=== PATIENT | male | born 1965 | race Hispanic/Latino ===

== ENCOUNTER 2016-08-08 20:30 | Observation (INO) | payer MEDICAID, OTHER ==
[2016-08-08 20:34] VITALS: BMI 22.8
[2016-08-08 20:38] VITALS: RESP 18; TEMP 98.1; O2SAT 99
--- NOTE | 2016-08-08 21:06 | ED PDOC ---
Arrival/HPI - General Historian: Patient - History of Present Illness Time/Duration: Prior to Arrival Quality: Other (no pain) <Demi Brown - Last Filed: 08/09/16 01:56> <Aftab Walters - Last Filed: 08/09/16 06:24> - General Chief Complaint: Alcohol Ingestion Time Seen by Provider: 08/08/16 20:37 - History of Present Illness Narrative History of Present Illness (Text): 08/08/16 21:03 50-year-old male presents today with acute alcohol intoxication. Patient admits to drinking alcohol today. States he fell. Denying any complaints. (Demi Brown) Past Medical History - Provider Review Nursing Documentation Reviewed: Yes - Travel History Have you recently traveled outside [place] w/in the past 3 mons?: No - Infectious Disease Hx of Infectious Diseases: None - Tetanus Immunization Tetanus Immunization: Unknown - Past Medical History Past Medical History: Unable to Obtain - Cardiac Hx Cardiac Disorders: Yes (CAD) Hx Hypertension: Yes - Pulmonary Hx Respiratory Disorders: Yes (SMOKED CIGARETTES QUIT 15 YRS AGO) - Neurological Hx Neurological Disorder: Yes Hx Transient Ischemic Attacks (TIA): Yes - HEENT Hx HEENT Disorder: No - Renal Hx Renal Disorder: No - Endocrine/Metabolic Hx Endocrine Disorders: No - Hematological/Oncological Hx Blood Disorders: No - Integumentary Hx Dermatological Disorder: No - Musculoskeletal/Rheumatological Hx Musculoskeletal Disorders: Yes Hx Falls: Yes (2 yrs ago fell 0ff ladder) - Gastrointestinal Hx Gastrointestinal Disorders: No - Genitourinary/Gynecological Hx Genitourinary Disorders: No - Psychiatric Hx Psychophysiologic Disorder: Yes (SMOKED CIGARETTES,ETOH ABUSE DRINKS VODKA 2 PINTS DAILY) Hx Depression: No Hx Emotional Abuse: No Hx Physical Abuse: No Hx Substance Use: No - Past Surgical History Past Surgical History: Unable to Obtain - Surgical History Hx Musculoskeletal Surgery: Yes (right hip and hand, facial fracture repair) Other/Comment: right wrist injury, bone marrow taken from right hip and inserted into fx bone in right hand along with metal, metal has since been removed, 23 yrs ago at [facility] [place] [facility] - Anesthesia Hx Anesthesia: Yes Hx Anesthesia Reactions: No Hx Malignant Hyperthermia: No - Suicidal Assessment Feels Threatened In Home Enviroment: No <Demi Brown - Last Filed: 08/09/16 01:56> Family/Social History - Physician Review Nursing Documentation Reviewed: Yes Family/Social History: Unknown Family HX Smoking Status: Former Smoker Hx Alcohol Use: Yes (DRINKS 2 PINTS OF VODKA DAILY. LAST DRANK 3 D AGO.2 PINTS OF VODKA AND LIQU) Frequency of alcohol use: Daily Hx Substance Use: No Hx Substance Use Treatment: No <KevinDemi T - Last Filed: 08/09/16 01:56> Allergies/Home Meds <Demi Brown - Last Filed: 08/09/16 01:56> <Aftab Walters - Last Filed: 08/09/16 06:24> Allergies/Adverse Reactions: Allergies coconut oil Allergy (Verified 03/17/16 16:11) RASH cranberry Allergy (Verified 03/17/16 16:11) SWELLING Home Medications: Home Meds Medication Instructions Recorded Confirmed Lisinopril [Zestril] 40 mg PO DAILY 07/12/15 03/17/16 amLODIPine [Norvasc] 10 mg PO DAILY 07/12/15 03/17/16 Review of Systems - Review of Systems Constitutional: absent: Fatigue, Fevers Respiratory: absent: SOB, Cough Cardiovascular: absent: Chest Pain, Palpitations Gastrointestinal: absent: Abdominal Pain, Nausea, Vomiting Musculoskeletal: absent: Arthralgias, Back Pain, Neck Pain Skin: absent: Rash Neurological: absent: Headache, Dizziness Psychiatric: absent: Suicidal Ideation <KevinDemi T - Last Filed: 08/09/16 01:56> Physical Exam Vital Signs Reviewed: Yes Temperature: Afebrile Blood Pressure: Hypertensive Pulse: Regular Respiratory Rate: Normal Appearance: Positive for: Well-Appearing, Non-Toxic, Comfortable Pain Distress: None Mental Status: Positive for: other (intoxicated) - Systems Exam Head: Present: Abrasion (top of scalp) Pupils: Present: PERRL Conjunctiva: Present: Normal Mouth: Present: Moist Mucous Membranes Neck: Present: Normal Range of Motion. No: MIDLINE TENDERNESS Respiratory/Chest: Present: Clear to Auscultation, Good Air Exchange. No: Respiratory Distress, Accessory Muscle Use Cardiovascular: Present: Regular Rate and Rhythm, Normal S1, S2. No: Murmurs Abdomen: Present: Normal Bowel Sounds. No: Tenderness, Distention, Peritoneal Signs, Rebound, Guarding Back: Present: Normal Inspection Upper Extremity: Present: Normal ROM Lower Extremity: Present: Normal ROM Skin: Present: Warm, Dry Psychiatric: Present: Alert, Intoxicated <Demi Brown - Last Filed: 08/09/16 01:56> Medical Decision Making <Demi Brown - Last Filed: 08/09/16 01:56> <Aftab Walters - Last Filed: 08/09/16 06:24> ED Course and Treatment: 08/08/16 21:28 Patient is nontoxic well-appearing in no distress vital signs are stable. pt admits to drinking ETOH. CBC WNL CMP WNL Alcohol level:[address]:FINDINGS: Artifacts: Streak artifact degrades image quality. Brain: Ventricles are normal in size and configuration. There is no midline shift. There are no intraaxial or extra-axial mass lesions or areas of hemorrhage. There are basal ganglia calcifications. There are no abnormal fluid collections. Vinson-white differentiation is maintained. Ventricles: See above. Bones: Cranial vault is intact. Soft tissues: unremarkable Sinuses: There is no acute sinusitis. Ears and mastoids: Middle ears and mastoids are unremarkable Orbits: Orbital contents are unremarkable. IMPRESSION: No acute intracranial abnormality ekg: Normal sinus rhythm at 73 bpm normal axis normal intervals no ST elevations 08/09/16 01:56 case signed out to dr. walters; pending sobriety. Impression;etoh intoxication. head injury increase fluids follow up with the primary care physician return if symptoms worsen,persist or if new symptoms develop. (Demi Brown) - RAD Interpretation Radiology Orders: 08/08/16 21:03 HEAD W/O CONTRAST [CT] Stat ED OBSERVATION Date of observation admission: 08/08/16 Time of observation admission: 21:05 <Demi Brown - Last Filed: 08/09/16 01:56> Discharge: Yes (Pt. is awake,alert,sober with steady gait.) <Aftab Walters - Last Filed: 08/09/16 06:24> - Observation admission statement Patient is being placed in observation because:: etoh intoxication (Demi Brown) - Goals of Observation Goals of observation are:: sobriety (Demi Brown) - Progress Note Progress Note: 08/08/16 23:02 pt resting comfortably; no distress. 08/09/16 00:47 pt resting comfortably; vitals stable. (Demi Brown) 08/09/16 02:00 Case endorsed to me by SIENA Brown pending soberity. 08/09/16 04:03 Patient is resting comfortably and in no acute distress. (Aftab Walters) - PA / CORPORATE STRATEGY ANALYST / 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 / has examined the patient and agrees with the treatment plan. <Aftab Walters - Last Filed: 08/09/16 06:24> Disposition/Present on Arrival - Present on Arrival Any Indicators Present on Arrival: No History of DVT/PE: No History of Uncontrolled Diabetes: No Urinary Catheter: No History of Decub. Ulcer: No History Surgical Site Infection Following: None - Disposition Have Diagnosis and Disposition been Completed?: Yes <Demi Brown - Last Filed: 08/09/16 01:56> - Present on Arrival Any Indicators Present on Arrival: No - Disposition Have Diagnosis and Disposition been Completed?: Yes Disposition Time: 06:24 Patient Plan: Discharge <Aftab Walters - Last Filed: 08/09/16 06:24> - Disposition Diagnosis: Alcohol abuse Disposition: HOME/ ROUTINE Patient Problems: Current Active Problems Problem Status Onset Alcohol abuse Acute Condition: GOOD
[2016-08-08 22:44] LABS: ADD MANUAL DIFF? NO
[2016-08-08 22:53] LABS: BASO # 0.02 K/mm3 (0.0-2.0); BASO % 0.2 % (0.0-3.0); EOS # 0.2 (0.0-0.7); EOS % 1.7 % (1.5-5.0); GRAN % 68.6 % (50.0-68.0); HEMATOCRIT 45.9 % (42.0-52.0); LYMPH # 2.1 (1.2-3.4); MEAN CELL VOLUME 89.8 fL (80.0-105.0); MEAN CORPUSCULAR HEMOGLOBIN 31.3 pg (25.0-35.0); MEAN CORPUSCULAR HGB CONC 34.9 g/dl (31.0-37.0); MEAN PLATELET VOLUME 9.4 fl (7.0-11.0); MONO # 0.5 (0.1-0.6); MONO % 5.5 % (1.0-6.0); PLATELET COUNT 315 10^3/uL (120.0-450.0); WHITE BLOOD COUNT 8.8 10^3/ul (4.5-11.0)
[2016-08-08 23:00] LABS: ALB/GLOB RATIO 1.1 (1.1-1.8); ALKALINE PHOSPHATASE 70 U/L (38-133); ALT/SGPT 34 U/L (7-56); AST/SGOT 33 U/L (15-59); BILIRUBIN,TOTAL 0.5 mg/dL (0.2-1.3); BLOOD UREA NITROGEN 12 mg/dL (7-21); CALCIUM 9.1 mg/dL (8.4-10.5); CARBON DIOXIDE 26 mmol/L (21-33); CHLORIDE 109 mmol/L (98-107); GFR AFRICAN-AMERICAN > 60; GLUCOSE,RANDOM 86 mg/dL (70-110); POTASSIUM 4.4 mmol/L (3.6-5.0); SODIUM 147 mmol/L (132-148); TOTAL PROTEIN 8.5 g/dL (5.8-8.3)
--- NOTE | 2016-08-09 00:09 | CT ---
EXAM: CT Head Without Intravenous Contrast CLINICAL HISTORY: 50 years old, male; Injury or trauma; Fall; Initial encounter; Blunt trauma (contusions or hematomas); Consciousness not specified; Additional info: ETOH head injury TECHNIQUE: Axial computed tomography images of the head/brain without intravenous contrast. This CT exam was performed using one or more of the following dose reduction techniques: automated exposure control, adjustment of the mA and/or kV according to patient size, and/or use of iterative reconstruction technique. EXAM DATE/TIME: 08/08/2016 9:03 PM COMPARISON: CT - HEAD W/O CONTRAST 03/17/2016 12:06:31 PM FINDINGS: Artifacts: Streak artifact degrades image quality. Brain: Ventricles are normal in size and configuration. There is no midline shift. There are no intra-axial or extra-axial mass lesions or areas of hemorrhage. There are basal ganglia calcifications. There are no abnormal fluid collections. Vinson-white differentiation is maintained. Ventricles: See above. Bones: Cranial vault is intact. Soft tissues: unremarkable Sinuses: There is no acute sinusitis. Ears and mastoids: Middle ears and mastoids are unremarkable Orbits: Orbital contents are unremarkable. IMPRESSION: No acute intracranial abnormality
[2016-08-09 05:22] VITALS: BP 132/70; PULSE 65
--- NOTE | 2016-08-09 12:07 | CARD ---
APPROVED REPORT EKG Measurement Heart [id number] [place] [id number] <Conclusion> Normal sinus rhythm Normal ECG
== END 2016-08-09 06:22 | disposition home or self-care (01) ==
LOC: ED 20:30 → EROBSV 21:04
PROVIDERS: ADMIT Emergency Medicine; ATTEND Emergency Medicine
DX: F10.10 Alcohol abuse, uncomplicated (principal); Y90.8 Blood alcohol level of 240 mg/100 ml or more
CPT/HCPCS: 36415; 70450; 80053; 80320; 82948; 85025; 93005; 99284; G0378

== ENCOUNTER 2016-08-25 21:26 | Observation (INO) | payer MEDICAID, OTHER ==
[2016-08-25 21:27] VITALS: BMI 22.8
--- NOTE | 2016-08-25 21:38 | ED PDOC ---
Arrival/HPI - General Historian: Patient <Demi Brown - Last Filed: 08/26/16 01:26> <Aftab Walters - Last Filed: 08/26/16 07:01> - General Chief Complaint: Alcohol Ingestion Time Seen by Provider: 08/25/16 21:27 - History of Present Illness Narrative History of Present Illness (Text): 08/25/16 21:35 50yr old male presents today with ETOH intoxication. pt states that he was drinking today. denies any complaints. EMS states they were called to patient sleeping on the ground. pt states he is unsure how he ended up on the ground. pt denies n/v/d. no abdominal pain. denies headache. no complaints. (Demi Brown) Past Medical History - Provider Review Nursing Documentation Reviewed: Yes - Travel History Have you recently traveled outside [place] w/in the past 3 mons?: No - Infectious Disease Hx of Infectious Diseases: None - Tetanus Immunization Tetanus Immunization: Unknown - Past Medical History Past Medical History: Unable to Obtain - Cardiac Hx Cardiac Disorders: Yes (CAD) Hx Hypertension: Yes - Pulmonary Hx Respiratory Disorders: Yes (SMOKED CIGARETTES QUIT 15 YRS AGO) - Neurological Hx Neurological Disorder: Yes Hx Transient Ischemic Attacks (TIA): Yes - HEENT Hx HEENT Disorder: No - Renal Hx Renal Disorder: No - Endocrine/Metabolic Hx Endocrine Disorders: No - Hematological/Oncological Hx Blood Disorders: No - Integumentary Hx Dermatological Disorder: No - Musculoskeletal/Rheumatological Hx Musculoskeletal Disorders: Yes Hx Falls: Yes (2 yrs ago fell 0ff ladder) - Gastrointestinal Hx Gastrointestinal Disorders: No - Genitourinary/Gynecological Hx Genitourinary Disorders: No - Psychiatric Hx Psychophysiologic Disorder: Yes (SMOKED CIGARETTES,ETOH ABUSE DRINKS VODKA 2 PINTS DAILY) Hx Depression: No Hx Emotional Abuse: No Hx Physical Abuse: No Hx Substance Use: No - Past Surgical History Past Surgical History: Unable to Obtain - Surgical History Hx Musculoskeletal Surgery: Yes (right hip and hand, facial fracture repair) Other/Comment: right wrist injury, bone marrow taken from right hip and inserted into fx bone in right hand along with metal, metal has since been removed, 23 yrs ago at [facility] - Anesthesia Hx Anesthesia: Yes Hx Anesthesia Reactions: No Hx Malignant Hyperthermia: No - Suicidal Assessment Feels Threatened In Home Enviroment: No <Demi Brown - Last Filed: 08/26/16 01:26> Family/Social History - Physician Review Nursing Documentation Reviewed: Yes Family/Social History: Unknown Family HX Smoking Status: Former Smoker Hx Alcohol Use: Yes (DRINKS 2 PINTS OF VODKA DAILY. LAST DRANK 3 D AGO.2 PINTS OF VODKA AND LIQU) Hx Substance Use: No Hx Substance Use Treatment: No <Pepito Brownbrittany Murphy - Last Filed: 08/26/16 01:26> Allergies/Home Meds <KevinDemi T - Last Filed: 08/26/16 01:26> <Aftab Walters - Last Filed: 08/26/16 07:01> Allergies/Adverse Reactions: Allergies coconut oil Allergy (Verified 03/17/16 16:11) RASH cranberry Allergy (Verified 03/17/16 16:11) SWELLING Home Medications: Home Meds Medication Instructions Recorded Confirmed Lisinopril [Zestril] 40 mg PO DAILY 07/12/15 03/17/16 amLODIPine [Norvasc] 10 mg PO DAILY 07/12/15 03/17/16 Review of Systems - Review of Systems Constitutional: absent: Fatigue, Fevers Respiratory: absent: SOB, Cough Cardiovascular: absent: Chest Pain Gastrointestinal: absent: Abdominal Pain, Nausea, Vomiting Genitourinary Male: absent: Dysuria Musculoskeletal: absent: Arthralgias, Back Pain, Neck Pain Neurological: absent: Headache, Dizziness Psychiatric: absent: Depression, Suicidal Ideation <Demi Brown Katherine - Last Filed: 08/26/16 01:26> Physical Exam Vital Signs Reviewed: Yes Temperature: Afebrile Blood Pressure: Hypertensive Pulse: Regular Respiratory Rate: Normal Appearance: Positive for: Well-Appearing, Non-Toxic, Comfortable Pain Distress: None Mental Status: Positive for: Alert and Oriented X 3 Finger Stick Blood Glucose: 83 - Systems Exam Head: Present: Atraumatic Mouth: Present: Moist Mucous Membranes Neck: Present: Normal Range of Motion Respiratory/Chest: Present: Clear to Auscultation, Good Air Exchange. No: Respiratory Distress, Accessory Muscle Use Cardiovascular: Present: Regular Rate and Rhythm, Normal S1, S2. No: Murmurs Abdomen: Present: Normal Bowel Sounds. No: Tenderness, Distention, Peritoneal Signs, Rebound, Guarding Upper Extremity: Present: Normal ROM Lower Extremity: Present: Normal ROM Skin: Present: Warm, Dry, Normal Color. No: Rashes Psychiatric: Present: Alert, Intoxicated <Demi Brown - Last Filed: 08/26/16 01:26> Medical Decision Making <Demi Brown - Last Filed: 08/26/16 01:26> <Aftab Walters - Last Filed: 08/26/16 07:01> ED Course and Treatment: 08/25/16 22:09 50 yr old male with ETOH intoxication. denies any complaints. covered in dirt along entire back of clothing. alert, oriented; intoxicated. admits to drinking alcohol tonight. will place patient on ed observation pending sobriety. fingerstick: 83 ct head: FINDINGS: Stable mild frontal atrophy. No intracranial hemorrhage. No extra axial collections. No intracranial edema. Minimal mucosal thickening of the ethmoid sinuses. No depressed fractures. IMPRESSION: No acute intracranial injury. 08/26/16 01:27 pt resting comfortably in er; Denies any complaints. will continue to observe for sobriety. case signed out to dr. walters pending sobriety. (Demi Brown) ED OBSERVATION Date of observation admission: 08/25/16 Time of observation admission: 22:00 <Demi Brown - Last Filed: 08/26/16 01:26> Discharge: Yes <Aftab Walters - Last Filed: 08/26/16 07:01> - Observation admission statement Patient is being placed in observation because:: alcohol intoxication (Demi Brown) - Goals of Observation Goals of observation are:: sobriety (Demi Brown) - Progress Note Progress Note: 08/26/16 00:00 pt sleeping in er; distress 08/26/16 01:29 pt resting comfortably; again denies any complaints; (Demi Brown) 08/26/16 02:00 Pt resting comfortably; again denies any complaints 08/26/16 04:00 Pt resting comfortably; again denies any complaints 08/26/16 06:00 Pt resting comfortably; again denies any complaints 08/26/16 07:00 Pt awake, alert, and ambulating with steady gait. Clinically sober. Pt stable for d/c. (Aftab Walters) - PA / CLIENT DEVELOPMENT MANAGER / 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 / has examined the patient and agrees with the treatment plan. <Aftab Walters - Last Filed: 08/26/16 07:01> Disposition/Present on Arrival - Present on Arrival Any Indicators Present on Arrival: No History of DVT/PE: No History of Uncontrolled Diabetes: No Urinary Catheter: No History of Decub. Ulcer: No History Surgical Site Infection Following: None <Demi Brown - Last Filed: 08/26/16 01:26> - Present on Arrival Any Indicators Present on Arrival: No - Disposition Have Diagnosis and Disposition been Completed?: Yes Disposition Time: 07:01 Patient Plan: Discharge <Aftab Walters - Last Filed: 08/26/16 07:01> - Disposition Diagnosis: Alcohol abuse Disposition: HOME/ ROUTINE Patient Problems: Current Active Problems Problem Status Onset Alcohol abuse Acute Condition: GOOD
[2016-08-25 21:47] VITALS: BP 152/100; PULSE 79; RESP 20; TEMP 97.8; O2SAT 99
--- NOTE | 2016-08-26 00:28 | CT ---
EXAM: CT Head Without Intravenous Contrast CLINICAL HISTORY: 50 years old, male; Injury or trauma; Fall; Initial encounter; Abrasion; Head, generalized; Additional info: Etoh/fall TECHNIQUE: Axial computed tomography images of the head/brain without intravenous contrast. This CT exam was performed using one or more of the following dose reduction techniques: automated exposure control, adjustment of the mA and/or kV according to patient size, and/or use of iterative reconstruction technique. EXAM DATE/TIME: 08/25/2016 10:04 PM COMPARISON: CT - HEAD W/O CONTRAST 08/08/2016 11:39:09 PM FINDINGS: Stable mild frontal atrophy. No intracranial hemorrhage. No extra axial collections. No intracranial edema. Minimal mucosal thickening of the ethmoid sinuses. No depressed fractures. IMPRESSION: No acute intracranial injury.
== END 2016-08-26 06:58 | disposition home or self-care (01) ==
LOC: ED 21:26 → EROBSV 22:00
PROVIDERS: ADMIT Emergency Medicine; ATTEND Emergency Medicine
DX: F10.10 Alcohol abuse, uncomplicated (principal)
CPT/HCPCS: 70450; 99282; G0378

== ENCOUNTER 2016-09-09 19:03 | Observation (INO) | payer MEDICAID, OTHER ==
[2016-09-09 19:15] VITALS: TEMP 98.9
--- NOTE | 2016-09-09 21:58 | ED PDOC ---
Arrival/HPI <Aftab Walters - Last Filed: 09/10/16 06:21> - General Historian: Patient, EMS - History of Present Illness Time/Duration: Other (today) Symptom Onset: Gradual Symptom Course: Unchanged Activities at Onset: Rest, Light Context: Street <Demi Brown - Last Filed: 09/12/16 18:51> - General Chief Complaint: Alcohol Ingestion Time Seen by Provider: 09/09/16 19:14 - History of Present Illness Narrative History of Present Illness (Text): 09/09/16 19:27 50 year old male who presents to the Emergency department brought in by EMS after he was found sleeping outside of a [employer] tonight. Patient admits to drinking alcohol tonight, states he drinks alcohol regularly and has a drinking problem. Patient denies any recent trauma, chest pain, shortness of breath, nausea, vomiting, diarrhea, urinary symptoms, back pain, neck pain, headache, dizziness, or any other complaints. (Demi Brown) Past Medical History - Provider Review Nursing Documentation Reviewed: Yes - Infectious Disease Hx of Infectious Diseases: None - Tetanus Immunization Tetanus Immunization: Unknown - Past Medical History Past Medical History: Unable to Obtain - Cardiac Hx Cardiac Disorders: Yes (CAD) Hx Hypertension: Yes - Pulmonary Hx Respiratory Disorders: Yes (SMOKED CIGARETTES QUIT 15 YRS AGO) - Neurological Hx Neurological Disorder: Yes Hx Transient Ischemic Attacks (TIA): Yes - HEENT Hx HEENT Disorder: No - Renal Hx Renal Disorder: No - Endocrine/Metabolic Hx Endocrine Disorders: No - Hematological/Oncological Hx Blood Disorders: No - Integumentary Hx Dermatological Disorder: No - Musculoskeletal/Rheumatological Hx Musculoskeletal Disorders: Yes Hx Falls: Yes (2 yrs ago fell 0ff ladder) - Gastrointestinal Hx Gastrointestinal Disorders: No - Genitourinary/Gynecological Hx Genitourinary Disorders: No - Psychiatric Hx Psychophysiologic Disorder: Yes (SMOKED CIGARETTES,ETOH ABUSE DRINKS VODKA 2 PINTS DAILY) Hx Depression: No Hx Emotional Abuse: No Hx Physical Abuse: No Hx Substance Use: No - Past Surgical History Past Surgical History: Unable to Obtain - Surgical History Hx Musculoskeletal Surgery: Yes (right hip and hand, facial fracture repair) Other/Comment: right wrist injury, bone marrow taken from right hip and inserted into fx bone in right hand along with metal, metal has since been removed, [address] [facility] - Anesthesia Hx Anesthesia: Yes Hx Anesthesia Reactions: No Hx Malignant Hyperthermia: No - Suicidal Assessment Feels Threatened In Home Enviroment: No <Demi Brown - Last Filed: 09/12/16 18:51> Family/Social History - Physician Review Nursing Documentation Reviewed: Yes Family/Social History: Unknown Family HX Smoking Status: Former Smoker Hx Alcohol Use: Yes (DRINKS 2 PINTS OF VODKA DAILY. LAST DRANK 3 D AGO.2 PINTS OF VODKA AND LIQU) Hx Substance Use: No Hx Substance Use Treatment: No <Demi Brown - Last Filed: 09/12/16 18:51> Allergies/Home Meds <Aftab Walters - Last Filed: 09/10/16 06:21> <Demi Brown - Last Filed: 09/12/16 18:51> Allergies/Adverse Reactions: Allergies coconut oil Allergy (Verified 09/12/16 17:32) RASH cranberry Allergy (Verified 09/12/16 17:32) SWELLING Home Medications: Home Meds Medication Instructions Recorded Confirmed Lisinopril [Zestril] 40 mg PO DAILY 07/12/15 09/09/16 amLODIPine [Norvasc] 10 mg PO DAILY 07/12/15 09/09/16 Review of Systems - Physician Review All systems were reviewed & negative as marked: Yes - Review of Systems Constitutional: Normal. absent: Fevers Eyes: Normal ENT: Normal Respiratory: Normal. absent: SOB, Cough Cardiovascular: Normal. absent: Chest Pain Gastrointestinal: Normal. absent: Abdominal Pain, Diarrhea, Nausea, Vomiting Genitourinary Male: Normal. absent: Dysuria, Frequency, Hematuria, Urinary Output Changes Musculoskeletal: Normal. absent: Back Pain, Neck Pain Skin: Normal. absent: Rash Neurological: Normal. absent: Headache, Dizziness Endocrine: Normal Hemo/Lymphatic: Normal Psychiatric: Other (+alcohol abuse) <Demi Brown - Last Filed: 09/12/16 18:51> Physical Exam Vital Signs Reviewed: Yes Temperature: Afebrile Blood Pressure: Normal Pulse: Regular Respiratory Rate: Normal Appearance: Positive for: Well-Appearing, Comfortable Pain Distress: None Mental Status: Positive for: Alert and Oriented X 3 Finger Stick Blood Glucose: 83 - Systems Exam Head: Present: Atraumatic, Normocephalic Pupils: Present: PERRL Extroacular Muscles: Present: EOMI Conjunctiva: Present: Normal Mouth: Present: Moist Mucous Membranes Neck: Present: Normal Range of Motion Respiratory/Chest: Present: Clear to Auscultation, Good Air Exchange. No: Respiratory Distress, Accessory Muscle Use Cardiovascular: Present: Regular Rate and Rhythm, Normal S1, S2. No: Murmurs Abdomen: Present: Normal Bowel Sounds. No: Tenderness, Distention, Peritoneal Signs Upper Extremity: Present: Normal Inspection. No: Cyanosis, Edema Lower Extremity: Present: Normal Inspection. No: Edema Neurological: Present: GCS=15, Speech Normal Skin: Present: Warm, Dry, Normal Color. No: Rashes Psychiatric: Present: Alert, Oriented x 3, Normal Insight, Normal Concentration <Demi Brown - Last Filed: 09/12/16 18:51> Vital Signs Temp Pulse Resp BP Pulse Ox 09/10/16 05:34 75 16 136/81 99 09/10/16 02:00 61 16 137/84 94 L 09/09/16 22:28 78 18 125/78 98 09/09/16 19:07 98.9 F 98 H 20 136/88 99 Medical Decision Making <Aftab Walters - Last Filed: 09/10/16 06:21> <Demi Brown - Last Filed: 09/12/16 18:51> ED Course and Treatment: 09/09/16 19:27 Impression: 50 year old male brought in for alcohol intoxication. fingerstick 83 Differential Diagnosis included but are not limited to: alcohol intoxication Plan: -- Reassess and disposition 09/10/16 01:49 pt sleeping in er; no distress. case signed out to dr. walters pending sobriety and disposition. impression; etoh intoxication (Demi Brown) ED OBSERVATION Discharge: Yes <Aftab Walters - Last Filed: 09/10/16 06:21> Date of observation admission: 09/09/16 Time of observation admission: 19:27 <Demi Brown - Last Filed: 09/12/16 18:51> - Observation admission statement Patient is being placed in observation because:: alcohol abuse (Demi Brown) - Goals of Observation Goals of observation are:: sobriety, observe for signs of withdrawal (Demi Brown) - Progress Note Progress Note: 09/10/16 03:03 Pt sleeping, in no acute distress. 09/10/16 05:00 Pt resting comfortably, no new complaints. 09/10/16 06:19 Pt awake, alert, ambulating with steady gait. Pt stable for d/c. (Aftab Walters) 09/09/16 19:27 Pt awake, in no acute distress. Will observe pending sobriety. Fingerstick in ER : 83. 09/09/16 21:27 Pt resting comfortably, no new complaints. Easily arousable. 09/09/16 23:16 no distress. sleeping in er. 09/10/16 01:03 resting comfortably; no distress. (Demi Brown) - PA / COMMERCIAL PHOTOGRAPHER / Resident Statement MD/DO has reviewed & agrees with the documentation as recorded. MD/DO has examined the patient and agrees with the treatment plan. <Aftab Walters - Last Filed: 09/10/16 06:21> - Scribe Statement The provider has reviewed the documentation as recorded by the Scribe <Demi Brown - Last Filed: 09/12/16 18:51> - Scribe Statement Camryn Sanchez All medical record entries made by the Scribe were at my direction and personally dictated by me. I have reviewed the chart and agree that the record accurately reflects my personal performance of the history, physical exam, medical decision making, and the department course for this patient. I have also personally directed, reviewed, and agree with the discharge instructions and disposition. (Demi Brown) Disposition/Present on Arrival - Present on Arrival Any Indicators Present on Arrival: No - Disposition Have Diagnosis and Disposition been Completed?: Yes Disposition Time: 06:20 Patient Plan: Discharge <Aftab Walters - Last Filed: 09/10/16 06:21> - Present on Arrival Any Indicators Present on Arrival: No History of DVT/PE: No History of Uncontrolled Diabetes: No Urinary Catheter: No History of Decub. Ulcer: No History Surgical Site Infection Following: None - Disposition Have Diagnosis and Disposition been Completed?: Yes <Demi Brown - Last Filed: 09/12/16 18:51> - Disposition Diagnosis: Alcohol abuse Disposition: HOME/ ROUTINE Condition: STABLE
[2016-09-10 04:12] VITALS: RESP 16
[2016-09-10 05:36] VITALS: BP 136/81; PULSE 75; O2SAT 99
[2016-09-10 05:37] VITALS: BMI 20.9
== END 2016-09-10 06:19 | disposition home or self-care (01) ==
LOC: ED 19:03 → EROBSV 19:27
PROVIDERS: ADMIT Emergency Medicine; ATTEND Emergency Medicine
DX: F10.10 Alcohol abuse, uncomplicated (principal)
CPT/HCPCS: 82948; 99283; G0378

== ENCOUNTER 2016-09-12 13:17 | Observation (INO) | payer MEDICAID ==
[2016-09-12 13:43] VITALS: TEMP 98.1; BMI 21.5
--- NOTE | 2016-09-12 14:21 | ED PDOC ---
Arrival/HPI - General Chief Complaint: Alcohol Ingestion Time Seen by Provider: 09/12/16 13:23 Historian: Patient EM Caveat: Intoxicated - History of Present Illness Narrative History of Present Illness (Text): 09/12/16 14:00 David Larsen is a 50 year old male whose past medical history includes ETOH abuse, hypertension, and previous TIA's, is brought in by EMS, and report patient was eating at [employer] and was noted to suddenly fall asleep. There was ETOH presence on breath and patient admits to having drank this morning. Patient denies chest pain, shortness of breath, dizziness, lightheadedness, headache, nausea, vomiting, diarrhea, fever, chills, cough, visual changes, tongue biting, bowel/bladder incontinence or head injury. Time/Duration: Prior to Arrival Symptom Onset: Sudden Symptom Course: Unchanged Activities at Onset: Eating Modifying Factors (Text): None Associated Symptoms (Text): None Past Medical History - Provider Review Nursing Documentation Reviewed: Yes - Infectious Disease Hx of Infectious Diseases: None - Tetanus Immunization Tetanus Immunization: Unknown - Past Medical History Past Medical History: Unable to Obtain - Cardiac Hx Cardiac Disorders: Yes (CAD) Hx Hypertension: Yes - Pulmonary Hx Respiratory Disorders: Yes (SMOKED CIGARETTES QUIT 15 YRS AGO) - Neurological Hx Neurological Disorder: Yes Hx Transient Ischemic Attacks (TIA): Yes - HEENT Hx HEENT Disorder: No - Renal Hx Renal Disorder: No - Endocrine/Metabolic Hx Endocrine Disorders: No - Hematological/Oncological Hx Blood Disorders: No - Integumentary Hx Dermatological Disorder: No - Musculoskeletal/Rheumatological Hx Musculoskeletal Disorders: Yes Hx Falls: Yes (2 yrs ago fell 0ff ladder) - Gastrointestinal Hx Gastrointestinal Disorders: No - Genitourinary/Gynecological Hx Genitourinary Disorders: No - Psychiatric Hx Psychophysiologic Disorder: Yes (SMOKED CIGARETTES,ETOH ABUSE DRINKS VODKA 2 PINTS DAILY) Hx Depression: No Hx Emotional Abuse: No Hx Physical Abuse: No Hx Substance Use: No - Past Surgical History Past Surgical History: Unable to Obtain - Surgical History Hx Musculoskeletal Surgery: Yes (right hip and hand, facial fracture repair) Other/Comment: right wrist injury, bone marrow taken from right hip and inserted into fx bone in right hand along with metal, metal has since been removed, 23 yrs ago at [facility] - Anesthesia Hx Anesthesia: Yes Hx Anesthesia Reactions: No Hx Malignant Hyperthermia: No - Suicidal Assessment Feels Threatened In Home Enviroment: No Family/Social History - Physician Review Nursing Documentation Reviewed: Yes Family/Social History: Unknown Family HX Smoking Status: Former Smoker Hx Alcohol Use: Yes (DRINKS 2 PINTS OF VODKA DAILY. LAST DRANK 3 D AGO.2 PINTS OF VODKA AND LIQU) Hx Substance Use: No Hx Substance Use Treatment: No Allergies/Home Meds Allergies/Adverse Reactions: Allergies coconut oil Allergy (Verified 09/12/16 17:32) RASH cranberry Allergy (Verified 09/12/16 17:32) SWELLING Home Medications: Home Meds Medication Instructions Recorded Confirmed Lisinopril [Zestril] 40 mg PO DAILY 07/12/15 09/09/16 amLODIPine [Norvasc] 10 mg PO DAILY 07/12/15 09/09/16 Review of Systems - Physician Review All systems were reviewed & negative as marked: Yes - Review of Systems Systems not reviewed;Unavailable: Intoxicated Constitutional: absent: Fevers Respiratory: absent: SOB Cardiovascular: absent: Chest Pain Neurological: absent: Headache, Focal Weakness Physical Exam - Physical Exam Physical Exam Limitations: Intoxication Vital Signs Temp Pulse Resp BP Pulse Ox 09/12/16 15:56 90 20 131/77 98 09/12/16 13:38 98.1 F 90 19 138/66 95 Temperature: Afebrile Blood Pressure: Normal Pulse: Regular Respiratory Rate: Normal Appearance: Positive for: Well-Appearing, Non-Toxic, Comfortable Pain Distress: None Mental Status: Positive for: other (Intoxicated but oriented x 3) Finger Stick Blood Glucose: 123 - Systems Exam Head: Present: Atraumatic, Normocephalic Pupils: Present: PERRL Extroacular Muscles: Present: EOMI Conjunctiva: Present: Normal Mouth: Present: Moist Mucous Membranes Pharnyx: Present: Normal. No: ERYTHEMA, EXUDATE Neck: Present: Normal Range of Motion Respiratory/Chest: Present: Clear to Auscultation, Good Air Exchange. No: Respiratory Distress, Accessory Muscle Use Cardiovascular: Present: Regular Rate and Rhythm, Normal S1, S2. No: Murmurs Abdomen: Present: Normal Bowel Sounds. No: Tenderness, Distention, Peritoneal Signs Back: Present: Normal Inspection Upper Extremity: Present: Normal Inspection. No: Cyanosis, Edema Lower Extremity: Present: Normal Inspection. No: Edema Neurological: Present: GCS=15, CN II-XII Intact, Speech Normal Skin: Present: Warm, Dry, Normal Color. No: Rashes Psychiatric: Present: Oriented x 3, Intoxicated (ETOH present in breath) Medical Decision Making ED Course and Treatment: 09/12/16 14:00 Impression: 50 year old male with ETOH intoxication. No history or evidence of trauma or SI. Plan: -- EKG -- Reassess and disposition -- Observation - EKG Interpretation Interpreted by ED Physician: Yes Type: 12 lead EKG ED OBSERVATION Discharge: Yes Date of observation admission: 09/12/16 Time of observation admission: 14:00 - Observation admission statement Patient is being placed in observation because:: ETOH public intoxication - Goals of Observation Goals of observation are:: Sobriety - Progress Note Progress Note: 09/12/16 14:00 Patient is currently being observed waiting for sobriety and the following plans will be established: -- EKG 09/12/16 15:10 EKG: Ordered, reviewed, and independently interpreted the EKG. Rate : 83 BPM Rhythm : NSR Interpretation : No ST-segment elevations or depressions, no T-wave inversions, normal intervals. No changes from previous EKG. Comparison: 08/09/2015 09/12/16 15:55 Patient appears to be comfortable and is still showing signs of intoxication. 09/12/16 17:31 Patient now is fully awake, alert, and oriented x 3 with normal speech and gait and is clinically fully sober - no concerns or symptoms at this time - will d/c home. - Scribe Statement The provider has reviewed the documentation as recorded by the Scribe 09/12/2016 Tish Maloney MD Scribe Attestation: All medical record entries made by the Scribe were at my direction and personally dictated by me. I have reviewed the chart and agree that the record accurately reflects my personal performance of the history, physical exam, medical decision making, and the department course for this patient. I have also personally directed, reviewed, and agree with the discharge instructions and disposition. Disposition/Present on Arrival - Present on Arrival Any Indicators Present on Arrival: No History of DVT/PE: No History of Uncontrolled Diabetes: No Urinary Catheter: No History of Decub. Ulcer: No History Surgical Site Infection Following: None - Disposition Have Diagnosis and Disposition been Completed?: Yes Diagnosis: Alcohol intoxication Disposition: HOME/ ROUTINE Disposition Time: 17:30 Patient Plan: Discharge Patient Problems: Current Active Problems Problem Status Onset Alcohol intoxication Acute Condition: GOOD
[2016-09-12 17:57] VITALS: BP 124/74; PULSE 78; RESP 18; O2SAT 97
--- NOTE | 2016-09-13 09:48 | CARD ---
APPROVED REPORT EKG Measurement Heart [id number] <Conclusion> Normal sinus rhythm STTW changes c/w ischemia, new
--- NOTE | 2016-09-13 09:50 | CARD ---
APPROVED REPORT EKG Measurement Heart [id number] <Conclusion> Normal sinus rhythm Mild NSSTW changes
== END 2016-09-12 17:35 | disposition home or self-care (01) ==
LOC: ED 13:17 → EROBSV 14:00
PROVIDERS: ADMIT Emergency Medicine; ATTEND Emergency Medicine
DX: F10.129 Alcohol abuse with intoxication, unspecified (principal); I10 Essential (primary) hypertension; Z86.73 Personal history of transient ischemic attack (TIA), and cerebral infarction without residual deficits; Z87.891 Personal history of nicotine dependence
CPT/HCPCS: 93005; 99283; G0378

== ENCOUNTER 2016-09-18 20:23 | Observation (INO) | payer MEDICAID ==
[2016-09-18 20:26] VITALS: BMI 22.8
[2016-09-18 20:31] VITALS: PULSE 69; RESP 18; TEMP 97.7; O2SAT 98
--- NOTE | 2016-09-18 20:44 | ED PDOC ---
Arrival/HPI - General Chief Complaint: Alcohol Ingestion Time Seen by Provider: 09/18/16 20:27 Historian: Patient, EMS - History of Present Illness Narrative History of Present Illness (Text): 09/18/16 20:41 A 50 year old male, whose past medical history includes alcohol abuse, is brought into the emergency department by EMS for public intoxication. Patient admits to drinking alcohol today. Patient denies any pain or discomfort. Patient denies any trauma, injury, fever, chills, nausea, vomiting, abdominal pain, chest pain, shortness of breath, suicidal ideation, homicidal ideation or any other complaints. Time/Duration: Prior to Arrival Symptom Course: Unchanged Quality: Other Context: Street Past Medical History - Provider Review Nursing Documentation Reviewed: Yes - Infectious Disease Hx of Infectious Diseases: None - Tetanus Immunization Tetanus Immunization: Unknown - Past Medical History Past Medical History: Unable to Obtain - Cardiac Hx Cardiac Disorders: Yes (CAD) Hx Hypertension: Yes - Pulmonary Hx Respiratory Disorders: Yes (SMOKED CIGARETTES QUIT 15 YRS AGO) - Neurological Hx Neurological Disorder: Yes Hx Transient Ischemic Attacks (TIA): Yes - HEENT Hx HEENT Disorder: No - Renal Hx Renal Disorder: No - Endocrine/Metabolic Hx Endocrine Disorders: No - Hematological/Oncological Hx Blood Disorders: No - Integumentary Hx Dermatological Disorder: No - Musculoskeletal/Rheumatological Hx Musculoskeletal Disorders: Yes Hx Falls: Yes (2 yrs ago fell 0ff ladder) - Gastrointestinal Hx Gastrointestinal Disorders: No - Genitourinary/Gynecological Hx Genitourinary Disorders: No - Psychiatric Hx Psychophysiologic Disorder: Yes (SMOKED CIGARETTES,ETOH ABUSE DRINKS VODKA 2 PINTS DAILY) Hx Depression: No Hx Emotional Abuse: No Hx Physical Abuse: No Hx Substance Use: No - Past Surgical History Past Surgical History: Unable to Obtain - Surgical History Hx Musculoskeletal Surgery: Yes (right hip and hand, facial fracture repair) Other/Comment: right wrist injury, bone marrow taken from right hip and inserted into fx bone in right hand along with metal, metal has since been removed, 23 yrs ago at [facility] - Anesthesia Hx Anesthesia: Yes Hx Anesthesia Reactions: No Hx Malignant Hyperthermia: No - Suicidal Assessment Feels Threatened In Home Enviroment: No Family/Social History - Physician Review Nursing Documentation Reviewed: Yes Family/Social History: No Known Family HX Smoking Status: Former Smoker Hx Alcohol Use: Yes (DRINKS 2 PINTS OF VODKA DAILY. LAST DRANK 3 D AGO.2 PINTS OF VODKA AND LIQU) Frequency of alcohol use: Daily Hx Substance Use: No Hx Substance Use Treatment: No Allergies/Home Meds Allergies/Adverse Reactions: Allergies coconut oil Allergy (Verified 09/12/16 17:32) RASH cranberry Allergy (Verified 09/12/16 17:32) SWELLING Home Medications: Home Meds Medication Instructions Recorded Confirmed Lisinopril [Zestril] 40 mg PO DAILY 07/12/15 09/09/16 amLODIPine [Norvasc] 10 mg PO DAILY 07/12/15 09/09/16 Review of Systems - Review of Systems Systems not reviewed;Unavailable: Intoxicated Physical Exam Vital Signs Reviewed: Yes Vital Signs Temp Pulse Resp BP Pulse Ox 09/19/16 01:59 69 18 129/93 H 98 09/18/16 20:30 97.7 F 69 18 154/103 H 98 Temperature: Afebrile Blood Pressure: Hypertensive Pulse: Regular Respiratory Rate: Normal Appearance: Positive for: Other (Intoxicated male) Pain Distress: None Mental Status: No: Agitated, Lethargic Finger Stick Blood Glucose: 89 - Systems Exam Head: Present: Atraumatic, Normocephalic Pupils: Present: PERRL Extroacular Muscles: Present: EOMI Conjunctiva: Present: Normal Mouth: Present: Moist Mucous Membranes Pharnyx: No: ERYTHEMA, EXUDATE, TONSILS ENLARGED Neck: Present: Normal Range of Motion Respiratory/Chest: Present: Clear to Auscultation, Good Air Exchange. No: Respiratory Distress, Accessory Muscle Use Cardiovascular: Present: Regular Rate and Rhythm, Normal S1, S2. No: Murmurs Abdomen: Present: Normal Bowel Sounds. No: Tenderness, Distention, Peritoneal Signs Back: Present: Normal Inspection Upper Extremity: Present: Normal Inspection, Normal ROM, NORMAL PULSES. No: Cyanosis, Edema Lower Extremity: Present: Normal Inspection, NORMAL PULSES, Normal ROM. No: Edema Skin: Present: Warm, Dry, Normal Color. No: Rashes Psychiatric: Present: Alert (and awake on exam), Intoxicated Medical Decision Making ED Course and Treatment: 09/18/16 20:41 Impression: A 50 year old male brought in for public intoxication. Patient denies any pain or discomfort. Differential Diagnosis included but are not limited to: Alcohol intoxication ED OBSERVATION Discharge: Yes Date of observation admission: 09/18/16 Time of observation admission: 20:30 - Observation admission statement Patient is being placed in observation because:: Alcohol intoxication - Goals of Observation Goals of observation are:: Sobriety - Progress Note Progress Note: 09/18/16 20:30 Patient brought in by EMS for alcohol intoxication. Will observe pending sobriety. 09/18/16 22:30 Patient currently sleeping, in no acute distress. 09/19/16 02:16 Patient is currently awake, alert, and has a steady gait. No other complaints have been made. - Scribe Statement The provider has reviewed the documentation as recorded by the Teeibteagan Pereyra Provider Scribe Attestation: All medical record entries made by the Scribe were at my direction and personally dictated by me. I have reviewed the chart and agree that the record accurately reflects my personal performance of the history, physical exam, medical decision making, and the department course for this patient. I have also personally directed, reviewed, and agree with the discharge instructions and disposition. Disposition/Present on Arrival - Present on Arrival Any Indicators Present on Arrival: No History of DVT/PE: No History of Uncontrolled Diabetes: No Urinary Catheter: No History of Decub. Ulcer: No History Surgical Site Infection Following: None - Disposition Have Diagnosis and Disposition been Completed?: Yes Diagnosis: Alcohol abuse Disposition: HOME/ ROUTINE Disposition Time: :16 Patient Plan: Discharge Patient Problems: Current Active Problems Problem Status Onset Alcohol abuse Acute Condition: GOOD
[2016-09-19 01:59] VITALS: BP 129/93
== END 2016-09-19 02:15 | disposition home or self-care (01) ==
LOC: ED 20:23 → EROBSV 20:30
PROVIDERS: ADMIT Emergency Medicine; ATTEND Emergency Medicine
DX: F10.10 Alcohol abuse, uncomplicated (principal)
CPT/HCPCS: 82948; 99283; G0378

== ENCOUNTER 2016-09-19 08:15 | Observation (INO) | payer MEDICAID ==
[2016-09-19 08:15] VITALS: BMI 22.8
[2016-09-19 08:28] VITALS: TEMP 97
--- NOTE | 2016-09-19 08:50 | ED PDOC ---
Arrival/HPI - General Chief Complaint: Alcohol Ingestion Time Seen by Provider: 09/19/16 08:18 Historian: Patient - History of Present Illness Narrative History of Present Illness (Text): 09/19/16 08:37 A 50 year old male, whose past medical history includes alcohol abuse, presents to the emergency department complaining of alcohol intoxication since this morning. Patient states he drank a lot last morning and last night. He also admits that he drinks alcohol daily. Patient denies of suicidal ideation, homicidal ideation, or any other complaints. PMD: Not given Time/Duration: Prior to Arrival Symptom Course: Unchanged Activities at Onset: Rest, Light Past Medical History - Provider Review Nursing Documentation Reviewed: Yes - Infectious Disease Hx of Infectious Diseases: None - Tetanus Immunization Tetanus Immunization: Unknown - Past Medical History Past Medical History: Unable to Obtain - Cardiac Hx Cardiac Disorders: Yes (CAD) Hx Hypertension: Yes - Pulmonary Hx Respiratory Disorders: No - Neurological Hx Neurological Disorder: Yes Hx Transient Ischemic Attacks (TIA): Yes - HEENT Hx HEENT Disorder: No - Renal Hx Renal Disorder: No - Endocrine/Metabolic Hx Endocrine Disorders: No - Hematological/Oncological Hx Blood Disorders: No - Integumentary Hx Dermatological Disorder: No - Musculoskeletal/Rheumatological Hx Musculoskeletal Disorders: Yes Hx Falls: Yes (2 yrs ago fell 0ff ladder) - Gastrointestinal Hx Gastrointestinal Disorders: No - Genitourinary/Gynecological Hx Genitourinary Disorders: No - Psychiatric Hx Psychophysiologic Disorder: No Hx Depression: No Hx Emotional Abuse: No Hx Physical Abuse: No Hx Substance Use: No - Past Surgical History Past Surgical History: Unable to Obtain - Surgical History Hx Musculoskeletal Surgery: Yes (right hip and hand, facial fracture repair) Other/Comment: right wrist injury, bone marrow taken from right hip and inserted into fx bone in right hand along with metal, metal has since been removed, 23 yrs ago at [facility] [place] - Anesthesia Hx Anesthesia: Yes Hx Anesthesia Reactions: No Hx Malignant Hyperthermia: No - Suicidal Assessment Feels Threatened In Home Enviroment: No Family/Social History - Physician Review Nursing Documentation Reviewed: Yes Family/Social History: No Known Family HX Smoking Status: Former Smoker Hx Alcohol Use: Yes (DRINKS 2 PINTS OF VODKA DAILY. LAST DRANK 3 D AGO.2 PINTS OF VODKA AND LIQU) Frequency of alcohol use: Daily Hx Substance Use: No Hx Substance Use Treatment: No Allergies/Home Meds Allergies/Adverse Reactions: Allergies coconut oil Allergy (Verified 09/19/16 08:24) RASH cranberry Allergy (Verified 09/19/16 08:24) SWELLING Home Medications: Home Meds Medication Instructions Recorded Confirmed Unobtainable 09/19/16 09/19/16 Review of Systems - Physician Review All systems were reviewed & negative as marked: Yes - Review of Systems Gastrointestinal: absent: Diarrhea, Nausea, Vomiting Neurological: absent: Headache, Dizziness Psychiatric: absent: Suicidal Ideation, Other (homicidal ideation) Physical Exam Vital Signs Temp Pulse Resp BP Pulse Ox 09/19/16 13:33 80 18 140/87 96 09/19/16 11:54 79 18 141/84 95 09/19/16 10:15 69 18 139/83 96 09/19/16 08:45 18 165/100 H 98 09/19/16 08:27 97 F L 86 16 158/111 H 98 Temperature: Afebrile Blood Pressure: Hypertensive Pulse: Regular Respiratory Rate: Normal Appearance: Positive for: Well-Appearing, Other (slurred speech) Mental Status: Positive for: Alert and Oriented X 3 - Systems Exam Head: Present: Atraumatic, Normocephalic Pupils: Present: PERRL Extroacular Muscles: Present: EOMI Conjunctiva: Present: Normal Mouth: Present: Normal Tounge (no tongue fasciculation), Other (alcohol breath) Neck: Present: Normal Range of Motion Respiratory/Chest: Present: Clear to Auscultation, Good Air Exchange. No: Respiratory Distress, Accessory Muscle Use Cardiovascular: Present: Regular Rate and Rhythm, Normal S1, S2. No: Murmurs Abdomen: Present: Normal Bowel Sounds. No: Tenderness, Distention, Peritoneal Signs Back: Present: Normal Inspection Upper Extremity: Present: Normal Inspection. No: Cyanosis, Edema Lower Extremity: Present: Normal Inspection. No: Edema Neurological: No: Speech Normal (slurred speech), Other (no tremors) Skin: Present: Warm, Dry, Normal Color. No: Rashes Psychiatric: No: Suicidal Ideation, Homicidal Ideation Medical Decision Making ED Course and Treatment: 09/19/16 08:40 Impression: 50 year old male with alcohol intoxication. Physical exam shows slurred speech, alcohol breath, no tongue fasciculation, no tremors, so suicidal ideation, no homicidal ideation, alert x 3. Plan: -- EKG -- Reassess and disposition Prior Visits: Notes and results from previous visits were reviewed. Patient was last seen in the emergency department on 09/18/2016 brought by EMS for public intoxication. Patient was discharged home. Progress Notes: EKG: Ordered, reviewed, and independently interpreted the EKG. Rate : 70 BPM Rhythm : NSR Interpretation : No ST-segment elevations or depressions, no T-wave inversions, normal intervals. Comparison : No change in EKG since 09/12/2016. - Medication Orders Current Medication Orders: Discontinued Medications Lorazepam (Ativan) 2 mg IM ONCE ONE Stop: 09/19/16 09:25 Last Admin: 09/19/16 09:28 Dose: 2 mg ED OBSERVATION Date of observation admission: 09/19/16 Time of observation admission: 08:45 - Observation admission statement Patient is being placed in observation because:: Alcohol Intoxication - Goals of Observation Goals of observation are:: To be monitored until having reached sobriety - Progress Note Progress Note: 09/19/16 08:45 Patient placed into ED Observation. 09/19/16 10:45 Patient still shows symptoms of intoxication at this time. 09/19/16 12:50 Patient still presents symptoms of intoxication at this time. 09/19/16 13:40 Patient to be reevaluated for slurred speech. 09/19/16 14:45 Patient tried leaving bed several minutes; is stabled in bed, still mildly intoxicated at this time. 09/19/16 15:55 Patient is alert awake and oriented x 3. No slurred speech. No ataxia. Admits to drinking alcohol. Denies drugs. No tremors or tongue fasciculations. No SI or HI. Will have him f/u with his PMD. - Scribe Statement The provider has reviewed the documentation as recorded by the Dara Tinoco Provider Scribe Attestation: All medical record entries made by the Scribe were at my direction and personally dictated by me. I have reviewed the chart and agree that the record accurately reflects my personal performance of the history, physical exam, medical decision making, and the department course for this patient. I have also personally directed, reviewed, and agree with the discharge instructions and disposition. Disposition/Present on Arrival - Present on Arrival Any Indicators Present on Arrival: No History of DVT/PE: No History of Uncontrolled Diabetes: No Urinary Catheter: No History of Decub. Ulcer: No History Surgical Site Infection Following: None - Disposition Have Diagnosis and Disposition been Completed?: Yes Diagnosis: Alcohol intoxication Disposition: HOME/ ROUTINE Disposition Time: 08:56 Patient Plan: Discharge Patient Problems: Current Active Problems Problem Status Onset Alcohol intoxication Acute Condition: IMPROVED
[2016-09-19 09:34] VITALS: RESP 18
[2016-09-19 13:34] VITALS: BP 140/87; PULSE 80; O2SAT 96
--- NOTE | 2016-09-20 00:55 | CARD ---
APPROVED REPORT EKG Measurement Heart [id number] <Conclusion> Normal sinus rhythm T wave abnormality, consider inferior ischemia Abnormal ECG
== END 2016-09-19 15:53 | disposition home or self-care (01) ==
LOC: ED 08:15 → EROBSV 08:56
PROVIDERS: ADMIT Emergency Medicine; ATTEND Emergency Medicine
DX: F10.129 Alcohol abuse with intoxication, unspecified (principal)
CPT/HCPCS: 82948; 93005; 96372; 99283; G0378; J2060

== ENCOUNTER 2016-09-19 23:49 | Observation (INO) | payer MEDICAID ==
[2016-09-19 23:54] VITALS: BMI 27.3
[2016-09-20 00:06] VITALS: TEMP 97.5
--- NOTE | 2016-09-20 00:26 | ED PDOC ---
Arrival/HPI <Aftab Tovar - Last Filed: 09/20/16 06:26> - General Historian: Patient <Vic Gonzalez - Last Filed: 09/21/16 16:58> - General Chief Complaint: Alcohol Ingestion Time Seen by Provider: 09/20/16 00:02 - History of Present Illness Narrative History of Present Illness (Text): 09/20/16 00:24 50 y/o male, nkda, biba, FS 49, for publicaly intoxicated and sleeping at the park x 1 hour. Pt. stated that he feels fine, admits drinking tonight, sleeping at the park bench, no fall or trauma, no head or neck injury, no abdominal pain or tremors, no dizziness, no homicidal or suicidal ideation, no auditory or visual hallucination, no other medical or psychological complaints. (Vic Gonzalez) Past Medical History - Provider Review Nursing Documentation Reviewed: Yes - Infectious Disease Hx of Infectious Diseases: None - Tetanus Immunization Tetanus Immunization: Unknown - Past Medical History Past Medical History: Unable to Obtain - Cardiac Hx Cardiac Disorders: Yes (CAD) Hx Hypertension: Yes - Pulmonary Hx Respiratory Disorders: No - Neurological Hx Neurological Disorder: Yes Hx Transient Ischemic Attacks (TIA): Yes - HEENT Hx HEENT Disorder: No - Renal Hx Renal Disorder: No - Endocrine/Metabolic Hx Endocrine Disorders: No - Hematological/Oncological Hx Blood Disorders: No - Integumentary Hx Dermatological Disorder: No - Musculoskeletal/Rheumatological Hx Musculoskeletal Disorders: Yes Hx Falls: Yes (2 yrs ago fell 0ff ladder) - Gastrointestinal Hx Gastrointestinal Disorders: No - Genitourinary/Gynecological Hx Genitourinary Disorders: No - Psychiatric Hx Psychophysiologic Disorder: No Hx Depression: No Hx Emotional Abuse: No Hx Physical Abuse: No Hx Substance Use: No - Past Surgical History Past Surgical History: Unable to Obtain - Surgical History Hx Musculoskeletal Surgery: Yes (right hip and hand, facial fracture repair) Other/Comment: right wrist injury, bone marrow taken from right hip and inserted into fx bone in right hand along with metal, metal has since been removed, 23 yrs ago at [facility] [place] - Anesthesia Hx Anesthesia: Yes Hx Anesthesia Reactions: No Hx Malignant Hyperthermia: No - Suicidal Assessment Feels Threatened In Home Enviroment: No <Vic Gonzalez - Last Filed: 09/21/16 16:58> Family/Social History - Physician Review Nursing Documentation Reviewed: Yes Family/Social History: Unknown Family HX Smoking Status: Former Smoker Hx Alcohol Use: Yes (DRINKS 2 PINTS OF VODKA DAILY. LAST DRANK 3 D AGO.2 PINTS OF VODKA AND LIQU) Hx Substance Use: No Hx Substance Use Treatment: No <Vic Gonzalez - Last Filed: 09/21/16 16:58> Allergies/Home Meds <Aftab oTvar - Last Filed: 09/20/16 06:26> <Vic Gonzalez - Last Filed: 09/21/16 16:58> Allergies/Adverse Reactions: Allergies coconut oil Allergy (Verified 09/19/16 08:24) RASH cranberry Allergy (Verified 09/19/16 08:24) SWELLING Home Medications: Home Meds Medication Instructions Recorded Confirmed Unobtainable 09/19/16 09/19/16 Review of Systems - Review of Systems Systems not reviewed;Unavailable: Intoxicated Constitutional: absent: Fatigue, Fevers Eyes: absent: Vision Changes ENT: absent: Hearing Changes Respiratory: absent: SOB, Cough Cardiovascular: absent: Chest Pain Gastrointestinal: absent: Abdominal Pain, Diarrhea, Nausea, Vomiting Neurological: absent: Headache, Dizziness, Focal Weakness, Gait Changes, Speech Changes <Vic Gonzalez - Last Filed: 09/21/16 16:58> Physical Exam - Physical Exam Physical Exam Limitations: Intoxication - Systems Exam Head: Present: Atraumatic, Normocephalic. No: Tenderness, Contusion, Swelling, Ecchymosis, Abrasion, Laceration, Other Pupils: Present: PERRL Extroacular Muscles: Present: EOMI Conjunctiva: Present: Normal Mouth: Present: Moist Mucous Membranes Neck: Present: Normal Range of Motion Respiratory/Chest: Present: Clear to Auscultation, Good Air Exchange. No: Respiratory Distress, Accessory Muscle Use Cardiovascular: Present: Regular Rate and Rhythm, Normal S1, S2. No: Murmurs Abdomen: Present: Normal Bowel Sounds. No: Tenderness, Distention, Peritoneal Signs Back: Present: Normal Inspection Upper Extremity: Present: Normal Inspection. No: Cyanosis, Edema Lower Extremity: Present: Normal Inspection. No: Edema Neurological: Present: GCS=15, Speech Normal, Motor Func Grossly Intact, Memory Normal Skin: Present: Warm, Dry, Normal Color. No: Rashes Psychiatric: Present: Alert, Oriented x 3, Normal Insight, Normal Concentration <Vic Gonzalez - Last Filed: 09/21/16 16:58> Vital Signs Temp Pulse Resp BP Pulse Ox 09/20/16 06:29 97 H 16 141/80 98 09/20/16 05:00 82 18 145/84 93 L 09/20/16 01:01 79 17 122/77 96 09/20/16 00:00 97.5 F L 18 Medical Decision Making <Aftab Tovar - Last Filed: 09/20/16 06:26> <Vic Gonzalez - Last Filed: 09/21/16 16:58> ED Course and Treatment: 09/20/16 00:28 -FS -Observe and reassess 09/20/16 00:43 -FS -labs and banana bag with D50 ordered. 09/20/16 02:23 -Food and apple juice given. -Pending labs. -Case discussed and sign out to the ER attending Dr. Tovar for re- evaluation and final dispo (Vic Gonzalez) - Lab Interpretations Lab Results: Lab Results 09/20/16 00:36: POC Glucose (mg/dL) 49 L - Medication Orders Current Medication Orders: Discontinued Medications Multivitamins/Vitamin C 10 ml/Thiamine HCl 100 mg/ Folic Acid 1 mg/ Sodium Chloride 1,011.2 mls @ 500 mls/hr IV .Q2H2M ONE Stop: 09/20/16 02:39 Last Admin: 09/20/16 03:33 Dose: 500 mls/hr ED OBSERVATION Discharge: Yes Date of observation admission: 09/20/16 Time of observation admission: 02:00 <Aftab Tovar - Last Filed: 09/20/16 06:26> <Vic Gonzalez - Last Filed: 09/21/16 16:58> - Observation admission statement Patient is being placed in observation because:: alcohol intoxication (Aftab Tovar) - Goals of Observation Goals of observation are:: sobriety, observe for signs of withdrawal (Aftab Tovar) - Progress Note Progress Note: 09/20/16 02:00 Case endorsed to me by SIENA Gonzalez, pending re-evaluation and final disposition. Pt sleeping, in no acute distress. 09/20/16 04:00 Pt resting comfortably, in no acute distress. 09/20/16 06:00 Pt resting comfortably, in no acute distress. 09/20/16 06:27 Pt awake, alert, and ambulating with steady gait. Pt stable for d/c. (Aftab Tovar) - PA / FIELD EXAMINER / Resident Statement SANTOS has reviewed & agrees with the documentation as recorded. SANTOS has examined the patient and agrees with the treatment plan. <Aftab Tovar - Last Filed: 09/20/16 06:26> - PA / FIELD EXAMINER / Resident Statement SANTOS has reviewed & agrees with the documentation as recorded. <Vic Gonzalez - Last Filed: 09/21/16 16:58> Disposition/Present on Arrival - Present on Arrival Any Indicators Present on Arrival: No - Disposition Have Diagnosis and Disposition been Completed?: Yes Disposition Time: 06:26 Patient Plan: Discharge <Aftab Tovar - Last Filed: 09/20/16 06:26> - Present on Arrival Any Indicators Present on Arrival: No History of DVT/PE: No History of Uncontrolled Diabetes: No Urinary Catheter: No History of Decub. Ulcer: No History Surgical Site Infection Following: None - Disposition Have Diagnosis and Disposition been Completed?: Yes <Vic Gonzalez - Last Filed: 09/21/16 16:58> - Disposition Diagnosis: Alcohol intoxication Disposition: HOME/ ROUTINE Condition: STABLE
[2016-09-20] MEDS ORDERED: Multivitamin (MVI) 10 ML, Thiamine 100 MG, Folic Acid 1 MG in Sodium Chloride 0.9% 1,00... IV ONE (00:38)
[2016-09-20] MEDS ORDERED: Dextrose 50% SYRINGE Inj (50 ml) IVP STA (00:38)
[2016-09-20 02:42] LABS: BASO # 0.03 K/mm3 (0.0-2.0); BASO % 0.4 % (0.0-3.0); EOS # 0.1 (0.0-0.7); EOS % 1.7 % (1.5-5.0); GRAN # 5.14 (1.4-6.5); GRAN % 66.9 % (50.0-68.0); HEMOGLOBIN 14.5 g/dL (14.0-18.0); LYMPH # 1.8 (1.2-3.4); LYMPH % 23.7 % (22.0-35.0); MEAN CELL VOLUME 90.7 fl (80.0-105.0); MEAN CORPUSCULAR HEMOGLOBIN 31.3 pg (25.0-35.0); MEAN CORPUSCULAR HGB CONC 34.5 g/dl (31.0-37.0); MEAN PLATELET VOLUME 8.8 fl (7.0-11.0); MONO # 0.6 (0.1-0.6); MONO % 7.3 % (1.0-6.0); PLATELET COUNT 259 10^3/uL (120.0-450.0); RBC 4.63 10^6/uL (3.5-6.1); RED CELL DISTRIBUTION WIDTH 14.6 % (11.5-14.5); WHITE BLOOD COUNT 7.7 10^3/ul (4.5-11.0)
[2016-09-20 02:53] LABS: ALB/GLOB RATIO 1.2 (1.1-1.8); ALBUMIN 4.3 g/dL (3.0-4.8); ALT/SGPT 28 U/L (7-56); AST/SGOT 42 U/L (15-59); BLOOD UREA NITROGEN 16 mg/dL (7-21); CALCIUM 8.9 mg/dL (8.4-10.5); GFR AFRICAN-AMERICAN > 60; GFR NON-AFRICAN AMERICAN > 60; MAGNESIUM 1.8 mg/dL (1.7-2.2)
[2016-09-20 06:30] VITALS: BP 141/80; PULSE 97; RESP 16; O2SAT 98
== END 2016-09-20 06:25 | disposition home or self-care (01) ==
LOC: ED 23:49 → EROBSV 09-20 02:00
PROVIDERS: ADMIT Emergency Medicine; ATTEND Emergency Medicine
DX: F10.129 Alcohol abuse with intoxication, unspecified (principal)
CPT/HCPCS: 80053; 82948; 83735; 85025; 99283; G0378; J3411; J7040

== ENCOUNTER 2016-10-07 20:59 | Observation (INO) | payer MEDICAID ==
[2016-10-07 20:59] VITALS: BMI 27.3
[2016-10-07 21:04] VITALS: TEMP 98.3
--- NOTE | 2016-10-07 21:26 | ED PDOC ---
Arrival/HPI - General Historian: Patient - History of Present Illness Symptom Onset: Gradual Symptom Course: Unchanged Activities at Onset: Sleeping Context: Street <Aftab Tovar - Last Filed: 10/08/16 06:21> <Benjamín Tovar - Last Filed: 10/08/16 07:41> - General Chief Complaint: Alcohol Ingestion Time Seen by Provider: 10/07/16 21:22 - History of Present Illness Narrative History of Present Illness (Text): 10/07/16 21:23 David Larsen is a 51 year old male, whose past medical history includes alcohol abuse, who presents to the Emergency department brought in by EMS for public intoxication tonight. Patient was found sleeping in a park and admits to drinking alcohol tonight. Patient denies any fever, chills, chest pain, shortness of breath, nausea, vomiting, diarrhea, urinary symptoms, back pain, neck pain, headache, dizziness, or any other complaints. (Aftab Tovar) Past Medical History - Provider Review Nursing Documentation Reviewed: Yes - Infectious Disease Hx of Infectious Diseases: None - Tetanus Immunization Tetanus Immunization: Unknown - Past Medical History Past Medical History: Unable to Obtain - Cardiac Hx Cardiac Disorders: Yes (CAD) Hx Hypertension: Yes - Pulmonary Hx Respiratory Disorders: No - Neurological Hx Neurological Disorder: Yes Hx Transient Ischemic Attacks (TIA): Yes - HEENT Hx HEENT Disorder: No - Renal Hx Renal Disorder: No - Endocrine/Metabolic Hx Endocrine Disorders: No - Hematological/Oncological Hx Blood Disorders: No - Integumentary Hx Dermatological Disorder: No - Musculoskeletal/Rheumatological Hx Musculoskeletal Disorders: Yes Hx Falls: Yes (2 yrs ago fell 0ff ladder) - Gastrointestinal Hx Gastrointestinal Disorders: No - Genitourinary/Gynecological Hx Genitourinary Disorders: No - Psychiatric Hx Psychophysiologic Disorder: No Hx Depression: No Hx Emotional Abuse: No Hx Physical Abuse: No Hx Substance Use: No - Past Surgical History Past Surgical History: Unable to Obtain - Surgical History Hx Musculoskeletal Surgery: Yes (right hip and hand, facial fracture repair) Other/Comment: right wrist injury, bone marrow taken from right hip and inserted into fx bone in right hand along with metal, metal has since been removed, 23 yrs ago at [facility] [place] - Anesthesia Hx Anesthesia: Yes Hx Anesthesia Reactions: No Hx Malignant Hyperthermia: No - Suicidal Assessment Feels Threatened In Home Enviroment: No <Aftab Tovar - Last Filed: 10/08/16 06:21> Family/Social History - Physician Review Nursing Documentation Reviewed: Yes Family/Social History: Unknown Family HX Smoking Status: Former Smoker Hx Alcohol Use: Yes (DRINKS 2 PINTS OF VODKA DAILY. LAST DRANK 3 D AGO.2 PINTS OF VODKA AND LIQU) Hx Substance Use: No Hx Substance Use Treatment: No <Aftab Tvoar - Last Filed: 10/08/16 06:21> Allergies/Home Meds <Aftab Tovar - Last Filed: 10/08/16 06:21> <LaraBenjamín reinoso Dianna - Last Filed: 10/08/16 07:41> Allergies/Adverse Reactions: Allergies coconut Allergy (Verified 10/07/16 21:04) RASH coconut oil Allergy (Verified 10/07/16 21:04) RASH cranberry Allergy (Verified 10/07/16 21:04) SWELLING Home Medications: Home Meds Medication Instructions Recorded Confirmed No Known Home Med 09/12/16 10/07/16 Unobtainable 09/19/16 09/19/16 Review of Systems - Physician Review All systems were reviewed & negative as marked: Yes - Review of Systems Constitutional: Normal. absent: Fevers Eyes: Normal ENT: Normal Respiratory: Normal. absent: SOB, Cough Cardiovascular: Normal. absent: Chest Pain Gastrointestinal: Normal. absent: Abdominal Pain, Diarrhea, Nausea, Vomiting Genitourinary Male: Normal. absent: Dysuria, Frequency, Hematuria, Urinary Output Changes Musculoskeletal: Normal. absent: Back Pain, Neck Pain Skin: Normal. absent: Rash Neurological: Normal. absent: Headache, Dizziness Endocrine: Normal Hemo/Lymphatic: Normal Psychiatric: Normal <Aftab Tovar - Last Filed: 10/08/16 06:21> Physical Exam Vital Signs Reviewed: Yes Temperature: Afebrile Blood Pressure: Normal Pulse: Regular Respiratory Rate: Normal Appearance: Positive for: Well-Appearing, Non-Toxic, Comfortable Pain Distress: None Mental Status: Positive for: Alert and Oriented X 3 - Systems Exam Head: Present: Atraumatic, Normocephalic Pupils: Present: PERRL Extroacular Muscles: Present: EOMI Conjunctiva: Present: Normal Mouth: Present: Moist Mucous Membranes Neck: Present: Normal Range of Motion Respiratory/Chest: Present: Clear to Auscultation, Good Air Exchange. No: Respiratory Distress, Accessory Muscle Use Cardiovascular: Present: Regular Rate and Rhythm, Normal S1, S2. No: Murmurs Abdomen: Present: Normal Bowel Sounds. No: Tenderness, Distention, Peritoneal Signs Back: Present: Normal Inspection Upper Extremity: Present: Normal Inspection. No: Cyanosis, Edema Lower Extremity: Present: Normal Inspection. No: Edema Neurological: Present: GCS=15, CN II-XII Intact, Speech Normal Skin: Present: Warm, Dry, Normal Color. No: Rashes Psychiatric: Present: Alert, Oriented x 3, Normal Insight, Normal Concentration <Aftab Tovar - Last Filed: 10/08/16 06:21> Medical Decision Making <Aftab Tovar - Last Filed: 10/08/16 06:21> <Benjamín Tovar - Last Filed: 10/08/16 07:41> ED Course and Treatment: 10/07/16 21:23 Impression: 51 year old male brought in for alcohol intoxication. Differential Diagnosis included but are not limited to: alcohol intoxication Plan: -- Reassess and disposition Prior Visits: Notes and results from previous visits were reviewed. Patient is well known to ER staff and has been seen on multiple occasions for similar complaint. Progress Notes: (Aftab Tovar) ED OBSERVATION Date of observation admission: 10/07/16 Time of observation admission: 21:25 <Aftab Tovar - Last Filed: 10/08/16 06:21> <Benjamín Tovar - Last Filed: 10/08/16 07:41> - Observation admission statement Patient is being placed in observation because:: alcohol intoxication (Aftab Tovar) - Goals of Observation Goals of observation are:: sobriety, observe for signs of withdrawal (Aftab Tovar) - Progress Note Progress Note: 10/07/16 21:25 Pt brought in for alcohol intoxication, will observe pending sobriety. 10/07/16 23:25 Pt resting comfortably, no new complaints. 10/08/16 01:25 Pt sleeping currently, in no acute distress. 10/08/16 03:25 Pt resting comfortably, no new complaints. 10/08/16 05:25 Pt sleeping currently, in no acute distress. 10/08/16 07:[address] Tovar, pending sobriety, re-evaluation, and disposition. (Aftab Tovar) 10/08/16 07:00 Patient signed out to me by Dr. Tovar. Pending sobriety. 10/08/16 07:39 Patient is AAOx3. No slurred speech. No ataxia. No tremors or tongue fasciculations. Patient has been waiting for to arrive. She is hear to pick him up. Patient was recommended an outpatient detox program. Denies SI or HI. He feels comfortable going home with f/u. (Benjamín Tovar) - Scribe Statement The provider has reviewed the documentation as recorded by the Scribe <Aftab Tovar - Last Filed: 10/08/16 06:21> <Benjamín Tovar - Last Filed: 10/08/16 07:41> - Scribe Statement Camryn Sanchez Provider Scribe Attestation: All medical record entries made by the Scribe were at my direction and personally dictated by me. I have reviewed the chart and agree that the record accurately reflects my personal performance of the history, physical exam, medical decision making, and the department course for this patient. I have also personally directed, reviewed, and agree with the discharge instructions and disposition. (Aftab Tovar) Disposition/Present on Arrival - Present on Arrival History of DVT/PE: No History of Uncontrolled Diabetes: No Urinary Catheter: No History of Decub. Ulcer: No History Surgical Site Infection Following: None <Aftab Tovar - Last Filed: 10/08/16 06:21> - Present on Arrival Any Indicators Present on Arrival: No - Disposition Have Diagnosis and Disposition been Completed?: Yes Disposition Time: 21:25 Patient Plan: Discharge <Benjamín Tovar - Last Filed: 10/08/16 07:41> - Disposition Diagnosis: Alcohol intoxication Disposition: HOME/ ROUTINE Patient Problems: Current Active Problems Problem Status Onset Alcohol intoxication Acute Condition: IMPROVED
[2016-10-08 07:36] VITALS: BP 159/103; PULSE 87; RESP 18; O2SAT 99
== END 2016-10-08 07:28 | disposition home or self-care (01) ==
LOC: ED 20:59 → EROBSV 21:25
PROVIDERS: ADMIT Emergency Medicine; ATTEND Emergency Medicine
DX: F10.129 Alcohol abuse with intoxication, unspecified (principal)
CPT/HCPCS: 99285; G0378

== ENCOUNTER 2016-10-12 15:17 | Observation (INO) | payer MEDICAID ==
--- NOTE | 2016-10-12 15:22 | ED PDOC ---
Arrival/HPI - General Time Seen by Provider: 10/12/16 15:18 Historian: Patient, EMS - History of Present Illness Narrative History of Present Illness (Text): 10/12/16 15:19 51 y/o male, psychiatric history including alcohol abuse, FS 70, nkda, +etoh on breath and admits drinking, c[place] park. Pt. stated that he was drinking earlier, walking, feel tired and sleep on the bench at the park, no fall or trauma, no headache or neck pain, no dizziness, no change in vision, no night sweat, no homicidal or suicidal ideation, no auditory or visual hallucination, no other medical or psychological complaints. Past Medical History - Provider Review Nursing Documentation Reviewed: Yes - Infectious Disease Hx of Infectious Diseases: None - Tetanus Immunization Tetanus Immunization: Unknown - Past Medical History Past Medical History: Unable to Obtain - Cardiac Hx Cardiac Disorders: Yes (CAD) Hx Hypertension: Yes - Pulmonary Hx Respiratory Disorders: No - Neurological Hx Neurological Disorder: Yes Hx Transient Ischemic Attacks (TIA): Yes - HEENT Hx HEENT Disorder: No - Renal Hx Renal Disorder: No - Endocrine/Metabolic Hx Endocrine Disorders: No - Hematological/Oncological Hx Blood Disorders: No - Integumentary Hx Dermatological Disorder: No - Musculoskeletal/Rheumatological Hx Musculoskeletal Disorders: Yes Hx Falls: Yes (2 yrs ago fell 0ff ladder) - Gastrointestinal Hx Gastrointestinal Disorders: No - Genitourinary/Gynecological Hx Genitourinary Disorders: No - Psychiatric Hx Psychophysiologic Disorder: No Hx Depression: No Hx Emotional Abuse: No Hx Physical Abuse: No Hx Substance Use: No - Past Surgical History Past Surgical History: Unable to Obtain - Surgical History Hx Musculoskeletal Surgery: Yes (right hip and hand, facial fracture repair) Other/Comment: right wrist injury, bone marrow taken from right hip and inserted into fx bone in right hand along with metal, metal has since been removed, 23 yrs ago at [facility] - Anesthesia Hx Anesthesia: Yes Hx Anesthesia Reactions: No Hx Malignant Hyperthermia: No - Suicidal Assessment Feels Threatened In Home Enviroment: No Family/Social History - Physician Review Nursing Documentation Reviewed: Yes Family/Social History: Unknown Family HX Smoking Status: Former Smoker Hx Alcohol Use: Yes (DRINKS 2 PINTS OF VODKA DAILY. LAST DRANK 3 D AGO.2 PINTS OF VODKA AND LIQU) Hx Substance Use: No Hx Substance Use Treatment: No Allergies/Home Meds Allergies/Adverse Reactions: Allergies coconut Allergy (Verified 10/12/16 15:26) RASH coconut oil Allergy (Verified 10/12/16 15:26) RASH cranberry Allergy (Verified 10/12/16 15:26) SWELLING Home Medications: Home Meds Medication Instructions Recorded Confirmed No Known Home Med 09/12/16 10/07/16 Unobtainable 09/19/16 10/12/16 Review of Systems - Review of Systems Constitutional: absent: Fatigue, Fevers Eyes: absent: Vision Changes ENT: absent: Hearing Changes Respiratory: absent: SOB, Cough Cardiovascular: absent: Chest Pain Gastrointestinal: absent: Abdominal Pain, Diarrhea, Nausea Skin: absent: Rash, Pruritis, Skin Lesions Neurological: absent: Headache, Dizziness, Focal Weakness Psychiatric: absent: Anxiety, Depression, Suicidal Ideation Physical Exam Vital Signs Temp Pulse Resp BP Pulse Ox 10/12/16 19:13 86 18 136/89 99 10/12/16 16:58 84 18 150/85 99 10/12/16 15:53 97.6 F 88 18 144/88 98 10/12/16 15:30 97.6 F 88 18 144/88 98 - Systems Exam Head: Present: Atraumatic, Normocephalic. No: Tenderness, Contusion, Swelling, Ecchymosis, Abrasion, Laceration, Other Pupils: Present: PERRL Extroacular Muscles: Present: EOMI Conjunctiva: Present: Normal Mouth: Present: Moist Mucous Membranes Nose (External): Present: Atraumatic. No: Abrasion, Contusion, Laceration, Lesions Nose (Internal): Present: Normal Inspection, No Active Bleeding. No: Rhinorrhea , Septal Hematoma, Epistaxis Neck: Present: Normal Range of Motion, Trachea Midline. No: MIDLINE TENDERNESS , Paraspinal Tenderness, Lymphadenopathy Respiratory/Chest: Present: Clear to Auscultation, Good Air Exchange. No: Respiratory Distress, Accessory Muscle Use Cardiovascular: Present: Regular Rate and Rhythm, Normal S1, S2. No: Murmurs Abdomen: Present: Normal Bowel Sounds. No: Tenderness, Distention, Peritoneal Signs Back: Present: Normal Inspection. No: Midline Tenderness, Paraspinal Tenderness Upper Extremity: Present: Normal Inspection. No: Cyanosis, Edema Lower Extremity: Present: Normal Inspection. No: Edema Neurological: Present: GCS=15, Speech Normal, Motor Func Grossly Intact, Memory Normal Skin: Present: Warm, Dry, Normal Color. No: Rashes Psychiatric: Present: Alert, Oriented x 3, Normal Insight, Normal Concentration Medical Decision Making ED Course and Treatment: 10/12/16 15:23 -FS 70 -Pt. is hungry, food and juice given. -Observe and reassess ED OBSERVATION Date of observation admission: 10/12/16 Time of observation admission: 18:00 - Observation admission statement Patient is being placed in observation because:: alcohol intoxication - Goals of Observation Goals of observation are:: sober and reassess - Progress Note Progress Note: 10/12/16 18:00 -Pt. is sleeping well, eating and drinking well earlier, no medical or psychological complaints. 10/12/16 20:00 -Pt. is clinically sobered, walking with normal gait and posture independently, FS repeated is 91 now -Pt. has no facial twitching, no nausea/vomiting, no abdominal pain, no diarrhea , no tremors or tongue fasciculation, aox4, no homicidal/suicidal ideation, no auditory or visual hallucination, wishes to be discharged home. -Discharge home with education on avoid drinking in the public, follow up with your own pmd witin2 days, return to the ER for any new or worsening signs or symptoms. - PA / REGISTRY NP / Resident Statement MD/DO has reviewed & agrees with the documentation as recorded. Disposition/Present on Arrival - Present on Arrival Any Indicators Present on Arrival: No History of DVT/PE: No History of Uncontrolled Diabetes: No Urinary Catheter: No History of Decub. Ulcer: No History Surgical Site Infection Following: None - Disposition Have Diagnosis and Disposition been Completed?: Yes Diagnosis: Alcohol abuse, Alcohol intoxication Disposition: HOME/ ROUTINE Disposition Time: 20:19 Patient Plan: Discharge Patient Problems: Current Active Problems Problem Status Onset Alcohol abuse Acute Alcohol intoxication Acute Condition: IMPROVED
[2016-10-12 15:26] VITALS: BMI 24.3
[2016-10-12 15:30] VITALS: RESP 18; TEMP 97.6
[2016-10-12 16:59] VITALS: O2SAT 99
[2016-10-12 19:14] VITALS: BP 136/89; PULSE 86
== END 2016-10-12 20:21 | disposition home or self-care (01) ==
LOC: ED 15:17 → EROBSV 17:35
PROVIDERS: ADMIT Emergency Medicine; ATTEND Emergency Medicine
DX: F10.129 Alcohol abuse with intoxication, unspecified (principal)
CPT/HCPCS: 99283; G0378

== ENCOUNTER 2016-10-24 12:05 | Observation (INO) | payer MEDICAID ==
[2016-10-24 12:06] VITALS: BMI 24.3
[2016-10-24 12:28] VITALS: BP 148/93; RESP 16; O2SAT 100
--- NOTE | 2016-10-24 12:28 | ED PDOC ---
Arrival/HPI <Benjamín Tovar - Last Filed: 10/24/16 13:03> - General Historian: Patient - History of Present Illness Time/Duration: Prior to Arrival Severity Level: 1 Activities at Onset: Rest Context: Street <Leslie Veronica - Last Filed: 10/24/16 15:38> - General Chief Complaint: Alcohol Ingestion Time Seen by Provider: 10/24/16 12:08 - History of Present Illness Narrative History of Present Illness (Text): 10/24/16 12:29 This is a 51Y M with PMH of alcoholism who came to emergency department by EMS. [place] the park and was brought into the emergency department. He reports that he drank 2 quarts of Vodka last night and is still intoxicated. Patient reports feeling somewhat nauseous. He denies CP, SOB, fever, chills, tremor, v/d, numbness or tingling. (Leslie Veronica) Past Medical History - Provider Review Nursing Documentation Reviewed: Yes - Infectious Disease Hx of Infectious Diseases: None - Tetanus Immunization Tetanus Immunization: Unknown - Past Medical History Past Medical History: Unable to Obtain - Cardiac Hx Cardiac Disorders: Yes (CAD) Hx Hypertension: Yes - Pulmonary Hx Respiratory Disorders: No - Neurological Hx Neurological Disorder: Yes Hx Transient Ischemic Attacks (TIA): Yes - HEENT Hx HEENT Disorder: No - Renal Hx Renal Disorder: No - Endocrine/Metabolic Hx Endocrine Disorders: No - Hematological/Oncological Hx Blood Disorders: No - Integumentary Hx Dermatological Disorder: No - Musculoskeletal/Rheumatological Hx Musculoskeletal Disorders: Yes Hx Falls: Yes (2 yrs ago fell 0ff ladder) - Gastrointestinal Hx Gastrointestinal Disorders: No - Genitourinary/Gynecological Hx Genitourinary Disorders: No - Psychiatric Hx Psychophysiologic Disorder: No Hx Depression: No Hx Emotional Abuse: No Hx Physical Abuse: No Hx Substance Use: No - Past Surgical History Past Surgical History: Unable to Obtain - Surgical History Hx Musculoskeletal Surgery: Yes (right hip and hand, facial fracture repair) Other/Comment: right wrist injury, bone marrow taken from right hip and inserted into fx bone in right hand along with metal, metal has since been removed, 23 yrs ago at [facility] - Anesthesia Hx Anesthesia: Yes Hx Anesthesia Reactions: No Hx Malignant Hyperthermia: No - Suicidal Assessment Feels Threatened In Home Enviroment: No <Leslie Veronica - Last Filed: 10/24/16 15:38> Family/Social History - Physician Review Nursing Documentation Reviewed: Yes Family/Social History: Unknown Family HX Smoking Status: Former Smoker Hx Alcohol Use: Yes (DRINKS 2 PINTS OF VODKA DAILY. LAST DRANK 3 D AGO.2 PINTS OF VODKA AND LIQU) Frequency of alcohol use: Daily Hx Substance Use: No Hx Substance Use Treatment: No <Leslie Veronica - Last Filed: 10/24/16 15:38> Allergies/Home Meds <Benjamín Tovar - Last Filed: 10/24/16 13:03> <Leslie Veronica - Last Filed: 10/24/16 15:38> Allergies/Adverse Reactions: Allergies coconut Allergy (Verified 10/24/16 12:13) RASH coconut oil Allergy (Verified 10/24/16 12:13) RASH cranberry Allergy (Verified 10/24/16 12:13) SWELLING Home Medications: Home Meds Medication Instructions Recorded Confirmed No Known Home Med 09/12/16 10/24/16 Review of Systems - Physician Review All systems were reviewed & negative as marked: Yes - Review of Systems Constitutional: Normal Eyes: Normal ENT: Normal Respiratory: Normal Cardiovascular: Normal Gastrointestinal: Normal Genitourinary Male: Normal Musculoskeletal: Normal Skin: Normal Neurological: Normal Endocrine: Normal Hemo/Lymphatic: Normal Psychiatric: Normal <Leslie Veronica - Last Filed: 10/24/16 15:38> Physical Exam Temperature: Afebrile Blood Pressure: Hypertensive Pulse: Regular Respiratory Rate: Normal Appearance: Positive for: Well-Appearing, Non-Toxic, Comfortable Pain Distress: None Mental Status: Positive for: Alert and Oriented X 3 - Systems Exam Head: Present: Atraumatic, Normocephalic Pupils: Present: PERRL Extroacular Muscles: Present: EOMI Conjunctiva: Present: Normal Mouth: Present: Moist Mucous Membranes Neck: Present: Normal Range of Motion Respiratory/Chest: Present: Clear to Auscultation, Good Air Exchange. No: Respiratory Distress, Accessory Muscle Use Cardiovascular: Present: Regular Rate and Rhythm, Normal S1, S2. No: Murmurs Abdomen: Present: Normal Bowel Sounds. No: Tenderness, Distention, Peritoneal Signs Back: Present: Normal Inspection Upper Extremity: Present: Normal Inspection. No: Cyanosis, Edema Lower Extremity: Present: Normal Inspection. No: Edema Neurological: Present: GCS=15, CN II-XII Intact, Speech Normal Skin: Present: Warm, Dry, Normal Color. No: Rashes Psychiatric: Present: Alert, Oriented x 3, Normal Insight, Normal Concentration , Intoxicated <Leslie Veronica - Last Filed: 10/24/16 15:38> Vital Signs Temp Pulse Resp BP Pulse Ox 10/24/16 15:37 98.0 F 88 16 100 10/24/16 12:16 97.8 F 80 16 148/93 H 100 Medical Decision Making - Lab Interpretations I have reviewed the lab results: Yes <Benjamín Tovar - Last Filed: 10/24/16 13:03> Re-evaluation Time: 12:53 Reassessment Condition: Improved <Lselie Veronica - Last Filed: 10/24/16 15:38> ED Course and Treatment: 10/24/16 Patient Seen With Resident: In agreement with resident note which contains more details about the patient. Patient was seen and evaluated with resident. Came up with plan and treatment together. (Benjamín Tovar) 10/24/16 12:31 Impression: This is a 51Y M with PMH alcoholism here for alcohol intoxication. Differential Diagnosis included but are not limited to: alcohol intoxication v. withdrawal Plan: - Blood glucose - Zofran PO - Reassess and disposition Progress Notes: 10/24/16 12:52 Glucose noted to be 77. Patient given juice and snack box. He feels better. ( Leslie Veronica) - Medication Orders Current Medication Orders: Discontinued Medications Ondansetron HCl (Zofran Tab) 4 mg PO STAT STA Stop: 10/24/16 12:24 Last Admin: 10/24/16 12:37 Dose: 4 mg ED OBSERVATION <Benjamín Tovar - Last Filed: 10/24/16 13:03> Date of observation admission: 10/24/16 Time of observation admission: 14:37 <Leslie Veronica - Last Filed: 10/24/16 15:38> - Observation admission statement Patient is being placed in observation because:: Alcohol intoxication. (Leslie Veronica) - Goals of Observation Goals of observation are:: Monitor vitals and withdrawal symptoms. (Leslie Veronica) - Progress Note Progress Note: 10/24/16 15:38 Patient doing well. Ambulating without trouble or tremors. Vitals stable. ( Leslie Veronica) - PA / PROJECT HIRE / Resident Statement MD/DO has reviewed & agrees with the documentation as recorded. MD/DO has examined the patient and agrees with the treatment plan. - Scribe Statement The provider has reviewed the documentation as recorded by the Scribe <Benjamín Tovar - Last Filed: 10/24/16 13:03> <Leslie Veronica - Last Filed: 10/24/16 15:38> - Scribe Statement Tish Maloney Provider Scribe Attestation: All medical record entries made by the Scribe were at my direction and personally dictated by me. I have reviewed the chart and agree that the record accurately reflects my personal performance of the history, physical exam, medical decision making, and the department course for this patient. I have also personally directed, reviewed, and agree with the discharge instructions and disposition. (Benjamín Tovar) Disposition/Present on Arrival <Benjamín Tovar - Last Filed: 10/24/16 13:03> - Present on Arrival Any Indicators Present on Arrival: No History of DVT/PE: No History of Uncontrolled Diabetes: No Urinary Catheter: No History of Decub. Ulcer: No History Surgical Site Infection Following: None - Disposition Have Diagnosis and Disposition been Completed?: Yes Disposition Time: 15:38 Patient Plan: Discharge <Leslie Veronica - Last Filed: 10/24/16 15:38> - Disposition Diagnosis: Alcohol abuse Disposition: HOME/ ROUTINE Patient Problems: Current Active Problems Problem Status Onset Alcohol abuse Acute Condition: FAIR Print Language: CAMEROONIAN Additional Instructions: Rell Chava, thank you for letting us take care of you today. Your provider was Dr. Veronica You were treated for alcohol intoxication. The emergency medical care you received today was directed at your acute symptoms. If you were prescribed any medication, please fill it and take as directed. It may take several days for your symptoms to resolve. Return to the Emergency Department if your symptoms worsen, do not improve, or if you have any other problems. Please contact your doctor or call one of the physicians/clinics you have been referred to that are listed on the Patient Visit Information form that is included in your discharge packet. Bring any paperwork you were given at discharge with you along with any medications you are taking to your follow up visit. Our treatment cannot replace ongoing medical care by a primary care provider (PCP) outside of the emergency department. Thank you for allowing the [facility] team to be part of your care today. [facility], [Primary Care Provider] - Follow up with primary [facility] [place] - Follow up with primary Forms: [employer] (Malay)
[2016-10-24 15:37] VITALS: PULSE 88; TEMP 98
== END 2016-10-24 15:37 | disposition home or self-care (01) ==
LOC: ED 12:05 → EROBSV 14:33
PROVIDERS: ADMIT Emergency Medicine; ATTEND Emergency Medicine
DX: F10.10 Alcohol abuse, uncomplicated (principal)
CPT/HCPCS: 82948; 99284; G0378

== ENCOUNTER 2016-10-24 19:52 | Observation (INO) | payer MEDICAID ==
[2016-10-24 19:52] VITALS: BMI 24.3
[2016-10-24 20:02] VITALS: RESP 18; TEMP 98.4
--- NOTE | 2016-10-24 21:59 | ED PDOC ---
Arrival/HPI - General Historian: Patient - History of Present Illness Time/Duration: Other (tonight) Symptom Onset: Gradual Symptom Course: Unchanged Activities at Onset: Light Context: Home - General Chief Complaint: Alcohol Ingestion Time Seen by Provider: 10/24/16 20:00 - History of Present Illness Narrative History of Present Illness (Text): 10/24/16 20:24 David Larsen is a 51 year old male, whose past medical history includes alcohol abuse, who presents to the Emergency department brought in by EMS for public intoxication tonight. Patient admits to drinking alcohol tonight. Patient was seen earlier today for similar complaint. Patient denies any fever, chills, chest pain, shortness of breath, nausea, vomiting, diarrhea, urinary symptoms, back pain, neck pain, headache, dizziness, or any other complaints. (Sebastián Kern) Past Medical History - Provider Review Nursing Documentation Reviewed: Yes - Infectious Disease Hx of Infectious Diseases: None - Tetanus Immunization Tetanus Immunization: Unknown - Past Medical History Past Medical History: Unable to Obtain - Cardiac Hx Cardiac Disorders: Yes (CAD) Hx Hypertension: Yes - Pulmonary Hx Respiratory Disorders: No - Neurological Hx Neurological Disorder: Yes Hx Transient Ischemic Attacks (TIA): Yes - HEENT Hx HEENT Disorder: No - Renal Hx Renal Disorder: No - Endocrine/Metabolic Hx Endocrine Disorders: No - Hematological/Oncological Hx Blood Disorders: No - Integumentary Hx Dermatological Disorder: No - Musculoskeletal/Rheumatological Hx Musculoskeletal Disorders: Yes Hx Falls: Yes (2 yrs ago fell 0ff ladder) - Gastrointestinal Hx Gastrointestinal Disorders: No - Genitourinary/Gynecological Hx Genitourinary Disorders: No - Psychiatric Hx Psychophysiologic Disorder: No Hx Depression: No Hx Emotional Abuse: No Hx Physical Abuse: No Hx Substance Use: No - Past Surgical History Past Surgical History: Unable to Obtain - Surgical History Hx Musculoskeletal Surgery: Yes (right hip and hand, facial fracture repair) Other/Comment: right wrist injury, bone marrow taken from right hip and inserted into fx bone in right hand along with metal, metal has since been removed, 23 yrs ago at [facility] - Anesthesia Hx Anesthesia: Yes Hx Anesthesia Reactions: No Hx Malignant Hyperthermia: No - Suicidal Assessment Feels Threatened In Home Enviroment: No Family/Social History - Physician Review Nursing Documentation Reviewed: Yes Family/Social History: Unknown Family HX Smoking Status: Former Smoker Hx Alcohol Use: Yes (DRINKS 2 PINTS OF VODKA DAILY. LAST DRANK 3 D AGO.2 PINTS OF VODKA AND LIQU) Hx Substance Use: No Hx Substance Use Treatment: No Allergies/Home Meds Allergies/Adverse Reactions: Allergies coconut Allergy (Verified 10/24/16 12:13) RASH coconut oil Allergy (Verified 10/24/16 12:13) RASH cranberry Allergy (Verified 10/24/16 12:13) SWELLING Home Medications: Home Meds Medication Instructions Recorded Confirmed No Known Home Med 09/12/16 10/24/16 Review of Systems - Physician Review All systems were reviewed & negative as marked: Yes - Review of Systems Constitutional: Normal. absent: Fevers Eyes: Normal ENT: Normal Respiratory: Normal. absent: SOB, Cough Cardiovascular: Normal. absent: Chest Pain Gastrointestinal: Normal. absent: Abdominal Pain, Diarrhea, Nausea, Vomiting Genitourinary Male: Normal. absent: Dysuria, Frequency, Hematuria, Urinary Output Changes Musculoskeletal: Normal. absent: Back Pain, Neck Pain Skin: Normal. absent: Rash Neurological: Normal. absent: Headache, Dizziness Endocrine: Normal Hemo/Lymphatic: Normal Psychiatric: Other (+alcohol abuse) Physical Exam Vital Signs Reviewed: Yes Temperature: Afebrile Blood Pressure: Normal Pulse: Regular Respiratory Rate: Normal Appearance: Positive for: Well-Appearing, Non-Toxic, Comfortable Pain Distress: None Mental Status: Positive for: Alert and Oriented X 3 Finger Stick Blood Glucose: 90 - Systems Exam Head: Present: Atraumatic, Normocephalic Pupils: Present: PERRL Extroacular Muscles: Present: EOMI Conjunctiva: Present: Normal Mouth: Present: Moist Mucous Membranes Neck: Present: Normal Range of Motion Respiratory/Chest: Present: Clear to Auscultation, Good Air Exchange. No: Respiratory Distress, Accessory Muscle Use Cardiovascular: Present: Regular Rate and Rhythm, Normal S1, S2. No: Murmurs Abdomen: Present: Normal Bowel Sounds. No: Tenderness, Distention, Peritoneal Signs Back: Present: Normal Inspection Upper Extremity: Present: Normal Inspection. No: Cyanosis, Edema Lower Extremity: Present: Normal Inspection. No: Edema Neurological: Present: GCS=15, CN II-XII Intact, Speech Normal Skin: Present: Warm, Dry, Normal Color. No: Rashes Psychiatric: Present: Alert, Oriented x 3, Normal Insight, Normal Concentration Vital Signs Temp Pulse Resp BP Pulse Ox 10/25/16 12:17 95 H 18 155/93 H 99 10/25/16 08:05 87 18 118/81 97 10/25/16 04:00 84 18 136/82 99 10/25/16 00:58 88 18 131/78 95 10/24/16 20:01 98.4 F 88 18 155/82 H 98 Medical Decision Making - Transfer of Care Patient signed out to Dr:: lucita ED Course and Treatment: 10/24/16 20:24 Impression: 51 year old male brought in for public intoxication tonight. Differential Diagnosis included but are not limited to: alcohol intoxication Plan: -- Reassess and disposition Prior Visits: Notes and results from previous visits were reviewed. Progress Notes: (Sebastián Kern) - Medication Orders Current Medication Orders: Discontinued Medications Ondansetron HCl (Zofran Inj) 8 mg IVP STAT STA Stop: 10/25/16 12:16 Last Admin: 10/25/16 12:22 Dose: 8 mg ED OBSERVATION Date of observation admission: 10/24/16 Time of observation admission: 20:24 - Observation admission statement Patient is being placed in observation because:: alcohol intoxication (Sebastián Kern) - Goals of Observation Goals of observation are:: sobriety (Sebastián Kern) - Progress Note Progress Note: 10/25/16 07:00 Signed out to me at change of shift pending sobriety. Patient is awake at this time, still unsteady. Will continue observation until sobriety. On exam, head atraumatic. Extremities without tenderness and FROM x 4. 10/25/16 08:54 Patient is awake, but still pending sobriety. Will continue to keep patient under observation. (Yomi Hyde) 10/24/16 20:24 Pt brought in for alcohol intoxication. Will observe for sobriety. 10/24/16 21:36 RN reports pt is twitching. CT Head w/o contrast, EKG, labs, alcohol level, ammonia level, cardiac enzymes, urinalysis/urine drug screen ordered. 10/24/16 23:26 Pt sleeping, in no acute distress. 10/25/16 00:26 Reviewed radiology, Chest X-ray shows: Limitations: Motion artifact - mild. Brain: No definite intracranial hemorrhage. No mass. Few scattered foci of decreased attenuation within periventricular/subcortical white matter. Chronic lacunar infarct within RIGHT basal ganglia. No definite edema. Ventricles: No hydrocephalus. Bones/joints: No acute fracture. Soft tissues: Unremarkable. Sinuses: No acute sinusitis. Mastoid air cells: No mastoid effusion. Orbits: Unremarkable as visualized. IMPRESSION: 1. Nonspecific white matter changes. Acute infarction may be CT occult within first 24 hours. If a focal deficit persists, consider followup CT or MRI for further evaluation. 10/25/16 02:26 Pt sleeping, in no acute distress. (Sebastián Kern) - Scribe Statement The provider has reviewed the documentation as recorded by the Scribe - Scribe Statement Camryn Sanchez Provider Scribe Attestation: All medical record entries made by the Scribe were at my direction and personally dictated by me. I have reviewed the chart and agree that the record accurately reflects my personal performance of the history, physical exam, medical decision making, and the department course for this patient. I have also personally directed, reviewed, and agree with the discharge instructions and disposition. (Sebastián Kern) Disposition/Present on Arrival - Present on Arrival Any Indicators Present on Arrival: No History of DVT/PE: No History of Uncontrolled Diabetes: No Urinary Catheter: No History of Decub. Ulcer: No History Surgical Site Infection Following: None - Disposition Have Diagnosis and Disposition been Completed?: Yes Disposition Time: 07:00 - Disposition Diagnosis: Alcohol intoxication Disposition: HOME/ ROUTINE Condition: FAIR
[2016-10-24 22:41] LABS: BASO # 0.04 K/mm3 (0.0-2.0); BASO % 0.3 % (0.0-3.0); EOS # 0.2 (0.0-0.7); EOS % 1.1 % (1.5-5.0); GRAN # 11.03 (1.4-6.5); GRAN % 82.9 % (50.0-68.0); HEMATOCRIT 47.8 % (42.0-52.0); LYMPH # 1.5 (1.2-3.4); LYMPH % 11.3 % (22.0-35.0); MEAN CORPUSCULAR HEMOGLOBIN 32.3 pg (25.0-35.0); MEAN CORPUSCULAR HGB CONC 34.7 g/dl (31.0-37.0); MEAN PLATELET VOLUME 8.8 fl (7.0-11.0); MONO # 0.6 (0.1-0.6); MONO % 4.4 % (1.0-6.0); WHITE BLOOD COUNT 13.3 10^3/ul (4.5-11.0)
[2016-10-24 22:48] LABS: ALB/GLOB RATIO 1.3 (1.1-1.8); ALKALINE PHOSPHATASE 79 U/L (38-126); ALT/SGPT 45 U/L (7-56); AST/SGOT 43 U/L (17-59); BILIRUBIN,TOTAL 0.4 mg/dL (0.2-1.3); BLOOD UREA NITROGEN 15 mg/dL (7-21); CALCIUM 8.5 mg/dL (8.4-10.5); CARBON DIOXIDE 20 mmol/L (21-33); CHLORIDE 110 mmol/L (98-107); GFR AFRICAN-AMERICAN > 60; GLUCOSE,RANDOM 97 mg/dL (70-110); INR 0.94 (0.93-1.08); MAGNESIUM 2.1 mg/dL (1.7-2.2); PARTIAL THROMBOPLASTIN TIME 28.2 Seconds (23.7-30.8); PHOSPHOROUS 4.3 mg/dL (2.5-4.5); POTASSIUM 4.6 mmol/L (3.6-5.0); SODIUM 146 mmol/L (132-148); TOTAL PROTEIN 8.1 g/dL (5.8-8.3)
[2016-10-24 23:01] LABS: TROPONIN I < 0.01 ng/mL
--- NOTE | 2016-10-25 00:18 | CT ---
EXAM: CT Head Without Intravenous Contrast CLINICAL HISTORY: 51 years old, male; Pain; Headache; Headache not specified; Additional info: AMS TECHNIQUE: Axial computed tomography images of the head/brain without intravenous contrast. All CT scans at this facility use one or more dose reduction techniques, viz.: automated exposure control; ma/kV adjustment per patient size (including targeted exams where dose is matched to indication; i.e. head); or iterative reconstruction technique. COMPARISON: CT - HEAD W/O CONTRAST 08/25/2016 11:43:40 PM FINDINGS: Limitations: Motion artifact - mild. Brain: No definite intracranial hemorrhage. No mass. Few scattered foci of decreased attenuation within periventricular/subcortical white matter. Chronic lacunar infarct within RIGHT basal ganglia. No definite edema. Ventricles: No hydrocephalus. Bones/joints: No acute fracture. Soft tissues: Unremarkable. Sinuses: No acute sinusitis. Mastoid air cells: No mastoid effusion. Orbits: Unremarkable as visualized. IMPRESSION: 1. Nonspecific white matter changes. Acute infarction may be CT occult within first 24 hours. If a focal deficit persists, consider followup CT or MRI for further evaluation.
[2016-10-25 12:18] VITALS: O2SAT 99
[2016-10-25 16:49] VITALS: BP 135/79; PULSE 89
== END 2016-10-25 16:49 | disposition home or self-care (01) ==
LOC: ED 19:52 → EROBSV 20:24
PROVIDERS: ADMIT Emergency Medicine; ATTEND Emergency Medicine
DX: F10.129 Alcohol abuse with intoxication, unspecified (principal); Y90.8 Blood alcohol level of 240 mg/100 ml or more; I25.10 Atherosclerotic heart disease of native coronary artery without angina pectoris; I10 Essential (primary) hypertension; Z86.73 Personal history of transient ischemic attack (TIA), and cerebral infarction without residual deficits; Z87.891 Personal history of nicotine dependence
CPT/HCPCS: 36415; 70450; 80053; 80320; 82140; 82550; 83615; 83735; 84100; 84484; 85025; 85610; 85730; 96374; 99284; G0378; J2405

== ENCOUNTER 2016-11-05 15:33 | Observation (INO) | payer MEDICAID ==
[2016-11-05 15:33] VITALS: BMI 24.3
[2016-11-05] MEDS ORDERED: Dextrose 50% SYRINGE Inj (50 ml) IVP STA ×2 (16:30→21:37)
[2016-11-05] MEDS ORDERED: Multivitamin (MVI) 10 ML, Thiamine 100 MG, Folic Acid 1 MG in Sodium Chloride 0.9% 1,00... IV ONE (16:41)
[2016-11-05 17:11] LABS: BASO # 0.03 K/mm3 (0.0-2.0); BASO % 0.3 % (0.0-3.0); EOS # 0.2 (0.0-0.7); EOS % 1.6 % (1.5-5.0); GRAN # 8.56 (1.4-6.5); GRAN % 75.6 % (50.0-68.0); HEMATOCRIT 44.1 % (42.0-52.0); LYMPH % 17.2 % (22.0-35.0); MEAN CELL VOLUME 93.2 fl (80.0-105.0); MEAN CORPUSCULAR HEMOGLOBIN 31.9 pg (25.0-35.0); MEAN CORPUSCULAR HGB CONC 34.2 g/dl (31.0-37.0); MEAN PLATELET VOLUME 9.3 fl (7.0-11.0); MONO # 0.6 (0.1-0.6); MONO % 5.3 % (1.0-6.0); RED CELL DISTRIBUTION WIDTH 13.5 % (11.5-14.5); WHITE BLOOD COUNT 11.3 10^3/ul (4.5-11.0)
--- NOTE | 2016-11-05 17:12 | ED PDOC ---
Arrival/HPI <Aftab Tovar - Last Filed: 11/06/16 02:28> - General Historian: Patient - History of Present Illness Symptom Onset: Sudden Symptom Course: Unchanged Activities at Onset: Rest Context: Home <Annie Granado PA-C - Last Filed: 11/07/16 02:13> - General Chief Complaint: Alcohol Ingestion Time Seen by Provider: 11/05/16 15:54 - History of Present Illness Narrative History of Present Illness (Text): 11/05/16 17:13 A 51 year old male, whose past medical history includes alcohol abuse, presents to the emergency department for alcohol intoxication. Patient has frequent visits to the emergency department for alcohol intoxication. Finger stick was 56. Patient has strong alcohol odor, unable to give appropriate history. Patient is arousable, but not awake and alert for history. PMD: Dr. Riddle (Annie Granado PA-C) Past Medical History - Provider Review Nursing Documentation Reviewed: Yes - Infectious Disease Hx of Infectious Diseases: None - Tetanus Immunization Tetanus Immunization: Unknown - Past Medical History Past Medical History: Unable to Obtain - Cardiac Hx Cardiac Disorders: Yes (CAD) Hx Hypertension: Yes - Pulmonary Hx Respiratory Disorders: No - Neurological Hx Neurological Disorder: Yes Hx Transient Ischemic Attacks (TIA): Yes - HEENT Hx HEENT Disorder: No - Renal Hx Renal Disorder: No - Endocrine/Metabolic Hx Endocrine Disorders: No - Hematological/Oncological Hx Blood Disorders: No - Integumentary Hx Dermatological Disorder: No - Musculoskeletal/Rheumatological Hx Musculoskeletal Disorders: Yes Hx Falls: Yes (2 yrs ago fell 0ff ladder) - Gastrointestinal Hx Gastrointestinal Disorders: No - Genitourinary/Gynecological Hx Genitourinary Disorders: No - Psychiatric Hx Psychophysiologic Disorder: No Hx Depression: No Hx Emotional Abuse: No Hx Physical Abuse: No Hx Substance Use: No - Past Surgical History Past Surgical History: Unable to Obtain - Surgical History Hx Musculoskeletal Surgery: Yes (right hip and hand, facial fracture repair) Other/Comment: right wrist injury, bone marrow taken from right hip and inserted into fx bone in right hand along with metal, metal has since been removed, 23 yrs ago at [facility] - Anesthesia Hx Anesthesia: Yes Hx Anesthesia Reactions: No Hx Malignant Hyperthermia: No - Suicidal Assessment Feels Threatened In Home Enviroment: No <Annie Granado PA-C. - Last Filed: 11/07/16 02:13> Family/Social History - Physician Review Nursing Documentation Reviewed: Yes Family/Social History: No Known Family HX Smoking Status: Former Smoker Hx Alcohol Use: Yes (DRINKS 2 PINTS OF VODKA DAILY. LAST DRANK 3 D AGO.2 PINTS OF VODKA AND LIQU) Hx Substance Use: No Hx Substance Use Treatment: No <Annie Granado PA-C - Last Filed: 11/07/16 02:13> Allergies/Home Meds <Aftab Tovar - Last Filed: 11/06/16 02:28> <Annie Granado PA-C - Last Filed: 11/07/16 02:13> Allergies/Adverse Reactions: Allergies coconut Allergy (Verified 11/06/16 12:54) RASH coconut oil Allergy (Verified 11/06/16 12:54) RASH cranberry Allergy (Verified 11/06/16 12:54) SWELLING Home Medications: Home Meds Medication Instructions Recorded Confirmed No Known Home Med 09/12/16 11/06/16 Review of Systems - Review of Systems Systems not reviewed;Unavailable: Intoxicated (sleeping) <Annie Granado PA-C - Last Filed: 11/07/16 02:13> Physical Exam Vital Signs Reviewed: Yes Temperature: Afebrile Blood Pressure: Hypertensive Pulse: Regular Respiratory Rate: Normal Appearance: Positive for: Ill-Appearing, Other (alcohol on breath) Pain Distress: None Mental Status: Positive for: other (arousable, but not awake and alert) Finger Stick Blood Glucose: 56 - Systems Exam Head: Present: Atraumatic, Normocephalic Pupils: Present: PERRL Extroacular Muscles: Present: EOMI Conjunctiva: Present: Normal Mouth: Present: Dry Respiratory/Chest: Present: Clear to Auscultation, Good Air Exchange. No: Respiratory Distress, Accessory Muscle Use Cardiovascular: Present: Regular Rate and Rhythm, Normal S1, S2. No: Murmurs Abdomen: Present: Normal Bowel Sounds. No: Tenderness, Distention, Peritoneal Signs Upper Extremity: Present: Normal Inspection. No: Cyanosis, Edema Lower Extremity: Present: Normal Inspection. No: Edema Neurological: Present: GCS=15, CN II-XII Intact, Speech Normal Skin: Present: Warm, Dry, Normal Color. No: Rashes Psychiatric: Present: Normal Insight <Annie Granado PA-C - Last Filed: 11/07/16 02:13> Vital Signs Temp Pulse Pulse Resp BP Pulse Ox 11/06/16 16:00 98.1 F 81 20 151/102 H 98 11/06/16 15:51 95 H 157/96 H 11/06/16 14:01 99 H 142/99 H 11/06/16 14:00 99 H 11/06/16 13:48 98.4 F 81 81 18 160/110 H 11/06/16 13:00 160/110 H 11/06/16 11:40 98.4 F 81 18 11/06/16 11:33 81 18 148/89 97 11/06/16 10:00 82 11/06/16 08:00 80 18 150/98 H 97 11/06/16 06:00 98.2 F 83 18 129/86 99 11/06/16 04:00 95 H 18 128/74 100 11/05/16 18:40 97.8 F 70 16 134/76 95 11/05/16 15:46 98.5 F 74 18 176/65 H 98 Medical Decision Making <Aftab Tovar - Last Filed: 11/06/16 02:28> - Lab Interpretations I have reviewed the lab results: Yes <Annie Granado PA-C - Last Filed: 11/07/16 02:13> ED Course and Treatment: 11/05/16 17:09 Impression: A 51 year old male with alcohol intoxication. Plan: -- labs -- IV fluids, Dextrose -- Reassess and disposition Prior Visits: Notes and results from previous visits were reviewed. Patient was last seen in the emergency department on 10/24/16 for evaluation of alcohol intoxication. Progress Notes: 11/05/16 17:42 FS 166. VSS. Patient is sleeping comfortably. IVF infusing. (Annie Granado PA-C) - Lab Interpretations Lab Results: 11/05/16 16:51 11/05/16 16:51 Lab Results 11/05/16 16:51: Alcohol, Quantitative 443 H* 11/05/16 16:51: Sodium 147, Potassium 4.1, Chloride 109 H, Carbon Dioxide 24, Anion Gap 18, BUN 13, Creatinine 0.9, Est GFR ( Amer) > 60, Est GFR (Non- Af Amer) > 60, Random Glucose 53 L, Calcium 8.4, Total Bilirubin 0.4, AST 40, ALT 28, Alkaline Phosphatase 70, Total Protein 7.5, Albumin 4.3, Globulin 3.2, Albumin/Globulin Ratio 1.3 11/05/16 16:51: WBC 11.3 H, RBC 4.73, Hgb 15.1, Hct 44.1, MCV 93.2, MCH 31.9, MCHC 34.2, RDW 13.5, Plt Count 294, MPV 9.3, Gran % 75.6 H, Lymph % (Auto) 17.2 L, Edwards % (Auto) 5.3, Eos % (Auto) 1.6, Baso % (Auto) 0.3, Gran # 8.56 H, Lymph # 2.0, Edwards # 0.6, Eos # 0.2, Baso # 0.03 11/05/16 15:49: POC Glucose (mg/dL) 56 L - Medication Orders Current Medication Orders: Amlodipine Besylate (Norvasc) 10 mg PO DAILY MARIO Chlordiazepoxide (Librium) 25 mg PO Q8H MARIO PRN Reason: Protocol Last Admin: 11/06/16 21:45 Dose: 25 mg Behavioural Document 11/06/16 21:45 RR (Rec: 11/06/16 21:46 RR [id number]) Maintenance Maintenance Dose Yes Dextrose (Dextrose 50% Inj) 100 ml IV PRN PRN PRN Reason: FOR BLOOD SUGAR < 80 Folic Acid 1 mg/ Thiamine HCl 100 mg/ Multivitamins/Vitamin C 10 ml/ Dextrose 1 ,011.2 mls @ 100 mls/hr IV .Q10H7M MARIO Last Admin: 11/06/16 21:18 Dose: Lisinopril (Zestril) 40 mg PO DAILY MARIO Lorazepam (Ativan) 1 mg IVP Q4 PRN; Protocol PRN Reason: Agitation Last Admin: 11/06/16 12:58 Dose: 1 mg IVP Administration Document 11/06/16 12:58 SG (Rec: 11/06/16 12:58 SG [id number]) Charges for Administration # of IVP Administrations 1 Behavioural Document 11/06/16 12:58 (Rec: 11/06/16 12:58 [id number]) Maintenance Maintenance Dose Yes Nonmedicinal Nonmedicinal Interventions Redirect Therapeutic Communication Activity Give food/fluids See nurse's notes Behavior Behavior for Medication: Anxiety Re-Assess: Reassess Psych Meds Document 11/06/16 13:28 SG (Rec: 11/06/16 13:59 [id number]) Reassess Psych Med Effective Pantoprazole Sodium (Protonix Inj) 40 mg IVP DAILY MARIO Last Admin: 11/06/16 09:16 Dose: 40 mg IVP Administration Document 11/06/16 09:16 (Rec: 11/06/16 09:17 [id number]) Charges for Administration # of IVP Administrations 1 Discontinued Medications Amlodipine Besylate (Norvasc) 10 mg PO STAT STA Stop: 11/06/16 13:21 Last Admin: 11/06/16 14:01 Dose: 10 mg MAR Blood Pressure Document 11/06/16 14:01 SG (Rec: 11/06/16 14:01 [id number]) Blood Pressure Blood Pressure (100/60-150/90) 142/99 Dextrose (Dextrose 50% Inj) 50 ml IVP STAT STA Stop: 11/05/16 16:31 Last Admin: 11/05/16 16:38 Dose: 50 ml IVP Administration Document 11/05/16 16:38 CNR (Rec: 11/05/16 16:38 CNR [id number]) Charges for Administration # of IVP Administrations 1 Dextrose (Dextrose 50% Inj) 50 ml IVP STAT STA Stop: 11/05/16 21:38 Last Admin: 11/05/16 21:37 Dose: 50 ml IVP Administration Document 11/05/16 21:37 HENRY (Rec: 11/05/16 23:37 HNERY [id number]) Charges for Administration # of IVP Administrations 1 Dextrose (Dextrose 50% Inj) Confirm Administered Dose 50 ml .ROUTE .STK-MED ONE Stop: 11/05/16 21:42 Last Admin: 11/06/16 04:33 Dose: Dextrose (Dextrose 50% Inj) 50 ml IVP STAT STA Stop: 11/06/16 02:21 Last Admin: 11/06/16 02:20 Dose: 50 ml IVP Administration Document 11/06/16 02:20 HENRY (Rec: 11/06/16 04:30 HENRY [id number]) Charges for Administration # of IVP Administrations 1 Multivitamins/Vitamin C 10 ml/Thiamine HCl 100 mg/ Folic Acid 1 mg/ Sodium Chloride 1,011.2 mls @ 200 mls/hr IV .Q5H4M ONE Stop: 11/05/16 21:44 Last Admin: 11/05/16 18:16 Dose: 200 mls/hr eMAR Start Stop Document 11/05/16 18:16 CNR (Rec: 11/05/16 18:21 CNR [id number]) Intravenous Solution Start Date 11/05/16 Start Time 18:21 Multivitamins/Vitamin C 10 ml/Thiamine HCl 100 mg/ Folic Acid 1 mg/ Dextrose 1, 011.2 mls @ 200 mls/hr IV .Q5H4M ONE Stop: 11/06/16 02:41 Last Admin: 11/05/16 23:51 Dose: 200 mls/hr eMAR Start Stop Document 11/05/16 23:51 HENRY (Rec: 11/05/16 23:52 HENRY [id number]) Intravenous Solution Start Date 11/05/16 Start Time 23:52 Lisinopril (Zestril) 20 mg PO STAT STA Stop: 11/06/16 13:22 Last Admin: 11/06/16 14:01 Dose: 20 mg MAR Pulse and Blood Pressure Document 11/06/16 14:01 SG (Rec: 11/06/16 14:01 [id number]) Pulse Pulse Rate (60-90) 99 Blood Pressure Blood Pressure (100/60-150/90) 142/99 Lisinopril (Zestril) 20 mg PO DAILY MARIO Lisinopril (Zestril) 20 mg PO STAT STA Stop: 11/06/16 15:38 Last Admin: 11/06/16 15:51 Dose: 20 mg MAR Pulse and Blood Pressure Document 11/06/16 15:51 SG (Rec: 11/06/16 15:51 [id number]) Pulse Pulse Rate (60-90) 95 Blood Pressure Blood Pressure (100/60-150/90) 157/96 Lorazepam (Ativan) 2 mg IVP Q2 PRN; Protocol PRN Reason: Agitation Lorazepam (Ativan) 2 mg IVP Q6H MARIO PRN Reason: Protocol Last Admin: 11/06/16 21:46 Dose: Pneumococcal Polyvalent Vaccine (Pneumovax 23 Vaccine) 0.5 ml IM .ONCE ONE Stop: 11/06/16 14:29 ED OBSERVATION <Aftab Tovar - Last Filed: 11/06/16 02:28> Date of observation admission: 11/05/16 Time of observation admission: 17:00 <Annie Granado PA-C - Last Filed: 11/07/16 02:13> - Observation admission statement Patient is being placed in observation because:: alcohol intoxication (Annie Granado PA-C) - Goals of Observation Goals of observation are:: sobriety, observe for signs of alcohol withdrawal (Annie Granado PA-C) - Progress Note Progress Note: 11/05/16 17:00 Pt brought in for alcohol intoxication, will observe pending sobriety. Fingerstick 166, patient on normal saline. Vital signs stable 11/05/16 19:00 Pt resting comfortably, no new complaints. Vitals stable. 11/05/16 21:00 Pt sleeping, no acute distress. Vitals stable. 11/05/16 21:27 Repeat fingerstick:55. Pt given D50. Pt switched from normal saline to D5. 11/05/16 22:40 Repeat fingerstick: 118. Pt resting comfortably, no new complaints. Vital stable. 11/06/16 00:40 Pt sleeping, no acute distress. Vitals stable. 11/06/16 02:15 Repeat FS is 60. 1 amp of D50 given IVP. Case discussed with Dr. Ballesteros, medical services manager stone carriage operator, who is aware and agrees with plan. Case d/w Dr. Bradshaw, [facility]. (Annie Granado PA-C) - PA / RIVETING MACHINE OPERATOR / Resident Statement SANTOS has reviewed & agrees with the documentation as recorded. / has examined the patient and agrees with the treatment plan. <Aftab Tovar - Last Filed: 11/06/16 02:28> - PA / RIVETING MACHINE OPERATOR / Resident Statement MD/DO has reviewed & agrees with the documentation as recorded. - Scribe Statement The provider has reviewed the documentation as recorded by the Scribe <Annie Granado PA-C - Last Filed: 11/07/16 02:13> - Scribe Statement Terrireinajuan Hdezdi Provider Scribe Attestation: All medical record entries made by the Scribe were at my direction and personally dictated by me. I have reviewed the chart and agree that the record accurately reflects my personal performance of the history, physical exam, medical decision making, and the department course for this patient. I have also personally directed, reviewed, and agree with the discharge instructions and disposition. (Annie Granado PA-C) Disposition/Present on Arrival <Aftab Tovar - Last Filed: 11/06/16 02:28> - Present on Arrival Any Indicators Present on Arrival: Yes History of DVT/PE: No History of Uncontrolled Diabetes: No Urinary Catheter: No History of Decub. Ulcer: No History Surgical Site Infection Following: None - Disposition Have Diagnosis and Disposition been Completed?: Yes Disposition Time: 02:00 Patient Plan: Observation (remote tele) <Annie Granado PA-C - Last Filed: 11/07/16 02:13> - Disposition Diagnosis: Alcohol intoxication, Hypoglycemia Disposition: HOSPITALIZED Patient Problems: Current Active Problems Problem Status Onset Alcohol intoxication Acute Hypoglycemia Acute Condition: FAIR
[2016-11-05 17:18] LABS: ALB/GLOB RATIO 1.3 (1.1-1.8); ALKALINE PHOSPHATASE 70 U/L (38-126); ALT/SGPT 28 U/L (7-56); AST/SGOT 40 U/L (17-59); BILIRUBIN,TOTAL 0.4 mg/dL (0.2-1.3); BLOOD UREA NITROGEN 13 mg/dL (7-21); CALCIUM 8.4 mg/dL (8.4-10.5); CARBON DIOXIDE 24 mmol/L (21-33); CHLORIDE 109 mmol/L (98-107); GFR AFRICAN-AMERICAN > 60; GLUCOSE,RANDOM 53 mg/dL (70-110); POTASSIUM 4.1 mmol/L (3.6-5.0); SODIUM 147 mmol/L (132-148); TOTAL PROTEIN 7.5 g/dL (5.8-8.3)
[2016-11-05] MEDS ORDERED: Multivitamin (MVI) 10 ML, Thiamine 100 MG, Folic Acid 1 MG in Dextrose 5% In Water 1,00... IV ONE (21:38)
[2016-11-05] MEDS ORDERED: Dextrose 50% SYRINGE Inj (50 ml) ONE (21:41)
[2016-11-06] MEDS ORDERED: Dextrose 50% SYRINGE Inj (50 ml) IVP STA (02:20)
--- NOTE | 2016-11-06 02:29 | CP.PCM.HP ---
History of Present Illness - History of Present Illness History of Present Illness: IM H/P - TKS DO, PGY-1 CC: Hypoglycemia/Acute EtOH Intoxication HPI: 51 M with PMHx pertinent for significant alcohol abuse presents with alcohol intoxication. Patient does not remember too much about how he got to the hospital. He states that he usually does not get hypoglycemic to the extent that he is right now when he is intoxicated. Patient states that he currently has no symptoms, but is aware that he is being admitted for refractive hypoglycemia. Pt denies f/ch/cp/sob/n/v/d. Pt denies abdominal pain, hematuria, urinary changes. No further complaints. PSH: Bone marrow injection right wrist, zygomatic fracture repair PMH: HTN, TIA All: Coconut prods, Cranberry SocHx: Admits to heavy alcohol use, prior tobacco use (quit 15 years ago), denies illicit drug use. FamHx: Non-contributory Meds: None Present on Admission - Present on Admission Any Indicators Present on Admission: No Review of Systems - Hematologic/Lymphatic Additional comments: ROS: Constitutional: pt denies fever, chills, generalized weakness ENT: pt denies dysphagia, otalgia, hearing deficit, rhinorrhea Eyes: pt denies sudden loss of vision, diplopia, blurred vision MSK: pt denies muscle stiffness, joint pain, extremity cramping Cardio: pt denies sob, heart murmur, cp Pulm: pt denies cough, hemoptysis, wheeze GI: pt denies loss of appetite, abdominal pain, constipation, melena, n/v/d : pt denies burning on urination, urinary frequency, hematuria, urinary urgency Neuro: pt denies paresis, paresthesia, dizziness, lee, numbness, tingling Derm: pt denies skin changes, lesions, nail changes Endo: pt denies intolerance to heat/cold, diaphoresis, night sweats, polydipsia Psych: pt denies anxiety, depression, mood changes Past Patient History - Infectious Disease Hx of Infectious Diseases: None - Tetanus Immunizations Tetanus Immunization: Unknown - Past Medical History & Family History Past Medical History?: Yes - Past Social History Smoking Status: Former Smoker - CARDIAC Hx Cardiac Disorders: Yes (CAD) Hx Hypertension: Yes - PULMONARY Hx Respiratory Disorders: No - NEUROLOGICAL Hx Neurological Disorder: Yes Hx Transient Ischemic Attacks (TIA): Yes - HEENT Hx HEENT Problems: No - RENAL Hx Chronic Kidney Disease: No - ENDOCRINE/METABOLIC Hx Endocrine Disorders: No - HEMATOLOGICAL/ONCOLOGICAL Hx Blood Disorders: No - INTEGUMENTARY Hx Dermatological Problems: No - MUSCULOSKELETAL/RHEUMATOLOGICAL Hx Musculoskeletal Disorders: Yes Hx Falls: Yes (2 yrs ago fell 0ff ladder) - GASTROINTESTINAL Hx Gastrointestinal Disorders: No - GENITOURINARY/GYNECOLOGICAL Hx Genitourinary Disorders: No - PSYCHIATRIC Hx Psychophysiologic Disorder: No Hx Depression: No Hx Emotional Abuse: No Hx Physical Abuse: No Hx Substance Use: No - SURGICAL HISTORY Hx Musculoskeletal Surgery: Yes (right hip and hand, facial fracture repair) Other/Comment: right wrist injury, bone marrow taken from right hip and inserted into fx bone in right hand along with metal, metal has since been removed, 23 yrs ago at [facility] - ANESTHESIA Hx Anesthesia: Yes Hx Anesthesia Reactions: No Hx Malignant Hyperthermia: No Meds Allergies/Adverse Reactions: Allergies Allergy/AdvReac Type Severity Reaction Status Date / Time coconut Allergy RASH Verified 10/24/16 12:13 coconut oil Allergy RASH Verified 10/24/16 12:13 cranberry Allergy SWELLING Verified 10/24/16 12:13 Physical Exam - Additional Findings Additional findings: Phys Exam: VS as below Constitutional: Seems to be more AAO than when he first came in; a&o x 4, nad Head and Neck: neck supple, no jvd, trachea midline, carotid midline, no cervical/head mass Eyes: roman, nonicteric sclera, eom intact ENT: auditory acuity grossly intact, throat not congested, no nasal deformity Cardio: rrr, no m/r/g, no carotid bruit, nml s1, s2 Pulm: no accessory muscle use, equal nml breath sounds bilaterally, ctab Abd: s/nt/nd, nbs x 4 q, no palpable masses Derm: no rashes, no ulcers, no lesions Extr: no edema, no cyanosis, no calf tenderness, no lesions, no varicosities Neuro: No Neuro Deficits: cn II-XII grossly intact, ue and le 5/5 muscle strength~bilaterally, no los ue, le bilaterally and core Results - Vital Signs Recent Vital Signs: Last Vital Signs Temp 97.8 F 11/05/16 18:40 Pulse 70 11/05/16 18:40 Resp 16 11/05/16 18:40 BP 134/76 11/05/16 18:40 Pulse Ox 95 11/05/16 18:40 - Labs Result Diagrams: 11/05/16 16:51 11/05/16 16:51 Labs: Laboratory Results - last 24 hr 11/05/16 11/05/16 11/05/16 17:12 21:27 22:39 POC Glucose (mg/dL) 166 H 55 L 118 H 11/05/16 11/06/16 23:50 02:20 POC Glucose (mg/dL) 89 60 L Assessment & Plan - Assessment and Plan (Free Text) Assessment: A/P: 51 M with pertinent PMHx of alcohol abuse presents with intoxication and is being admitted solely for refractory hypoglycemia. No hx of diabetes. Refractory Hypoglycemia - D5W - FSG - 2 D50 syringes for BS < 80 Acute Alcohol Intoxication - CIWA, Seizure, Fall, Aspiration Protocols - Vitals q4 - AM labs: CMP, CBC, Mg, Phos - Banana Bag - Ativan 1 q4 PRN - NEED TO UPDATE TO Ativan 2 q2 PRN and Ativan 2 q6 MARIO when patient is no longer intoxicated Hx/O HTN - Monitor; he does not take medications at home Hx/O TIA - No acute intervention PPXS - Protonix/SCD TKS DO, PGY-1, D/w Dr. Bradshaw
[2016-11-06] MEDS: Folic Acid 1 MG, Thiamine 100 MG, Multivitamin (MVI) 10 ML in Dextrose 5% In Water 1,00... IV SCH ×3 (03:15→21:18)
[2016-11-06] MEDS ORDERED: Dextrose 50% SYRINGE Inj (50 ml) IV PRN ×2 (03:45)
[2016-11-06 06:22] LABS: ALB/GLOB RATIO 1.2 (1.1-1.8); ALKALINE PHOSPHATASE 56 U/L (38-126); ALT/SGPT 34 U/L (7-56); AST/SGOT 34 U/L (17-59); BILIRUBIN,TOTAL 0.5 mg/dL (0.2-1.3); BLOOD UREA NITROGEN 13 mg/dL (7-21); CALCIUM 8.6 mg/dL (8.4-10.5); CARBON DIOXIDE 24 mmol/L (21-33); CHLORIDE 106 mmol/L (95-110); GFR AFRICAN-AMERICAN > 60; GLUCOSE,RANDOM 94 mg/dL (70-110); MAGNESIUM 1.7 mg/dL (1.7-2.2); PHOSPHOROUS 2.8 mg/dL (2.5-4.5); POTASSIUM 3.7 mmol/L (3.6-5.0); SODIUM 143 mmol/L (132-148)
[2016-11-06] MEDS ORDERED: Pneumococcal 23-Valent Vaccine IM ONE (14:28)
[2016-11-06 17:23] VITALS: RESP 20
[2016-11-07] MEDS: Folic Acid 1 MG, Thiamine 100 MG, Multivitamin (MVI) 10 ML in Dextrose 5% In Water 1,00... IV SCH (04:40)
[2016-11-07 07:46] LABS: HEMATOCRIT 40.8 % (42.0-52.0); MEAN CELL VOLUME 90.5 fl (80.0-105.0); MEAN CORPUSCULAR HEMOGLOBIN 31.3 pg (25.0-35.0); MEAN CORPUSCULAR HGB CONC 34.6 g/dl (31.0-37.0); MEAN PLATELET VOLUME 9.3 fl (7.0-11.0); RED CELL DISTRIBUTION WIDTH 13.2 % (11.5-14.5); WHITE BLOOD COUNT 7.5 10^3/ul (4.5-11.0)
[2016-11-07 07:50] VITALS: BP 105/76; TEMP 98; O2SAT 97
[2016-11-07 07:57] LABS: ALB/GLOB RATIO 1.1 (1.1-1.8); ALKALINE PHOSPHATASE 65 U/L (38-126); ALT/SGPT 40 U/L (7-56); AST/SGOT 31 U/L (17-59); BILIRUBIN,TOTAL 0.8 mg/dL (0.2-1.3); BLOOD UREA NITROGEN 11 mg/dL (7-21); CALCIUM 9.1 mg/dL (8.4-10.5); CARBON DIOXIDE 28 mmol/L (21-33); CHLORIDE 104 mmol/L (95-110); GFR AFRICAN-AMERICAN > 60; GLUCOSE,RANDOM 98 mg/dL (70-110); MAGNESIUM 1.7 mg/dL (1.7-2.2); PHOSPHOROUS 3.6 mg/dL (2.5-4.5); POTASSIUM 4.4 mmol/L (3.6-5.0); SODIUM 139 mmol/L (132-148); TOTAL PROTEIN 6.5 g/dL (5.8-8.3)
[2016-11-07 09:42] VITALS: PULSE 72
--- NOTE | 2016-11-07 13:20 | CP.PCM.DIS ---
<Nieves Charles - Last Filed: 11/07/16 17:21> Provider - Provider Date of Admission: 11/05/16 17:00 Attending physician: Slick Bradshaw MD Primary care physician: Jose A Riddle MD Time Spent in preparation of Discharge (in minutes): 31 Hospital Course - Lab Results Lab Results: Most Recent Lab Values WBC 7.5 10^3/ul (4.5-11.0) D 11/07/16 07:30 RBC 4.51 10^6/uL (3.5-6.1) 11/07/16 07:30 Hgb 14.1 g/dL (14.0-18.0) 11/07/16 07:30 Hct 40.8 % (42.0-52.0) L 11/07/16 07:30 MCV 90.5 fl (80.0-105.0) 11/07/16 07:30 MCH 31.3 pg (25.0-35.0) 11/07/16 07:30 MCHC 34.6 g/dl (31.0-37.0) 11/07/16 07:30 RDW 13.2 % (11.5-14.5) 11/07/16 07:30 Plt Count 260 10^3/uL (120.0-450.0) 11/07/16 07:30 MPV 9.3 fl (7.0-11.0) 11/07/16 07:30 Gran % 75.6 % (50.0-68.0) H 11/05/16 16:51 Lymph % (Auto) 17.2 % (22.0-35.0) L 11/05/16 16:51 [place] % (Auto) 5.3 % (1.0-6.0) 11/05/16 16:51 Eos % (Auto) 1.6 % (1.5-5.0) 11/05/16 16:51 Baso % (Auto) 0.3 % (0.0-3.0) 11/05/16 16:51 Gran # 8.56 (1.4-6.5) H 11/05/16 16:51 Lymph # 2.0 (1.2-3.4) 11/05/16 16:51 [place] # 0.6 (0.1-0.6) 11/05/16 16:51 Eos # 0.2 (0.0-0.7) 11/05/16 16:51 Baso # 0.03 K/mm3 (0.0-2.0) 11/05/16 16:51 Sodium 139 mmol/L (132-148) 11/07/16 07:30 Potassium 4.4 mmol/L (3.6-5.0) 11/07/16 07:30 Chloride 104 mmol/L (95-110) 11/07/16 07:30 Carbon Dioxide 28 mmol/L (21-33) 11/07/16 07:30 Anion Gap 11 (10-20) 11/07/16 07:30 BUN 11 mg/dL (7-21) 11/07/16 07:30 Creatinine 0.7 mg/dL (0.5-1.4) 11/07/16 07:30 Est GFR ( Amer) > 60 11/07/16 07:30 Est GFR (Non-Af Amer) > 60 11/07/16 07:30 POC Glucose (mg/dL) 118 mg/dL (65-110) H 11/07/16 11:04 Random Glucose 98 mg/dL (70-110) 11/07/16 07:30 Calcium 9.1 mg/dL (8.4-10.5) 11/07/16 07:30 Phosphorus 3.6 mg/dL (2.5-4.5) 11/07/16 07:30 Magnesium 1.7 mg/dL (1.7-2.2) 11/07/16 07:30 Total Bilirubin 0.8 mg/dL (0.2-1.3) 11/07/16 07:30 AST 31 U/L (17-59) 11/07/16 07:30 ALT 40 U/L (7-56) 11/07/16 07:30 Alkaline Phosphatase 65 U/L (38-126) 11/07/16 07:30 Total Protein 6.5 g/dL (5.8-8.3) 11/07/16 07:30 Albumin 3.5 g/dL (3.0-4.8) 11/07/16 07:30 Globulin 3.1 gm/dL 11/07/16 07:30 Albumin/Globulin Ratio 1.1 (1.1-1.8) 11/07/16 07:30 Alcohol, Quantitative 443 mg/dL (0-10) H* 11/05/16 16:51 - Hospital Course Hospital Course: 51 year old male with PMHx HTN, alcohol abuse presents with alcohol intoxication. On arrival patient was found to be hypoglycemic with blood sugar in the 50s. Patient was given D50 but continued to have multiple episodes of hypoglycemia. Alcohol level on arrival noted to be 443. Patient was admitted for alcohol intoxication and hypoglycemia. Patient was monitored for signs/ symptoms of alcohol withdrawal. Started on Librium, Ativan prn, and banana bag for withdrawal. Patient had episodes of elevated BPs, was started on Norvasc 10mg and Lisinopril 40mg daily. On HD#2, patient was ambulating and tolerating diet, BPs were controlled. Patient did not exhibit signs of withdrawal and did not require librium or ativan. Labs and electrolytes were monitored. Patient medically stable for discharge. Prescribed Norvasc and Lisinopril for HTN. Patient advised to quit drinking alcohol, patient amendable to going to AA. Also advised to follow up with PMD Dr Riddle within 1 week for discharge. All questions and concerns were addressed. Discharge Exam - Head Exam Head Exam: ATRAUMATIC, NORMAL INSPECTION - Eye Exam Eye Exam: EOMI, Normal appearance Pupil Exam: NORMAL ACCOMODATION - ENT Exam ENT Exam: Mucous Membranes Moist - Respiratory Exam Respiratory Exam: Clear to PA & Lateral, NORMAL BREATHING PATTERN, UNREMARKABLE. absent: Rhonchi, Wheezes, Respiratory Distress - Cardiovascular Exam Cardiovascular Exam: REGULAR RHYTHM, +S1, +S2 - GI/Abdominal Exam GI & Abdominal Exam: Normal Bowel Sounds, Soft. absent: Rebound, Rigid, Tenderness - Extremities Exam Extremities exam: normal inspection, pedal pulses present - Back Exam Back exam: NORMAL INSPECTION - Neurological Exam Neurological exam: Alert, CN II-XII Intact, Normal Gait, Oriented x3 - Psychiatric Exam Psychiatric exam: Normal Affect, Normal Mood - Skin Skin Exam: Normal Color, Warm Discharge Plan - Discharge Medications Prescriptions: amLODIPine [Norvasc] 10 mg PO DAILY #14 tab Lisinopril 30 mg PO DAILY #14 tablet - Follow Up Plan Condition: FAIR Disposition: HOME/ ROUTINE Instructions: Non-diabetic Hypoglycemia (DC), Alcohol Intoxication (DC) Additional Instructions: Patient is clear for discharge. Patient to follow up with Dr Riddle within 1 week. Prescriptions for Lisinopril and Norvasc given. Referrals: Jose A Riddle MD [Primary Care Provider] - <Slick Bradshaw - Last Filed: 11/07/16 18:41> Provider - Provider Date of Admission: 11/05/16 17:00 Attending physician: Slick Bradshaw MD Primary care physician: Jose A Riddle MD Time Spent in preparation of Discharge (in minutes): 35 Hospital Course - Lab Results Lab Results: Most Recent Lab Values WBC 7.5 10^3/ul (4.5-11.0) D 11/07/16 07:30 RBC 4.51 10^6/uL (3.5-6.1) 11/07/16 07:30 Hgb 14.1 g/dL (14.0-18.0) 11/07/16 07:30 Hct 40.8 % (42.0-52.0) L 11/07/16 07:30 MCV 90.5 fl (80.0-105.0) 11/07/16 07:30 MCH 31.3 pg (25.0-35.0) 11/07/16 07:30 MCHC 34.6 g/dl (31.0-37.0) 11/07/16 07:30 RDW 13.2 % (11.5-14.5) 11/07/16 07:30 Plt Count 260 10^3/uL (120.0-450.0) 11/07/16 07:30 MPV 9.3 fl (7.0-11.0) 11/07/16 07:30 Gran % 75.6 % (50.0-68.0) H 11/05/16 16:51 Lymph % (Auto) 17.2 % (22.0-35.0) L 11/05/16 16:51 [place] % (Auto) 5.3 % (1.0-6.0) 11/05/16 16:51 Eos % (Auto) 1.6 % (1.5-5.0) 11/05/16 16:51 Baso % (Auto) 0.3 % (0.0-3.0) 11/05/16 16:51 Gran # 8.56 (1.4-6.5) H 11/05/16 16:51 Lymph # 2.0 (1.2-3.4) 11/05/16 16:51 [place] # 0.6 (0.1-0.6) 11/05/16 16:51 Eos # 0.2 (0.0-0.7) 11/05/16 16:51 Baso # 0.03 K/mm3 (0.0-2.0) 11/05/16 16:51 Sodium 139 mmol/L (132-148) 11/07/16 07:30 Potassium 4.4 mmol/L (3.6-5.0) 11/07/16 07:30 Chloride 104 mmol/L (95-110) 11/07/16 07:30 Carbon Dioxide 28 mmol/L (21-33) 11/07/16 07:30 Anion Gap 11 (10-20) 11/07/16 07:30 BUN 11 mg/dL (7-21) 11/07/16 07:30 Creatinine 0.7 mg/dL (0.5-1.4) 11/07/16 07:30 Est GFR ( Amer) > 60 11/07/16 07:30 Est GFR (Non-Af Amer) > 60 11/07/16 07:30 POC Glucose (mg/dL) 118 mg/dL (65-110) H 11/07/16 11:04 Random Glucose 98 mg/dL (70-110) 11/07/16 07:30 Calcium 9.1 mg/dL (8.4-10.5) 11/07/16 07:30 Phosphorus 3.6 mg/dL (2.5-4.5) 11/07/16 07:30 Magnesium 1.7 mg/dL (1.7-2.2) 11/07/16 07:30 Total Bilirubin 0.8 mg/dL (0.2-1.3) 11/07/16 07:30 AST 31 U/L (17-59) 11/07/16 07:30 ALT 40 U/L (7-56) 11/07/16 07:30 Alkaline Phosphatase 65 U/L (38-126) 11/07/16 07:30 Total Protein 6.5 g/dL (5.8-8.3) 11/07/16 07:30 Albumin 3.5 g/dL (3.0-4.8) 11/07/16 07:30 Globulin 3.1 gm/dL 11/07/16 07:30 Albumin/Globulin Ratio 1.1 (1.1-1.8) 11/07/16 07:30 Alcohol, Quantitative 443 mg/dL (0-10) H* 11/05/16 16:51 Attending/Attestation - Attestation I have personally seen and examined this patient.: Yes I have fully participated in the care of the patient.: Yes I have reviewed all pertinent clinical information, including history, physical exam and plan: Yes Notes (Text): I have seen and examined patient at bedside. Agree with the above note. Alcohol counselling provided. BP meds given. Advised patient to follow up with Dr Riddle.
== END 2016-11-07 16:12 | disposition home or self-care (01) ==
LOC: ED 15:33 → EROBSV 17:00 → ERH 11-06 02:46 → 3RNO 11-06 16:13
PROVIDERS: ADMIT Emergency Medicine; ATTEND Hospitalist
DX: F10.129 Alcohol abuse with intoxication, unspecified (principal); E16.2 Hypoglycemia, unspecified; I10 Essential (primary) hypertension; Y90.8 Blood alcohol level of 240 mg/100 ml or more; Z86.73 Personal history of transient ischemic attack (TIA), and cerebral infarction without residual deficits; Z87.891 Personal history of nicotine dependence
CPT/HCPCS: 36415; 80053; 80320; 82948; 83735; 84100; 85025; 85027; 96374; 96375; 96376; 99284; C9113; G0378; J2060; J3411; J7040; J7070

== ENCOUNTER 2016-11-11 22:54 | Observation (INO) | payer MEDICAID ==
[2016-11-11 23:05] VITALS: BMI 33.2
[2016-11-11 23:09] VITALS: RESP 16; TEMP 98.2; O2SAT 99
--- NOTE | 2016-11-11 23:13 | ED PDOC ---
Arrival/HPI - General Historian: Patient <Vic Gonzalez - Last Filed: 11/12/16 00:42> <Sebastián Kern - Last Filed: 11/12/16 05:39> - General Chief Complaint: Alcohol Ingestion Time Seen by Provider: 11/11/16 23:09 - History of Present Illness Narrative History of Present Illness (Text): 11/11/16 23:09 51 y/o male, pmh including htn, psychiatric history including etoh abuse, FS 116 , nkda, intoxicated with etoh on breath, frequent visitor to this ER, biba for etoh intoxication publicly. Pt. is here at the ER, intoxicated, admits been drinking tonight, no fall or trauma. Limited HPI can be performed on the patient due to the intoxication. (Vic Gonzalez) Past Medical History - Provider Review Nursing Documentation Reviewed: Yes - Infectious Disease Hx of Infectious Diseases: None - Tetanus Immunization Tetanus Immunization: Unknown - Past Medical History Past Medical History: Unable to Obtain - Cardiac Hx Cardiac Disorders: Yes (CAD) Hx Hypertension: Yes - Pulmonary Hx Respiratory Disorders: No - Neurological Hx Neurological Disorder: Yes Hx Transient Ischemic Attacks (TIA): Yes - HEENT Hx HEENT Disorder: No - Renal Hx Renal Disorder: No - Endocrine/Metabolic Hx Endocrine Disorders: No - Hematological/Oncological Hx Blood Disorders: No - Integumentary Hx Dermatological Disorder: No - Musculoskeletal/Rheumatological Hx Musculoskeletal Disorders: Yes Hx Falls: Yes (2 yrs ago fell 0ff ladder) - Gastrointestinal Hx Gastrointestinal Disorders: No - Genitourinary/Gynecological Hx Genitourinary Disorders: No - Psychiatric Hx Psychophysiologic Disorder: No Hx Depression: No Hx Emotional Abuse: No Hx Physical Abuse: No Hx Substance Use: No - Past Surgical History Past Surgical History: Unable to Obtain - Surgical History Hx Musculoskeletal Surgery: Yes (right hip and hand, facial fracture repair) Other/Comment: right wrist injury, bone marrow taken from right hip and inserted into fx bone in right hand along with metal, metal has since been removed, 23 yrs ago at [facility] - Anesthesia Hx Anesthesia: Yes Hx Anesthesia Reactions: No Hx Malignant Hyperthermia: No - Suicidal Assessment Feels Threatened In Home Enviroment: No <Vic Gonzalez - Last Filed: 11/12/16 00:42> Family/Social History - Physician Review Nursing Documentation Reviewed: Yes Family/Social History: Unknown Family HX Smoking Status: Former Smoker Hx Alcohol Use: Yes (DRINKS 2 PINTS OF VODKA DAILY. LAST DRANK 3 D AGO.2 PINTS OF VODKA AND LIQU) Hx Substance Use: No Hx Substance Use Treatment: No <Vic Gonzalez Marcelle - Last Filed: 11/12/16 00:42> Allergies/Home Meds <LisaVic Ibanez - Last Filed: 11/12/16 00:42> <Sebastián Kern - Last Filed: 11/12/16 05:39> Allergies/Adverse Reactions: Allergies coconut Allergy (Verified 11/06/16 12:54) RASH coconut oil Allergy (Verified 11/06/16 12:54) RASH cranberry Allergy (Verified 11/06/16 12:54) SWELLING Review of Systems - Review of Systems Systems not reviewed;Unavailable: Intoxicated <Vic Gonzalez Marcelle - Last Filed: 11/12/16 00:42> Physical Exam - Physical Exam Physical Exam Limitations: Intoxication Vital Signs Reviewed: Yes Temperature: Afebrile Pulse: Regular Respiratory Rate: Normal Appearance: Positive for: Well-Appearing, Non-Toxic, Comfortable Pain Distress: None - Systems Exam Head: Present: Atraumatic, Normocephalic, Other (no facial tenderness or swelling, no signs of trauma. ). No: Tenderness, Contusion, Swelling, Ecchymosis, Abrasion, Laceration Pupils: Present: PERRL Extroacular Muscles: Present: EOMI Conjunctiva: Present: Normal Mouth: Present: Moist Mucous Membranes Nose (External): Present: Atraumatic. No: Abrasion, Contusion Nose (Internal): Present: Normal Inspection, No Active Bleeding. No: Rhinorrhea , Septal Deviation, Septal Hematoma, Epistaxis Neck: Present: Normal Range of Motion, Other (cervical: no step off). No: MIDLINE TENDERNESS, Paraspinal Tenderness Respiratory/Chest: Present: Clear to Auscultation, Good Air Exchange. No: Respiratory Distress, Accessory Muscle Use, Wheezes, Decreased Breath Sounds, Rhonchi, Tender to Palpation Cardiovascular: Present: Regular Rate and Rhythm, Normal S1, S2. No: Murmurs Abdomen: Present: Normal Bowel Sounds. No: Tenderness, Distention, Peritoneal Signs, Rebound, Guarding Back: Present: Normal Inspection, Other (Thoracic to LS spine: no midline tenderness or step off, no ecchymosis or flank discoloration. ) Upper Extremity: Present: Normal Inspection, Normal ROM. No: Cyanosis, Edema, Deformity Lower Extremity: Present: Normal Inspection, Normal ROM. No: Edema, Deformity Neurological: Present: Motor Func Grossly Intact, Other (intoxicated, limited neurological examination) Skin: Present: Warm, Dry, Normal Color. No: Rashes Psychiatric: Present: Alert, Intoxicated <Vic Gonzalez - Last Filed: 11/12/16 00:42> Vital Signs Temp Pulse Resp BP Pulse Ox 11/12/16 02:55 86 16 108/76 99 11/11/16 23:07 98.2 F 79 16 110/57 L 99 11/11/16 22:55 67 18 92/46 L 94 L Medical Decision Making <Vic Gonzalez - Last Filed: 11/12/16 00:42> <Sebastián Kern - Last Filed: 11/12/16 05:39> ED Course and Treatment: 11/11/16 23:15 -FS -observe and reassess (Vic Gonzalez) - Lab Interpretations Lab Results: Lab Results 11/11/16 23:16: POC Glucose (mg/dL) 116 H ED OBSERVATION Date of observation admission: 11/12/16 Time of observation admission: 00:42 <Vic Gonzalez - Last Filed: 11/12/16 00:42> Discharge: Yes <Sebastián Kern - Last Filed: 11/12/16 05:39> - Observation admission statement Patient is being placed in observation because:: alcohol intoxication (Vic Gonzalez) - Goals of Observation Goals of observation are:: sober (Vic Gonzalez) - Progress Note Progress Note: 11/12/16 01:00 -Pt. is sleeping well 11/12/16 02:00 -Pt. is sleeping well, easily arousable. -Case discussed and sign off to the ER attending Dr. Kern for further evaluation and dispo. (Vic Gonzalez) - PA / MARKING ROOM SUPERVISOR / Resident Statement SANTOS has reviewed & agrees with the documentation as recorded. <Vic Gonzalez - Last Filed: 11/12/16 00:42> - PA / MARKING ROOM SUPERVISOR / Resident Statement SANTOS has reviewed & agrees with the documentation as recorded. <Sebastián Kern - Last Filed: 11/12/16 05:39> Disposition/Present on Arrival - Present on Arrival Any Indicators Present on Arrival: No History of DVT/PE: No History of Uncontrolled Diabetes: No Urinary Catheter: No History of Decub. Ulcer: No History Surgical Site Infection Following: None - Disposition Have Diagnosis and Disposition been Completed?: Yes Disposition Time: 02:00 <Vic Gonzalez - Last Filed: 11/12/16 00:42> - Present on Arrival Any Indicators Present on Arrival: No - Disposition Have Diagnosis and Disposition been Completed?: Yes Disposition Time: 05:39 <Sebastián Kern - Last Filed: 11/12/16 05:39> - Disposition Diagnosis: Alcohol abuse, Alcohol intoxication Disposition: HOME/ ROUTINE Condition: GOOD
[2016-11-12 05:30] VITALS: BP 108/76; PULSE 86
== END 2016-11-12 05:39 | disposition home or self-care (01) ==
LOC: ED 22:54 → EROBSV 11-12 00:41
PROVIDERS: ADMIT Emergency Medicine; ATTEND Emergency Medicine
DX: F10.129 Alcohol abuse with intoxication, unspecified (principal)
CPT/HCPCS: 82948; 99284; G0378

== ENCOUNTER 2016-11-14 21:31 | Emergency (ER) | payer MEDICAID ==
[2016-11-14 21:31] VITALS: BMI 33.2
[2016-11-14 21:50] VITALS: BP 132/76; PULSE 78; RESP 18; TEMP 97.9; O2SAT 99
--- NOTE | 2016-11-14 23:13 | ED PDOC ---
Arrival/HPI - General Chief Complaint: Alcohol Ingestion Time Seen by Provider: 11/14/16 22:10 Historian: Patient - History of Present Illness Narrative History of Present Illness (Text): 11/15/16 00:29 A 51 year old male, whose past medical history includes alcohol abuse, was brought in by EMS for drinking in public. Patient admits to drinking alcohol and was in a verbal argument with , kicked out of the house temporarily. Denies any trauma or injury. Patient denies any headache, dizziness, chest pain , urinary symptoms, nausea, vomiting, diarrhea, SI / HI or any other complaints at this time. Symptom Onset: Sudden Symptom Course: Unchanged Activities at Onset: Rest Context: Street Past Medical History - Provider Review Nursing Documentation Reviewed: Yes - Infectious Disease Hx of Infectious Diseases: None - Tetanus Immunization Tetanus Immunization: Unknown - Past Medical History Past Medical History: Unable to Obtain - Cardiac Hx Cardiac Disorders: Yes (CAD) Hx Hypertension: Yes - Pulmonary Hx Respiratory Disorders: No - Neurological Hx Neurological Disorder: Yes Hx Transient Ischemic Attacks (TIA): Yes - HEENT Hx HEENT Disorder: No - Renal Hx Renal Disorder: No - Endocrine/Metabolic Hx Endocrine Disorders: No - Hematological/Oncological Hx Blood Disorders: No - Integumentary Hx Dermatological Disorder: No - Musculoskeletal/Rheumatological Hx Musculoskeletal Disorders: Yes Hx Falls: Yes (2 yrs ago fell 0ff ladder) - Gastrointestinal Hx Gastrointestinal Disorders: No - Genitourinary/Gynecological Hx Genitourinary Disorders: No - Psychiatric Hx Psychophysiologic Disorder: No Hx Depression: No Hx Emotional Abuse: No Hx Physical Abuse: No Hx Substance Use: No - Past Surgical History Past Surgical History: Unable to Obtain - Surgical History Hx Musculoskeletal Surgery: Yes (right hip and hand, facial fracture repair) Other/Comment: right wrist injury, bone marrow taken from right hip and inserted into fx bone in right hand along with metal, metal has since been removed, 23 yrs ago at [facility] - Anesthesia Hx Anesthesia: Yes Hx Anesthesia Reactions: No Hx Malignant Hyperthermia: No - Suicidal Assessment Feels Threatened In Home Enviroment: No Family/Social History - Physician Review Nursing Documentation Reviewed: Yes Family/Social History: No Known Family HX Smoking Status: Former Smoker Hx Alcohol Use: Yes (DRINKS 2 PINTS OF VODKA DAILY. LAST DRANK 3 D AGO.2 PINTS OF VODKA AND LIQU) Hx Substance Use: No Hx Substance Use Treatment: No Allergies/Home Meds Allergies/Adverse Reactions: Allergies coconut Allergy (Verified 11/06/16 12:54) RASH coconut oil Allergy (Verified 11/06/16 12:54) RASH cranberry Allergy (Verified 11/06/16 12:54) SWELLING Review of Systems - Physician Review All systems were reviewed & negative as marked: Yes - Review of Systems Cardiovascular: absent: Chest Pain Gastrointestinal: absent: Diarrhea, Nausea, Vomiting Genitourinary Male: absent: Dysuria, Frequency, Hematuria Neurological: absent: Headache, Dizziness Physical Exam Vital Signs Reviewed: Yes Vital Signs Temp Pulse Resp BP Pulse Ox 11/14/16 21:35 97.9 F 78 18 132/76 99 Temperature: Afebrile Blood Pressure: Normal Pulse: Regular Respiratory Rate: Normal Appearance: Positive for: Well-Appearing, Comfortable, Other (Patient smells of alcohol.) Pain Distress: None Mental Status: Positive for: Alert and Oriented X 3 - Systems Exam Head: Present: Atraumatic, Normocephalic Pupils: Present: PERRL Extroacular Muscles: Present: EOMI Conjunctiva: Present: Normal Mouth: Present: Moist Mucous Membranes Neck: Present: Normal Range of Motion Respiratory/Chest: Present: Clear to Auscultation, Good Air Exchange. No: Respiratory Distress, Accessory Muscle Use Cardiovascular: Present: Regular Rate and Rhythm, Normal S1, S2. No: Murmurs Abdomen: Present: Normal Bowel Sounds. No: Tenderness, Distention, Peritoneal Signs Back: Present: Normal Inspection Upper Extremity: Present: Normal Inspection. No: Cyanosis, Edema Lower Extremity: Present: Normal Inspection. No: Edema Neurological: Present: GCS=15, CN II-XII Intact, Speech Normal, Motor Func Grossly Intact, Normal Sensory Function, Normal Cerebellar Funct, Gait Normal, Memory Normal Skin: Present: Warm, Dry, Normal Color. No: Rashes Psychiatric: Present: Alert, Oriented x 3, Normal Insight, Normal Concentration Medical Decision Making ED Course and Treatment: 11/15/16 00:27 Impression: A 51 year old male with alcohol intoxication. Plan: -- Reassess and disposition Prior Visits: Notes and results from previous visits were reviewed. Patient was last seen in the emergency department on 11/12/16 for evaluation of alcohol intoxication. Progress Notes: On reevaluation, patient is clinically sober, walking with steady gait, no tremors. Patient feels better and is in no acute distress. Patient states that he wants to go home and feels comfortable going home on his own. Patient is stable for discharge. Patient was instructed to follow up with physician or return if symptoms worsen or new concerning symptoms arise. - PA / MANAGER INTERNSHIP / Resident Statement MD/DO has reviewed & agrees with the documentation as recorded. - Scribe Statement The provider has reviewed the documentation as recorded by the Dara Schaeefr Provider Scribe Attestation: All medical record entries made by the Dara were at my direction and personally dictated by me. I have reviewed the chart and agree that the record accurately reflects my personal performance of the history, physical exam, medical decision making, and the department course for this patient. I have also personally directed, reviewed, and agree with the discharge instructions and disposition. Disposition/Present on Arrival - Present on Arrival Any Indicators Present on Arrival: No History of DVT/PE: No History of Uncontrolled Diabetes: No Urinary Catheter: No History of Decub. Ulcer: No History Surgical Site Infection Following: None - Disposition Have Diagnosis and Disposition been Completed?: Yes Diagnosis: Alcohol intoxication Disposition: HOME/ ROUTINE Disposition Time: 23:13 Patient Plan: Discharge Patient Problems: Current Active Problems Problem Status Onset Alcohol intoxication Acute Condition: STABLE
== END 2016-11-14 23:29 | disposition home or self-care (01) ==
LOC: ED 21:31 → UNDOADMOB 22:00 → EROBSV 22:00
DX: F10.129 Alcohol abuse with intoxication, unspecified (principal); I10 Essential (primary) hypertension

== ENCOUNTER 2016-11-15 23:00 | Emergency (ER) | payer MEDICAID ==
[2016-11-15 23:00] VITALS: BMI 33.2
--- NOTE | 2016-11-15 23:19 | ED PDOC ---
Arrival/HPI - General Historian: Patient - History of Present Illness Time/Duration: Other Symptom Onset: Other (chronic) Context: Home <Nasir Bird P - Last Filed: 11/16/16 01:47> <Jerry Ragsdale P - Last Filed: 11/16/16 05:14> - General Chief Complaint: Alcohol Ingestion Time Seen by Provider: 11/15/16 23:18 - History of Present Illness Narrative History of Present Illness (Text): 11/15/16 23:19 A 51 year old male, whose past medical history includes alcohol abuse, was brought in by EMS for drinking in public. [place] Denies fall or trauma. (Nasir Bird) Past Medical History - Provider Review Nursing Documentation Reviewed: Yes - Infectious Disease Hx of Infectious Diseases: None - Tetanus Immunization Tetanus Immunization: Unknown - Past Medical History Past Medical History: Unable to Obtain - Cardiac Hx Cardiac Disorders: Yes (CAD) Hx Hypertension: Yes - Pulmonary Hx Respiratory Disorders: No - Neurological Hx Neurological Disorder: Yes Hx Transient Ischemic Attacks (TIA): Yes - HEENT Hx HEENT Disorder: No - Renal Hx Renal Disorder: No - Endocrine/Metabolic Hx Endocrine Disorders: No - Hematological/Oncological Hx Blood Disorders: No - Integumentary Hx Dermatological Disorder: No - Musculoskeletal/Rheumatological Hx Musculoskeletal Disorders: Yes Hx Falls: Yes (2 yrs ago fell 0ff ladder) - Gastrointestinal Hx Gastrointestinal Disorders: No - Genitourinary/Gynecological Hx Genitourinary Disorders: No - Psychiatric Hx Psychophysiologic Disorder: No Hx Depression: No Hx Emotional Abuse: No Hx Physical Abuse: No Hx Substance Use: No - Past Surgical History Past Surgical History: Unable to Obtain - Surgical History Hx Musculoskeletal Surgery: Yes (right hip and hand, facial fracture repair) Other/Comment: right wrist injury, bone marrow taken from right hip and inserted into fx bone in right hand along with metal, metal has since been removed, 23 yrs ago at [facility] - Anesthesia Hx Anesthesia: Yes Hx Anesthesia Reactions: No Hx Malignant Hyperthermia: No - Suicidal Assessment Feels Threatened In Home Enviroment: No <Nasir Bird P - Last Filed: 11/16/16 01:47> - Provider Review Nursing Documentation Reviewed: Yes <Jerry Ragsdale P - Last Filed: 11/16/16 05:14> Family/Social History - Physician Review Nursing Documentation Reviewed: Yes Family/Social History: Other (non contributory) Smoking Status: Former Smoker Hx Alcohol Use: Yes (DRINKS 2 PINTS OF VODKA DAILY. LAST DRANK 3 D AGO.2 PINTS OF VODKA AND LIQU) Hx Substance Use: No Hx Substance Use Treatment: No <Nasir Bird P - Last Filed: 11/16/16 01:47> Allergies/Home Meds <Nasir Bird P - Last Filed: 11/16/16 01:47> <Jerry Ragsdale P - Last Filed: 11/16/16 05:14> Allergies/Adverse Reactions: Allergies coconut Allergy (Verified 11/06/16 12:54) RASH coconut oil Allergy (Verified 11/06/16 12:54) RASH cranberry Allergy (Verified 11/06/16 12:54) SWELLING Review of Systems - Review of Systems Constitutional: Normal. absent: Fatigue, Weight Change, Fevers Eyes: Normal ENT: Normal Respiratory: Normal. absent: SOB, Cough Cardiovascular: Normal. absent: Chest Pain Gastrointestinal: Normal. absent: Abdominal Pain, Nausea, Vomiting Genitourinary Male: Normal. absent: Dysuria Musculoskeletal: Normal Skin: Normal. absent: Rash Neurological: Normal. absent: Headache, Focal Weakness, Gait Changes, Speech Changes, Facial Droop, Disequilibrium Endocrine: Normal Hemo/Lymphatic: Normal Psychiatric: Other (alcohol intoxication) <Nasir Bird P - Last Filed: 11/16/16 01:47> Physical Exam Temperature: Afebrile Blood Pressure: Normal Pulse: Regular Respiratory Rate: Normal Appearance: Positive for: Well-Appearing, Non-Toxic, Comfortable Pain Distress: None Mental Status: Positive for: other (alcohol intoxication) - Systems Exam Head: Present: Atraumatic, Normocephalic Pupils: Present: PERRL Extroacular Muscles: Present: EOMI Conjunctiva: Present: Normal Mouth: Present: Moist Mucous Membranes Neck: Present: Normal Range of Motion Respiratory/Chest: Present: Clear to Auscultation, Good Air Exchange. No: Respiratory Distress, Accessory Muscle Use Cardiovascular: Present: Regular Rate and Rhythm, Normal S1, S2. No: Murmurs Abdomen: Present: Normal Bowel Sounds. No: Tenderness, Distention, Peritoneal Signs Back: Present: Normal Inspection Upper Extremity: Present: Normal Inspection, Normal ROM, NORMAL PULSES, Capillary Refill < 2s. No: Cyanosis, Edema Lower Extremity: Present: Normal Inspection, NORMAL PULSES, Normal ROM, Neurovascularly Intact, Capillary Refill < 2 s. No: Edema Neurological: Present: GCS=15, CN II-XII Intact, Speech Normal Skin: Present: Warm, Dry, Normal Color. No: Rashes Psychiatric: Present: Alert, Oriented x 3, Normal Insight, Normal Concentration <Nasir Bird P - Last Filed: 11/16/16 01:47> Vital Signs Temp Pulse Resp BP Pulse Ox 11/16/16 02:42 97.6 F 80 18 129/88 99 11/15/16 23:19 97.6 F 73 20 126/72 97 Medical Decision Making <Nasir Bird P - Last Filed: 11/16/16 01:47> <Jerry Ragsdale P - Last Filed: 11/16/16 05:14> ED Course and Treatment: 11/16/16 01:30 Patient is awake, in no acute distress. Patient is eating dinner, and drinking juice. Denies n/v. Patient appears non-toxic (Nasir Bird P) - PA / [employer] REPRESENTATIVE / Resident Statement MD/DO has reviewed & agrees with the documentation as recorded. <Jerry Ragsdale P - Last Filed: 11/16/16 05:14> Disposition/Present on Arrival - Present on Arrival History of DVT/PE: No History of Uncontrolled Diabetes: No Urinary Catheter: No History of Decub. Ulcer: No History Surgical Site Infection Following: None <Nasir Bird - Last Filed: 11/16/16 01:47> - Present on Arrival Any Indicators Present on Arrival: No History of DVT/PE: No History of Uncontrolled Diabetes: No Urinary Catheter: No History of Decub. Ulcer: No - Disposition Have Diagnosis and Disposition been Completed?: Yes Disposition Time: 05:13 Patient Plan: Discharge <Jerry Ragsdale P - Last Filed: 11/16/16 05:14> - Disposition Diagnosis: Alcohol abuse Disposition: HOME/ ROUTINE Patient Problems: Current Active Problems Problem Status Onset Alcohol abuse Acute Condition: IMPROVED Discharge Instructions (ExitCare): Abuse of Alcohol (ED) Referrals: Jose A Riddle MD [Primary Care Provider] - Follow up with primary Forms: [employer] (Occitan)
[2016-11-15 23:20] VITALS: TEMP 97.6
[2016-11-16 02:42] VITALS: O2SAT 99
[2016-11-16 05:24] VITALS: BP 120/86; PULSE 85; RESP 20
== END 2016-11-16 05:24 | disposition home or self-care (01) ==
LOC: ED 23:00
DX: F10.10 Alcohol abuse, uncomplicated (principal)

== ENCOUNTER 2016-11-18 23:21 | Emergency (ER) | payer MEDICAID ==
[2016-11-18 23:22] VITALS: BMI 33.2
--- NOTE | 2016-11-19 00:10 | ED PDOC ---
Arrival/HPI - General Time Seen by Provider: 11/18/16 23:58 Historian: Patient - History of Present Illness Narrative History of Present Illness (Text): 11/19/16 00:07 David Larsen is a 51 year old male, whose past medical history includes ETOH abuse, who presents to the emergency department complaining of upper abdominal discomfort tonight. Patient states that he also experienced one episode of vomiting. Patient endorses that he drank alcohol tonight. Patient denies any fever, chills, chest pain, shortness of breath, diarrhea, urinary symptoms, back pain, neck pain, headache, dizziness, or any other complaints. Time/Duration: 1-3 hours Symptom Onset: Gradual Symptom Course: Unchanged Severity Level: Mild Context: Home Past Medical History - Provider Review Nursing Documentation Reviewed: Yes - Infectious Disease Hx of Infectious Diseases: None - Tetanus Immunization Tetanus Immunization: Unknown - Past Medical History Past Medical History: Unable to Obtain - Cardiac Hx Cardiac Disorders: Yes (CAD) Hx Hypertension: Yes - Pulmonary Hx Respiratory Disorders: No - Neurological Hx Neurological Disorder: Yes Hx Transient Ischemic Attacks (TIA): Yes - HEENT Hx HEENT Disorder: No - Renal Hx Renal Disorder: No - Endocrine/Metabolic Hx Endocrine Disorders: No - Hematological/Oncological Hx Blood Disorders: No - Integumentary Hx Dermatological Disorder: No - Musculoskeletal/Rheumatological Hx Musculoskeletal Disorders: Yes Hx Falls: Yes (2 yrs ago fell 0ff ladder) - Gastrointestinal Hx Gastrointestinal Disorders: No - Genitourinary/Gynecological Hx Genitourinary Disorders: No - Psychiatric Hx Psychophysiologic Disorder: No Hx Depression: No Hx Emotional Abuse: No Hx Physical Abuse: No Hx Substance Use: No - Past Surgical History Past Surgical History: Unable to Obtain - Surgical History Hx Musculoskeletal Surgery: Yes (right hip and hand, facial fracture repair) Other/Comment: right wrist injury, bone marrow taken from right hip and inserted into fx bone in right hand along with metal, metal has since been removed, 23 yrs ago at [facility] - Anesthesia Hx Anesthesia: Yes Hx Anesthesia Reactions: No Hx Malignant Hyperthermia: No - Suicidal Assessment Feels Threatened In Home Enviroment: No Family/Social History - Physician Review Nursing Documentation Reviewed: Yes Family/Social History: No Known Family HX Smoking Status: Former Smoker Hx Alcohol Use: Yes (DRINKS 2 PINTS OF VODKA DAILY. LAST DRANK 3 D AGO.2 PINTS OF VODKA AND LIQU) Hx Substance Use: No Hx Substance Use Treatment: No Allergies/Home Meds Allergies/Adverse Reactions: Allergies coconut Allergy (Verified 11/06/16 12:54) RASH coconut oil Allergy (Verified 11/06/16 12:54) RASH cranberry Allergy (Verified 11/06/16 12:54) SWELLING Review of Systems - Physician Review All systems were reviewed & negative as marked: Yes - Review of Systems Constitutional: absent: Fevers, Night Sweats Eyes: absent: Vision Changes ENT: absent: Hearing Changes Respiratory: absent: SOB, Cough Cardiovascular: absent: Chest Pain Gastrointestinal: Abdominal Pain (Upper abdominal discomfort), Vomiting Genitourinary Male: absent: Urinary Output Changes Musculoskeletal: absent: Back Pain, Neck Pain Skin: absent: Pruritis Neurological: absent: Headache, Dizziness Endocrine: absent: Diaphoresis Hemo/Lymphatic: absent: Adenopathy Psychiatric: absent: Depression Physical Exam Vital Signs Pulse Resp BP Pulse Ox 11/19/16 03:30 79 18 98 11/18/16 23:35 82 18 113/68 93 L - Systems Exam Head: Present: Atraumatic, Normocephalic Pupils: Present: PERRL Extroacular Muscles: Present: EOMI Conjunctiva: Present: Normal Mouth: Present: Moist Mucous Membranes Neck: Present: Normal Range of Motion Respiratory/Chest: Present: Clear to Auscultation, Good Air Exchange. No: Respiratory Distress, Accessory Muscle Use Cardiovascular: Present: Regular Rate and Rhythm, Normal S1, S2. No: Murmurs Abdomen: Present: Normal Bowel Sounds. No: Tenderness, Distention, Peritoneal Signs Back: Present: Normal Inspection Upper Extremity: Present: Normal Inspection. No: Cyanosis, Edema Lower Extremity: Present: Normal Inspection. No: Edema Neurological: Present: GCS=15, CN II-XII Intact, Speech Normal Skin: Present: Warm, Dry, Normal Color. No: Rashes Psychiatric: Present: Alert, Oriented x 3, Normal Insight, Normal Concentration Medical Decision Making ED Course and Treatment: 11/19/16 00:10 Impression: 51 year old male complaining of upper abdominal discomfort and vomiting x1 tonight. Differential Diagnosis included but are not limited to: Plan: -- EKG -- Chest X-ray -- Labs -- Dextrose, Protonix, and Zofran -- Reassess and disposition Prior Visits: Notes and results from previous visits were reviewed. Patient last seen in the ED on 11/15/16 for drinking in public. Patient was discharged home. Progress Notes: EKG: Ordered, reviewed, and independently interpreted the EKG. Rate : 77 BPM Rhythm : NSR Interpretation : Occasional PVC. Non-specific T-wave changes. Comparison : No previous EKG for comparison. 11/19/16 05:19 Pt.awake alert,sober stating he feels fine and wishes to be discharged.D/C instructions given. - Lab Interpretations Lab Results: 11/19/16 01:15 11/19/16 01:15 Lab Results 11/19/16 04:15: POC Glucose (mg/dL) 95 11/19/16 01:15: WBC 9.4 D, RBC 4.20, Hgb 13.4 L, Hct 39.0 L, MCV 92.9, MCH 31.9 , MCHC 34.4, RDW 13.9, Plt Count 270, MPV 9.0 11/19/16 01:15: Sodium 143, Potassium 3.8, Chloride 104, Carbon Dioxide 23, Anion Gap 20, BUN 19, Creatinine 0.9, Est GFR ( Amer) > 60, Est GFR (Non- Af Amer) > 60, Random Glucose 64 L, Calcium 8.9, Total Bilirubin 0.6, AST 74 H D , ALT 53, Alkaline Phosphatase 66, Total Protein 6.7, Albumin 3.9, Globulin 2.8 , Albumin/Globulin Ratio 1.4, Lipase 78 11/19/16 01:15: PT 10.4, INR 0.96, APTT 26.9 11/19/16 01:15: Alcohol, Quantitative 124 H - RAD Interpretation Radiology Orders: 11/19/16 00:14 CHEST PORTABLE [RAD] Stat - Medication Orders Current Medication Orders: Folic Acid 1 mg/ Thiamine HCl 100 mg/ Multivitamins/Vitamin C 10 ml/ Dextrose 1 ,011.2 mls @ 100 mls/hr IV .Q10H7M [facility] Last Admin: 11/19/16 01:37 Dose: 100 mls/hr eMAR Start Stop Document 11/19/16 01:37 SS (Rec: 11/19/16 01:37 SS [id number]) Intravenous Solution Start Date 10/09/17 Start Time 01:37 Discontinued Medications Ondansetron HCl (Zofran Inj) 4 mg IVP ONCE ONE Stop: 11/19/16 00:17 Last Admin: 11/19/16 01:37 Dose: 4 mg IVP Administration Document 11/19/16 01:37 SS (Rec: 11/19/16 01:37 SS [id number]) Charges for Administration # of IVP Administrations 1 Pantoprazole Sodium (Protonix Inj) 40 mg IVP ONCE STA Stop: 11/19/16 00:17 Last Admin: 11/19/16 01:37 Dose: 40 mg IVP Administration Document 11/19/16 01:37 SS (Rec: 11/19/16 01:37 SS [id number]) Charges for Administration # of IVP Administrations 1 - Scribe Statement The provider has reviewed the documentation as recorded by the Teeibteagan Woodward Provider Scribe Attestation: All medical record entries made by the Scribe were at my direction and personally dictated by me. I have reviewed the chart and agree that the record accurately reflects my personal performance of the history, physical exam, medical decision making, and the department course for this patient. I have also personally directed, reviewed, and agree with the discharge instructions and disposition. Disposition/Present on Arrival - Present on Arrival Any Indicators Present on Arrival: No History of DVT/PE: No History of Uncontrolled Diabetes: No Urinary Catheter: No History of Decub. Ulcer: No History Surgical Site Infection Following: None - Disposition Have Diagnosis and Disposition been Completed?: Yes Diagnosis: Alcohol intoxication, Gastritis Disposition: HOME/ ROUTINE Disposition Time: 05:17 Patient Plan: Discharge Condition: GOOD Discharge Instructions (ExitCare): Gastritis (ED), Abuse of Alcohol (ED) Additional Instructions: Medication as prescribed/don't drink alcohol/follow up with your doctor this week Prescriptions: Pantoprazole Sodium [Protonix] 40 mg PO DAILY #21 ect Referrals: Jose A Riddle MD [Primary Care Provider] - Follow up with primary Alcoholics Anonymous [Outside] - Follow up with primary
[2016-11-19] MEDS ORDERED: Folic Acid 1 MG, Thiamine 100 MG, Multivitamin (MVI) 10 ML in Dextrose 5% In Water 1,00... IV SCH (00:15)
[2016-11-19 00:48] VITALS: BP 113/68
[2016-11-19 01:26] LABS: MEAN CELL VOLUME 92.9 fl (80.0-105.0); MEAN CORPUSCULAR HEMOGLOBIN 31.9 pg (25.0-35.0); MEAN CORPUSCULAR HGB CONC 34.4 g/dl (31.0-37.0); RED CELL DISTRIBUTION WIDTH 13.9 % (11.5-14.5); WHITE BLOOD COUNT 9.4 10^3/ul (4.5-11.0)
[2016-11-19 01:40] LABS: ALB/GLOB RATIO 1.4 (1.1-1.8); ALKALINE PHOSPHATASE 66 U/L (38-126); ALT/SGPT 53 U/L (7-56); AST/SGOT 74 U/L (17-59); BILIRUBIN,TOTAL 0.6 mg/dL (0.2-1.3); BLOOD UREA NITROGEN 19 mg/dL (7-21); CALCIUM 8.9 mg/dL (8.4-10.5); CARBON DIOXIDE 23 mmol/L (21-33); CHLORIDE 104 mmol/L (98-107); GFR AFRICAN-AMERICAN > 60; GLUCOSE,RANDOM 64 mg/dL (70-110); LIPASE 78 U/L (23-300); POTASSIUM 3.8 mmol/L (3.6-5.0); SODIUM 143 mmol/L (132-148); TOTAL PROTEIN 6.7 g/dL (5.8-8.3)
[2016-11-19 01:41] LABS: INR 0.96 (0.93-1.08); PARTIAL THROMBOPLASTIN TIME 26.9 Seconds (23.7-30.8)
[2016-11-19 03:31] VITALS: O2SAT 98
[2016-11-19 05:40] VITALS: PULSE 85; RESP 20
--- NOTE | 2016-11-19 09:01 | RAD ---
HISTORY: abdominal pain COMPARISON: 03/17/2016. FINDINGS: LUNGS: The lungs are clear. PLEURA: No significant pleural effusion identified, no pneumothorax apparent. CARDIOVASCULAR: Normal. OSSEOUS STRUCTURES: No significant abnormalities. VISUALIZED UPPER ABDOMEN: Normal. OTHER FINDINGS: None. IMPRESSION: No active pulmonary disease.
--- NOTE | 2016-11-19 15:23 | CARD ---
APPROVED REPORT EKG Measurement Heart [id number] HI [id number] <Conclusion> Sinus rhythm with premature atrial complexes Nonspecific T wave abnormality
== END 2016-11-19 05:30 | disposition home or self-care (01) ==
LOC: ED 23:21
DX: K29.70 Gastritis, unspecified, without bleeding (principal); F10.129 Alcohol abuse with intoxication, unspecified; Y90.6 Blood alcohol level of 120-199 mg/100 ml; I10 Essential (primary) hypertension; Z87.891 Personal history of nicotine dependence
CPT/HCPCS: 71010; 80053; 80320; 82948; 83690; 85027; 85610; 85730; 93005; 96374; 96375; 99284; C9113; J2405; J3411; J7070

== ENCOUNTER 2016-11-21 17:46 | Emergency (ER) | payer MEDICAID ==
[2016-11-21 18:08] VITALS: TEMP 97.6; BMI 22.8
--- NOTE | 2016-11-21 18:19 | ED PDOC ---
Arrival/HPI - General Chief Complaint: Alcohol Ingestion Time Seen by Provider: 11/21/16 18:15 Historian: Patient - History of Present Illness Narrative History of Present Illness (Text): 11/21/16 18:17 A 51 year old male, whose past medical history includes alcohol abuse, was brought in by EMS for drinking in public. Patient stated he has been drinking " a lot" today. He says he drinks every day. He stated he had at least 2 pits of Vodka today. Patient denies other complains. Denies abdominal pain, rectal bleeding, n/v, sob, cp, or urinary symptoms. Time/Duration: Other (chronic) Context: Other (street) Past Medical History - Provider Review Nursing Documentation Reviewed: Yes - Infectious Disease Hx of Infectious Diseases: None - Tetanus Immunization Tetanus Immunization: Unknown - Past Medical History Past Medical History: Unable to Obtain - Cardiac Hx Cardiac Disorders: Yes (CAD) Hx Hypertension: Yes - Pulmonary Hx Respiratory Disorders: No - Neurological Hx Neurological Disorder: Yes Hx Transient Ischemic Attacks (TIA): Yes - HEENT Hx HEENT Disorder: No - Renal Hx Renal Disorder: No - Endocrine/Metabolic Hx Endocrine Disorders: No - Hematological/Oncological Hx Blood Disorders: No - Integumentary Hx Dermatological Disorder: No - Musculoskeletal/Rheumatological Hx Musculoskeletal Disorders: Yes Hx Falls: Yes (2 yrs ago fell 0ff ladder) - Gastrointestinal Hx Gastrointestinal Disorders: No - Genitourinary/Gynecological Hx Genitourinary Disorders: No - Psychiatric Hx Psychophysiologic Disorder: No Hx Depression: No Hx Emotional Abuse: No Hx Physical Abuse: No Hx Substance Use: No - Past Surgical History Past Surgical History: Unable to Obtain - Surgical History Hx Musculoskeletal Surgery: Yes (right hip and hand, facial fracture repair) Other/Comment: right wrist injury, bone marrow taken from right hip and inserted into fx bone in right hand along with metal, metal has since been removed, 23 yrs ago at [facility] - Anesthesia Hx Anesthesia: Yes Hx Anesthesia Reactions: No Hx Malignant Hyperthermia: No - Suicidal Assessment Feels Threatened In Home Enviroment: No Family/Social History - Physician Review Nursing Documentation Reviewed: Yes Family/Social History: Other (noncontributory) Smoking Status: Former Smoker Hx Alcohol Use: Yes (DRINKS 2 PINTS OF VODKA DAILY. LAST DRANK 3 D AGO.2 PINTS OF VODKA AND LIQU) Hx Substance Use: No Hx Substance Use Treatment: No Allergies/Home Meds Allergies/Adverse Reactions: Allergies coconut Allergy (Verified 11/06/16 12:54) RASH coconut oil Allergy (Verified 11/06/16 12:54) RASH cranberry Allergy (Verified 11/06/16 12:54) SWELLING Review of Systems - Review of Systems Constitutional: Normal. absent: Fatigue, Weight Change, Fevers, Night Sweats Eyes: Normal ENT: Normal Respiratory: Normal. absent: SOB, Cough Cardiovascular: Normal. absent: Chest Pain, Palpitations Gastrointestinal: Normal. absent: Abdominal Pain, Nausea, Vomiting Genitourinary Male: Normal Musculoskeletal: Normal Skin: Normal Neurological: Normal. absent: Headache, Dizziness Endocrine: Normal Hemo/Lymphatic: Normal Psychiatric: Normal Physical Exam Vital Signs Temp Pulse Resp BP Pulse Ox 11/21/16 18:07 97.6 F 98 H 18 128/87 96 Temperature: Afebrile Blood Pressure: Normal Pulse: Regular Respiratory Rate: Normal Appearance: Positive for: Well-Appearing, Non-Toxic, Comfortable Pain Distress: None - Systems Exam Head: Present: Atraumatic, Normocephalic Pupils: Present: PERRL Extroacular Muscles: Present: EOMI Conjunctiva: Present: Normal Mouth: Present: Moist Mucous Membranes Neck: Present: Normal Range of Motion Respiratory/Chest: Present: Clear to Auscultation, Good Air Exchange. No: Respiratory Distress, Accessory Muscle Use Cardiovascular: Present: Regular Rate and Rhythm, Normal S1, S2. No: Murmurs Abdomen: Present: Normal Bowel Sounds. No: Tenderness, Distention, Peritoneal Signs, Rebound, Guarding Back: Present: Normal Inspection. No: CVA Tenderness Upper Extremity: Present: Normal Inspection, Normal ROM, NORMAL PULSES, Neurovascularly Intact, Capillary Refill < 2s. No: Cyanosis, Edema Lower Extremity: Present: Normal Inspection, NORMAL PULSES, Normal ROM, Neurovascularly Intact, Capillary Refill < 2 s. No: Edema, CALF TENDERNESS Neurological: Present: GCS=15, CN II-XII Intact, Speech Normal, Motor Func Grossly Intact, Normal Sensory Function, Normal Cerebellar Funct Skin: Present: Warm, Dry, Normal Color. No: Rashes Psychiatric: Present: Alert, Intoxicated Medical Decision Making ED Course and Treatment: 11/21/16 21:42 Patient is resting comfortably, and is in no acute distress. Patient was instructed to follow up with PMD in 1-2 days for further evaluation. Patient is alert and oriented 3. Patient speaks in full sentence. Patient has a normal gait. No tremors, or dizziness. Patient had tolerated by mouth fluids and food. Patient feels well and he wishes to be discharged home. It was recommended to stop drinking alcohol. To return to ER if symptoms if symptoms develops Re-evaluation Time: 21:45 Reassessment Condition: Re-examined, Improved - Medication Orders Current Medication Orders: Discontinued Medications Multivitamins/Vitamin C 10 ml/Thiamine HCl 100 mg/ Folic Acid 1 mg/ Sodium Chloride 1,011.2 mls @ 1,000 mls/hr IV .Q1H1M ONE Stop: 11/21/16 19:30 Last Admin: 11/21/16 19:50 Dose: 1,000 mls/hr eMAR Start Stop Document 11/21/16 19:50 YP (Rec: 11/21/16 19:50 YP [id number]) Intravenous Solution Start Date 11/21/16 Start Time 19:50 Disposition/Present on Arrival - Present on Arrival Any Indicators Present on Arrival: No History of DVT/PE: No History of Uncontrolled Diabetes: No Urinary Catheter: No History of Decub. Ulcer: No History Surgical Site Infection Following: None - Disposition Have Diagnosis and Disposition been Completed?: Yes Diagnosis: Alcohol intoxication Disposition: HOME/ ROUTINE Disposition Time: 21:46 Patient Plan: Discharge Condition: GOOD Discharge Instructions (ExitCare): Alcohol Intoxication (ED) Additional Instructions: call primary doctor for follow-up visit in 1-2 days. Avoid drinking alcohol. Return to emergency if you develop tremors, shortness of breath, weakness, confusion, abdominal pain, nausea, vomiting, rectal bleeding, or abnormal gait. Referrals: Jose A Riddle MD [Primary Care Provider] - Follow up with primary Forms: [employer] (Pashto)
[2016-11-21] MEDS ORDERED: Multivitamin (MVI) 10 ML, Thiamine 100 MG, Folic Acid 1 MG in Sodium Chloride 0.9% 1,00... IV ONE (18:30)
[2016-11-21 21:58] VITALS: BP 133/82; PULSE 87; RESP 16; O2SAT 99
== END 2016-11-21 21:58 | disposition home or self-care (01) ==
LOC: ED 17:46
DX: F10.120 Alcohol abuse with intoxication, uncomplicated (principal)
CPT/HCPCS: 96374; 99283; J3411; J7040

== ENCOUNTER 2016-11-22 16:31 | Emergency (ER) | payer MEDICAID ==
[2016-11-22 16:31] VITALS: BMI 22.8
[2016-11-22 16:53] VITALS: BP 151/96; PULSE 118; RESP 18; TEMP 97.7; O2SAT 96
--- NOTE | 2016-11-22 16:53 | ED PDOC ---
Arrival/HPI - General Time Seen by Provider: 11/22/16 16:34 Historian: Patient - History of Present Illness Narrative History of Present Illness (Text): 11/22/16 16:45 A 51 year old male who is well-known here in the ER, whose past medical history includes alcohol abuse, was brought in by EMS for alcohol intoxication. Patient said he only had a 1/2 pint to drink [place] Patient states he does not feel drunk and wants to leave. Denies SI/HI. PMD: Dr. Riddle Past Medical History - Provider Review Nursing Documentation Reviewed: Yes - Infectious Disease Hx of Infectious Diseases: None - Tetanus Immunization Tetanus Immunization: Unknown - Past Medical History Past Medical History: Unable to Obtain - Cardiac Hx Cardiac Disorders: Yes (CAD) Hx Hypertension: Yes - Pulmonary Hx Respiratory Disorders: No - Neurological Hx Neurological Disorder: Yes Hx Transient Ischemic Attacks (TIA): Yes - HEENT Hx HEENT Disorder: No - Renal Hx Renal Disorder: No - Endocrine/Metabolic Hx Endocrine Disorders: No - Hematological/Oncological Hx Blood Disorders: No - Integumentary Hx Dermatological Disorder: No - Musculoskeletal/Rheumatological Hx Musculoskeletal Disorders: Yes Hx Falls: Yes (2 yrs ago fell 0ff ladder) - Gastrointestinal Hx Gastrointestinal Disorders: No - Genitourinary/Gynecological Hx Genitourinary Disorders: No - Psychiatric Hx Psychophysiologic Disorder: No Hx Depression: No Hx Emotional Abuse: No Hx Physical Abuse: No Hx Substance Use: No - Past Surgical History Past Surgical History: Unable to Obtain - Surgical History Hx Musculoskeletal Surgery: Yes (right hip and hand, facial fracture repair) Other/Comment: right wrist injury, bone marrow taken from right hip and inserted into fx bone in right hand along with metal, metal has since been removed, 23 yrs ago at [facility] - Anesthesia Hx Anesthesia: Yes Hx Anesthesia Reactions: No Hx Malignant Hyperthermia: No - Suicidal Assessment Feels Threatened In Home Enviroment: No Family/Social History - Physician Review Nursing Documentation Reviewed: Yes Family/Social History: No Known Family HX Smoking Status: Former Smoker Hx Alcohol Use: Yes (DRINKS 2 PINTS OF VODKA DAILY. LAST DRANK 3 D AGO.2 PINTS OF VODKA AND LIQU) Hx Substance Use: No Hx Substance Use Treatment: No Allergies/Home Meds Allergies/Adverse Reactions: Allergies coconut Allergy (Verified 11/06/16 12:54) RASH coconut oil Allergy (Verified 11/06/16 12:54) RASH cranberry Allergy (Verified 11/06/16 12:54) SWELLING Review of Systems - Review of Systems Constitutional: Normal Eyes: Normal ENT: Normal Respiratory: Normal Cardiovascular: Normal Gastrointestinal: Normal Genitourinary Male: Normal Musculoskeletal: Normal Skin: Normal Neurological: Normal Endocrine: Normal Hemo/Lymphatic: Normal Psychiatric: Normal. absent: Depression, Suicidal Ideation Physical Exam - Physical Exam Physical Exam Limitations: Intoxication Vital Signs Reviewed: Yes Vital Signs Temp Pulse Resp BP Pulse Ox 11/22/16 16:41 97.7 F 118 H 18 151/96 H 96 Temperature: Afebrile Blood Pressure: Normal Pulse: Regular Respiratory Rate: Normal Appearance: Positive for: Well-Appearing, Non-Toxic, Comfortable Pain Distress: None Mental Status: Positive for: Alert and Oriented X 3 - Systems Exam Head: Present: Atraumatic, Normocephalic Pupils: Present: PERRL Extroacular Muscles: Present: EOMI Conjunctiva: Present: Normal Mouth: Present: Moist Mucous Membranes Neck: Present: Normal Range of Motion Respiratory/Chest: Present: Clear to Auscultation, Good Air Exchange. No: Respiratory Distress, Accessory Muscle Use Cardiovascular: Present: Regular Rate and Rhythm, Normal S1, S2. No: Murmurs Abdomen: Present: Normal Bowel Sounds. No: Tenderness, Distention, Peritoneal Signs Back: Present: Normal Inspection Upper Extremity: Present: Normal Inspection. No: Cyanosis, Edema Lower Extremity: Present: Normal Inspection. No: Edema Neurological: Present: GCS=15, CN II-XII Intact, Speech Normal, Gait Normal Skin: Present: Warm, Dry, Normal Color. No: Rashes Psychiatric: Present: Alert, Oriented x 3, Normal Insight, Normal Concentration Medical Decision Making ED Course and Treatment: 11/22/16 16:50 Impression: 51 year old male with alcohol use. Plan: Patient is clinically sober, has steady gait. Patient wants to leave. Will be discharged to follow up with his PMD. Prior Visits: Notes and results from previous visits were reviewed. Patient was last seen in the emergency department on 11/21/2016 for public intoxication. Patient was discharged home. - Scribe Statement The provider has reviewed the documentation as recorded by the Scribe Hanan Dabdi Provider Scribe Attestation: All medical record entries made by the Scribe were at my direction and personally dictated by me. I have reviewed the chart and agree that the record accurately reflects my personal performance of the history, physical exam, medical decision making, and the department course for this patient. I have also personally directed, reviewed, and agree with the discharge instructions and disposition. Disposition/Present on Arrival - Present on Arrival Any Indicators Present on Arrival: No History of DVT/PE: No History of Uncontrolled Diabetes: No Urinary Catheter: No History Surgical Site Infection Following: None - Disposition Have Diagnosis and Disposition been Completed?: Yes Diagnosis: Alcohol abuse Disposition: HOME/ ROUTINE Disposition Time: 16:50 Patient Plan: Discharge Condition: IMPROVED Discharge Instructions (ExitCare): Alcohol Intoxication (ED) Additional Instructions: Mr Larsen, thank you for letting us take care of you today. Your provider was Dr. Tovar. You were treated for Alcohol Use. The emergency medical care you received today was directed at your acute symptoms. If you were prescribed any medication, please fill it and take as directed. It may take several days for your symptoms to resolve. Return to the Emergency Department if your symptoms worsen, do not improve, or if you have any other problems. Please contact your doctor or call one of the physicians/clinics you have been referred to that are listed on the Patient Visit Information form that is included in your discharge packet. Bring any paperwork you were given at discharge with you along with any medications you are taking to your follow up visit. Our treatment cannot replace ongoing medical care by a primary care provider (PCP) outside of the emergency department. Thank you for allowing the [facility] team to be part of your care today. If you had an X-Ray or CT scan: A Radiologist will review the ED reading if any change in treatment is needed we will contact you. If you had a blood, urine, or wound culture: It will take several days for the results, if any change in treatment is needed we will contact you. If you had an STI test: It will take 48 hours for the results. Please call after 1 week if you have not heard back. Referrals: [employer] Marbin Req, [Non-Staff] - Follow up with primary Forms: WORK NOTE
== END 2016-11-22 16:50 | disposition home or self-care (01) ==
LOC: ED 16:31
DX: F10.10 Alcohol abuse, uncomplicated (principal); I10 Essential (primary) hypertension

== ENCOUNTER 2016-11-22 23:28 | Emergency (ER) | payer MEDICAID ==
[2016-11-22 23:43] VITALS: BMI 22.7
[2016-11-22 23:50] VITALS: TEMP 98.1
--- NOTE | 2016-11-23 00:01 | ED PDOC ---
Arrival/HPI - General Chief Complaint: Alcohol Ingestion Time Seen by Provider: 11/22/16 23:40 Historian: Patient - History of Present Illness Narrative History of Present Illness (Text): 11/22/16 23:58 David Larsen is a 51 year old male brought in by EMS who presents to the emergency department for public intoxication. Patient admits to drinking and denies any other complaints. Time/Duration: 1-3 hours Symptom Course: Unchanged Activities at Onset: Light Context: Street Past Medical History - Provider Review Nursing Documentation Reviewed: Yes - Infectious Disease Hx of Infectious Diseases: None - Tetanus Immunization Tetanus Immunization: Unknown - Past Medical History Past Medical History: Unable to Obtain - Cardiac Hx Cardiac Disorders: Yes (CAD) Hx Hypertension: Yes - Pulmonary Hx Respiratory Disorders: No - Neurological Hx Neurological Disorder: Yes Hx Transient Ischemic Attacks (TIA): Yes - HEENT Hx HEENT Disorder: No - Renal Hx Renal Disorder: No - Endocrine/Metabolic Hx Endocrine Disorders: No - Hematological/Oncological Hx Blood Disorders: No - Integumentary Hx Dermatological Disorder: No - Musculoskeletal/Rheumatological Hx Musculoskeletal Disorders: Yes Hx Falls: Yes (2 yrs ago fell 0ff ladder) - Gastrointestinal Hx Gastrointestinal Disorders: No - Genitourinary/Gynecological Hx Genitourinary Disorders: No - Psychiatric Hx Psychophysiologic Disorder: No Hx Depression: No Hx Emotional Abuse: No Hx Physical Abuse: No Hx Substance Use: No - Past Surgical History Past Surgical History: Unable to Obtain - Surgical History Hx Musculoskeletal Surgery: Yes (right hip and hand, facial fracture repair) Other/Comment: right wrist injury, bone marrow taken from right hip and inserted into fx bone in right hand along with metal, metal has since been removed, 23 yrs ago at [facility] - Anesthesia Hx Anesthesia: Yes Hx Anesthesia Reactions: No Hx Malignant Hyperthermia: No - Suicidal Assessment Feels Threatened In Home Enviroment: No Family/Social History - Physician Review Nursing Documentation Reviewed: Yes Family/Social History: No Known Family HX Smoking Status: Former Smoker Hx Alcohol Use: Yes (DRINKS 2 PINTS OF VODKA DAILY. LAST DRANK 3 D AGO.2 PINTS OF VODKA AND LIQU) Hx Substance Use: No Hx Substance Use Treatment: No Allergies/Home Meds Allergies/Adverse Reactions: Allergies coconut Allergy (Verified 11/06/16 12:54) RASH coconut oil Allergy (Verified 11/06/16 12:54) RASH cranberry Allergy (Verified 11/06/16 12:54) SWELLING Review of Systems - Physician Review All systems were reviewed & negative as marked: Yes - Review of Systems Constitutional: Other. absent: Fevers, Night Sweats Eyes: absent: Vision Changes ENT: absent: Hearing Changes Respiratory: absent: SOB, Cough Cardiovascular: absent: Chest Pain Gastrointestinal: absent: Abdominal Pain Genitourinary Male: absent: Dysuria, Frequency Musculoskeletal: absent: Arthralgias Skin: Pruritis. absent: Rash Neurological: absent: Headache, Dizziness Endocrine: absent: Diaphoresis Hemo/Lymphatic: absent: Adenopathy Psychiatric: absent: Depression Physical Exam Vital Signs Temp Pulse Resp BP Pulse Ox 11/23/16 03:29 82 16 136/82 97 11/22/16 23:47 98.1 F 84 18 138/64 99 Appearance: Positive for: Non-Toxic, Comfortable, Other (Intoxicated) - Systems Exam Head: Present: Atraumatic, Normocephalic Pupils: Present: PERRL Extroacular Muscles: Present: EOMI Mouth: Present: Moist Mucous Membranes Neck: Present: Normal Range of Motion Respiratory/Chest: Present: Clear to Auscultation, Good Air Exchange. No: Respiratory Distress, Accessory Muscle Use Cardiovascular: Present: Regular Rate and Rhythm, Normal S1, S2. No: Murmurs Abdomen: Present: Normal Bowel Sounds. No: Tenderness, Distention, Peritoneal Signs Upper Extremity: Present: Normal Inspection. No: Cyanosis, Edema Lower Extremity: Present: Normal Inspection. No: Edema Neurological: Present: GCS=15, CN II-XII Intact Skin: Present: Warm, Dry. No: Rashes Psychiatric: Present: Alert, Oriented x 3 Medical Decision Making ED Course and Treatment: 11/23/16 06:25 pt now clinically sober and ambulatory w steady gait - Scribe Statement The provider has reviewed the documentation as recorded by the Dara Woodward Provider Scribe Attestation: All medical record entries made by the Scribe were at my direction and personally dictated by me. I have reviewed the chart and agree that the record accurately reflects my personal performance of the history, physical exam, medical decision making, and the department course for this patient. I have also personally directed, reviewed, and agree with the discharge instructions and disposition. Disposition/Present on Arrival - Present on Arrival Any Indicators Present on Arrival: No History of DVT/PE: No History of Uncontrolled Diabetes: No Urinary Catheter: No History of Decub. Ulcer: No History Surgical Site Infection Following: None - Disposition Have Diagnosis and Disposition been Completed?: Yes Diagnosis: Alcohol intoxication Disposition: HOME/ ROUTINE Disposition Time: 06:25 Condition: STABLE Referrals: Alcoholics Anonymous [Outside] - Follow up with primary Jose A Riddle MD [Primary Care Provider] - Follow up with primary Forms: [employer] (Vietnamese)
[2016-11-23 06:19] VITALS: BP 136/82; PULSE 82; RESP 16; O2SAT 97
== END 2016-11-23 06:42 | disposition home or self-care (01) ==
LOC: ED 23:28
DX: F10.129 Alcohol abuse with intoxication, unspecified (principal)

== ENCOUNTER 2017-01-05 19:11 | Emergency (ER) | payer MEDICAID ==
[2017-01-05 19:21] VITALS: BMI 22.1
[2017-01-05 19:33] VITALS: O2SAT 98
--- NOTE | 2017-01-05 23:44 | ED PDOC ---
Arrival/HPI - General Chief Complaint: Alcohol Ingestion Time Seen by Provider: 01/05/17 19:30 Historian: Patient, EMS - History of Present Illness Narrative History of Present Illness (Text): 01/05/17 23:39 51yo male biba for alcohol intoxication. Per EMS , patient was sleepy in [facility] while waiting for prescription. PT admits to drinking alcohol. He denies any somatic complaint. He has been seen here multiple times in the past for alcohol intoxication. Past Medical History - Provider Review Nursing Documentation Reviewed: Yes - Infectious Disease Hx of Infectious Diseases: None - Tetanus Immunization Tetanus Immunization: Unknown - Past Medical History Past Medical History: Unable to Obtain - Cardiac Hx Cardiac Disorders: Yes (CAD) Hx Hypertension: Yes - Pulmonary Hx Respiratory Disorders: No - Neurological Hx Neurological Disorder: Yes Hx Transient Ischemic Attacks (TIA): Yes - HEENT Hx HEENT Disorder: No - Renal Hx Renal Disorder: No - Endocrine/Metabolic Hx Endocrine Disorders: No - Hematological/Oncological Hx Blood Disorders: No - Integumentary Hx Dermatological Disorder: No - Musculoskeletal/Rheumatological Hx Musculoskeletal Disorders: Yes Hx Falls: Yes (2 yrs ago fell 0ff ladder) - Gastrointestinal Hx Gastrointestinal Disorders: No - Genitourinary/Gynecological Hx Genitourinary Disorders: No - Psychiatric Hx Psychophysiologic Disorder: No Hx Depression: No Hx Emotional Abuse: No Hx Physical Abuse: No Hx Substance Use: No - Past Surgical History Past Surgical History: Unable to Obtain - Surgical History Hx Musculoskeletal Surgery: Yes (right hip and hand, facial fracture repair) Other/Comment: right wrist injury, bone marrow taken from right hip and inserted into fx bone in right hand along with metal, metal has since been removed, 23 yrs ago at [facility] - Anesthesia Hx Anesthesia: Yes Hx Anesthesia Reactions: No Hx Malignant Hyperthermia: No - Suicidal Assessment Feels Threatened In Home Enviroment: No Family/Social History - Physician Review Nursing Documentation Reviewed: Yes Family/Social History: Unknown Family HX Smoking Status: Former Smoker Hx Alcohol Use: Yes (DRINKS 2 PINTS OF VODKA DAILY. LAST DRANK 3 D AGO.2 PINTS OF VODKA AND LIQU) Hx Substance Use: No Hx Substance Use Treatment: No Allergies/Home Meds Allergies/Adverse Reactions: Allergies coconut Allergy (Verified 11/06/16 12:54) RASH coconut oil Allergy (Verified 11/06/16 12:54) RASH cranberry Allergy (Verified 11/06/16 12:54) SWELLING Review of Systems - Physician Review All systems were reviewed & negative as marked: Yes - Review of Systems Systems not reviewed;Unavailable: Intoxicated Constitutional: Normal Eyes: Normal ENT: Normal Respiratory: Normal Cardiovascular: Normal Gastrointestinal: Normal Genitourinary Male: Normal Musculoskeletal: Normal Skin: Normal Neurological: Normal Endocrine: Normal Hemo/Lymphatic: Normal Psychiatric: Normal Physical Exam Vital Signs Reviewed: Yes Vital Signs Temp Pulse Resp BP Pulse Ox 01/06/17 03:52 97.3 F L 73 18 144/85 98 01/05/17 19:32 97.7 F 74 20 116/72 98 Temperature: Afebrile Blood Pressure: Normal Pulse: Regular Respiratory Rate: Normal Appearance: Positive for: Well-Appearing, Non-Toxic, Comfortable, Other ( Alcohol breathe) Pain Distress: None Mental Status: Positive for: Alert and Oriented X 3 - Systems Exam Head: Present: Atraumatic, Normocephalic Pupils: Present: PERRL Extroacular Muscles: Present: EOMI Conjunctiva: Present: Normal Mouth: Present: Moist Mucous Membranes Neck: Present: Normal Range of Motion Respiratory/Chest: Present: Clear to Auscultation, Good Air Exchange. No: Respiratory Distress, Accessory Muscle Use Cardiovascular: Present: Regular Rate and Rhythm, Normal S1, S2. No: Murmurs Abdomen: Present: Normal Bowel Sounds. No: Tenderness, Distention, Peritoneal Signs Back: Present: Normal Inspection Upper Extremity: Present: Normal Inspection. No: Cyanosis, Edema Lower Extremity: Present: Normal Inspection. No: Edema Neurological: Present: GCS=15, CN II-XII Intact, Speech Normal Skin: Present: Warm, Dry, Normal Color. No: Rashes Psychiatric: Present: Alert, Oriented x 3, Normal Insight, Normal Concentration Medical Decision Making ED Course and Treatment: 01/05/17 23:45 Pt in ED for alcohol intoxication. He was calm and hemodynamically stable in ED. His alcohol level is 255. He will be observe in ED for sobriety. 01/09/17 19:27 Pt was ambulatory with steady gait on re evaluation. He was DC home. - Lab Interpretations Lab Results: Lab Results 01/05/17 20:20: Alcohol, Quantitative 255 H Disposition/Present on Arrival - Present on Arrival Any Indicators Present on Arrival: No History of DVT/PE: No History of Uncontrolled Diabetes: No Urinary Catheter: No History of Decub. Ulcer: No History Surgical Site Infection Following: None - Disposition Have Diagnosis and Disposition been Completed?: Yes Diagnosis: Alcohol intoxication Disposition: HOME/ ROUTINE Disposition Time: 06:00 Patient Plan: Discharge Condition: STABLE Discharge Instructions (ExitCare): Alcohol Intoxication (ED) Additional Instructions: Stop drinking alcohol and join AA Referrals: [facility] Mar[facility] Rereina, [Non-Staff] - Follow up with primary Forms: [employer] (Hungarian)
[2017-01-06 03:52] VITALS: BP 144/85; PULSE 73; RESP 18; TEMP 97.3
== END 2017-01-06 03:56 | disposition home or self-care (01) ==
LOC: ED 19:11
DX: F10.129 Alcohol abuse with intoxication, unspecified (principal); I10 Essential (primary) hypertension; I25.10 Atherosclerotic heart disease of native coronary artery without angina pectoris; Z87.891 Personal history of nicotine dependence; Y90.8 Blood alcohol level of 240 mg/100 ml or more

== ENCOUNTER 2017-01-24 19:02 | Emergency (ER) | payer MEDICAID ==
[2017-01-24 19:04] VITALS: BMI 28.1
[2017-01-24] MEDS ORDERED: TDAP Vaccine 0.5 mL Syr IM ONE (19:09)
--- NOTE | 2017-01-24 19:10 | ED PDOC ---
Arrival/HPI - General Historian: Patient - General Time Seen by Provider: 01/24/17 19:05 - History of Present Illness Narrative History of Present Illness (Text): 01/24/17 19:06 51 y/o male, pmh including htn/gerd, FS 88, psychiatric history including chronic alcohol abuse, nkda, last tetanus doesn't remember, biba for etoh intoxication. Pt. stated that he is intoxicated, +etoh on breath, admits drinking, stated that he hit hit frontal forehead against the furniture on the street, no LOC, no abdominal pain, no chest pain or shortness of breath, no numbness or tingling, no night sweat, no dizziness, no change in vision, no extremity pain, no other medical or psychological complaints. (Vic Gonzalez) Past Medical History - Provider Review Nursing Documentation Reviewed: Yes - Infectious Disease Hx of Infectious Diseases: None - Tetanus Immunization Tetanus Immunization: Unknown - Past Medical History Past Medical History: Unable to Obtain - Cardiac Hx Cardiac Disorders: Yes (CAD) Hx Hypertension: Yes - Pulmonary Hx Respiratory Disorders: No - Neurological Hx Neurological Disorder: Yes Hx Transient Ischemic Attacks (TIA): Yes - HEENT Hx HEENT Disorder: No - Renal Hx Renal Disorder: No - Endocrine/Metabolic Hx Endocrine Disorders: No - Hematological/Oncological Hx Blood Disorders: No - Integumentary Hx Dermatological Disorder: No - Musculoskeletal/Rheumatological Hx Musculoskeletal Disorders: Yes Hx Falls: Yes (2 yrs ago fell 0ff ladder) - Gastrointestinal Hx Gastrointestinal Disorders: No - Genitourinary/Gynecological Hx Genitourinary Disorders: No - Psychiatric Hx Psychophysiologic Disorder: No Hx Depression: No Hx Emotional Abuse: No Hx Physical Abuse: No Hx Substance Use: No - Past Surgical History Past Surgical History: Unable to Obtain - Surgical History Hx Musculoskeletal Surgery: Yes (right hip and hand, facial fracture repair) Other/Comment: right wrist injury, bone marrow taken from right hip and inserted into fx bone in right hand along with metal, metal has since been removed, 23 yrs ago at [facility] - Anesthesia Hx Anesthesia: Yes Hx Anesthesia Reactions: No Hx Malignant Hyperthermia: No - Suicidal Assessment Feels Threatened In Home Enviroment: No Family/Social History - Physician Review Nursing Documentation Reviewed: Yes Family/Social History: Unknown Family HX Smoking Status: Former Smoker Hx Alcohol Use: Yes (DRINKS 2 PINTS OF VODKA DAILY. LAST DRANK 3 D AGO.2 PINTS OF VODKA AND LIQU) Hx Substance Use: No Hx Substance Use Treatment: No Allergies/Home Meds Allergies/Adverse Reactions: Allergies coconut Allergy (Verified 01/24/17 19:04) RASH coconut oil Allergy (Verified 01/24/17 19:04) RASH cranberry Allergy (Verified 01/24/17 19:04) SWELLING Review of Systems - Review of Systems Systems not reviewed;Unavailable: Intoxicated Constitutional: absent: Fevers Respiratory: absent: SOB, Cough Cardiovascular: absent: Chest Pain Gastrointestinal: absent: Abdominal Pain, Diarrhea, Nausea, Vomiting Skin: Laceration. absent: Rash, Pruritis, Skin Lesions, Abscess, Ulcer, Cellulitis Neurological: absent: Headache, Dizziness Endocrine: absent: Diaphoresis, Polyuria Physical Exam - Physical Exam Physical Exam Limitations: Intoxication Vital Signs Reviewed: Yes Temperature: Afebrile Blood Pressure: Normal Pulse: Regular Respiratory Rate: Normal Appearance: Positive for: Well-Appearing, Non-Toxic, Comfortable Pain Distress: None - Systems Exam Head: Present: Abrasion (rt. frontal forehead approx. 1.5cm superficial skin abrasion noted with no gapping laceration. ), Other (facial bony tenderness or swelling. ). No: Swelling, Ecchymosis Pupils: Present: PERRL Extroacular Muscles: Present: EOMI Conjunctiva: Present: Normal Ears: Present: NORMAL TM, Normal Canal. No: Erythema Mouth: Present: Moist Mucous Membranes Nose (External): Present: Atraumatic. No: Abrasion, Contusion, Laceration Nose (Internal): Present: Normal Inspection, No Active Bleeding. No: Rhinorrhea , Septal Hematoma, Epistaxis Neck: Present: Normal Range of Motion, Trachea Midline. No: Meningeal Signs, MIDLINE TENDERNESS, Paraspinal Tenderness, Lymphadenopathy Respiratory/Chest: Present: Clear to Auscultation, Good Air Exchange. No: Respiratory Distress, Accessory Muscle Use, Wheezes, Decreased Breath Sounds, Rales, Retracting, Rhonchi, Tender to Palpation Cardiovascular: Present: Regular Rate and Rhythm, Normal S1, S2. No: Murmurs Abdomen: Present: Normal Bowel Sounds, Other (no bruising). No: Tenderness, Distention, Peritoneal Signs, Rebound, Guarding Back: Present: Normal Inspection, Decubitus Ulcer. No: Midline Tenderness, Paraspinal Tenderness Upper Extremity: Present: Normal Inspection, Normal ROM, Neurovascularly Intact , Capillary Refill < 2s. No: Cyanosis, Edema, Deformity Lower Extremity: Present: Normal Inspection, Normal ROM, Neurovascularly Intact , Capillary Refill < 2 s. No: Edema, Tenderness, Swelling, Deformity Neurological: Present: GCS=15, Speech Normal, Motor Func Grossly Intact, Memory Normal Skin: Present: Warm, Dry, Normal Color. No: Rashes Psychiatric: Present: Alert, Oriented x 3, Normal Insight, Normal Concentration Vital Signs Temp Pulse Resp BP Pulse Ox 01/24/17 22:35 89 17 128/63 96 01/24/17 19:22 97.5 F L 75 16 122/76 95 Medical Decision Making - RAD Interpretation Online Content Editor: Radiologist ED Course and Treatment: 01/24/17 19:13 -FS 88 -TDAP -CT head -Wound irrigate with normal saline, clean with betadine, bacitracin and gauze dressing -Observe and reassess 01/24/17 22:03 -CT Head show no acute traumatic findings except sinus thickening, appear to be sinusitis, augmentin ordered. 01/25/17 01:55 -Pt. is still sleeping, easily arousable, case sign out and endorsed to Dr. Tirado for final dispo. (Vic Gonzalez) 01/25/17 05:58 Patient is ambulatory with steady gait, alert and oriented X 3. Patient is clinically sober and stable for discharge. (Aj Tirado) - RAD Interpretation Radiology Orders: 01/24/17 19:09 HEAD W/O CONTRAST [CT] Stat FINDINGS: Brain: Minimal atrophy. No intracranial hemorrhage. No mass. Few scattered foci of decreased attenuation within periventricular/subcortical white matter. No edema. Ventricles: No hydrocephalus. Bones/joints: No acute fracture. Soft tissues: RIGHT frontal soft tissue swelling. Vasculature: Minimal atherosclerotic disease of intracranial arteries. Sinuses: Scattered minimal mucosal thickening. Mastoid air cells: No mastoid effusion. Orbits: Unremarkable as visualized. IMPRESSION: 1. No intracranial hemorrhage. 2. Nonspecific white matter changes. 3. Incidental/non-acute findings are described above. Thank you for allowing us to participate in the care of your patient. and Authenticated by: Ritchie Diane MD 01/24/2017 9:38 PM Eastern Time ([place] & [place]) (Vic Gonzalez) - Medication Orders Current Medication Orders: Discontinued Medications Amoxicillin/Clavulanate Potassium (Augmentin 875 Mg-125 Mg Tab) 1 tab PO STAT STA PRN Reason: Protocol Stop: 01/24/17 22:01 Last Admin: 01/24/17 22:31 Dose: 1 tab Tetanus/Reduced Diphtheria/Acell Pertussis (Boostrix Vaccine Inj) 0.5 ml IM .ONCE ONE Stop: 01/24/17 19:10 Last Admin: 01/24/17 19:31 Dose: 0.5 ml Immunization Registry Document 01/24/17 19:31 IT (Rec: 01/24/17 19:31 IT [id number]) Immunization Registry Consent Date 01/05/17 - 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 Disposition/Present on Arrival - Present on Arrival Any Indicators Present on Arrival: No History of DVT/PE: No History of Uncontrolled Diabetes: No Urinary Catheter: No History of Decub. Ulcer: No History Surgical Site Infection Following: None - Disposition Have Diagnosis and Disposition been Completed?: Yes Disposition Time: 01:55 - Disposition Diagnosis: Alcohol intoxication Disposition: HOME/ ROUTINE Patient Problems: Current Active Problems Problem Status Onset Alcohol intoxication Acute Condition: STABLE Referrals: Alcoholics Anonymous [Outside] - Follow up with primary [facility] [place] [facility] [place] - Follow up with primary Forms: [employer] (Bulgarian)
--- NOTE | 2017-01-24 21:38 | CT ---
EXAM: CT Head Without Intravenous Contrast CLINICAL HISTORY: 51 years old, male; Injury or trauma; Fall; Initial encounter; Laceration; Consciousness not specified; Without residual foreign body; Forehead; Injury details: Laceration on right side of forehead; Additional info: ETOH, head injury TECHNIQUE: Axial computed tomography images of the head/brain without intravenous contrast. All CT scans at this facility use one or more dose reduction techniques, viz.: automated exposure control; ma/kV adjustment per patient size (including targeted exams where dose is matched to indication; i.e. head); or iterative reconstruction technique. COMPARISON: CT - HEAD W/O CONTRAST 2016-10-24 23:20 FINDINGS: Brain: Minimal atrophy. No intracranial hemorrhage. No mass. Few scattered foci of decreased attenuation within periventricular/subcortical white matter. No edema. Ventricles: No hydrocephalus. Bones/joints: No acute fracture. Soft tissues: RIGHT frontal soft tissue swelling. Vasculature: Minimal atherosclerotic disease of intracranial arteries. Sinuses: Scattered minimal mucosal thickening. Mastoid air cells: No mastoid effusion. Orbits: Unremarkable as visualized. IMPRESSION: 1. No intracranial hemorrhage. 2. Nonspecific white matter changes. 3. Incidental/non-acute findings are described above.
[2017-01-24] MEDS ORDERED: Amoxicillin-Clav 875-125 mg Tab PO STA (22:00)
[2017-01-24 22:35] VITALS: RESP 17
[2017-01-25 06:03] VITALS: BP 130/87; PULSE 85; TEMP 98.2; O2SAT 98
== END 2017-01-25 06:04 | disposition home or self-care (01) ==
LOC: ED 19:02
DX: F10.129 Alcohol abuse with intoxication, unspecified (principal); Y90.9 Presence of alcohol in blood, level not specified; Z23 Encounter for immunization

== ENCOUNTER 2017-01-31 00:10 | Emergency (ER) | payer MEDICAID ==
[2017-01-31 00:11] VITALS: BMI 28.1
[2017-01-31 00:24] VITALS: RESP 18; TEMP 98
--- NOTE | 2017-01-31 00:53 | ED PDOC ---
Arrival/HPI - General Chief Complaint: Substance Abuse Time Seen by Provider: 01/31/17 00:17 Historian: Patient, EMS - History of Present Illness Narrative History of Present Illness (Text): 01/31/17 00:50 David Larsen is a 51 year old male, whose past medical history includes alcohol abuse, is brought into the emergency department by EMS for public intoxication. Patient admits to drinking alcohol today. Patient denies any pain or discomfort. Patient denies any trauma, injury, fever, chills, nausea, vomiting, abdominal pain, chest pain, shortness of breath, suicidal ideation, homicidal ideation or any other complaints. Time/Duration: Other (today) Symptom Onset: Gradual Symptom Course: Unchanged Activities at Onset: Light Past Medical History - Provider Review Nursing Documentation Reviewed: Yes - Infectious Disease Hx of Infectious Diseases: None - Tetanus Immunization Tetanus Immunization: Unknown - Past Medical History Past Medical History: Unable to Obtain - Cardiac Hx Cardiac Disorders: Yes (CAD) Hx Hypertension: Yes - Pulmonary Hx Respiratory Disorders: No - Neurological Hx Neurological Disorder: Yes Hx Transient Ischemic Attacks (TIA): Yes - HEENT Hx HEENT Disorder: No - Renal Hx Renal Disorder: No - Endocrine/Metabolic Hx Endocrine Disorders: No - Hematological/Oncological Hx Blood Disorders: No - Integumentary Hx Dermatological Disorder: No - Musculoskeletal/Rheumatological Hx Musculoskeletal Disorders: Yes Hx Falls: Yes (2 yrs ago fell 0ff ladder) - Gastrointestinal Hx Gastrointestinal Disorders: No - Genitourinary/Gynecological Hx Genitourinary Disorders: No - Psychiatric Hx Psychophysiologic Disorder: No Hx Depression: No Hx Emotional Abuse: No Hx Physical Abuse: No Hx Substance Use: No - Past Surgical History Past Surgical History: Unable to Obtain - Surgical History Hx Musculoskeletal Surgery: Yes (right hip and hand, facial fracture repair) Other/Comment: right wrist injury, bone marrow taken from right hip and inserted into fx bone in right hand along with metal, metal has since been removed, 23 yrs ago at [facility] - Anesthesia Hx Anesthesia: Yes Hx Anesthesia Reactions: No Hx Malignant Hyperthermia: No - Suicidal Assessment Feels Threatened In Home Enviroment: No Family/Social History - Physician Review Nursing Documentation Reviewed: Yes Family/Social History: Unknown Family HX Smoking Status: Former Smoker Hx Alcohol Use: Yes (DRINKS 2 PINTS OF VODKA DAILY. LAST DRANK 3 D AGO.2 PINTS OF VODKA AND LIQU) Hx Substance Use: No Hx Substance Use Treatment: No Allergies/Home Meds Allergies/Adverse Reactions: Allergies coconut Allergy (Verified 01/31/17 12:44) RASH coconut oil Allergy (Verified 01/31/17 12:44) RASH cranberry Allergy (Verified 01/31/17 12:44) SWELLING Home Medications: Home Meds Medication Instructions Recorded Confirmed Unobtainable 01/31/17 01/31/17 Review of Systems - Physician Review All systems were reviewed & negative as marked: Yes - Review of Systems Constitutional: Normal. absent: Fevers Eyes: Normal ENT: Normal Respiratory: Normal. absent: SOB, Cough Cardiovascular: Normal. absent: Chest Pain Gastrointestinal: Normal. absent: Abdominal Pain, Diarrhea, Nausea, Vomiting Genitourinary Male: Normal. absent: Dysuria, Frequency, Hematuria, Urinary Output Changes Musculoskeletal: Normal. absent: Back Pain, Neck Pain Skin: Normal. absent: Rash Neurological: Normal. absent: Headache, Dizziness Endocrine: Normal Hemo/Lymphatic: Normal Psychiatric: Normal Physical Exam Vital Signs Reviewed: Yes Vital Signs Temp Pulse Resp BP Pulse Ox 01/31/17 06:11 82 18 130/82 100 01/31/17 00:20 98.0 F 80 18 127/82 97 Temperature: Afebrile Blood Pressure: Normal Pulse: Regular Respiratory Rate: Normal Appearance: Positive for: Well-Appearing, Non-Toxic, Comfortable Pain Distress: None Mental Status: Positive for: Alert and Oriented X 3 - Systems Exam Head: Present: Normocephalic, Abrasion (Scalp abrasion) Pupils: Present: PERRL Extroacular Muscles: Present: EOMI Conjunctiva: Present: Normal Ears: Present: Normal, NORMAL TM, Normal Canal. No: Erythema, TM Bulging, Fluid , TM Perf Mouth: Present: Moist Mucous Membranes Pharnyx: Present: Normal. No: ERYTHEMA, EXUDATE, TONSILS ENLARGED, Peritonsilar Swelling, Uvular Deviation, Muffled/Hoarse Voice, Strider, Soft Palate/Uvular Edema Nose (External): Present: Atraumatic Nose (Internal): Present: Normal Inspection Neck: Present: Normal Range of Motion Respiratory/Chest: Present: Clear to Auscultation, Good Air Exchange. No: Respiratory Distress, Accessory Muscle Use Cardiovascular: Present: Regular Rate and Rhythm, Normal S1, S2. No: Murmurs Abdomen: Present: Normal Bowel Sounds. No: Tenderness, Distention, Peritoneal Signs Back: Present: Normal Inspection Upper Extremity: Present: Normal Inspection. No: Cyanosis, Edema Lower Extremity: Present: Normal Inspection. No: Edema Neurological: Present: GCS=15, CN II-XII Intact, Speech Normal Skin: Present: Warm, Dry, Normal Color. No: Rashes Psychiatric: Present: Alert, Oriented x 3, Normal Insight, Normal Concentration Medical Decision Making ED Course and Treatment: 01/31/17 00:50 Impression: 51 year old male brought in for alcohol intoxication tonight. Differential Diagnosis included but are not limited to: alcohol abuse Plan: -- Reassess and disposition Prior Visits: Notes and results from previous visits were reviewed. Patient well known to Emergency room. Seen on multiple occasions for alcohol intoxication. Progress Notes: 01/31/17 01:35 Pt uncooperative, there appears to be an abrasion to the scalp. CT Head ordered. 01/31/17 03:46 Reviewed radiology, CT Head shows: Brain: Minimal atrophy. No intracranial hemorrhage. No mass. Few scattered foci of decreased attenuation within periventricular/subcortical white matter. No edema. Ventricles: No hydrocephalus. Bones/joints: No acute fracture. Soft tissues: Unremarkable. Vasculature: Minimal atherosclerotic disease of intracranial arteries. Sinuses: Scattered minimal mucosal thickening of ethmoid sinuses. Mastoid air cells: No mastoid effusion. Orbits: Unremarkable as visualized. IMPRESSION: 1. No intracranial hemorrhage. 2. Nonspecific white matter changes. 3. Incidental/non-acute findings are described above. - RAD Interpretation Radiology Orders: 01/31/17 01:36 HEAD W/O CONTRAST [CT] Stat - Scribe Statement The provider has reviewed the documentation as recorded by the Dara Sanchez Provider Scribe Attestation: All medical record entries made by the Scribe were at my direction and personally dictated by me. I have reviewed the chart and agree that the record accurately reflects my personal performance of the history, physical exam, medical decision making, and the department course for this patient. I have also personally directed, reviewed, and agree with the discharge instructions and disposition. Disposition/Present on Arrival - Present on Arrival Any Indicators Present on Arrival: No History of DVT/PE: No History of Uncontrolled Diabetes: No Urinary Catheter: No History of Decub. Ulcer: No History Surgical Site Infection Following: None - Disposition Have Diagnosis and Disposition been Completed?: Yes Diagnosis: Alcohol intoxication Disposition: HOME/ ROUTINE Disposition Time: 07:00 Condition: GOOD Discharge Instructions (ExitCare): Abuse of Alcohol (ED) Referrals: Nilton Sanford, [Non-Staff] - Follow up with primary Forms: [employer] (Malay)
--- NOTE | 2017-01-31 03:40 | CT ---
EXAM: CT Head Without Intravenous Contrast CLINICAL HISTORY: 51 years old, male; Injury or trauma; Fall; Initial encounter; Concussion / head injury TECHNIQUE: Axial computed tomography images of the head/brain without intravenous contrast. All CT scans at this facility use one or more dose reduction techniques, viz.: automated exposure control; ma/kV adjustment per patient size (including targeted exams where dose is matched to indication; i.e. head); or iterative reconstruction technique. COMPARISON: CT - HEAD W/O CONTRAST 2017-01-24 20:13 FINDINGS: Brain: Minimal atrophy. No intracranial hemorrhage. No mass. Few scattered foci of decreased attenuation within periventricular/subcortical white matter. No edema. Ventricles: No hydrocephalus. Bones/joints: No acute fracture. Soft tissues: Unremarkable. Vasculature: Minimal atherosclerotic disease of intracranial arteries. Sinuses: Scattered minimal mucosal thickening of ethmoid sinuses. Mastoid air cells: No mastoid effusion. Orbits: Unremarkable as visualized. IMPRESSION: 1. No intracranial hemorrhage. 2. Nonspecific white matter changes. 3. Incidental/non-acute findings are described above.
[2017-01-31 07:09] VITALS: BP 130/82; PULSE 82; O2SAT 100
== END 2017-01-31 07:00 | disposition home or self-care (01) ==
LOC: ED 00:10
DX: F10.129 Alcohol abuse with intoxication, unspecified (principal)

== ENCOUNTER 2017-01-31 12:35 | Emergency (ER) | payer MEDICAID ==
[2017-01-31 12:36] VITALS: BMI 28.1
[2017-01-31 12:45] VITALS: TEMP 98
--- NOTE | 2017-01-31 13:21 | ED PDOC ---
Arrival/HPI - General Chief Complaint: Alcohol Ingestion Time Seen by Provider: 01/31/17 12:45 Historian: Patient - History of Present Illness Narrative History of Present Illness (Text): 01/31/17 13:21 A 51 year old male, whose past medical history includes alcohol abuse, presents to the emergency department for alcohol intoxication. Patient denies any other complaints at this time. Symptom Onset: Sudden Symptom Course: Unchanged Activities at Onset: Rest Context: Home Past Medical History - Provider Review Nursing Documentation Reviewed: Yes - Infectious Disease Hx of Infectious Diseases: None - Tetanus Immunization Tetanus Immunization: Unknown - Past Medical History Past Medical History: Unable to Obtain - Cardiac Hx Cardiac Disorders: Yes (CAD) Hx Hypertension: Yes - Pulmonary Hx Respiratory Disorders: No - Neurological Hx Neurological Disorder: Yes Hx Transient Ischemic Attacks (TIA): Yes - HEENT Hx HEENT Disorder: No - Renal Hx Renal Disorder: No - Endocrine/Metabolic Hx Endocrine Disorders: No - Hematological/Oncological Hx Blood Disorders: No - Integumentary Hx Dermatological Disorder: No - Musculoskeletal/Rheumatological Hx Musculoskeletal Disorders: Yes Hx Falls: Yes (2 yrs ago fell 0ff ladder) - Gastrointestinal Hx Gastrointestinal Disorders: No - Genitourinary/Gynecological Hx Genitourinary Disorders: No - Psychiatric Hx Psychophysiologic Disorder: No Hx Depression: No Hx Emotional Abuse: No Hx Physical Abuse: No Hx Substance Use: No - Past Surgical History Past Surgical History: Unable to Obtain - Surgical History Hx Musculoskeletal Surgery: Yes (right hip and hand, facial fracture repair) Other/Comment: right wrist injury, bone marrow taken from right hip and inserted into fx bone in right hand along with metal, metal has since been removed, 23 yrs ago at [facility] - Anesthesia Hx Anesthesia: Yes Hx Anesthesia Reactions: No Hx Malignant Hyperthermia: No - Suicidal Assessment Feels Threatened In Home Enviroment: No Family/Social History - Physician Review Nursing Documentation Reviewed: Yes Family/Social History: No Known Family HX Smoking Status: Former Smoker Hx Alcohol Use: Yes (DRINKS 2 PINTS OF VODKA DAILY. LAST DRANK 3 D AGO.2 PINTS OF VODKA AND LIQU) Frequency of alcohol use: Daily Hx Substance Use: No Hx Substance Use Treatment: No Allergies/Home Meds Allergies/Adverse Reactions: Allergies coconut Allergy (Verified 01/31/17 12:44) RASH coconut oil Allergy (Verified 01/31/17 12:44) RASH cranberry Allergy (Verified 01/31/17 12:44) SWELLING Home Medications: Home Meds Medication Instructions Recorded Confirmed Unobtainable 01/31/17 01/31/17 Review of Systems - Physician Review All systems were reviewed & negative as marked: Yes - Review of Systems Constitutional: absent: Fevers Respiratory: absent: SOB Physical Exam Vital Signs Reviewed: Yes Vital Signs Temp Pulse Resp BP Pulse Ox 01/31/17 18:14 90 18 127/80 98 01/31/17 15:26 82 18 130/82 98 01/31/17 12:45 98.0 F 78 19 134/88 100 Temperature: Afebrile Blood Pressure: Normal Pulse: Regular Respiratory Rate: Normal Appearance: Positive for: Well-Appearing, Non-Toxic, Comfortable Pain Distress: None Mental Status: Positive for: Alert and Oriented X 3 - Systems Exam Head: Present: Atraumatic, Normocephalic Pupils: Present: PERRL Extroacular Muscles: Present: EOMI Conjunctiva: Present: Normal Mouth: Present: Moist Mucous Membranes Neck: Present: Normal Range of Motion Respiratory/Chest: Present: Clear to Auscultation, Good Air Exchange. No: Respiratory Distress, Accessory Muscle Use Cardiovascular: Present: Regular Rate and Rhythm, Normal S1, S2. No: Murmurs Abdomen: Present: Normal Bowel Sounds. No: Tenderness, Distention, Peritoneal Signs Back: Present: Normal Inspection Upper Extremity: Present: Normal Inspection. No: Cyanosis, Edema Lower Extremity: Present: Normal Inspection. No: Edema Neurological: Present: GCS=15, CN II-XII Intact, Speech Normal Skin: Present: Warm, Dry, Normal Color. No: Rashes Psychiatric: Present: Alert, Oriented x 3, Normal Concentration, Intoxicated Medical Decision Making ED Course and Treatment: 01/31/17 13:20 Impression: A 51 year old male with alcohol intoxication. Plan: -- EKG -- Reassess and disposition Prior Visits: Notes and results from previous visits were reviewed. Patient was last seen in the emergency department on 01/31/17 for evaluation of alcohol intoxication. Progress Notes: Pending sobriety. 01/31/17 14:50 Patient is sleeping, in no acute distress. EKG: Ordered, reviewed, and independently interpreted the EKG. Rate : 77 BPM Rhythm : NSR Interpretation : No ST/T wave changes 01/31/17 16:31 Patient is resting comfortably. 01/31/17 18:28 Patient is awake, alert and oriented X3. Patient is ambulatory with steady gait and is stable for discharge. - EKG Interpretation Interpreted by ED Physician: Yes Type: 12 lead EKG - Scribe Statement The provider has reviewed the documentation as recorded by the Teeibe Thierno Schaefer Provider Scribe Attestation: All medical record entries made by the Scribe were at my direction and personally dictated by me. I have reviewed the chart and agree that the record accurately reflects my personal performance of the history, physical exam, medical decision making, and the department course for this patient. I have also personally directed, reviewed, and agree with the discharge instructions and disposition. Disposition/Present on Arrival - Present on Arrival Any Indicators Present on Arrival: No History of DVT/PE: No History of Uncontrolled Diabetes: No Urinary Catheter: No History of Decub. Ulcer: No History Surgical Site Infection Following: None - Disposition Have Diagnosis and Disposition been Completed?: Yes Diagnosis: Alcohol abuse Disposition: HOME/ ROUTINE Disposition Time: 07:00 Condition: STABLE Discharge Instructions (ExitCare): Abuse of Alcohol (ED) Additional Instructions: return to er with any worsening symptoms or concerns. Referrals: Alcoholics Anonymous [Outside] - Follow up with primary Forms: [employer] (Ghanaian)
[2017-01-31 15:27] VITALS: RESP 18; O2SAT 98
[2017-01-31 18:15] VITALS: BP 127/80; PULSE 90
--- NOTE | 2017-02-01 09:43 | CARD ---
APPROVED REPORT EKG Measurement Heart [id number] <Conclusion> Normal sinus rhythm NSSTW changes No change
== END 2017-01-31 18:30 | disposition home or self-care (01) ==
LOC: ED 12:35
DX: F10.129 Alcohol abuse with intoxication, unspecified (principal); I10 Essential (primary) hypertension; I25.10 Atherosclerotic heart disease of native coronary artery without angina pectoris; Z87.891 Personal history of nicotine dependence

== ENCOUNTER 2017-01-31 23:25 | Emergency (ER) | payer MEDICAID ==
[2017-01-31 23:26] VITALS: BMI 28.1
--- NOTE | 2017-01-31 23:45 | ED PDOC ---
Arrival/HPI - General Chief Complaint: Medical Clearance Time Seen by Provider: 01/31/17 23:40 Historian: Patient, EMS - History of Present Illness Narrative History of Present Illness (Text): 01/31/17 23:41 51 y/o male, pmh including TIA/Renal injury, +etoh on breath, nkda, psychiatric history including alcohol abuse/frequent alcohol intoxication, biba for etoh intoxication and found outside the pharmacy. Pt. is here at the ER, stated that he was drinking tonight like usual outside the pharmacy, sitting on the ground and drinking, ambulance arrived and bring him to the ER. Pt. stated that he feels well, no fall or trauma, no head or neck pain, no back pain, no abdominal or pelvic pain, no nausea or vomiting, no palpitation, no rash, no other medical or psychological complaints. Past Medical History - Provider Review Nursing Documentation Reviewed: Yes - Infectious Disease Hx of Infectious Diseases: None - Tetanus Immunization Tetanus Immunization: Unknown - Past Medical History Past Medical History: Unable to Obtain - Cardiac Hx Cardiac Disorders: Yes (CAD) Hx Hypertension: Yes - Pulmonary Hx Respiratory Disorders: No - Neurological Hx Neurological Disorder: Yes Hx Transient Ischemic Attacks (TIA): Yes - HEENT Hx HEENT Disorder: No - Renal Hx Renal Disorder: No - Endocrine/Metabolic Hx Endocrine Disorders: No - Hematological/Oncological Hx Blood Disorders: No - Integumentary Hx Dermatological Disorder: No - Musculoskeletal/Rheumatological Hx Musculoskeletal Disorders: Yes Hx Falls: Yes (2 yrs ago fell 0ff ladder) - Gastrointestinal Hx Gastrointestinal Disorders: No - Genitourinary/Gynecological Hx Genitourinary Disorders: No - Psychiatric Hx Psychophysiologic Disorder: No Hx Depression: No Hx Emotional Abuse: No Hx Physical Abuse: No Hx Substance Use: No - Past Surgical History Past Surgical History: Unable to Obtain - Surgical History Hx Musculoskeletal Surgery: Yes (right hip and hand, facial fracture repair) Other/Comment: right wrist injury, bone marrow taken from right hip and inserted into fx bone in right hand along with metal, metal has since been removed, 23 yrs ago at [facility] - Anesthesia Hx Anesthesia: Yes Hx Anesthesia Reactions: No Hx Malignant Hyperthermia: No - Suicidal Assessment Feels Threatened In Home Enviroment: No Family/Social History - Physician Review Nursing Documentation Reviewed: Yes Family/Social History: Unknown Family HX Smoking Status: Former Smoker Hx Alcohol Use: Yes (DRINKS 2 PINTS OF VODKA DAILY. LAST DRANK 3 D AGO.2 PINTS OF VODKA AND LIQU) Hx Substance Use: No Hx Substance Use Treatment: No Allergies/Home Meds Allergies/Adverse Reactions: Allergies coconut Allergy (Verified 01/31/17 12:44) RASH coconut oil Allergy (Verified 01/31/17 12:44) RASH cranberry Allergy (Verified 01/31/17 12:44) SWELLING Home Medications: Home Meds Medication Instructions Recorded Confirmed Unobtainable 01/31/17 01/31/17 Review of Systems - Review of Systems Constitutional: absent: Fatigue, Fevers Eyes: absent: Vision Changes ENT: absent: Hearing Changes Respiratory: absent: SOB, Cough Cardiovascular: absent: Chest Pain Gastrointestinal: absent: Abdominal Pain, Nausea, Vomiting Musculoskeletal: absent: Arthralgias, Back Pain, Neck Pain, Myalgias Skin: absent: Rash, Pruritis Neurological: absent: Headache, Dizziness Psychiatric: absent: Anxiety, Depression, Suicidal Ideation Physical Exam Vital Signs Reviewed: Yes Vital Signs Temp Pulse Resp BP Pulse Ox 02/01/17 06:00 98.6 F 80 16 136/82 100 02/01/17 03:00 98.2 F 82 18 128/83 100 02/01/17 01:26 98.3 F 83 19 130/87 99 01/31/17 23:35 98.2 F 92 H 20 132/84 97 01/31/17 23:26 98.4 F 76 16 132/82 100 Temperature: Afebrile Blood Pressure: Normal Pulse: Regular Respiratory Rate: Normal Appearance: Positive for: Well-Appearing, Non-Toxic, Comfortable Pain Distress: None Mental Status: Positive for: Alert and Oriented X 3 - Systems Exam Head: Present: Atraumatic, Normocephalic. No: Tenderness, Contusion, Swelling, Ecchymosis, Abrasion, Laceration Pupils: Present: PERRL Extroacular Muscles: Present: EOMI Conjunctiva: Present: Normal Ears: Present: NORMAL TM, Normal Canal. No: Erythema Mouth: Present: Moist Mucous Membranes Nose (External): Present: Atraumatic. No: Abrasion, Contusion Nose (Internal): Present: Normal Inspection, No Active Bleeding. No: Rhinorrhea , Septal Hematoma, Epistaxis Neck: Present: Normal Range of Motion, Trachea Midline. No: MIDLINE TENDERNESS , Paraspinal Tenderness, Lymphadenopathy Respiratory/Chest: Present: Clear to Auscultation, Good Air Exchange. No: Respiratory Distress, Accessory Muscle Use, Wheezes, Decreased Breath Sounds, Rales, Retracting, Rhonchi, Tachypneic, Tender to Palpation Cardiovascular: Present: Regular Rate and Rhythm, Normal S1, S2. No: Murmurs Abdomen: Present: Normal Bowel Sounds. No: Tenderness, Distention, Peritoneal Signs, Rebound, Guarding Back: Present: Normal Inspection Upper Extremity: Present: Normal Inspection, Normal ROM, Neurovascularly Intact , Capillary Refill < 2s. No: Cyanosis, Edema, Tenderness, Swelling, Deformity Lower Extremity: Present: Normal Inspection, Normal ROM, Capillary Refill < 2 s. No: Edema, Tenderness, Swelling, Deformity Neurological: Present: GCS=15, Speech Normal, Motor Func Grossly Intact, Memory Normal Skin: Present: Warm, Dry, Normal Color. No: Rashes Psychiatric: Present: Alert, Oriented x 3, Normal Insight, Normal Concentration Medical Decision Making ED Course and Treatment: 01/31/17 23:46 -FS -Observe and reassess until sober 01/31/17 23:52 -FS 59 -Juice given, asymptomatic, refused labs and IV. 02/01/17 01:5 -FS 74 -Sleeping well, easily arousable. -Case discussed and endorsed to Dr. Flynn for follow up the care and dispo the patient. - Lab Interpretations Lab Results: Lab Results 02/01/17 01:26: POC Glucose (mg/dL) 74 01/31/17 23:46: POC Glucose (mg/dL) 59 L - Medication Orders Current Medication Orders: Discontinued Medications Ondansetron HCl (Zofran Odt) 4 mg PO STAT STA Stop: 02/01/17 06:01 Last Admin: 02/01/17 06:04 Dose: 4 mg - PA / [employer] / Resident Statement MD/DO has reviewed & agrees with the documentation as recorded. Disposition/Present on Arrival - Present on Arrival Any Indicators Present on Arrival: No History of DVT/PE: No History of Uncontrolled Diabetes: No Urinary Catheter: No History of Decub. Ulcer: No History Surgical Site Infection Following: None - Disposition Have Diagnosis and Disposition been Completed?: Yes Diagnosis: Alcohol intoxication Disposition: HOME/ ROUTINE Disposition Time: 01:55 Condition: IMPROVED Forms: [employer] (Venezuelan)
[2017-02-01 03:16] VITALS: O2SAT 100
[2017-02-01 06:50] VITALS: BP 136/82; PULSE 80; RESP 16; TEMP 98.6
== END 2017-02-01 06:00 | disposition home or self-care (01) ==
LOC: ED 23:25
DX: F10.129 Alcohol abuse with intoxication, unspecified (principal); I10 Essential (primary) hypertension; I25.10 Atherosclerotic heart disease of native coronary artery without angina pectoris; Z87.891 Personal history of nicotine dependence

== ENCOUNTER 2017-02-07 16:35 | Emergency (ER) | payer MEDICAID ==
[2017-02-07 16:41] VITALS: BMI 29.5
[2017-02-07 16:44] VITALS: TEMP 97.5
--- NOTE | 2017-02-07 16:59 | ED PDOC ---
Arrival/HPI - General Chief Complaint: Alcohol Ingestion Time Seen by Provider: 02/07/17 16:49 Historian: Patient, EMS - History of Present Illness Narrative History of Present Illness (Text): 02/07/17 16:54 A 51 year old male, whose past medical history includes TIA/Renal injury, psychiatric history including alcohol abuse/frequent alcohol intoxication, is brought into the emergency department by EMS after being found intoxicated at [employer]. The patient is well known to [facility] emergency department for alcohol intoxication. Patient ROS/HPI limited due to alcohol intoxication. PMD: Dr. Shahab Riddle Time/Duration: Prior to Arrival Symptom Onset: Sudden Symptom Course: Unchanged Activities at Onset: Rest, Light Context: Street ([employer]) Past Medical History - Provider Review Nursing Documentation Reviewed: Yes - Infectious Disease Hx of Infectious Diseases: None - Tetanus Immunization Tetanus Immunization: Unknown - Past Medical History Past Medical History: Unable to Obtain - Cardiac Hx Cardiac Disorders: Yes (CAD) Hx Hypertension: Yes - Pulmonary Hx Respiratory Disorders: No - Neurological Hx Neurological Disorder: Yes Hx Transient Ischemic Attacks (TIA): Yes - HEENT Hx HEENT Disorder: No - Renal Hx Renal Disorder: No - Endocrine/Metabolic Hx Endocrine Disorders: No - Hematological/Oncological Hx Blood Disorders: No - Integumentary Hx Dermatological Disorder: No - Musculoskeletal/Rheumatological Hx Musculoskeletal Disorders: Yes Hx Falls: Yes (2 yrs ago fell 0ff ladder) - Gastrointestinal Hx Gastrointestinal Disorders: No - Genitourinary/Gynecological Hx Genitourinary Disorders: No - Psychiatric Hx Psychophysiologic Disorder: No Hx Depression: No Hx Emotional Abuse: No Hx Physical Abuse: No Hx Substance Use: No - Past Surgical History Past Surgical History: Unable to Obtain - Surgical History Hx Musculoskeletal Surgery: Yes (right hip and hand, facial fracture repair) Other/Comment: right wrist injury, bone marrow taken from right hip and inserted into fx bone in right hand along with metal, metal has since been removed, 23 yrs ago at [facility] - Anesthesia Hx Anesthesia: Yes Hx Anesthesia Reactions: No Hx Malignant Hyperthermia: No - Suicidal Assessment Feels Threatened In Home Enviroment: No Family/Social History - Physician Review Nursing Documentation Reviewed: Yes Family/Social History: No Known Family HX (Non- contributory) Smoking Status: Former Smoker Hx Alcohol Use: Yes (DRINKS 2 PINTS OF VODKA DAILY. LAST DRANK 3 D AGO.2 PINTS OF VODKA AND LIQU) Hx Substance Use: No Hx Substance Use Treatment: No Allergies/Home Meds Allergies/Adverse Reactions: Allergies coconut Allergy (Verified 02/07/17 16:40) RASH coconut oil Allergy (Verified 02/07/17 16:40) RASH cranberry Allergy (Verified 02/07/17 16:40) SWELLING Home Medications: Home Meds Medication Instructions Recorded Confirmed Unobtainable 01/31/17 02/07/17 Review of Systems - Physician Review All systems were reviewed & negative as marked: Yes - Review of Systems Systems not reviewed;Unavailable: Intoxicated Physical Exam - Physical Exam Physical Exam Limitations: Intoxication Vital Signs Reviewed: Yes Vital Signs Temp Pulse Resp BP Pulse Ox 02/07/17 20:00 80 18 124/75 99 02/07/17 18:53 89 17 136/74 100 02/07/17 16:41 97.5 F L 81 17 151/81 H 96 02/07/17 16:40 97.5 F L 89 14 151/81 H 96 Appearance: Positive for: Non-Toxic, Other (Intoxicated. Smells of alcohol. ) Pain Distress: None Mental Status: Positive for: other (Intoxicated.) Finger Stick Blood Glucose: 81 - Systems Exam Head: Present: Atraumatic Pupils: Present: PERRL Mouth: Present: Moist Mucous Membranes Nose (External): No: Atraumatic Nose (Internal): No: Epistaxis Respiratory/Chest: Present: Clear to Auscultation Cardiovascular: Present: Regular Rate and Rhythm Abdomen: No: Tenderness, Distention Lower Extremity: No: Edema, Deformity Neurological: Present: Other (No focal deficits.) Skin: Present: Warm, Dry Psychiatric: Present: Intoxicated (Patient is intoxicated. Awakes easily to tactile stimuli. ) Medical Decision Making ED Course and Treatment: Prior Visits: Notes and results from previous visits were reviewed. Patient was last seen in the emergency department on 01/31/17. The patient was brought into the emergency department via EMS for alcohol intoxication. The patient was discharged home. Progress Notes: 1030pm the pt is improving clinically, now able to provide hx- admits to drinking etoh, denies other drugs or other complaints. - Medication Orders Current Medication Orders: Discontinued Medications Naloxone HCl (Narcan) 1 mg IM STAT STA Stop: 02/07/17 17:31 Last Admin: 02/07/17 17:39 Dose: 1 mg IM Administration Charges Document 02/07/17 17:39 CNR (Rec: 02/07/17 17:39 CNR [id number]) Injection Site MAR Injection Site Right Vastus Lateralis Charges for Administration # of IM Administrations 1 - Scribe Statement The provider has reviewed the documentation as recorded by the Scribe Maura Bhandari Provider Scribe Attestation: All medical record entries made by the Scribe were at my direction and personally dictated by me. I have reviewed the chart and agree that the record accurately reflects my personal performance of the history, physical exam, medical decision making, and the department course for this patient. I have also personally directed, reviewed, and agree with the discharge instructions and disposition. Disposition/Present on Arrival - Present on Arrival Any Indicators Present on Arrival: No History of DVT/PE: No History of Uncontrolled Diabetes: No Urinary Catheter: No History of Decub. Ulcer: No History Surgical Site Infection Following: None - Disposition Have Diagnosis and Disposition been Completed?: No Diagnosis: Alcohol abuse, Alcohol intoxication Disposition Time: 23:00 Patient Problems: Current Active Problems Problem Status Onset Alcohol abuse Acute Alcohol intoxication Acute Condition: STABLE Forms: [employer] (Chadian) Physician Patient Turnover Patient Signed Over To: Arturo Perez Handoff Comments: pending sobriety
[2017-02-07] MEDS ORDERED: Naloxone 0.4 mg/ml Inj (Adult) IM STA (17:30)
[2017-02-07 20:57] VITALS: RESP 18; O2SAT 99
--- NOTE | 2017-02-07 23:00 | ED PDOC ---
Physical Exam Vital Signs Reviewed: Yes Vital Signs Temp Pulse Resp BP Pulse Ox 02/07/17 20:00 80 18 124/75 99 02/07/17 18:53 89 17 136/74 100 02/07/17 16:41 97.5 F L 81 17 151/81 H 96 02/07/17 16:40 97.5 F L 89 14 151/81 H 96 Appearance: Positive for: Non-Toxic, Other (intoxicated) Pain Distress: None Mental Status: Positive for: other (intoxicated) Finger Stick Blood Glucose: 81 Medical Decision Making ED Course and Treatment: 02/07/17 22:59 Case signed out to me. Patient with alcohol intoxication, pending sobriety and final disposition. - Lab Interpretations Lab Results: Lab Results 02/07/17 16:43: POC Glucose (mg/dL) 81 - Medication Orders Current Medication Orders: Discontinued Medications Naloxone HCl (Narcan) 1 mg IM STAT STA Stop: 02/07/17 17:31 Last Admin: 02/07/17 17:39 Dose: 1 mg IM Administration Charges Document 02/07/17 17:39 CNR (Rec: 02/07/17 17:39 CNR [id number]) Injection Site MAR Injection Site Right Vastus Lateralis Charges for Administration # of IM Administrations 1 - Scribe Statement The provider has reviewed the documentation as recorded by the Dara Schaefer Provider Scribe Attestation: All medical record entries made by the Scribe were at my direction and personally dictated by me. I have reviewed the chart and agree that the record accurately reflects my personal performance of the history, physical exam, medical decision making, and the department course for this patient. I have also personally directed, reviewed, and agree with the discharge instructions and disposition. Disposition/Present on Arrival - Present on Arrival Any Indicators Present on Arrival: No History of DVT/PE: No History of Uncontrolled Diabetes: No Urinary Catheter: No History of Decub. Ulcer: No History Surgical Site Infection Following: None - Disposition Have Diagnosis and Disposition been Completed?: Yes Diagnosis: Alcohol abuse, Alcohol intoxication Disposition: HOME/ ROUTINE Disposition Time: 05:00 Patient Problems: Current Active Problems Problem Status Onset Alcohol intoxication Acute Alcohol abuse Acute Condition: IMPROVED Referrals: Jose A Riddle MD [Primary Care Provider] - Follow up with primary Forms: [employer] (Thai)
[2017-02-08 05:13] VITALS: BP 132/78; PULSE 87
== END 2017-02-08 05:04 | disposition home or self-care (01) ==
LOC: ED 16:35
DX: F10.129 Alcohol abuse with intoxication, unspecified (principal); Y90.9 Presence of alcohol in blood, level not specified
CPT/HCPCS: 82948; 96372; 99285; J2310

== ENCOUNTER 2017-02-14 22:15 | Emergency (ER) | payer MEDICAID ==
[2017-02-14 22:16] VITALS: BMI 29.5
--- NOTE | 2017-02-14 22:58 | ED PDOC ---
Arrival/HPI - General Chief Complaint: Alcohol Ingestion Time Seen by Provider: 02/14/17 22:38 Historian: Patient - History of Present Illness Narrative History of Present Illness (Text): 02/14/17 22:54 51 yr old male, well known to the Emergency Department and a frequent presenter of alcohol abuse, presents to the Emergency Department via EMS for clinically intoxicated tonight. Patient admits to drinking tonight. Patient voices no particular complaints and denies any recent trauma. Patient denies any chest pain, shortness of breath, abdominal pain, chills, fever, nausea, vomiting, diarrhea or any other complaints. No other history available. Time/Duration: Prior to Arrival Symptom Onset: Gradual Symptom Course: Unchanged Activities at Onset: Light Context: Street Past Medical History - Provider Review Nursing Documentation Reviewed: Yes - Infectious Disease Hx of Infectious Diseases: None - Tetanus Immunization Tetanus Immunization: Unknown - Past Medical History Past Medical History: Unable to Obtain - Cardiac Hx Cardiac Disorders: Yes (CAD) Hx Hypertension: Yes - Pulmonary Hx Respiratory Disorders: No - Neurological Hx Neurological Disorder: Yes Hx Transient Ischemic Attacks (TIA): Yes - HEENT Hx HEENT Disorder: No - Renal Hx Renal Disorder: No - Endocrine/Metabolic Hx Endocrine Disorders: No - Hematological/Oncological Hx Blood Disorders: No - Integumentary Hx Dermatological Disorder: No - Musculoskeletal/Rheumatological Hx Musculoskeletal Disorders: Yes Hx Falls: Yes (2 yrs ago fell 0ff ladder) - Gastrointestinal Hx Gastrointestinal Disorders: No - Genitourinary/Gynecological Hx Genitourinary Disorders: No - Psychiatric Hx Psychophysiologic Disorder: No Hx Depression: No Hx Emotional Abuse: No Hx Physical Abuse: No Hx Substance Use: No - Past Surgical History Past Surgical History: Unable to Obtain - Surgical History Hx Musculoskeletal Surgery: Yes (right hip and hand, facial fracture repair) Other/Comment: right wrist injury, bone marrow taken from right hip and inserted into fx bone in right hand along with metal, metal has since been removed, 23 yrs ago at [facility] - Anesthesia Hx Anesthesia: Yes Hx Anesthesia Reactions: No Hx Malignant Hyperthermia: No - Suicidal Assessment Feels Threatened In Home Enviroment: No Family/Social History - Physician Review Nursing Documentation Reviewed: Yes Family/Social History: Unknown Family HX Smoking Status: Former Smoker Hx Alcohol Use: Yes (DRINKS 2 PINTS OF VODKA DAILY. LAST DRANK 3 D AGO.2 PINTS OF VODKA AND LIQU) Hx Substance Use: No Hx Substance Use Treatment: No Allergies/Home Meds Allergies/Adverse Reactions: Allergies coconut Allergy (Verified 02/07/17 16:40) RASH coconut oil Allergy (Verified 02/07/17 16:40) RASH cranberry Allergy (Verified 02/07/17 16:40) SWELLING Home Medications: Home Meds Medication Instructions Recorded Confirmed Unobtainable 01/31/17 02/15/17 Review of Systems - Physician Review All systems were reviewed & negative as marked: Yes - Review of Systems Constitutional: Other (alcohol intoxication ). absent: Fevers, Night Sweats Eyes: Normal ENT: Normal Respiratory: Normal. absent: SOB Cardiovascular: Normal. absent: Chest Pain Gastrointestinal: Normal. absent: Abdominal Pain, Diarrhea, Nausea, Vomiting Genitourinary Male: Normal Musculoskeletal: Normal Skin: Normal Neurological: Normal Endocrine: Normal Hemo/Lymphatic: Normal Psychiatric: Normal Physical Exam Vital Signs Temp Pulse Resp BP Pulse Ox 02/15/17 06:00 98.6 F 78 16 132/80 100 02/15/17 04:00 97.6 F 70 16 128/81 100 02/15/17 02:00 97.6 F 80 16 131/71 100 02/15/17 00:16 97.8 F 78 18 129/71 100 02/14/17 22:16 97.8 F 76 16 138/81 99 Appearance: Positive for: Well-Appearing, Other (Intoxicated. Alcohol smell on breath. ) - Systems Exam Head: Present: Atraumatic, Normocephalic, Other (No external evidence of head trauma ) Pupils: Present: PERRL Extroacular Muscles: Present: EOMI Conjunctiva: Present: Normal Mouth: Present: Moist Mucous Membranes Neck: Present: Normal Range of Motion, Other (supple and non-tender) Respiratory/Chest: Present: Clear to Auscultation, Good Air Exchange. No: Respiratory Distress, Accessory Muscle Use Cardiovascular: Present: Regular Rate and Rhythm, Normal S1, S2. No: Murmurs Abdomen: Present: Normal Bowel Sounds. No: Tenderness, Distention, Peritoneal Signs Back: Present: Normal Inspection Upper Extremity: Present: Normal Inspection. No: Cyanosis, Edema Lower Extremity: Present: Normal Inspection, NORMAL PULSES. No: Edema Neurological: Present: GCS=15, CN II-XII Intact, Speech Normal (mild slurred speech ) Skin: Present: Warm, Dry, Normal Color. No: Rashes Psychiatric: Present: Alert, Intoxicated, Other (cooperative with exam. Respond to verbal command. ) Medical Decision Making ED Course and Treatment: 02/14/17 23:00 Impression: 51 year old male presents to the ED for alcohol intoxication. Plan: -- Hold patient until patient re-attains sobriety or someone assumes custody. Progress Notes: - Scribe Statement The provider has reviewed the documentation as recorded by the Scribe Brenda Joy. All medical record entries made by the Scribe were at my direction and personally dictated by me. I have reviewed the chart and agree that the record accurately reflects my personal performance of the history, physical exam, medical decision making, and the department course for this patient. I have also personally directed, reviewed, and agree with the discharge instructions and disposition. Disposition/Present on Arrival - Present on Arrival Any Indicators Present on Arrival: No History of DVT/PE: No History of Uncontrolled Diabetes: No Urinary Catheter: No History of Decub. Ulcer: No History Surgical Site Infection Following: None - Disposition Have Diagnosis and Disposition been Completed?: Yes Diagnosis: Alcohol abuse Disposition: HOME/ ROUTINE Disposition Time: 06:33 Patient Plan: Discharge Condition: FAIR Print Language: FAROESE Referrals: Alcoholics Anonymous [Outside] - Follow up with primary Talasim Marbin Sanford, [Primary Care Provider] - Follow up with primary Forms: [facility] (Martiniquais) - Notes Notes (Text): 02/15/17 06:32 Pt remained in the ED under my continuous observation.At 0630 pt was given opportunity to demonstrate sobriety.Has is now awke and alert,with steady gait, clinically sober
[2017-02-15 01:17] VITALS: O2SAT 100
[2017-02-15 04:52] VITALS: RESP 16
[2017-02-15 06:24] VITALS: BP 132/80; PULSE 78; TEMP 98.6
== END 2017-02-15 06:27 | disposition home or self-care (01) ==
LOC: ED 22:15
DX: F10.10 Alcohol abuse, uncomplicated (principal); Y90.9 Presence of alcohol in blood, level not specified

== ENCOUNTER 2017-02-24 16:56 | Emergency (ER) | payer MEDICAID ==
[2017-02-24 16:58] VITALS: BMI 29.5
[2017-02-24 17:09] VITALS: RESP 18
--- NOTE | 2017-02-24 17:45 | ED PDOC ---
Arrival/HPI - General Historian: Patient - History of Present Illness Time/Duration: Prior to Arrival <Demi Brown - Last Filed: 02/24/17 20:24> <Aftab Walters - Last Filed: 02/24/17 20:55> - General Chief Complaint: Alcohol Ingestion Time Seen by Provider: 02/24/17 17:17 - History of Present Illness Narrative History of Present Illness (Text): 02/24/17 17:31 51-year-old male presents today with alcohol intoxication. Patient admits to drinking alcohol today. He denies headaches dizziness or weakness. Denies chest pain or shortness of breath. Denies abdominal pain. Denies recent trauma or injury. Denies depression or anxiety. (Demi Brown) Past Medical History - Provider Review Nursing Documentation Reviewed: Yes - Travel History Have you recently traveled outside [place] w/in the past 3 mons?: No - Infectious Disease Hx of Infectious Diseases: None - Tetanus Immunization Tetanus Immunization: Unknown - Past Medical History Past Medical History: Unable to Obtain - Cardiac Hx Cardiac Disorders: Yes Hx Hypertension: Yes - Pulmonary Hx Respiratory Disorders: No - Neurological Hx Neurological Disorder: Yes Hx Transient Ischemic Attacks (TIA): Yes - HEENT Hx HEENT Disorder: No - Renal Hx Renal Disorder: No - Endocrine/Metabolic Hx Endocrine Disorders: No - Hematological/Oncological Hx Blood Disorders: No - Integumentary Hx Dermatological Disorder: No - Musculoskeletal/Rheumatological Hx Musculoskeletal Disorders: Yes Hx Falls: Yes (2 yrs ago fell 0ff ladder) - Gastrointestinal Hx Gastrointestinal Disorders: No - Genitourinary/Gynecological Hx Genitourinary Disorders: No - Psychiatric Hx Psychophysiologic Disorder: No Hx Substance Use: No - Past Surgical History Past Surgical History: Unable to Obtain - Surgical History Hx Musculoskeletal Surgery: Yes (right hip and hand, facial fracture repair) Other/Comment: right wrist injury, bone marrow taken from right hip and inserted into fx bone in right hand along with metal, metal has since been removed, 23 yrs ago at [facility] - Anesthesia Hx Anesthesia: Yes Hx Anesthesia Reactions: No Hx Malignant Hyperthermia: No - Suicidal Assessment Feels Threatened In Home Enviroment: No <Demi Brown - Last Filed: 02/24/17 20:24> Family/Social History - Physician Review Nursing Documentation Reviewed: Yes Family/Social History: Unknown Family HX Smoking Status: Former Smoker Hx Alcohol Use: Yes (DRINKS 2 PINTS OF VODKA DAILY. LAST DRANK 3 D AGO.2 PINTS OF VODKA AND LIQU) Frequency of alcohol use: Daily Hx Substance Use: No Hx Substance Use Treatment: No <Demi Brown - Last Filed: 02/24/17 20:24> Allergies/Home Meds <Demi Brown - Last Filed: 02/24/17 20:24> <Aftab Walters - Last Filed: 02/24/17 20:55> Allergies/Adverse Reactions: Allergies coconut Allergy (Verified 02/24/17 18:11) RASH coconut oil Allergy (Verified 02/24/17 18:11) RASH cranberry Allergy (Verified 02/24/17 18:11) SWELLING Home Medications: Home Meds Medication Instructions Recorded Confirmed Unobtainable 01/31/17 02/24/17 Review of Systems - Review of Systems Constitutional: absent: Fatigue, Fevers Respiratory: absent: SOB, Cough Cardiovascular: absent: Chest Pain, Palpitations Gastrointestinal: absent: Abdominal Pain, Nausea, Vomiting Genitourinary Male: absent: Dysuria Musculoskeletal: absent: Arthralgias, Back Pain, Neck Pain Skin: absent: Rash, Pruritis Neurological: absent: Headache, Dizziness Psychiatric: absent: Anxiety, Depression, Suicidal Ideation <Demi Brown - Last Filed: 02/24/17 20:24> Physical Exam Vital Signs Reviewed: Yes Temperature: Afebrile Blood Pressure: Normal Pulse: Tachycardic Respiratory Rate: Normal Appearance: Positive for: Well-Appearing, Non-Toxic, Comfortable Pain Distress: None Mental Status: Positive for: other (alert, intoxicated) Finger Stick Blood Glucose: 73 - Systems Exam Head: Present: Atraumatic Pupils: Present: PERRL Extroacular Muscles: Present: EOMI Mouth: Present: Moist Mucous Membranes Nose (Internal): Present: Normal Inspection Neck: Present: Normal Range of Motion, Trachea Midline. No: MIDLINE TENDERNESS , Paraspinal Tenderness Respiratory/Chest: Present: Clear to Auscultation, Good Air Exchange. No: Respiratory Distress, Accessory Muscle Use, Tender to Palpation Cardiovascular: Present: Regular Rate and Rhythm, Normal S1, S2. No: Murmurs Abdomen: No: Tenderness, Distention, Rebound, Guarding Back: Present: Normal Inspection. No: CVA Tenderness, Midline Tenderness, Paraspinal Tenderness Upper Extremity: Present: Normal Inspection, Normal ROM Lower Extremity: Present: Normal Inspection, NORMAL PULSES, Normal ROM, Neurovascularly Intact, Capillary Refill < 2 s. No: CALF TENDERNESS, Tenderness Neurological: Present: GCS=15 Skin: Present: Warm, Dry, Normal Color. No: Rashes Psychiatric: Present: Alert, Oriented x 3 <Demi Brown - Last Filed: 02/24/17 20:24> Vital Signs Temp Pulse Resp BP Pulse Ox 02/24/17 18:58 79 18 132/79 98 02/24/17 17:01 98.1 F 108 H 18 110/70 97 Medical Decision Making <Demi Brown - Last Filed: 02/24/17 20:24> <Aftab Walters - Last Filed: 02/24/17 20:55> ED Course and Treatment: 02/24/17 17:46 51-year-old male presents for alcohol intoxication. Patient is nontoxic well-appearing no distress. Will observe for sobriety. Fingerstick 73 CAT scan of the head: FINDINGS: Brain: Small nonspecific focus of hypodensity left parietal white matter. No edema. No intracranial mass, mass effect, or midline shift. Ventricles: Unremarkable. No ventriculomegaly. Bones/joints: Unremarkable. No acute fracture. Soft tissues: Unremarkable. Sinuses: Unremarkable as visualized. No acute sinusitis. Mastoid air cells: Unremarkable as visualized. No mastoid effusion. IMPRESSION: No acute intracranial abnormality. 02/24/17 19:03 pt reassessment; pt resting comfortably. no distress 02/24/17 20:26 case signed out to dr. walters; pending sobriety; re-evaluation, and disposition. (Demi Brown) 02/24/17 20:54 Pt. awake alert sober ambulatory in ED with steady gait. (Aftab Walters) - RAD Interpretation Radiology Orders: 02/24/17 17:17 HEAD W/O CONTRAST [CT] Stat - PA / INTRAN[employer] SUPPORT / 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 SANTOS has examined the patient and agrees with the treatment plan. <Aftab Walters - Last Filed: 02/24/17 20:55> Disposition/Present on Arrival - Present on Arrival Any Indicators Present on Arrival: No History of DVT/PE: No History of Uncontrolled Diabetes: No Urinary Catheter: No History of Decub. Ulcer: No History Surgical Site Infection Following: None - Disposition Have Diagnosis and Disposition been Completed?: Yes <Demi Brown - Last Filed: 02/24/17 20:24> - Present on Arrival Any Indicators Present on Arrival: No - Disposition Have Diagnosis and Disposition been Completed?: Yes Disposition Time: 20:53 Patient Plan: Discharge <Aftab Walters - Last Filed: 02/24/17 20:55> - Disposition Diagnosis: Alcohol abuse Disposition: HOME/ ROUTINE Patient Problems: Current Active Problems Problem Status Onset Alcohol intoxication Acute Condition: STABLE Referrals: Nilton Sanford, [Primary Care Provider] - Follow up with primary Alcoholics Anonymous [Outside] - Follow up with primary Forms: [employer] (Syriac)
--- NOTE | 2017-02-24 18:48 | CT ---
EXAM: CT Head Without Intravenous Contrast CLINICAL HISTORY: 51 years old, male; Signs and symptoms; Altered mental status/memory loss; Confusion or disorientation; Additional info: Etoh/ams TECHNIQUE: Axial computed tomography images of the head/brain without intravenous contrast. All CT scans at this facility use one or more dose reduction techniques, viz.: automated exposure control; ma/kV adjustment per patient size (including targeted exams where dose is matched to indication; i.e. head); or iterative reconstruction technique. Coronal and sagittal reformatted images were created and reviewed. COMPARISON: CT - HEAD W/O CONTRAST 2017-01-31 03:05 FINDINGS: Brain: Small nonspecific focus of hypodensity left parietal white matter. No edema. No intracranial mass, mass effect, or midline shift. Ventricles: Unremarkable. No ventriculomegaly. Bones/joints: Unremarkable. No acute fracture. Soft tissues: Unremarkable. Sinuses: Unremarkable as visualized. No acute sinusitis. Mastoid air cells: Unremarkable as visualized. No mastoid effusion. IMPRESSION: No acute intracranial abnormality.
[2017-02-24 21:47] VITALS: BP 125/72; PULSE 70; TEMP 98.6; O2SAT 100
== END 2017-02-24 20:53 | disposition home or self-care (01) ==
LOC: ED 16:56
DX: F10.10 Alcohol abuse, uncomplicated (principal); Y90.9 Presence of alcohol in blood, level not specified

== ENCOUNTER 2017-03-04 13:22 | Emergency (ER) | payer MEDICAID ==
[2017-03-04 13:32] VITALS: BMI 26.6
[2017-03-04 13:45] VITALS: RESP 18
--- NOTE | 2017-03-04 14:12 | ED PDOC ---
Arrival/HPI - General Chief Complaint: Alcohol Ingestion Time Seen by Provider: 03/04/17 13:45 Historian: Patient - History of Present Illness Narrative History of Present Illness (Text): 03/04/17 13:50 A 51 year old male, whose past medical history includes alcohol abuse, is brought in by EMS for intoxication. Patient is unable to answer questions verbally due to intoxicated state. Limited HPI and ROS due to intoxication. No PMD Past Medical History - Provider Review Nursing Documentation Reviewed: Yes - Infectious Disease Hx of Infectious Diseases: None - Tetanus Immunization Tetanus Immunization: Unknown - Past Medical History Past Medical History: Unable to Obtain - Cardiac Hx Cardiac Disorders: Yes Hx Hypertension: Yes - Pulmonary Hx Respiratory Disorders: No - Neurological Hx Neurological Disorder: Yes Hx Transient Ischemic Attacks (TIA): Yes - HEENT Hx HEENT Disorder: No - Renal Hx Renal Disorder: No - Endocrine/Metabolic Hx Endocrine Disorders: No - Hematological/Oncological Hx Blood Disorders: No - Integumentary Hx Dermatological Disorder: No - Musculoskeletal/Rheumatological Hx Musculoskeletal Disorders: Yes Hx Falls: Yes (2 yrs ago fell 0ff ladder) - Gastrointestinal Hx Gastrointestinal Disorders: No - Genitourinary/Gynecological Hx Genitourinary Disorders: No - Psychiatric Hx Psychophysiologic Disorder: No Hx Substance Use: No - Past Surgical History Past Surgical History: Unable to Obtain - Surgical History Hx Musculoskeletal Surgery: Yes (right hip and hand, facial fracture repair) Other/Comment: right wrist injury, bone marrow taken from right hip and inserted into fx bone in right hand along with metal, metal has since been removed, 23 yrs ago at [facility]3] - Anesthesia Hx Anesthesia: Yes Hx Anesthesia Reactions: No Hx Malignant Hyperthermia: No - Suicidal Assessment Feels Threatened In Home Enviroment: No Family/Social History - Physician Review Nursing Documentation Reviewed: Yes Family/Social History: No Known Family HX Smoking Status: Former Smoker Hx Alcohol Use: Yes (DRINKS 2 PINTS OF VODKA DAILY. LAST DRANK 3 D AGO.2 PINTS OF VODKA AND LIQU) Hx Substance Use: No Hx Substance Use Treatment: No Allergies/Home Meds Allergies/Adverse Reactions: Allergies coconut Allergy (Verified 03/04/17 13:33) RASH coconut oil Allergy (Verified 03/04/17 13:33) RASH cranberry Allergy (Verified 03/04/17 13:33) SWELLING Home Medications: Home Meds Medication Instructions Recorded Confirmed Unobtainable 01/31/17 03/04/17 Review of Systems - Review of Systems Systems not reviewed;Unavailable: Intoxicated Physical Exam Vital Signs Reviewed: Yes Vital Signs Temp Pulse Resp BP Pulse Ox 03/04/17 16:32 98.0 F 75 18 124/78 98 03/04/17 13:40 98.0 F 81 18 122/79 97 Temperature: Afebrile Blood Pressure: Normal Pulse: Regular Respiratory Rate: Normal Appearance: No: Non-Toxic (intoxicated) Pain Distress: None Mental Status: Positive for: Lethargic. No: Alert and Oriented X 3 (patient is alert and is not speaking verbally due to intoxicated) - Systems Exam Head: Present: Atraumatic, Normocephalic, Other (no notable head trauma) Pupils: Present: PERRL Extroacular Muscles: Present: EOMI Respiratory/Chest: Present: Clear to Auscultation, Good Air Exchange. No: Respiratory Distress, Accessory Muscle Use Cardiovascular: Present: Regular Rate and Rhythm, Normal S1, S2. No: Murmurs Abdomen: Present: Normal Bowel Sounds. No: Tenderness, Distention, Peritoneal Signs Psychiatric: Present: Alert, Intoxicated. No: Oriented x 3, Normal Insight, Normal Concentration Medical Decision Making ED Course and Treatment: 03/04/17 13:54 Impression: 51 year old male here for intoxication. Plan: -- Reassess and disposition Prior Visits: Notes and results from previous visits were reviewed. Patient was last seen in the emergency department on 02/24/2017 for intoxication. Patient was d/c home. Progress Notes: 03/04/17 18:30 awake and alert; requesting discharge. Stable/improved. - Scribe Statement The provider has reviewed the documentation as recorded by the Dara Tinoco Provider Scribe Attestation: All medical record entries made by the Scribteagan were at my direction and personally dictated by me. I have reviewed the chart and agree that the record accurately reflects my personal performance of the history, physical exam, medical decision making, and the department course for this patient. I have also personally directed, reviewed, and agree with the discharge instructions and disposition. Disposition/Present on Arrival - Present on Arrival Any Indicators Present on Arrival: No History of DVT/PE: No History of Uncontrolled Diabetes: No Urinary Catheter: No History of Decub. Ulcer: No History Surgical Site Infection Following: None - Disposition Have Diagnosis and Disposition been Completed?: Yes Diagnosis: Alcohol abuse Disposition: HOME/ ROUTINE Disposition Time: 18:30 Patient Plan: Discharge Condition: IMPROVED Forms: [facility] (Romanian)
[2017-03-04 19:53] VITALS: BP 119/75; PULSE 70; TEMP 98; O2SAT 100
== END 2017-03-04 19:53 | disposition home or self-care (01) ==
LOC: ED 13:22
DX: F10.10 Alcohol abuse, uncomplicated (principal); I10 Essential (primary) hypertension; Z87.891 Personal history of nicotine dependence

== ENCOUNTER 2017-03-05 15:24 | Emergency (ER) | payer MEDICAID ==
[2017-03-05 15:25] VITALS: BMI 26.6
--- NOTE | 2017-03-05 16:19 | ED PDOC ---
Arrival/HPI - General Historian: Patient, EMS <Vic Gonzalez - Last Filed: 03/06/17 04:23> <Aftab Toavr - Last Filed: 03/06/17 05:44> - General Chief Complaint: Alcohol Ingestion Time Seen by Provider: 03/05/17 16:12 - History of Present Illness Narrative History of Present Illness (Text): 03/05/17 16:17 51 y/o male, chronic history of alcohol dependent use, biba for etoh intoxication found on the public, FS 104, +etoh on breath, here at the ER for etoh intoxication. Pt. is here at the ER with no medical or psychological complaints, no nausea or vomiting, no abdominal pain, no tremors, no chest pain or shortness of breath, no other medical or psychological complaints. (Vic Gonzalez) Past Medical History - Provider Review Nursing Documentation Reviewed: Yes - Infectious Disease Hx of Infectious Diseases: None - Tetanus Immunization Tetanus Immunization: Unknown - Past Medical History Past Medical History: Unable to Obtain - Cardiac Hx Cardiac Disorders: Yes Hx Hypertension: Yes - Pulmonary Hx Respiratory Disorders: No - Neurological Hx Neurological Disorder: Yes Hx Transient Ischemic Attacks (TIA): Yes - HEENT Hx HEENT Disorder: No - Renal Hx Renal Disorder: No - Endocrine/Metabolic Hx Endocrine Disorders: No - Hematological/Oncological Hx Blood Disorders: No - Integumentary Hx Dermatological Disorder: No - Musculoskeletal/Rheumatological Hx Musculoskeletal Disorders: Yes Hx Falls: Yes (2 yrs ago fell 0ff ladder) - Gastrointestinal Hx Gastrointestinal Disorders: No - Genitourinary/Gynecological Hx Genitourinary Disorders: No - Psychiatric Hx Psychophysiologic Disorder: No Hx Substance Use: No - Past Surgical History Past Surgical History: Unable to Obtain - Surgical History Hx Musculoskeletal Surgery: Yes (right hip and hand, facial fracture repair) Other/Comment: right wrist injury, bone marrow taken from right hip and inserted into fx bone in right hand along with metal, metal has since been removed, 23 yrs ago at [facility] - Anesthesia Hx Anesthesia: Yes Hx Anesthesia Reactions: No Hx Malignant Hyperthermia: No - Suicidal Assessment Feels Threatened In Home Enviroment: No <Vic Gonzalez - Last Filed: 03/06/17 04:23> Family/Social History - Physician Review Nursing Documentation Reviewed: Yes Family/Social History: Unknown Family HX Smoking Status: Former Smoker Hx Alcohol Use: Yes (DRINKS 2 PINTS OF VODKA DAILY. LAST DRANK 3 D AGO.2 PINTS OF VODKA AND LIQU) Hx Substance Use: No Hx Substance Use Treatment: No <Vic Gonzalez - Last Filed: 03/06/17 04:23> Allergies/Home Meds <GonzalezVic Ibanez - Last Filed: 03/06/17 04:23> <Aftab Tovar - Last Filed: 03/06/17 05:44> Allergies/Adverse Reactions: Allergies coconut Allergy (Verified 03/05/17 16:01) RASH coconut oil Allergy (Verified 03/05/17 16:01) RASH cranberry Allergy (Verified 03/05/17 16:01) SWELLING Home Medications: Home Meds Medication Instructions Recorded Confirmed Unobtainable 01/31/17 03/05/17 Review of Systems - Review of Systems Systems not reviewed;Unavailable: Intoxicated <Vic Gonzalez - Last Filed: 03/06/17 04:23> Physical Exam Vital Signs Reviewed: Yes Temperature: Afebrile Blood Pressure: Normal Pulse: Regular Respiratory Rate: Normal Appearance: Positive for: Well-Appearing, Non-Toxic, Comfortable Pain Distress: None Mental Status: Positive for: Alert and Oriented X 3 - Systems Exam Head: Present: Atraumatic, Normocephalic. No: Tenderness, Contusion, Swelling, Ecchymosis, Abrasion, Laceration, Other Pupils: Present: PERRL Extroacular Muscles: Present: EOMI Conjunctiva: Present: Normal Ears: Present: NORMAL TM, Normal Canal. No: Erythema Mouth: Present: Moist Mucous Membranes. No: Normal Teeth Pharnyx: No: ERYTHEMA, EXUDATE, TONSILS ENLARGED, Uvular Deviation Nose (External): Present: Atraumatic. No: Abrasion, Contusion, Laceration Nose (Internal): Present: Normal Inspection, No Active Bleeding. No: Rhinorrhea , Septal Hematoma, Epistaxis Neck: Present: Normal Range of Motion, Trachea Midline. No: MIDLINE TENDERNESS , Paraspinal Tenderness, Lymphadenopathy Respiratory/Chest: Present: Clear to Auscultation, Good Air Exchange. No: Respiratory Distress, Accessory Muscle Use Cardiovascular: Present: Regular Rate and Rhythm, Normal S1, S2. No: Murmurs Abdomen: Present: Normal Bowel Sounds. No: Tenderness, Distention, Peritoneal Signs, Rebound, Guarding Back: Present: Normal Inspection. No: CVA Tenderness, Midline Tenderness, Paraspinal Tenderness, Decubitus Ulcer Upper Extremity: Present: Normal Inspection, Normal ROM, NORMAL PULSES, Neurovascularly Intact, Capillary Refill < 2s. No: Cyanosis, Edema, Deformity Lower Extremity: Present: Normal Inspection, NORMAL PULSES, Normal ROM, Neurovascularly Intact, Capillary Refill < 2 s. No: Edema, Tenderness, Swelling , Deformity Neurological: Present: GCS=15, Motor Func Grossly Intact, Memory Normal Skin: Present: Warm, Dry, Normal Color. No: Rashes Psychiatric: Present: Alert, Oriented x 3, Normal Insight, Normal Concentration <Vic Gonzalez - Last Filed: 03/06/17 04:23> Vital Signs Temp Pulse Resp BP Pulse Ox 03/06/17 05:00 97.8 F 86 18 121/75 100 03/06/17 01:00 97.8 F 82 19 131/76 100 03/05/17 23:00 97.6 F 78 18 131/72 99 03/05/17 21:00 97.8 F 75 18 130/72 100 03/05/17 19:00 98.1 F 72 16 123/72 99 03/05/17 17:36 82 16 124/68 99 03/05/17 15:51 97.9 F 80 18 120/73 100 Medical Decision Making <Vic Gonzalez - Last Filed: 03/06/17 04:23> <Aftab Tovar - Last Filed: 03/06/17 05:44> ED Course and Treatment: 03/05/17 16:19 -FS 104 -Will observe the patient until sober -Observe and reassess 03/06/17 04:23 -Pt. is still sleeping, easily arousable, case discussed and endorsed to Dr. Tovar for follow up care/reassess and final dispo. (Vic Gonzalez) 03/06/17 05:43 Pt awake, alert, and ambulating with steady gait. Clinically sober. Pt stable for d/c. (Aftab Tovar) - Lab Interpretations Lab Results: Lab Results 03/05/17 16:17: POC Glucose (mg/dL) 104 - PA / PIPE ROLLER / Resident Statement MD/DO has reviewed & agrees with the documentation as recorded. <Vic Gonzalez - Last Filed: 03/06/17 04:23> - PA / PIPE ROLLER / 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 / has examined the patient and agrees with the treatment plan. <Aftab Tovar - Last Filed: 03/06/17 05:44> Disposition/Present on Arrival - Present on Arrival Any Indicators Present on Arrival: No History of DVT/PE: No History of Uncontrolled Diabetes: No Urinary Catheter: No History of Decub. Ulcer: No History Surgical Site Infection Following: None - Disposition Have Diagnosis and Disposition been Completed?: Yes Disposition Time: 04:24 <Vic Gonzalez - Last Filed: 03/06/17 04:23> <Aftab Tovar - Last Filed: 03/06/17 05:44> - Disposition Diagnosis: Alcohol intoxication Patient Problems: Current Active Problems Problem Status Onset Alcohol intoxication Acute Condition: GOOD Referrals: Fatsoma Profile Req, [Primary Care Provider] - Follow up with primary Forms: [employer] ([place])
[2017-03-06 01:31] VITALS: TEMP 97.8; O2SAT 100
[2017-03-06 05:21] VITALS: BP 121/75; PULSE 86; RESP 18
== END 2017-03-06 05:40 | disposition home or self-care (01) ==
LOC: ED 15:24
DX: F10.229 Alcohol dependence with intoxication, unspecified (principal); I10 Essential (primary) hypertension; Z87.891 Personal history of nicotine dependence

== ENCOUNTER 2017-03-06 21:26 | Emergency (ER) | payer MEDICAID ==
[2017-03-06 21:32] VITALS: BMI 23.6
[2017-03-06 21:44] VITALS: TEMP 97.5
--- NOTE | 2017-03-06 22:06 | ED PDOC ---
Arrival/HPI - General Chief Complaint: Alcohol Ingestion Time Seen by Provider: 03/06/17 21:34 Historian: Patient - History of Present Illness Narrative History of Present Illness (Text): 03/06/17 22:05 David Larsen is a 51 year old male, whose past medical history includes alcohol abuse, is brought into the emergency department by EMS for public intoxication. Patient admits to drinking a few alcoholic drinks today. Patient denies any pain or discomfort. Patient denies any trauma, injury, fever, chills , nausea, vomiting, abdominal pain, chest pain, shortness of breath, suicidal ideation, homicidal ideation or any other complaints. Time/Duration: Other (tonight) Symptom Onset: Gradual Symptom Course: Unchanged Activities at Onset: Light Past Medical History - Provider Review Nursing Documentation Reviewed: Yes - Infectious Disease Hx of Infectious Diseases: None - Tetanus Immunization Tetanus Immunization: Unknown - Past Medical History Past Medical History: Unable to Obtain - Cardiac Hx Cardiac Disorders: Yes Hx Hypertension: Yes - Pulmonary Hx Respiratory Disorders: No - Neurological Hx Neurological Disorder: Yes Hx Transient Ischemic Attacks (TIA): Yes - HEENT Hx HEENT Disorder: No - Renal Hx Renal Disorder: No - Endocrine/Metabolic Hx Endocrine Disorders: No - Hematological/Oncological Hx Blood Disorders: No - Integumentary Hx Dermatological Disorder: No - Musculoskeletal/Rheumatological Hx Musculoskeletal Disorders: Yes Hx Falls: Yes (2 yrs ago fell 0ff ladder) - Gastrointestinal Hx Gastrointestinal Disorders: No - Genitourinary/Gynecological Hx Genitourinary Disorders: No - Psychiatric Hx Psychophysiologic Disorder: No Hx Substance Use: No - Past Surgical History Past Surgical History: Unable to Obtain - Surgical History Hx Musculoskeletal Surgery: Yes (right hip and hand, facial fracture repair) Other/Comment: right wrist injury, bone marrow taken from right hip and inserted into fx bone in right hand along with metal, metal has since been removed, 23 yrs ago at [facility] - Anesthesia Hx Anesthesia: Yes Hx Anesthesia Reactions: No Hx Malignant Hyperthermia: No - Suicidal Assessment Feels Threatened In Home Enviroment: No Family/Social History - Physician Review Nursing Documentation Reviewed: Yes Family/Social History: Unknown Family HX Smoking Status: Former Smoker Hx Alcohol Use: Yes (DRINKS 2 PINTS OF VODKA DAILY. LAST DRANK 3 D AGO.2 PINTS OF VODKA AND LIQU) Frequency of alcohol use: Daily Hx Substance Use: No Hx Substance Use Treatment: No Allergies/Home Meds Allergies/Adverse Reactions: Allergies coconut Allergy (Verified 03/05/17 16:01) RASH coconut oil Allergy (Verified 03/05/17 16:01) RASH cranberry Allergy (Verified 03/05/17 16:01) SWELLING Home Medications: Home Meds Medication Instructions Recorded Confirmed Unobtainable 01/31/17 03/06/17 Review of Systems - Physician Review All systems were reviewed & negative as marked: Yes - Review of Systems Constitutional: Normal. absent: Fevers Eyes: Normal ENT: Normal Respiratory: Normal. absent: SOB, Cough Cardiovascular: Normal. absent: Chest Pain Gastrointestinal: Normal. absent: Abdominal Pain, Diarrhea, Nausea, Vomiting Genitourinary Male: Normal. absent: Dysuria, Frequency, Hematuria, Urinary Output Changes Musculoskeletal: Normal. absent: Back Pain, Neck Pain Skin: Normal. absent: Rash Neurological: Normal. absent: Headache, Dizziness Endocrine: Normal Hemo/Lymphatic: Normal Psychiatric: Normal Physical Exam Vital Signs Reviewed: Yes Vital Signs Temp Pulse Resp BP Pulse Ox 03/07/17 03:27 80 20 116/70 99 03/07/17 01:27 78 22 137/80 100 03/06/17 23:27 66 18 124/72 98 03/06/17 21:43 97.5 F L 82 18 123/82 96 Temperature: Afebrile Blood Pressure: Normal Pulse: Regular Respiratory Rate: Normal Appearance: Positive for: Well-Appearing, Non-Toxic, Comfortable Pain Distress: None Mental Status: Positive for: Alert and Oriented X 3 Finger Stick Blood Glucose: 126 - Systems Exam Head: Present: Atraumatic, Normocephalic Pupils: Present: PERRL Extroacular Muscles: Present: EOMI Conjunctiva: Present: Normal Mouth: Present: Moist Mucous Membranes Neck: Present: Normal Range of Motion Respiratory/Chest: Present: Clear to Auscultation, Good Air Exchange. No: Respiratory Distress, Accessory Muscle Use Cardiovascular: Present: Regular Rate and Rhythm, Normal S1, S2. No: Murmurs Abdomen: Present: Normal Bowel Sounds. No: Tenderness, Distention, Peritoneal Signs Back: Present: Normal Inspection Upper Extremity: Present: Normal Inspection. No: Cyanosis, Edema Lower Extremity: Present: Normal Inspection. No: Edema Neurological: Present: GCS=15, CN II-XII Intact, Speech Normal Skin: Present: Warm, Dry, Normal Color. No: Rashes Psychiatric: Present: Alert, Oriented x 3, Normal Insight, Normal Concentration Medical Decision Making ED Course and Treatment: 03/06/17 22:05 Impression: 51 year old male brought in for alcohol intoxication tonight. Differential Diagnosis included but are not limited to: alcohol intoxication Plan: -- Reassess and disposition Progress Notes: 03/07/17 05:56 Pt awake, alert, and ambulating with steady gait. Clinically sober. Pt stable for d/c home. - Lab Interpretations Lab Results: Lab Results 03/06/17 21:34: POC Glucose (mg/dL) 126 H - Scribe Statement The provider has reviewed the documentation as recorded by the Scribteagan Sanchez Disposition/Present on Arrival - Present on Arrival Any Indicators Present on Arrival: No History of DVT/PE: No History of Uncontrolled Diabetes: No Urinary Catheter: No History of Decub. Ulcer: No History Surgical Site Infection Following: None - Disposition Have Diagnosis and Disposition been Completed?: Yes Diagnosis: Alcohol abuse Disposition: HOME/ ROUTINE Disposition Time: 05:57 Patient Plan: Discharge Condition: GOOD Discharge Instructions (ExitCare): Abuse of Alcohol (ED) Referrals: Alcoholics Anonymous [Outside] - Follow up with primary Forms: [employer]_ [employer] ([place])
[2017-03-07 04:04] VITALS: BP 116/70; PULSE 80; RESP 20; O2SAT 99
== END 2017-03-07 06:02 | disposition home or self-care (01) ==
LOC: ED 21:26
DX: F10.129 Alcohol abuse with intoxication, unspecified (principal); I10 Essential (primary) hypertension; Z87.891 Personal history of nicotine dependence

== ENCOUNTER 2017-03-09 16:55 | Emergency (ER) | payer MEDICAID ==
[2017-03-09 16:55] VITALS: BMI 23.6
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
[2017-03-09 18:22] VITALS: TEMP 98
--- NOTE | 2017-03-09 21:12 | CT ---
EXAM: CT Head Without Intravenous Contrast CLINICAL HISTORY: 51 years old, male; Signs and symptoms; Other: ETOH, agitation, R/O bleed TECHNIQUE: Axial computed tomography images of the head/brain without intravenous contrast. All CT scans at this facility use one or more dose reduction techniques, viz.: automated exposure control; ma/kV adjustment per patient size (including targeted exams where dose is matched to indication; i.e. head); or iterative reconstruction technique. Coronal and sagittal reformatted images were created and reviewed. COMPARISON: CT - HEAD W/O CONTRAST 2017-02-24 18:07 FINDINGS: Brain: Mild atrophy. No intracranial hemorrhage. No mass. Few scattered foci of decreased attenuation within periventricular/subcortical white matter. No edema. Ventricles: No hydrocephalus. Bones/joints: No acute fracture. Soft tissues: Unremarkable. Vasculature: Mild atherosclerotic disease of intracranial arteries. Sinuses: Scattered minimal to mild mucosal thickening. Mastoid air cells: No mastoid effusion. Orbits: Unremarkable as visualized. IMPRESSION: 1. No intracranial hemorrhage. 2. Nonspecific white matter changes. 3. Incidental/non-acute findings are described above.
[2017-03-10 06:18] VITALS: BP 162/94; PULSE 93; RESP 20; O2SAT 99
== END 2017-03-10 06:18 | disposition home or self-care (01) ==
LOC: ED 16:55
DX: F10.129 Alcohol abuse with intoxication, unspecified (principal); Y90.9 Presence of alcohol in blood, level not specified
CPT/HCPCS: 70450; 96372; 99285; J2060; J3486

== ENCOUNTER 2017-03-27 16:37 | Emergency (ER) | payer MEDICAID ==
[2017-03-27 17:44] VITALS: BMI 23.5
--- NOTE | 2017-03-27 18:11 | ED PDOC ---
Arrival/HPI - General Historian: Patient, EMS - History of Present Illness Time/Duration: Prior to Arrival - General Chief Complaint: Alcohol Ingestion Time Seen by Provider: 03/27/17 16:43 - History of Present Illness Narrative History of Present Illness (Text): 03/27/17 18:08 A 51 year old male, whose past medical history includes alcohol abuse, brought into the emergency department by EMS for alcohol intoxication. Patient admits to drinking alcohol today. Denies any drug use. No history of injury. Patient unable to provide any additional information, HPI and ROS limited due to patients intoxicated state. (Arturo Perez) Past Medical History - Provider Review Nursing Documentation Reviewed: Yes - Infectious Disease Hx of Infectious Diseases: None - Tetanus Immunization Tetanus Immunization: Unknown - Past Medical History Past Medical History: Unable to Obtain - Cardiac Hx Cardiac Disorders: Yes Hx Hypertension: Yes - Pulmonary Hx Respiratory Disorders: No - Neurological Hx Neurological Disorder: Yes Hx Transient Ischemic Attacks (TIA): Yes - HEENT Hx HEENT Disorder: No - Renal Hx Renal Disorder: No - Endocrine/Metabolic Hx Endocrine Disorders: No - Hematological/Oncological Hx Blood Disorders: No - Integumentary Hx Dermatological Disorder: No - Musculoskeletal/Rheumatological Hx Musculoskeletal Disorders: Yes Hx Falls: Yes (2 yrs ago fell 0ff ladder) - Gastrointestinal Hx Gastrointestinal Disorders: No - Genitourinary/Gynecological Hx Genitourinary Disorders: No - Psychiatric Hx Psychophysiologic Disorder: No Hx Substance Use: No - Past Surgical History Past Surgical History: Unable to Obtain - Surgical History Hx Musculoskeletal Surgery: Yes (right hip and hand, facial fracture repair) Other/Comment: right wrist injury, bone marrow taken from right hip and inserted into fx bone in right hand along with metal, metal has since been removed, 23 yrs ago at [facility] - Anesthesia Hx Anesthesia: Yes Hx Anesthesia Reactions: No Hx Malignant Hyperthermia: No - Suicidal Assessment Feels Threatened In Home Enviroment: No Family/Social History - Physician Review Nursing Documentation Reviewed: Yes Family/Social History: No Known Family HX Smoking Status: Former Smoker Hx Alcohol Use: Yes (DRINKS 2 PINTS OF VODKA DAILY. LAST DRANK 3 D AGO.2 PINTS OF VODKA AND LIQU) Frequency of alcohol use: Daily Hx Substance Use: No Hx Substance Use Treatment: No Allergies/Home Meds Allergies/Adverse Reactions: Allergies coconut Allergy (Verified 03/28/17 09:05) RASH coconut oil Allergy (Verified 03/28/17 09:05) RASH cranberry Allergy (Verified 03/28/17 09:05) SWELLING Home Medications: Home Meds Medication Instructions Recorded Confirmed Lisinopril [Prinivil] 10 mg PO DAILY 03/28/17 03/28/17 amLODIPine [Norvasc] 5 mg PO DAILY 03/28/17 03/28/17 Review of Systems - Review of Systems Systems not reviewed;Unavailable: Intoxicated Physical Exam Vital Signs Reviewed: Yes Temperature: Afebrile Blood Pressure: Normal Pulse: Regular Respiratory Rate: Normal Appearance: Positive for: Other (Intoxicated male. No evidence of injury or trauma.) Pain Distress: None Mental Status: Positive for: Lethargic (but easily arousable to painful stimuli) - Systems Exam Head: Present: Atraumatic, Normocephalic Pupils: Present: PERRL Conjunctiva: Present: Normal Mouth: Present: Moist Mucous Membranes Neck: Present: Normal Range of Motion Respiratory/Chest: Present: Clear to Auscultation, Good Air Exchange. No: Respiratory Distress, Accessory Muscle Use, Tender to Palpation Cardiovascular: Present: Regular Rate and Rhythm, Normal S1, S2. No: Murmurs Abdomen: Present: Normal Bowel Sounds. No: Tenderness, Distention, Peritoneal Signs Upper Extremity: Present: NORMAL PULSES, Other (Moves extremities spontaneously and withdraws to pain). No: Cyanosis, Edema Lower Extremity: Present: NORMAL PULSES, Other (Moves extremities spontaneously and withdraws to pain). No: Edema Neurological: No: Other (Focal deficits) Skin: Present: Warm, Dry, Normal Color. No: Rashes Psychiatric: Present: Intoxicated, Lethargic Vital Signs Temp Pulse Resp BP Pulse Ox 03/28/17 06:47 98.2 F 80 17 135/62 98 03/27/17 23:38 98.0 F 89 17 125/78 98 03/27/17 18:00 82 18 132/75 97 03/27/17 16:42 98.2 F 86 18 119/69 98 Medical Decision Making ED Course and Treatment: 03/27/17 18:25 Patient endorsed to me by Dr. Perez, pending sobriety, re-evaluation and disposition. (Benjamín Tovar) 02/14/18 18:08 Impression: A 51 year old male brought in for alcohol intoxication. Progress Notes: Patient endorsed to Dr. Tovar, pending sobriety. (Arturo Perez) - Lab Interpretations Lab Results: Lab Results 03/28/17 09:21: POC Glucose (mg/dL) 32 L* 03/27/17 17:40: POC Glucose (mg/dL) 84 Disposition/Present on Arrival - Present on Arrival Any Indicators Present on Arrival: No History of DVT/PE: No History of Uncontrolled Diabetes: No Urinary Catheter: No History of Decub. Ulcer: No History Surgical Site Infection Following: None - Disposition Have Diagnosis and Disposition been Completed?: Yes Disposition Time: 15:00 Patient Plan: Discharge - Disposition Diagnosis: Alcohol abuse Disposition: HOME/ ROUTINE Patient Problems: Current Active Problems Problem Status Onset Alcohol withdrawal Acute Left-sided sensory deficit present Acute Transient ischemic attack (TIA) Acute Condition: STABLE Referrals: [employer] [facility], [Non-Staff] - Follow up with primary Forms: [address] (Italian)
[2017-03-27 23:39] VITALS: RESP 17; O2SAT 98
--- NOTE | 2017-03-28 00:15 | ED PDOC ---
Physical Exam Vital Signs Temp Pulse Resp BP Pulse Ox 03/27/17 23:38 98.0 F 89 17 125/78 98 03/27/17 18:00 82 18 132/75 97 03/27/17 16:42 98.2 F 86 18 119/69 98 Finger Stick Blood Glucose: 84 Medical Decision Making ED Course and Treatment: 03/27/17 23:30 Case endorsed to me by Dr. Tovar, pending sobriety, re-assessment, and final disposition, Re-evaluation Time: 06:30 Reassessment Condition: Re-examined, Improved - Lab Interpretations Lab Results: Lab Results 03/27/17 17:40: POC Glucose (mg/dL) 84 Disposition/Present on Arrival - Present on Arrival Any Indicators Present on Arrival: No History of DVT/PE: No History of Uncontrolled Diabetes: No Urinary Catheter: No History of Decub. Ulcer: No History Surgical Site Infection Following: None - Disposition Have Diagnosis and Disposition been Completed?: Yes Diagnosis: Alcohol abuse Disposition: HOME/ ROUTINE Disposition Time: 06:30 Patient Problems: Current Active Problems Problem Status Onset Alcohol withdrawal Acute Left-sided sensory deficit present Acute Transient ischemic attack (TIA) Acute Condition: STABLE Referrals: [facility], [Non-Staff] - Follow up with primary Forms: [employer] (Upper Sorbian)
[2017-03-28 06:49] VITALS: BP 135/62; PULSE 80; TEMP 98.2
== END 2017-03-28 06:49 | disposition home or self-care (01) ==
LOC: ED 16:37
DX: F10.10 Alcohol abuse, uncomplicated (principal); Y90.9 Presence of alcohol in blood, level not specified

== ENCOUNTER 2017-03-28 08:16 | Inpatient (IN) | payer MEDICAID ==
[2017-03-28 09:07] VITALS: BMI 22.0
--- NOTE | 2017-03-28 10:22 | CT ---
PROCEDURE: CT HEAD WITHOUT CONTRAST. HISTORY: Headache/ paresthesia COMPARISON: 03/09/2017. TECHNIQUE: Axial computed tomography images were obtained through the head/brain without intravenous contrast. Radiation dose: Total exam DLP = 905.27 mGy-cm. This CT exam was performed using one or more of the following dose reduction techniques: Automated exposure control, adjustment of the mA and/or kV according to patient size, and/or use of iterative reconstruction technique. FINDINGS: HEMORRHAGE: No intracranial hemorrhage. BRAIN: Vinson-white matter differentiation is preserved. There is no mass, mass effect or abnormal extra-axial fluid collection. There are symmetric bilateral basal ganglia calcifications. VENTRICLES: The ventricles are normal in size, shape and configuration. CALVARIUM: Unremarkable. PARANASAL SINUSES: Unremarkable as visualized. No significant inflammatory changes. MASTOID AIR CELLS: Unremarkable as visualized. No inflammatory changes. OTHER FINDINGS: None. IMPRESSION: No acute intracranial abnormality.
--- NOTE | 2017-03-28 10:28 | ED PDOC ---
Arrival/HPI - General Chief Complaint: Weakness/Neurological Deficit Time Seen by Provider: 03/28/17 09:29 Historian: Patient - History of Present Illness Narrative History of Present Illness (Text): 03/28/17 10:23 51yo male with PMhx of hypertension, TIA and alcohol abuse present with complaint of left sided numbness since last night. He describes numbness as "Pins and needles" sensation on his left side. States he had similar symptom in the past when he was diagnosed with TIA few years ago. He was just discharged form the ED last night, after sobriety from alcohol. states the last time he drank was last night. States the left side of his forehead "Feels hard". He denies any focal weakness, nausea, vomiting, slurred speech, dizziness, visual changes, chest pain, SOB, diaphoresis, abdominal pain, any other complaint. Past Medical History - Provider Review Nursing Documentation Reviewed: Yes - Infectious Disease Hx of Infectious Diseases: None - Tetanus Immunization Tetanus Immunization: Unknown - Past Medical History Past Medical History: Unable to Obtain - Cardiac Hx Cardiac Disorders: Yes Hx Hypertension: Yes - Pulmonary Hx Respiratory Disorders: No - Neurological Hx Neurological Disorder: Yes Hx Transient Ischemic Attacks (TIA): Yes - HEENT Hx HEENT Disorder: No - Renal Hx Renal Disorder: No - Endocrine/Metabolic Hx Endocrine Disorders: No - Hematological/Oncological Hx Blood Disorders: No - Integumentary Hx Dermatological Disorder: No - Musculoskeletal/Rheumatological Hx Musculoskeletal Disorders: Yes Hx Falls: Yes (2 yrs ago fell 0ff ladder) - Gastrointestinal Hx Gastrointestinal Disorders: No - Genitourinary/Gynecological Hx Genitourinary Disorders: No - Psychiatric Hx Psychophysiologic Disorder: No Hx Substance Use: No - Past Surgical History Past Surgical History: Unable to Obtain - Surgical History Hx Musculoskeletal Surgery: Yes (right hip and hand, facial fracture repair) Other/Comment: right wrist injury, bone marrow taken from right hip and inserted into fx bone in right hand along with metal, metal has since been removed, 23 yrs ago at [facility] [place] - Anesthesia Hx Anesthesia: Yes Hx Anesthesia Reactions: No Hx Malignant Hyperthermia: No - Suicidal Assessment Feels Threatened In Home Enviroment: No Family/Social History - Physician Review Nursing Documentation Reviewed: Yes Family/Social History: Unknown Family HX Smoking Status: Former Smoker Hx Alcohol Use: Yes (DRINKS 2 PINTS OF VODKA DAILY. LAST DRANK 3 D AGO.2 PINTS OF VODKA AND LIQU) Frequency of alcohol use: Daily Hx Substance Use: No Hx Substance Use Treatment: No Allergies/Home Meds Allergies/Adverse Reactions: Allergies coconut Allergy (Verified 03/28/17 09:05) RASH coconut oil Allergy (Verified 03/28/17 09:05) RASH cranberry Allergy (Verified 03/28/17 09:05) SWELLING Home Medications: Home Meds Medication Instructions Recorded Confirmed Lisinopril [Prinivil] 10 mg PO DAILY 03/28/17 03/28/17 amLODIPine [Norvasc] 5 mg PO DAILY 03/28/17 03/28/17 Review of Systems - Physician Review All systems were reviewed & negative as marked: Yes - Review of Systems Constitutional: Normal Eyes: Normal ENT: Normal Respiratory: Normal Cardiovascular: Normal Gastrointestinal: Normal Genitourinary Male: Normal Musculoskeletal: Normal Skin: Normal Neurological: Other (Left sided numbness). absent: Headache, Dizziness, Focal Weakness, Speech Changes, Facial Droop Endocrine: Normal Hemo/Lymphatic: Normal Psychiatric: Normal Physical Exam Vital Signs Reviewed: Yes Vital Signs Temp Pulse Resp BP Pulse Ox 03/28/17 15:40 97.5 F L 78 18 145/80 98 03/28/17 13:51 79 18 145/71 99 03/28/17 12:17 86 18 148/74 99 03/28/17 09:15 98.0 F 96 H 17 151/86 H 99 Temperature: Afebrile Blood Pressure: Normal Pulse: Regular Respiratory Rate: Normal Appearance: Positive for: Well-Appearing, Non-Toxic, Comfortable, Other ( Tremors of upper extremity noted) Pain Distress: None Mental Status: Positive for: Alert and Oriented X 3 Finger Stick Blood Glucose: 65 - Systems Exam Head: Present: Atraumatic, Normocephalic Pupils: Present: PERRL Extroacular Muscles: Present: EOMI Conjunctiva: Present: Normal Mouth: Present: Moist Mucous Membranes Neck: Present: Normal Range of Motion Respiratory/Chest: Present: Clear to Auscultation, Good Air Exchange. No: Respiratory Distress, Accessory Muscle Use Cardiovascular: Present: Regular Rate and Rhythm, Normal S1, S2. No: Murmurs Abdomen: Present: Normal Bowel Sounds. No: Tenderness, Distention, Peritoneal Signs Back: Present: Normal Inspection Upper Extremity: Present: Normal Inspection. No: Cyanosis, Edema Lower Extremity: Present: Normal Inspection. No: Edema Neurological: Present: GCS=15, CN II-XII Intact, Speech Normal, Motor Func Grossly Intact, Normal Sensory Function, Normal Cerebellar Funct, Gait Normal, Memory Normal. No: Normal 2Pt Descrimination (Decreased on the left side facial and arm) Skin: Present: Warm, Dry, Normal Color. No: Rashes Psychiatric: Present: Alert, Oriented x 3, Normal Insight, Normal Concentration Medical Decision Making ED Course and Treatment: 03/28/17 20:03 PT in ED for stated history. PT has been seen in ED 5times for TIA. The last time was in February of this year. He was neurologically intact. Tremors of upper extremity was noted which is likely secondary to alcohol withdrawal. Lab was reviewed. source of leukocytosis unknown. On further questioning pt noted greenish productive cough, but CXR was negative. head CT IMPRESSION: No acute intracranial abnormality. EKG NSR @98bpm Pt was admitted for TIA and alcohol withdrawal. Case was DW Dr. Lanier while he was in ED and he accepted pt for admission. - Lab Interpretations Lab Results: 03/28/17 10:27 Lab Results 03/28/17 10:27: Alcohol, Quantitative 44 H 03/28/17 10:27: PT 12.0, INR 1.04, APTT 26.6 03/28/17 10:27: WBC 13.4 H D, RBC 4.51, Hgb 14.2, Hct 42.4, MCV 94.0, MCH 31.5, MCHC 33.5, RDW 13.4, Plt Count 341, MPV 9.6, Gran % 94.3 H, Lymph % (Auto) 3.6 L , Dauphin % (Auto) 2.0, Eos % (Auto) 0.0 L, Baso % (Auto) 0.1, Gran # 12.64 H, Lymph # (Auto) 0.5 L, Dauphin # (Auto) 0.3, Eos # (Auto) 0.0, Baso # (Auto) 0.02, Neutrophils % (Manual) 86 H, Band Neutrophils % 1, Lymphocytes % (Manual) 6 L, Monocytes % (Manual) 6, Basophils % (Manual) 1 03/28/17 09:55: POC Glucose (mg/dL) 63 L - RAD Interpretation Radiology Orders: 03/28/17 09:33 HEAD W/O CONTRAST [CT] Stat - Medication Orders Current Medication Orders: Acetaminophen (Tylenol 325mg Tab) 650 mg PO Q6H PRN PRN Reason: Fever >100.4 F Amlodipine Besylate (Norvasc) 5 mg PO DAILY [facility] Aspirin (Ecotrin) 81 mg PO DAILY [facility] Atorvastatin Calcium (Lipitor) 5 mg PO DIN [facility] Last Admin: 03/28/17 17:01 Dose: 5 mg Chlordiazepoxide (Librium) 10 mg PO Q8 PRN; Protocol PRN Reason: Symptoms of alcohol withdrawl Famotidine (Pepcid) 20 mg PO BID [facility] Last Admin: 03/28/17 17:02 Dose: 20 mg Folic Acid (Folic Acid) 1 mg PO DAILY [facility] Folic Acid 1 mg/ Thiamine HCl 100 mg/ Multivitamins/Vitamin C 10 ml/ Dextrose 1 ,011.2 mls @ 100 mls/hr IV .Q10H7M [facility] Last Admin: 03/28/17 16:55 Dose: 100 mls/hr eMAR Start Stop Document 03/28/17 16:55 KMS (Rec: 03/28/17 16:55 KMS [id number]) Intravenous Solution Start Date 03/28/17 Start Time 16:55 Lisinopril (Zestril) 10 mg PO DAILY [facility] Lorazepam (Ativan) 1 mg IVP Q4H PRN PRN Reason: Symptoms of alcohol withdrawl Multivitamins/Minerals (Therapeutic-M Tab) 1 tab PO DAILY [facility] Ondansetron HCl (Zofran Inj) 2 mg IVP Q6H PRN PRN Reason: Nausea/Vomiting Pantoprazole Sodium (Protonix Ec Tab) 40 mg PO 0600 [facility] Last Admin: 03/28/17 17:01 Dose: 40 mg Thiamine HCl (Vitamin B1 Tab) 100 mg PO DAILY [facility] Discontinued Medications Aspirin (Aspirin) 325 mg PO STAT STA Stop: 03/28/17 11:35 Last Admin: 03/28/17 12:05 Dose: 325 mg Chlordiazepoxide (Librium) 50 mg PO STAT STA PRN Reason: Protocol Stop: 03/28/17 11:24 Last Admin: 03/28/17 12:05 Dose: 50 mg Multivitamins/Vitamin C 10 ml/Thiamine HCl 100 mg/ Folic Acid 1 mg/ Dextrose 1, 011.2 mls @ 1,000 mls/hr IV .Q1H1M ONE Stop: 03/28/17 12:23 Last Admin: 03/28/17 12:47 Dose: 1,000 mls/hr eMAR Start Stop Document 03/28/17 12:47 MR (Rec: 03/28/17 12:48 MR [id number]) Intravenous Solution Start Date 03/28/17 Start Time 12:48 End Date 03/28/17 End time 13:48 Total Infusion Time 60 Lorazepam (Ativan) 1 mg IVP ONCE ONE PRN Reason: Protocol Stop: 03/28/17 11:24 Last Admin: 03/28/17 12:05 Dose: 1 mg IVP Administration Document 03/28/17 12:05 MR (Rec: 03/28/17 12:05 MR [id number]) Charges for Administration # of IVP Administrations 1 Pneumococcal Polyvalent Vaccine (Pneumovax 23 Vaccine) 0.5 ml IM .ONCE ONE Stop: 03/28/17 16:41 rTPA Inclusion/Exclusion - Refusal of Treatment Patient Refused Treatment: No - Inclusion Criteria for Altepase Patient is 18 years or Older: Yes The Clinical Diagnosis of Ischemic Stroke That is Causing a Potentially Disabling Neurological Deficit: No Time of Onset is Well Established to be Less Than 270 Minute Before Treatment Would Begin: No Risk/Benefit Discussed With Patient/Family Member Present: No - Exclusion Criteria for Altepase Uncontrolled Hypertension at Time of Treatment (Systolic BP above 185 or Diastolic BP above 110 mmHg): No Active Internal Bleeding: No Known Bleeding Diathesis Including but Not Limited to: Platelets Below 100,000/ mm,PTT Above 40 sec After Heparin Use, Current Use of Oral Anitcoagulant With INR Greater Than 1.7 or PT Greater Than 15 secs: No Evidence of an Intracranial Hemorrhage: No Evidence of Major Acute Infarct With Signs Greater Than 1/3 MCA Territory: No Suspicion of Subarachnoid Hemorrhage on Pretreatment Evaluation Even if CT Head Negative For Hemorrhage: No - Warning to TPA With Conditions Following Conditions Weighed Against Anticipated Benefit: No Condition: Stroke Serevity Too Mild NIHSS Stroke Scale 3 - Date/Time Evaluation Performed Date Performed: 03/28/17 Time Performed: 09:40 When Was NIHSS Performed: Baseline - How Severe is the Stroke Level of Consciousness: 0=Alert LOC to Questions: 0=Both comments correct LOC to commands: 0=Obeys both correctly Best Gaze: 0=Normal Visual: 0=No visual loss Facial: 0=Normal Motor Arm - Left: 0=No drift Motor Arm - Right: 0=No drift Motor Leg - Left: 0=No drift Motor Leg - Right: 0=No drift Limb Ataxia: 0=Absent Sensory: 0=Normal Best Language: 0=No aphasia Dysarthia: 0=Normal articulation Extinction & Inattention (Neglect): 0=Normal, no object Score: 0 Disposition/Present on Arrival - Present on Arrival Any Indicators Present on Arrival: No History of DVT/PE: No History of Uncontrolled Diabetes: No Urinary Catheter: No History of Decub. Ulcer: No History Surgical Site Infection Following: None - Disposition Have Diagnosis and Disposition been Completed?: Yes Diagnosis: Transient ischemic attack (TIA), Alcohol withdrawal Disposition: HOSPITALIZED Disposition Time: 11:30 Patient Plan: Admission Patient Problems: Current Active Problems Problem Status Onset Alcohol withdrawal Acute Left-sided sensory deficit present Acute Transient ischemic attack (TIA) Acute Condition: STABLE
[2017-03-28 11:04] LABS: BASO # 0.02 K/mm3 (0.0-2.0); BASO % 0.1 % (0.0-3.0); GRAN # 12.64 (1.4-6.5); GRAN % 94.3 % (50.0-68.0); HEMOGLOBIN 14.2 g/dL (14.0-18.0); LYMPH # 0.5 (1.2-3.4); LYMPH % 3.6 % (22.0-35.0); MEAN CORPUSCULAR HEMOGLOBIN 31.5 pg (25.0-35.0); MEAN CORPUSCULAR HGB CONC 33.5 g/dl (31.0-37.0); MEAN PLATELET VOLUME 9.6 fl (7.0-11.0); MONO # 0.3 (0.1-0.6); PLATELET COUNT 341 10^3/uL (120.0-450.0); RBC 4.51 10^6/uL (3.5-6.1); RED CELL DISTRIBUTION WIDTH 13.4 % (11.5-14.5); WHITE BLOOD COUNT 13.4 10^3/ul (4.5-11.0)
[2017-03-28 11:14] LABS: INR 1.04 (0.93-1.08); PARTIAL THROMBOPLASTIN TIME 26.6 Seconds (25.1-36.5)
[2017-03-28] MEDS ORDERED: Multivitamin (MVI) 10 ML, Thiamine 100 MG, Folic Acid 1 MG in Dextrose 5% In Water 1,00... IV ONE (11:23)
[2017-03-28 11:25] LABS: BAND 1 % (0-2); BASOPHIL 1 % (0.0-1.0); LYMPHOCYTE 6 % (22.0-35.0); MONOCYTE 6 % (1.0-6.0); NEUTROPHIL 86 % (50.0-70.0)
[2017-03-28 12:45] LABS: ALB/GLOB RATIO 1.4 (1.1-1.8); ALBUMIN 4.1 g/dL (3.0-4.8); ALT/SGPT 33 U/L (7-56); AST/SGOT 38 U/L (17-59); BLOOD UREA NITROGEN 23 mg/dL (7-21); CALCIUM 10.1 mg/dL (8.4-10.5); GFR AFRICAN-AMERICAN > 60; GFR NON-AFRICAN AMERICAN > 60; HDL CHOLESTEROL 78 mg/dL (29-60); MAGNESIUM 1.8 mg/dL (1.7-2.2)
[2017-03-28 12:55] LABS: LDL CHOLESTEROL 77 mg/dL (0-129)
[2017-03-28 12:58] LABS: TROPONIN I < 0.01 ng/mL
--- NOTE | 2017-03-28 13:31 | CP.PCM.HP ---
<Alfredo Pires - Last Filed: 03/28/17 14:43> History of Present Illness - History of Present Illness History of Present Illness: Patient is a 51 year old male with a past medical history of 5 TIAs, hypertension and alcohol abuse who presented to the ED on 01/24 with complaints of alcohol abuse. Patient states while in the ED he felt pain on the left side of his forehead described it as rock hard rating it 10/10 non radiating. Patient states this was accompanied with numbness and tingling of his teeth as well as left upper and lower extremity. Patient endorses nausea, as well as an episode of vomiting this morning. States he normally experiences body aches and normally experiences chills. States that he was trying to refrain from alcohol for the past 15 days but got into an argument with his and consumed 1/5 pint of vodka and slept [place] the park. Patient also endorses cough with green sputum for the past few days. States his was sick this past week. States he does not have suicidal ideation but wishes he were because he has reached his "pinnacle." Patient denies cough, fever, abdominal pain, cough, dysuria. Labs: Glucose in ED 35, improved with juice. WBC 13.4, LDL 77, HDL 78 CT head: negative for intracranial hemorrhage CXR: pending UA:pending PMD: Dr. Riddle Surgical history:Bone marrow injection right wrist, zygomatic fracture repair Medication: states he was placed on librium in the past, as well as aspirin but was not given further prescriptions for aspirin and therefore stopped taking Family history: CVA in father and paternal uncles Social history: denies tobacco, illicit drug use, and alcohol Present on Admission - Present on Admission Any Indicators Present on Admission: No Review of Systems - Constitutional Constitutional: Chills. absent: Fever, Weight Loss - EENT Eyes: Blurred Vision (chronic as per patient). absent: Change in Vision - Cardiovascular Cardiovascular: absent: Chest Pain, Dyspnea - Respiratory Respiratory: absent: Cough, Dyspnea - Gastrointestinal Gastrointestinal: Nausea, Vomiting. absent: Abdominal Pain, Diarrhea - Genitourinary Genitourinary: absent: Dysuria - Neurological Neurological: Dizziness, Numbness (upper and lower left extremity, teeth). absent: Syncope - Psychiatric Psychiatric: absent: Change in Appetite, Hallucinations Past Patient History - Infectious Disease Hx of Infectious Diseases: None - Tetanus Immunizations Tetanus Immunization: Unknown - Past Medical History & Family History Past Medical History?: Yes - Past Social History Smoking Status: Former Smoker - CARDIAC Hx Cardiac Disorders: Yes Hx Hypertension: Yes - PULMONARY Hx Respiratory Disorders: No - NEUROLOGICAL Hx Neurological Disorder: Yes Hx Transient Ischemic Attacks (TIA): Yes - HEENT Hx HEENT Problems: No - RENAL Hx Chronic Kidney Disease: No - ENDOCRINE/METABOLIC Hx Endocrine Disorders: No - HEMATOLOGICAL/ONCOLOGICAL Hx Blood Disorders: No - INTEGUMENTARY Hx Dermatological Problems: No - MUSCULOSKELETAL/RHEUMATOLOGICAL Hx Musculoskeletal Disorders: Yes Hx Falls: Yes (2 yrs ago fell 0ff ladder) - GASTROINTESTINAL Hx Gastrointestinal Disorders: No - GENITOURINARY/GYNECOLOGICAL Hx Genitourinary Disorders: No - PSYCHIATRIC Hx Psychophysiologic Disorder: No Hx Substance Use: No - SURGICAL HISTORY Hx Musculoskeletal Surgery: Yes (right hip and hand, facial fracture repair) Other/Comment: right wrist injury, bone marrow taken from right hip and inserted into fx bone in right hand along with metal, metal has since been removed, 23 yrs ago at [facility] ([facility]3] - ANESTHESIA Hx Anesthesia: Yes Hx Anesthesia Reactions: No Hx Malignant Hyperthermia: No Meds Allergies/Adverse Reactions: Allergies Allergy/AdvReac Type Severity Reaction Status Date / Time coconut Allergy RASH Verified 03/28/17 09:05 coconut oil Allergy RASH Verified 03/28/17 09:05 cranberry Allergy SWELLING Verified 03/28/17 09:05 Physical Exam - Head Exam Head Exam: ATRAUMATIC, NORMAL INSPECTION, NORMOCEPHALIC - Eye Exam Eye Exam: EOMI, Normal appearance - ENT Exam ENT Exam: Mucous Membranes Moist, Normal Exam - Neck Exam Neck exam: Positive for: Normal Inspection - Respiratory Exam Respiratory Exam: Clear to Auscultation Bilateral, NORMAL BREATHING PATTERN. absent: Rhonchi, Wheezes - Cardiovascular Exam Cardiovascular Exam: REGULAR RHYTHM, +S1, +S2 - GI/Abdominal Exam GI & Abdominal Exam: Normal Bowel Sounds, Soft - Extremities Exam Extremities exam: Positive for: normal inspection - Back Exam Back exam: NORMAL INSPECTION - Neurological Exam Neurological exam: Alert, CN II-XII Intact, Oriented x3 - Expanded Neurological Exam Expanded Sensory exam: Lower Extremity 2 Point Discrimination: Normal, Lower Extremity Light Touch: Normal, Lower Extremity Pin Prick: Normal, Upper Extremity 2 Point Discrimination: Normal, Upper Extremity Light Touch: Normal, Upper Extremity Pin Prick: Normal Neuro motor strength exam: Left Upper Extremity: 4, Right Upper Extremity: 4, Left Lower Extremity: 4, Right Lower Extremity: 4 - Psychiatric Exam Psychiatric exam: Normal Affect - Skin Skin Exam: Intact, Normal Color, Warm Results - Vital Signs Recent Vital Signs: Last Vital Signs Temp 98.0 F 03/28/17 09:15 Pulse 86 03/28/17 12:17 Resp 18 03/28/17 12:17 BP 148/74 03/28/17 12:17 Pulse Ox 99 03/28/17 12:17 - Labs Result Diagrams: 03/28/17 10:27 03/28/17 12:00 Labs: Laboratory Results - last 24 hr 03/28/17 12:00 Sodium 140 Potassium 4.3 Chloride 103 Carbon Dioxide 26 Anion Gap 15 BUN 23 H Creatinine 0.8 Est GFR ( Amer) > 60 Est GFR (Non-Af Amer) > 60 Random Glucose 126 H Calcium 10.1 Magnesium 1.8 Total Bilirubin 0.4 AST 38 ALT 33 Alkaline Phosphatase 54 Lactate Dehydrogenase 427 Total Creatine Kinase 93 Troponin I < 0.01 Total Protein 7.2 Albumin 4.1 Globulin 3.0 Albumin/Globulin Ratio 1.4 Triglycerides 50 Cholesterol 160 LDL Cholesterol Direct 77 HDL Cholesterol 78 H Assessment & Plan - Assessment and Plan (Free Text) Assessment: Patient is a 51 year old male with a past medical history of 5 TIAs, hypertension and alcohol abuse who presented to the ED on 01/24 with complaints of alcohol abuse presenting with possible TIA and upper respiratory infection. Plan: Left sided numbness and tingling seconadry to possible TIA -CT head reveals no intracranial hemorrhage -Neurology consulted -Cardiology Consulted -Lipid panel; no abnormalities -Aspiration precautions, seizure precautions -Heart Healthy diet: passed bedside nursing swallow evaluation in ED -Carotid US ordered; results pending -Echocardiogram ordered; results pending -Continue with norvasc and lisinopril -Aspirin and Lipitor started -Vitamin B12 ordered -HgA1c -TSH Leukocytosis -Endorses productive cough with green sputum and chills, afebrile -WBC 13.4 -Procalcitonin ordered -Rapid Flu ordered; results pending -CXR ordered; results pending -UA ordered; results pending Alcohol abuse -Alcohol level 44 -Ativan and Librium for withdrawal -Banana bag D5 Hypogylcemia -Banana bag in D5 -fingerstick q6h Depression -States he is non suicidal but wishes he were -Psych consult <Slick Bradshaw - Last Filed: 03/29/17 17:53> Results - Vital Signs Recent Vital Signs: Last Vital Signs Temp 98.4 F 03/29/17 12:00 Pulse 83 03/29/17 12:00 Resp 18 03/29/17 12:00 BP 135/84 03/29/17 12:00 Pulse Ox 97 03/29/17 00:01 - Labs Result Diagrams: 03/29/17 06:30 03/29/17 06:30 Labs: Laboratory Results - last 24 hr 03/28/17 03/28/17 03/28/17 14:00 14:00 14:00 WBC RBC Hgb Hct MCV MCH MCHC RDW Plt Count MPV Gran % Lymph % (Auto) [place] % (Auto) Eos % (Auto) Baso % (Auto) Gran # Lymph # (Auto) [place] # (Auto) Eos # (Auto) Baso # (Auto) PT INR APTT Sodium Potassium Chloride Carbon Dioxide Anion Gap BUN Creatinine Est GFR ( Amer) Est GFR (Non-Af Amer) POC Glucose (mg/dL) Random Glucose Hemoglobin A1c 5.2 Calcium Phosphorus Magnesium Total Bilirubin AST ALT Alkaline Phosphatase Total Protein Albumin Globulin Albumin/Globulin Ratio Vitamin B12 575 25-OH Vitamin D Total Folate Procalcitonin < 0.05 L Free T4 TSH 3rd Generation 03/28/17 03/28/17 03/29/17 16:42 21:49 06:30 WBC 7.0 D RBC 4.19 Hgb 13.0 L Hct 38.5 L MCV 91.9 MCH 31.0 MCHC 33.8 RDW 13.2 Plt Count 298 MPV 9.5 Gran % 68.3 H Lymph % (Auto) 18.9 L [place] % (Auto) 10.1 H Eos % (Auto) 2.4 Baso % (Auto) 0.3 Gran # 4.78 Lymph # (Auto) 1.3 [place] # (Auto) 0.7 H Eos # (Auto) 0.2 Baso # (Auto) 0.02 PT INR APTT Sodium Potassium Chloride Carbon Dioxide Anion Gap BUN Creatinine Est GFR ( Amer) Est GFR (Non-Af Amer) POC Glucose (mg/dL) 165 H 139 H Random Glucose Hemoglobin A1c Calcium Phosphorus Magnesium Total Bilirubin AST ALT Alkaline Phosphatase Total Protein Albumin Globulin Albumin/Globulin Ratio Vitamin B12 25-OH Vitamin D Total Folate Procalcitonin Free T4 TSH 3rd Generation 03/29/17 03/29/17 03/29/17 06:30 06:30 06:30 WBC RBC Hgb Hct MCV MCH MCHC RDW Plt Count MPV Gran % Lymph % (Auto) [place] % (Auto) Eos % (Auto) Baso % (Auto) Gran # Lymph # (Auto) [place] # (Auto) Eos # (Auto) Baso # (Auto) PT 13.0 H INR 1.13 H APTT 29.2 Sodium 137 Potassium 4.2 Chloride 101 Carbon Dioxide 29 Anion Gap 11 BUN 17 Creatinine 0.9 Est GFR ( Amer) > 60 Est GFR (Non-Af Amer) > 60 POC Glucose (mg/dL) Random Glucose 93 Hemoglobin A1c Calcium 9.7 Phosphorus 2.7 Magnesium 1.8 Total Bilirubin 1.0 AST 36 ALT 31 Alkaline Phosphatase 49 Total Protein 6.4 Albumin 3.6 Globulin 2.8 Albumin/Globulin Ratio 1.3 Vitamin B12 25-OH Vitamin D Total 32.0 Folate Procalcitonin Free T4 TSH 3rd Generation 03/29/17 03/29/17 03/29/17 06:30 07:29 10:30 WBC RBC Hgb Hct MCV MCH MCHC RDW Plt Count MPV Gran % Lymph % (Auto) [place] % (Auto) Eos % (Auto) Baso % (Auto) Gran # Lymph # (Auto) [place] # (Auto) Eos # (Auto) Baso # (Auto) PT INR APTT Sodium Potassium Chloride Carbon Dioxide Anion Gap BUN Creatinine Est GFR ( Amer) Est GFR (Non-Af Amer) POC Glucose (mg/dL) 93 Random Glucose Hemoglobin A1c Calcium Phosphorus Magnesium Total Bilirubin AST ALT Alkaline Phosphatase Total Protein Albumin Globulin Albumin/Globulin Ratio Vitamin B12 25-OH Vitamin D Total Folate > 20.0 Procalcitonin Free T4 1.00 TSH 3rd Generation 1.07 03/29/17 16:45 WBC RBC Hgb Hct MCV MCH MCHC RDW Plt Count MPV Gran % Lymph % (Auto) [place] % (Auto) Eos % (Auto) Baso % (Auto) Gran # Lymph # (Auto) [place] # (Auto) Eos # (Auto) Baso # (Auto) PT INR APTT Sodium Potassium Chloride Carbon Dioxide Anion Gap BUN Creatinine Est GFR ( Amer) Est GFR (Non-Af Amer) POC Glucose (mg/dL) 108 Random Glucose Hemoglobin A1c Calcium Phosphorus Magnesium Total Bilirubin AST ALT Alkaline Phosphatase Total Protein Albumin Globulin Albumin/Globulin Ratio Vitamin B12 25-OH Vitamin D Total Folate Procalcitonin Free T4 TSH 3rd Generation Attending/Attestation - Attestation I have personally seen and examined this patient.: Yes I have fully participated in the care of the patient.: Yes I have reviewed all pertinent clinical information: Yes Notes (Text): I have seen and examined the patient at bedside. Agree with the above note with the following additions/ exceptions: Briefly this is 51 year old male with history of multiple TIA in the past, HTN, alcohol abuse who is being admitted for evaluation of left sided numbness and tingling. CT is negative. Will consult neuro. Will order echo, carotid ultrasound and check lipid panel. Will check TSH and B12. Patient was hypoglycemic upon presentation. Passed swallow eval. Will check a1c. Start banana bag and ativan prn. Counselling provided. He also expressed that he has been very depressed and wishes that he were . Will consult psych. Upon discharge patient will follow up with Dr Valenzuela. Dr Slick Bradshaw
--- NOTE | 2017-03-28 14:26 | RAD ---
HISTORY: TIA COMPARISON: Portable chest 11/19/2016. FINDINGS: LUNGS: No active pulmonary disease. Improved aeration is suggested bilaterally. PLEURA: No significant pleural effusion identified, no pneumothorax apparent. CARDIOVASCULAR: Normal. OSSEOUS STRUCTURES: No significant abnormalities. VISUALIZED UPPER ABDOMEN: Normal. OTHER FINDINGS: None. IMPRESSION: No interval acute cardiopulmonary disease appreciated.
--- NOTE | 2017-03-28 15:18 | CP.PCM.CON ---
History of Present Illness - History of Present Illness History of Present Illness: Mr. Larsen is a 51-year-old man with a past medical history of alcohol abuse/ withdrawal, hypertension, headaches, who presented to the ED after being discharged last night complaining of left facial, arm and leg numbness as well as weakness. NIHSS was 2. He did not have any significant objective weakness. CT scan of the head did not show any acute findings. Review of Systems - Review of Systems All systems: reviewed and no additional remarkable complaints except Past Patient History - Infectious Disease Hx of Infectious Diseases: None - Tetanus Immunizations Tetanus Immunization: Unknown - Past Medical History & Family History Past Medical History?: Yes - Past Social History Smoking Status: Former Smoker - CARDIAC Hx Cardiac Disorders: Yes Hx Hypertension: Yes - PULMONARY Hx Respiratory Disorders: No - NEUROLOGICAL Hx Neurological Disorder: Yes Hx Transient Ischemic Attacks (TIA): Yes - HEENT Hx HEENT Problems: No - RENAL Hx Chronic Kidney Disease: No - ENDOCRINE/METABOLIC Hx Endocrine Disorders: No - HEMATOLOGICAL/ONCOLOGICAL Hx Blood Disorders: No - INTEGUMENTARY Hx Dermatological Problems: No - MUSCULOSKELETAL/RHEUMATOLOGICAL Hx Musculoskeletal Disorders: Yes Hx Falls: Yes (2 yrs ago fell 0ff ladder) - GASTROINTESTINAL Hx Gastrointestinal Disorders: No - GENITOURINARY/GYNECOLOGICAL Hx Genitourinary Disorders: No - PSYCHIATRIC Hx Psychophysiologic Disorder: No Hx Substance Use: No - SURGICAL HISTORY Hx Musculoskeletal Surgery: Yes (right hip and hand, facial fracture repair) Other/Comment: right wrist injury, bone marrow taken from right hip and inserted into fx bone in right hand along with metal, metal has since been removed, 23 yrs ago at [facility] - ANESTHESIA Hx Anesthesia: Yes Hx Anesthesia Reactions: No Hx Malignant Hyperthermia: No Meds Allergies/Adverse Reactions: Allergies Allergy/AdvReac Type Severity Reaction Status Date / Time coconut Allergy RASH Verified 03/28/17 09:05 coconut oil Allergy RASH Verified 03/28/17 09:05 cranberry Allergy SWELLING Verified 03/28/17 09:05 - Medications Medications: Current Medications Amlodipine Besylate (Norvasc) 5 mg PO DAILY [facility] Aspirin (Ecotrin) 81 mg PO DAILY [facility] Atorvastatin Calcium (Lipitor) 5 mg PO DIN [facility]IO Chlordiazepoxide (Librium) 10 mg PO Q8 PRN; Protocol PRN Reason: Symptoms of alcohol withdrawl Famotidine (Pepcid) 20 mg PO BID [facility]IO Folic Acid (Folic Acid) 1 mg PO DAILY MARIO Folic Acid 1 mg/ Thiamine HCl 100 mg/ Multivitamins/Vitamin C 10 ml/ Dextrose 1 ,011.2 mls @ 100 mls/hr IV .Q10H7M [facility]IO Lisinopril (Zestril) 10 mg PO DAILY [facility]IO Lorazepam (Ativan) 1 mg IVP Q4H PRN PRN Reason: Symptoms of alcohol withdrawl Multivitamins/Minerals (Therapeutic-M Tab) 1 tab PO DAILY MARIO Thiamine HCl (Vitamin B1 Tab) 100 mg PO DAILY MARIO Physical Exam - Constitutional Appears: Well - Head Exam Head Exam: ATRAUMATIC, NORMAL INSPECTION, NORMOCEPHALIC - Eye Exam Eye Exam: EOMI, Normal appearance, PERRL - Neck Exam Neck exam: Positive for: Normal Inspection - Respiratory Exam Respiratory Exam: Clear to Auscultation Bilateral, NORMAL BREATHING PATTERN - Cardiovascular Exam Cardiovascular Exam: REGULAR RHYTHM, +S1, +S2 - Rectal Exam Rectal Exam: Deferred - Neurological Exam Neurological exam: Alert, CN II-XII Intact, Normal Gait, Oriented x3, Reflexes Normal Additional comments: Sensation diminished to LT on left side of the face, arm and leg. Slight pronator drift on the left side. Tremulous. NIHSS =2. Reflexes were normal. Results - Vital Signs Recent Vital Signs: Last Vital Signs Temp 98.0 F 03/28/17 09:15 Pulse 79 03/28/17 13:51 Resp 18 03/28/17 13:51 BP 145/71 03/28/17 13:51 Pulse Ox 99 03/28/17 13:51 - Labs Result Diagrams: 03/28/17 10:27 03/28/17 12:00 Labs: Laboratory Results - last 24 hr 03/28/17 12:00 Sodium 140 Potassium 4.3 Chloride 103 Carbon Dioxide 26 Anion Gap 15 BUN 23 H Creatinine 0.8 Est GFR ( Amer) > 60 Est GFR (Non-Af Amer) > 60 Random Glucose 126 H Calcium 10.1 Magnesium 1.8 Total Bilirubin 0.4 AST 38 ALT 33 Alkaline Phosphatase 54 Lactate Dehydrogenase 427 Total Creatine Kinase 93 Troponin I < 0.01 Total Protein 7.2 Albumin 4.1 Globulin 3.0 Albumin/Globulin Ratio 1.4 Triglycerides 50 Cholesterol 160 LDL Cholesterol Direct 77 HDL Cholesterol 78 H Assessment & Plan (1) Left-sided sensory deficit present Assessment and Plan: The patient has a history of hypertension and may have had a small lacunar stroke. I recommend the followin. Telemetry 2. MRI brain without contrast and MRA of head/neck without contrast 3. Echocardiogram with bubble study 4. Aspirin 81 mg daily 5. Check lipid panel, HbA1c, B12, folate, vitamin D levels 6. Give statin to maintain LDL<70 7. DVT Px 8. PT/OT eval and treatment 9. case management consult Thank you. Status: Acute Priority: High
[2017-03-28] MEDS: Folic Acid 1 MG, Thiamine 100 MG, Multivitamin (MVI) 10 ML in Dextrose 5% In Water 1,00... IV SCH ×2 (15:40→16:55)
[2017-03-28 15:52] LABS: URINE BILIRUBIN NEGATIVE (NEGATIVE); URINE BLOOD NEGATIVE (NEGATIVE); URINE GLUCOSE (UA) NEGATIVE (NEGATIVE); URINE LEUKOCYTE ESTERASE NEGATIVE Leu/uL (NEGATIVE); URINE NITRATE NEGATIVE (NEGATIVE); URINE PROTEIN TRACE mg/dL (<30 mg/dL); URINE UROBILINOGEN 0.2 E.U./dL (<1 E.U./dL)
[2017-03-28 16:00] LABS: URINE APPEARANCE CLEAR (CLEAR); URINE COLOR YELLOW (YELLOW)
[2017-03-28 16:06] LABS: URINE BACTERIA NEG (NEG); URINE EPITHELIAL CELLS 0 - 2 /hpf (0-5); URINE RBC NEGATIVE /hpf (0-2); URINE WBC 0 - 2 /hpf (0-6)
--- NOTE | 2017-03-28 16:39 | US ---
PROCEDURE: Bilateral carotid artery duplex ultrasound HISTORY: Carotid stenosis TIA PHYSICIAN(S): Saad Paul MD. TECHNIQUE: Duplex sonography and color-flow Doppler were used to evaluate the carotid bifurcations and limited segments of the vertebral arteries bilaterally. The exam is somewhat limited by tortuous vessels. FINDINGS: There is mild smooth hypoechoic plaque noted at the carotid bifurcations bilaterally. The peak systolic velocity in the proximal right internal carotid artery is 85 cm/sec. This corresponds to a 20 to 39% proximal right ICA stenosis. Normal systolic velocities are noted in the proximal right external carotid artery. There is antegrade flow in the right vertebral artery. The peak systolic velocity in the proximal left internal carotid artery is 91 cm/sec. This corresponds to a 20 to 39% proximal left ICA stenosis. Normal systolic velocities are noted in the proximal left external carotid artery. There is antegrade flow in the left vertebral artery. IMPRESSION: 1. Bilateral 20-39% proximal ICA stenoses. 2. Antegrade flow in both vertebral arteries.
[2017-03-28] MEDS ORDERED: Pneumococcal 23-Valent Vaccine IM ONE (16:40)
[2017-03-28] MEDS ORDERED: Influenza Vaccine 60 mcg/0.5 mL SYR (4YR UP) IM ONE (16:40)
[2017-03-28] MEDS: Pantoprazole 40 mg EC Tab PO SCH (17:01)
[2017-03-29] MEDS: Folic Acid 1 MG, Thiamine 100 MG, Multivitamin (MVI) 10 ML in Dextrose 5% In Water 1,00... IV SCH (04:49)
[2017-03-29 07:13] LABS: BASO # 0.02 K/mm3 (0.0-2.0); BASO % 0.3 % (0.0-3.0); EOS # 0.2 (0.0-0.7); EOS % 2.4 % (1.5-5.0); GRAN # 4.78 (1.4-6.5); GRAN % 68.3 % (50.0-68.0); LYMPH # 1.3 (1.2-3.4); LYMPH % 18.9 % (22.0-35.0); MEAN CELL VOLUME 91.9 fl (80.0-105.0); MEAN CORPUSCULAR HGB CONC 33.8 g/dl (31.0-37.0); MEAN PLATELET VOLUME 9.5 fl (7.0-11.0); MONO # 0.7 (0.1-0.6); MONO % 10.1 % (1.0-6.0); RBC 4.19 10^6/uL (3.5-6.1); RED CELL DISTRIBUTION WIDTH 13.2 % (11.5-14.5)
[2017-03-29 07:30] LABS: INR 1.13 (0.93-1.08); PARTIAL THROMBOPLASTIN TIME 29.2 Seconds (25.1-36.5)
[2017-03-29 07:53] LABS: ALB/GLOB RATIO 1.3 (1.1-1.8); ALBUMIN 3.6 g/dL (3.0-4.8); ALT/SGPT 31 U/L (7-56); AST/SGOT 36 U/L (17-59); BLOOD UREA NITROGEN 17 mg/dL (7-21); CALCIUM 9.7 mg/dL (8.4-10.5); GFR AFRICAN-AMERICAN > 60; GFR NON-AFRICAN AMERICAN > 60; MAGNESIUM 1.8 mg/dL (1.7-2.2)
[2017-03-29] MEDS: Multivitamin With Minerals Tab PO SCH (09:27)
--- NOTE | 2017-03-29 09:33 | CARD ---
APPROVED REPORT EKG Measurement Heart [id number] <Conclusion> Normal sinus rhythm NSSTW changes No change
--- NOTE | 2017-03-29 11:39 | CP.PCM.PN ---
Subjective - Date & Time of Evaluation Date of Evaluation: 03/29/17 Time of Evaluation: 09:40 - Subjective Subjective: Neuro progress note: Pt seen and examined at the bedside. No acute events overnight. Pt stated that his L sided nubness and tingling has improved. No complaints at this time. 12 Point ROS performed and negative other than stated above. Objective - Vital Signs/Intake and Output Vital Signs (last 24 hours): Temp Pulse Resp BP Pulse Ox 97.2 F L 60 18 126/82 97 03/29/17 06:00 03/29/17 06:00 03/29/17 06:00 03/29/17 09:25 03/29/17 00:01 Intake and Output: 03/29/17 03/29/17 06:59 18:59 Intake Total 3100 Output Total 250 Balance 2850 - Medications Medications: Current Medications Acetaminophen (Tylenol 325mg Tab) 650 mg PO Q6H PRN PRN Reason: Fever >100.4 F Amlodipine Besylate (Norvasc) 5 mg PO DAILY [facility] Last Admin: 03/29/17 09:27 Dose: 5 mg Aspirin (Ecotrin) 81 mg PO DAILY [facility] Last Admin: 03/29/17 09:27 Dose: 81 mg Atorvastatin Calcium (Lipitor) 5 mg PO DIN [facility] Last Admin: 03/28/17 17:01 Dose: 5 mg Chlordiazepoxide (Librium) 10 mg PO Q8 PRN; Protocol PRN Reason: Symptoms of alcohol withdrawl Famotidine (Pepcid) 20 mg PO BID [facility] Last Admin: 03/29/17 09:27 Dose: 20 mg Folic Acid (Folic Acid) 1 mg PO DAILY [facility] Last Admin: 03/29/17 09:27 Dose: 1 mg Folic Acid 1 mg/ Thiamine HCl 100 mg/ Multivitamins/Vitamin C 10 ml/ Dextrose 1 ,011.2 mls @ 100 mls/hr IV .Q10H7M [facility] Last Admin: 03/29/17 04:49 Dose: 100 mls/hr Lisinopril (Zestril) 10 mg PO DAILY [facility] Last Admin: 03/29/17 09:25 Dose: 10 mg Lorazepam (Ativan) 1 mg IVP Q4H PRN PRN Reason: Symptoms of alcohol withdrawl Multivitamins/Minerals (Therapeutic-M Tab) 1 tab PO DAILY [facility] Last Admin: 03/29/17 09:27 Dose: 1 tab Ondansetron HCl (Zofran Inj) 2 mg IVP Q6H PRN PRN Reason: Nausea/Vomiting Pantoprazole Sodium (Protonix Ec Tab) 40 mg PO 0600 [facility] Last Admin: 03/28/17 17:01 Dose: 40 mg Thiamine HCl (Vitamin B1 Tab) 100 mg PO DAILY [facility] Last Admin: 03/29/17 09:27 Dose: 100 mg - Labs Labs: 03/29/17 06:30 03/29/17 06:30 PT 13.0 SECONDS (9.4-12.5) H 03/29/17 06:30 INR 1.13 (0.93-1.08) H 03/29/17 06:30 APTT 29.2 Seconds (25.1-36.5) 03/29/17 06:30 - Constitutional Appears: No Acute Distress - Neurological Exam Neurological Exam: Alert, Awake, Oriented x3 Neuro motor strength exam: Left Upper Extremity: 5, Right Upper Extremity: 5, Left Lower Extremity: 5, Right Lower Extremity: 5 Assessment and Plan - Assessment and Plan (Free Text) Assessment: 51 year old male with a past medical history of multiple TIAs, hypertension and alcohol abuse who presents with L sided numbness and tingling possibely 2/2 small lacunar stroke. - EEG ordered - Cont Aspirin and statin to maintain LDL<70 - F/u MRI brain without contrast and MRA of head/neck without contrast - prelim no signs of CVA, awaiting report - F/u Echocardiogram with bubble study - PT/OT eval and treatment - Maintain blood pressure control - CT head and carotid artery US negative Case and plan was reviewed and discussed in detail with Dr Mayers.
--- NOTE | 2017-03-29 14:59 | MRI ---
PROCEDURE: MRI BRAIN WITHOUT CONTRAST HISTORY: R/O Stroke COMPARISON: Noncontrast head CT from 03/28/2017 TECHNIQUE: Multiplanar, multisequence MR images of the brain were obtained without intravenous contrast enhancement. FINDINGS: HEMORRHAGE: None DWI: No evidence of an acute or early subacute infarction. BRAIN PARENCHYMA: There are minimal chronic microangiopathic changes. There is no mass, mass effect or abnormal extra-axial fluid collection. The midline sagittal structures are normal. VENTRICLES: The ventricles are normal in size, shape and configuration. CRANIUM: There is normal bone marrow signal pattern. ORBITS: Grossly unremarkable. PARANASAL SINUSES/MASTOIDS: There is mild mucosal thickening in the ethmoid air cells. The remaining included paranasal sinuses are clear. The mastoid air cells are predominantly clear. VASCULAR SYSTEM: There are normal signal voids in the larger intracranial arteries. OTHER FINDINGS: None. IMPRESSION: 1. No acute intracranial abnormality. 2. Minimal chronic microangiopathic changes.
--- NOTE | 2017-03-29 15:13 | MRI ---
PROCEDURE: Magnetic Resonance Angiography Brain HISTORY: r/o stroke COMPARISON: None available. TECHNIQUE: 3D time of flight MR angiography of the intracranial arteries was performed. Rotating maximum intensity projection images were generated. FINDINGS: INTERNAL CAROTID ARTERIES: Normal flow related signal. The skull base, petrous, cavernous and supraclinoid segments are bilaterally widely patient. ANTERIOR CEREBRAL ARTERIES: Normal flow related signal. A1 and A2 segments are widely patent. Smaller distal branches unremarkable, as visualized. MIDDLE CEREBRAL ARTERIES: Normal flow related signal. M1 and M2 segments are widely patent. Perisylvian branches grossly symmetric. POSTERIOR CIRCULATION: Basilar Artery: Normal flow related signal. Distal Vertebral Arteries: Normal flow related signal. Posterior Cerebral Arteries: Normal flow related signal. There is origin of the left posterior cerebral artery, an anatomic variant. Posterior Inferior Cerebellar Arteries: Normal flow related signal. ANEURYSM/ VASCULAR MALFORMATIONS: None. OTHER FINDINGS: None. IMPRESSION: Normal MR angiography of the brain.
--- NOTE | 2017-03-29 15:25 | MRI ---
PROCEDURE: MR Angiography of the neck without contrast HISTORY: r/o stroke COMPARISON: None available. TECHNIQUE: 3D [id number] angiography of the neck was performed. Rotating maximum intensity projection images of the cervical carotid and vertebral arteries were generated. The origins of the common carotid arteries were not visualized, which is a limitation inherent to the non-contrast time of flight technique. FINDINGS: RIGHT CAROTID ARTERIES: Common Carotid Artery: Normal. Carotid Bifurcation: Normal. Internal Carotid Artery:Normal. External Carotid Artery (proximal branches): Normal. LEFT CAROTID ARTERIES: Common Carotid Artery: Normal. Carotid Bifurcation: Normal. Internal Carotid Artery:Normal. External Carotid Artery (proximal branches): Normal. VERTEBRAL ARTERIES: Right Vertebral Artery: Normal. Left Vertebral Artery: Normal. OTHER FINDINGS: None. IMPRESSION: Normal MR Angiography of the neck.
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
--- NOTE | 2017-03-30 01:45 | CON ---
DATE: HISTORY OF PRESENT ILLNESS: The patient is a 51-year-old male with long history of alcohol use disorder, history of detoxes and rehabs. At this time, the patient was admitted on the medical side for possible TIA. Psych consult was called for evaluation of possible suicidal ideations. In the emergency room, the patient was making statement something about passive wish to be . The patient was seen and examined today. The patient presented to be alert and oriented, pleasant, cooperative. Affect was bright. The patient seems to be aware of his alcohol addiction problems. The patient reported that he does not feel depressed actually, "I'm taking good care of myself, I'm taking my lisinopril, I'm working out, but I know that I need to cut down on drinking." The patient reported that he is not depressed. Denied any thoughts of hopelessness. When the patient was asked about possible suicidal ideations, the patient adamantly denied any thoughts of harming himself or others. This telegraphic typewriter repairer asked about passive wish to be , which statement was made in the emergency room, the patient said that, "I never said that I'm suicidal. I was feeling not so good, and that's why I said that I did not want to feel this way anymore; but I never said that I want to kill myself." Anxiety seems to be not an issue. The patient denied hearing voices, denied seeing things. The patient denied history of suicidal attempts and denied history of admission to the Psych unit. VITAL SIGNS: Seems to be stable. Temperature 98.4, pulse 83, blood pressure 135/84, respirations 18. MEDICATIONS REVIEWED: Tylenol, Norvasc, aspirin, Lipitor, Librium, Pepcid, thiamine, folic acid, multivitamins, Zestril, Ativan. Heparin IV will be started. This telegraphic typewriter repairer educated the patient about risks, benefits, and alternatives of the naltrexone for alcohol craving. The patient seems to be interested and feel optimistic about this medication. This medication were discussed with the medical team, Dr. Trung Bradshaw. This patient has no contraindication. The patient could have that medication. The patient is on Zofran, Protonix, and vitamin given. LABORATORY DATA REVIEWED: Today, WBCs are 7.0, hemoglobin and hematocrit are at 13.0 and 38.5. Coagulation reviewed. Chemistry reviewed. AST and ALT are within normal limits. Toxicology, alcohol level was 44 in the emergency room. MENTAL STATUS EXAM: The patient presented to be alert and oriented. Pleasant, cooperative. Bright affect. Mood described "I feel better." Thought process seems to be coherent and goal directed. Thought content; the patient denied visual, auditory, or tactile hallucinations. Denied paranoid ideation. The patient denied thoughts of harming himself or others. Denied intent or plan. Insight and judgment seems to be fair. Impulses are well controlled. IMPRESSION: Rule out substance-induced mood disorder, alcohol use disorder. PLAN: Continue current management. Continue current medication. This telegraphic typewriter repairer offered the patient to be started on naltrexone for alcohol cravings. The patient was educated about risks, benefits and alternatives of the medication. The patient verbalized understanding and expressed his highest interest to take it. The patient will be followed up with his primary care physician as well as AA meetings and NA meetings. The patient deemed to be in not in imminent danger to self or others. The patient seems to be doing well. This telegraphic typewriter repairer will sign off from this case. Should they have any questions, give me a call back. Thank you very much for letting me participate in care of your patient. Lila Plasencia MD
[2017-03-30] MEDS: Pantoprazole 40 mg EC Tab PO SCH (05:19)
[2017-03-30 05:46] VITALS: O2SAT 95
--- NOTE | 2017-03-30 05:50 | CP.PCM.PN ---
<Alfredo Pires - Last Filed: 03/30/17 06:01> Subjective - Date & Time of Evaluation Date of Evaluation: 03/29/17 Time of Evaluation: 07:00 - Subjective Subjective: Patient seen and examined at bedside states all his symptoms including numbness and tingling on the left side of his body have resolved. Patient states the rock hard feeling in his left forehead has improved and is almost resolved. Denies chest pain, shortness of breath, numbness and tingling, abdominal pain, headache, nausea, vomiting, diarrhea, fevers, chills, auditory/visual hallucinations. Objective - Vital Signs/Intake and Output Vital Signs (last 24 hours): Temp Pulse Resp BP Pulse Ox 97.1 F L 54 L 20 139/87 95 03/30/17 05:44 03/30/17 05:46 03/30/17 05:44 03/30/17 05:44 03/30/17 05:44 - Medications Medications: Current Medications Acetaminophen (Tylenol 325mg Tab) 650 mg PO Q6H PRN PRN Reason: Fever >100.4 F Amlodipine Besylate (Norvasc) 5 mg PO DAILY [facility] Last Admin: 03/29/17 09:27 Dose: 5 mg Aspirin (Ecotrin) 81 mg PO DAILY [facility] Last Admin: 03/29/17 09:27 Dose: 81 mg Atorvastatin Calcium (Lipitor) 5 mg PO DIN [facility] Last Admin: 03/29/17 17:41 Dose: 5 mg Chlordiazepoxide (Librium) 10 mg PO Q8 PRN; Protocol PRN Reason: Symptoms of alcohol withdrawl Famotidine (Pepcid) 20 mg PO BID [facility] Last Admin: 03/29/17 17:41 Dose: 20 mg Folic Acid (Folic Acid) 1 mg PO DAILY [facility] Last Admin: 03/29/17 09:27 Dose: 1 mg Lisinopril (Zestril) 10 mg PO DAILY [facility] Last Admin: 03/29/17 09:25 Dose: 10 mg Lorazepam (Ativan) 1 mg IVP Q4H PRN PRN Reason: Symptoms of alcohol withdrawl Multivitamins/Minerals (Therapeutic-M Tab) 1 tab PO DAILY [facility] Last Admin: 03/29/17 09:27 Dose: 1 tab Naltrexone HCl (Revia) 50 mg PO DAILY [facility] Ondansetron HCl (Zofran Inj) 2 mg IVP Q6H PRN PRN Reason: Nausea/Vomiting Pantoprazole Sodium (Protonix Ec Tab) 40 mg PO 0600 [facility] Last Admin: 03/30/17 05:19 Dose: 40 mg Thiamine HCl (Vitamin B1 Tab) 100 mg PO DAILY [facility] Last Admin: 03/29/17 09:27 Dose: 100 mg - Labs Labs: 03/29/17 06:30 03/29/17 06:30 PT 13.0 SECONDS (9.4-12.5) H 03/29/17 06:30 INR 1.13 (0.93-1.08) H 03/29/17 06:30 APTT 29.2 Seconds (25.1-36.5) 03/29/17 06:30 - Constitutional Appears: Non-toxic, No Acute Distress - Head Exam Head Exam: ATRAUMATIC, NORMAL INSPECTION, NORMOCEPHALIC - Eye Exam Eye Exam: EOMI, Normal appearance - ENT Exam ENT Exam: Mucous Membranes Moist - Respiratory Exam Respiratory Exam: Clear to Ausculation Bilateral, NORMAL BREATHING PATTERN. absent: Rhonchi, Wheezes - Cardiovascular Exam Cardiovascular Exam: REGULAR RHYTHM, +S1, +S2 - GI/Abdominal Exam GI & Abdominal Exam: Soft, Normal Bowel Sounds - Extremities Exam Extremities Exam: Full ROM, Normal Inspection - Back Exam Back Exam: NORMAL INSPECTION - Neurological Exam Neurological Exam: Alert, Awake, Oriented x3 - Psychiatric Exam Psychiatric exam: Normal Affect, Normal Mood - Skin Skin Exam: Intact, Normal Color, Warm Assessment and Plan - Assessment and Plan (Free Text) Assessment: Patient is a 51 year old male with a past medical history of 5 TIAs, hypertension and alcohol abuse who presented to the ED on 01/24 with complaints of alcohol abuse presenting with possible TIA and upper respiratory infection. Plan: Left sided numbness and tingling secondary to possible TIA -CT head reveals no intracranial hemorrhage -Neurology consulted -Brain MRI: no acute intracranial abnormality. Minimal microangiopathic changes. -Head MRA: normal angiography of the brain. -Neck MRA: normal angiography of the neck -Cardiology Consulted; follow up with echo, stress test as outpatient -Lipid panel; no abnormalities -Aspiration precautions, seizure precautions -Heart Healthy diet: passed bedside nursing swallow evaluation in ED -Carotid US ordered; Bilateral 20-39% proximal ICA stenoses. Ategrade flow in both vertebral arteries -Echocardiogram ordered; results pending -Continue with norvasc and lisinopril -Aspirin and Lipitor started -Vitamin B12 normal -HgA1c 5.2 -TSH normal Leukocytosis -Endorses productive cough with green sputum and chills, afebrile -Leukocytosis resolved -Procalcitonin negative -Rapid Flu ordered; negative -CXR ordered; no acute cardiopulmonary disease noted -UA ordered; negative Alcohol abuse -Alcohol level 44 -Ativan and Librium for withdrawal; CIWA 1 -Banana bag D5 Hypogylcemia -Banana bag in D5 -fingerstick q6h Depression -States he is non suicidal but wishes he were -Psych consult;psych-naltrexone for alcohol cravings, follow up with PMD as well as AA and NA meetings. Patient states he is not in danger to himself or others. <Slick Bradshaw B - Last Filed: 03/30/17 13:37> Objective - Vital Signs/Intake and Output Vital Signs (last 24 hours): Temp Pulse Resp BP Pulse Ox 98.8 F 75 18 157/99 H 95 03/30/17 12:00 03/30/17 12:00 03/30/17 12:00 03/30/17 12:00 03/30/17 05:44 Intake and Output: 03/30/17 03/30/17 06:59 18:59 Intake Total 1000 1080 Output Total 1 Balance 1000 1079 - Labs Labs: 03/30/17 08:00 03/30/17 08:00 PT 13.0 SECONDS (9.4-12.5) H 03/29/17 06:30 INR 1.13 (0.93-1.08) H 03/29/17 06:30 APTT 29.2 Seconds (25.1-36.5) 03/29/17 06:30 Attending/Attestation - Attestation I have personally seen and examined this patient.: Yes I have fully participated in the care of the patient.: Yes I have reviewed all pertinent clinical information, including history, physical exam and plan: Yes Notes (Text): I have seen and examined the patient at bedside. Agree with the above note with the following additions/ exceptions: Briefly this is 51 year old male with history of multiple TIA in the past, HTN, alcohol abuse who is being admitted for evaluation of left sided numbness and tingling. CT is negative. Neuro consult appreciated. Echo, MRI and MRA pending. Continue aspirin and lipitor. Lipid panel, TSH and B12 normal. Patient was hypoglycemic upon presentation. HBA1C 5.2. Passed swallow eval. Continue banana bag and ativan prn. Counselling provided. He also expressed that he has been very depressed and wishes that he were . Psych consult apprecaited. Recommended naltrexone. Upon discharge patient will follow up with Dr Riddle. Dr Slick Bradshaw
[2017-03-30 08:27] LABS: BASO # 0.03 K/mm3 (0.0-2.0); BASO % 0.5 % (0.0-3.0); EOS # 0.2 (0.0-0.7); EOS % 3.5 % (1.5-5.0); GRAN # 4.01 (1.4-6.5); GRAN % 64.4 % (50.0-68.0); HEMOGLOBIN 13.8 g/dL (14.0-18.0); LYMPH # 1.2 (1.2-3.4); LYMPH % 18.8 % (22.0-35.0); MEAN CORPUSCULAR HEMOGLOBIN 30.9 pg (25.0-35.0); MEAN CORPUSCULAR HGB CONC 33.3 g/dl (31.0-37.0); MEAN PLATELET VOLUME 9.5 fl (7.0-11.0); MONO # 0.8 (0.1-0.6); MONO % 12.8 % (1.0-6.0); RBC 4.46 10^6/uL (3.5-6.1); WHITE BLOOD COUNT 6.2 10^3/ul (4.5-11.0)
--- NOTE | 2017-03-30 08:55 | CARD ---
APPROVED REPORT EXAM: Two-dimensional and M-mode echocardiogram with Doppler and color Doppler. Other Information Quality : AverageRhythm : INDICATION CVA/TIA SMALL STROKE, R/O EMBOLI.. BUBBLE STUDY TO R/O PFO 2D DIMENSIONS Left Atrium (2D)3.5 (1.6-4.0cm)IVSd1.0 (0.7-1.1cm) LVDd4.5 (3.9-5.9cm)PWd1.2 (0.7-1.1cm) LVDs3.0 (2.5-4.0cm)FS (%) 33.3 % LVEF (%)62.0 (>50%) M-Mode DIMENSIONS Aortic Root4.20 (2.2-3.7cm)Aortic Cusp Exc.1.70 (1.5-2.0cm) Aortic Valve AoV Peak Hcdxkyqi736.0cm/s Mitral Valve MV E Hwdkfaij29.4cm/sMV A Jbaykief488.0cm/sE/A ratio0.8 TDI Lateral E' Peak V14.40cm/sMedial E' Peak V8.38cm/sE/Lateral E'5.8 E/Medial E'10.0 Pulmonary Valve PV Peak Zkkwsmbx45.4cm/sPV Peak Grad.3mmHg Tricuspid Valve TR Peak [id number]/sRAP [id number] Peak Gr.24mmHg [id number] LEFT VENTRICLE The left ventricle is normal size. There is normal left ventricular wall thickness. The left ventricular function is normal. The left ventricular ejection fraction is within the normal range. There is normal LV segmental wall motion. RIGHT VENTRICLE The right ventricle is normal size. ATRIA The left atrium size is normal. The right atrium size is normal. The interatrial septum is intact with no evidence for an atrial septal defect. AORTIC VALVE The aortic valve is mildly calcified. There is trace aortic regurgitation. MITRAL VALVE The mitral valve is normal in structure. TRICUSPID VALVE The tricuspid valve is normal in structure. There is trace tricuspid regurgitation. PULMONIC VALVE The pulmonic valve is not well visualized. GREAT VESSELS The aortic root is normal in size. PERICARDIAL EFFUSION There is no pericardial effusion. <Conclusion> The left ventricle is normal size. The left ventricular function is normal. There is normal left ventricular wall thicknesses. Negative bubble study. No shunt detected.
[2017-03-30 09:01] LABS: ALB/GLOB RATIO 1.2 (1.1-1.8); ALBUMIN 3.9 g/dL (3.0-4.8); ALT/SGPT 48 U/L (7-56); AST/SGOT 46 U/L (17-59); BLOOD UREA NITROGEN 13 mg/dL (7-21); CALCIUM 10.1 mg/dL (8.4-10.5); GFR AFRICAN-AMERICAN > 60; GFR NON-AFRICAN AMERICAN > 60; MAGNESIUM 1.8 mg/dL (1.7-2.2)
[2017-03-30] MEDS: Multivitamin With Minerals Tab PO SCH (10:06)
--- NOTE | 2017-03-30 11:25 | CP.PCM.DIS ---
<Alfredo Pires - Last Filed: 03/30/17 14:04> Provider - Provider Date of Admission: 03/28/17 11:32 Attending physician: Slick Bradshaw MD Primary care physician: Jose A Riddle MD Consults: Cardiology: Dr. Gutierrez Neurology: Dr. Mayers Psychiatry: Dr. Plasencia Time Spent in preparation of Discharge (in minutes): 45 Diagnosis - Discharge Diagnosis (1) Hypertension Status: Chronic Priority: Medium (2) Alcohol abuse Status: Chronic Priority: High (3) Transient ischemic attack (TIA) Status: Acute Priority: High Hospital Course - Lab Results Lab Results: Most Recent Lab Values WBC 6.2 10^3/ul (4.5-11.0) 03/30/17 08:00 RBC 4.46 10^6/uL (3.5-6.1) 03/30/17 08:00 Hgb 13.8 g/dL (14.0-18.0) L 03/30/17 08:00 Hct 41.5 % (42.0-52.0) L 03/30/17 08:00 MCV 93.0 fl (80.0-105.0) 03/30/17 08:00 MCH 30.9 pg (25.0-35.0) 03/30/17 08:00 MCHC 33.3 g/dl (31.0-37.0) 03/30/17 08:00 RDW 13.0 % (11.5-14.5) 03/30/17 08:00 Plt Count 279 10^3/uL (120.0-450.0) 03/30/17 08:00 MPV 9.5 fl (7.0-11.0) 03/30/17 08:00 Gran % 64.4 % (50.0-68.0) 03/30/17 08:00 Lymph % (Auto) 18.8 % (22.0-35.0) L 03/30/17 08:00 Branch % (Auto) 12.8 % (1.0-6.0) H 03/30/17 08:00 Eos % (Auto) 3.5 % (1.5-5.0) 03/30/17 08:00 Baso % (Auto) 0.5 % (0.0-3.0) 03/30/17 08:00 Gran # 4.01 (1.4-6.5) 03/30/17 08:00 Lymph # (Auto) 1.2 (1.2-3.4) 03/30/17 08:00 Branch # (Auto) 0.8 (0.1-0.6) H 03/30/17 08:00 Eos # (Auto) 0.2 (0.0-0.7) 03/30/17 08:00 Baso # (Auto) 0.03 K/mm3 (0.0-2.0) 03/30/17 08:00 Neutrophils % (Manual) 86 % (50.0-70.0) H 03/28/17 10:27 Band Neutrophils % 1 % (0-2) 03/28/17 10:27 Lymphocytes % (Manual) 6 % (22.0-35.0) L 03/28/17 10:27 Monocytes % (Manual) 6 % (1.0-6.0) 03/28/17 10:27 Basophils % (Manual) 1 % (0.0-1.0) 03/28/17 10:27 PT 13.0 SECONDS (9.4-12.5) H 03/29/17 06:30 INR 1.13 (0.93-1.08) H 03/29/17 06:30 APTT 29.2 Seconds (25.1-36.5) 03/29/17 06:30 Sodium 138 mmol/L (132-148) 03/30/17 08:00 Potassium 4.6 mmol/L (3.6-5.0) 03/30/17 08:00 Chloride 102 mmol/L (98-107) 03/30/17 08:00 Carbon Dioxide 29 mmol/L (21-33) 03/30/17 08:00 Anion Gap 11 (10-20) 03/30/17 08:00 BUN 13 mg/dL (7-21) 03/30/17 08:00 Creatinine 0.8 mg/dl (0.8-1.5) 03/30/17 08:00 Est GFR ( Amer) > 60 03/30/17 08:00 Est GFR (Non-Af Amer) > 60 03/30/17 08:00 POC Glucose (mg/dL) 101 mg/dL (65-110) 03/30/17 10:58 Random Glucose 89 mg/dL (70-110) 03/30/17 08:00 Hemoglobin A1c 5.2 % (4.2-6.5) 03/28/17 14:00 Calcium 10.1 mg/dL (8.4-10.5) 03/30/17 08:00 Phosphorus 3.2 mg/dL (2.5-4.5) 03/30/17 08:00 Magnesium 1.8 mg/dL (1.7-2.2) 03/30/17 08:00 Total Bilirubin 0.8 mg/dL (0.2-1.3) 03/30/17 08:00 AST 46 U/L (17-59) 03/30/17 08:00 ALT 48 U/L (7-56) 03/30/17 08:00 Alkaline Phosphatase 50 U/L (38-126) 03/30/17 08:00 Lactate Dehydrogenase 427 U/L (333-699) 03/28/17 12:00 Total Creatine Kinase 93 U/L (35-230) 03/28/17 12:00 Troponin I < 0.01 ng/mL 03/28/17 12:00 Total Protein 7.1 g/dL (5.8-8.3) 03/30/17 08:00 Albumin 3.9 g/dL (3.0-4.8) 03/30/17 08:00 Globulin 3.2 gm/dL 03/30/17 08:00 Albumin/Globulin Ratio 1.2 (1.1-1.8) 03/30/17 08:00 Triglycerides 50 mg/dL (35-160) 03/28/17 12:00 Cholesterol 160 mg/dL (130-200) 03/28/17 12:00 LDL Cholesterol Direct 77 mg/dL (0-129) 03/28/17 12:00 HDL Cholesterol 78 mg/dL (29-60) H 03/28/17 12:00 Vitamin B12 575 pg/mL (239-931) 03/28/17 14:00 25-OH Vitamin D Total 32.0 NG/ML (30.0-100.0) 03/29/17 06:30 Folate > 20.0 ng/mL 03/29/17 06:30 Procalcitonin < 0.05 NG/ML (0.19-0.49) L 03/28/17 14:00 Free T4 1.00 ng/dL (0.78-2.19) 03/29/17 10:30 TSH 3rd Generation 1.07 mIU/mL (0.46-4.68) 03/29/17 10:30 Urine Color Yellow (YELLOW) 03/28/17 15:20 Urine Appearance Clear (CLEAR) 03/28/17 15:20 Urine pH 6.0 (4.7-8.0) 03/28/17 15:20 Ur Specific [place] >= 1.030 (1.005-1.035) 03/28/17 15:20 Urine Protein Trace mg/dL (<30 mg/dL) H 03/28/17 15:20 Urine Glucose (UA) Negative mg/dL (NEGATIVE) 03/28/17 15:20 Urine Ketones 40 mg/dL (NEGATIVE) H 03/28/17 15:20 Urine Blood Negative (NEGATIVE) 03/28/17 15:20 Urine Nitrate Negative (NEGATIVE) 03/28/17 15:20 Urine Bilirubin Negative (NEGATIVE) 03/28/17 15:20 Urine Urobilinogen 0.2 E.U./dL (<1 E.U./dL) 03/28/17 15:20 Ur Leukocyte Esterase Negative Sergio/uL (NEGATIVE) 03/28/17 15:20 Urine RBC Negative /hpf (0-2) 03/28/17 15:20 Urine WBC 0 - 2 /hpf (0-6) 03/28/17 15:20 Ur Epithelial Cells 0 - 2 /hpf (0-5) 03/28/17 15:20 Urine Bacteria Neg (NEG) 03/28/17 15:20 Alcohol, Quantitative 44 mg/dL (0-10) H 03/28/17 10:27 Influenza Typ A,B (EIA) Negative for flu a/b (NEGATIVE) 03/28/17 15:17 - Hospital Course Hospital Course: Patient is a 51 year old male with a past medical history of 5 TIAs, hypertension and alcohol abuse who presented to the ED on 01/24 with complaints of alcohol abuse. Soon after being discharged, patient returned to the emergency department and endorsed pain on the left side of his forehead described it as rock hard rating it 10/10 non radiating. Patient stated this was accompanied with numbness and tingling of his teeth as well as left upper and lower extremity. Patient endorses nausea, as well as an episode of vomiting this morning. States he normally experiences body aches and normally experiences chills. Neurology was consulted. CT head ordered in the ED revealed no inctranial hemorrhage. Neurology ordered further studies: Brain MRI: no acute intracranial abnormality. Minimal microangiopathic changes, Head MRA: normal angiography of the brain, Neck MRA: normal angiography of the neck. From a cardiology standpoint patient did not require further inpatient treatment but recommended outpatient stress testing. Psychiatry was consulted regarding patient's alcohol abuse habits as well as desire to no longer live. Psychiatry recommended follow up with PMD as well as starting patient on naltrexone since patient was willing to try abstain from alcohol. Attending AA and NA meetings was also recommended by psychiatry. On final day of hospital stay patient stated he felt greater than he has in a while and will follow through will all recommendations made to him during this hospital visit. 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 Importance of aspirin and lipitor considering patient's extensive personal and family history of TIA and CVA, was stressed to patient. Case discussed and reviewed with Dr. Augustine Pires PGY1 Discharge Exam - Head Exam Head Exam: ATRAUMATIC, NORMAL INSPECTION, NORMOCEPHALIC - Eye Exam Eye Exam: EOMI, Normal appearance - ENT Exam ENT Exam: Mucous Membranes Moist, Normal External Ear Exam - Neck Exam Neck exam: Normal Inspection - Respiratory Exam Respiratory Exam: Clear to PA & Lateral, NORMAL BREATHING PATTERN - Cardiovascular Exam Cardiovascular Exam: REGULAR RHYTHM, +S1, +S2 - GI/Abdominal Exam GI & Abdominal Exam: Normal Bowel Sounds, Unremarkable - Neurological Exam Neurological exam: Alert, Oriented x3 - Psychiatric Exam Psychiatric exam: Normal Affect, Normal Mood - Skin Skin Exam: Intact, Normal Color, Warm Discharge Plan - Discharge Medications Prescriptions: Aspirin [Ecotrin] 81 mg PO DAILY 14 Days #14 tabec Atorvastatin [Lipitor] 5 mg PO DIN 14 Days #14 tab Naltrexone [Revia] 50 mg PO DAILY 14 Days #27 tab - Follow Up Plan Condition: STABLE Disposition: HOME/ ROUTINE Instructions: Transient Ischemic Attack, Heart Healthy Diet, Smoking: Not Just Harmful to Your Lungs and Heart, Low Cholesterol, Saturated Fat, and Trans Fat Diet , Quitting Smoking, Alcohol Abuse and Alcoholism (DC) Additional Instructions: 1.Please follow up with your primary care doctor within 3-5 days regarding this admission. 2.Please go to your pharmacy and fill prescriptions and take as prescribed. 3.Do not hesitate to return to the emergency department if symptoms worsen or return. 4.Please make an appointment and follow up with Dr. Gutierrez for stress test on 04/19/17. 5.Please try to attend AA and NA meetings as discussed with your psychiatrist. Please do not smoke and do not drink alcoholic beverages. Patient states he is up to date with regards to the flu vaccine and not eligible for the pneumococcal vaccine. Diet: Heart healthy and low cholesterol diet Referrals: Jose A Riddle MD [Primary Care Provider] - <Slick Bradshaw - Last Filed: 03/30/17 14:42> Provider - Provider Date of Admission: 03/28/17 11:32 Attending physician: Slick Bradshaw MD Primary care physician: Jose A Riddle MD Hospital Course - Lab Results Lab Results: Most Recent Lab Values WBC 6.2 10^3/ul (4.5-11.0) 03/30/17 08:00 RBC 4.46 10^6/uL (3.5-6.1) 03/30/17 08:00 Hgb 13.8 g/dL (14.0-18.0) L 03/30/17 08:00 Hct 41.5 % (42.0-52.0) L 03/30/17 08:00 MCV 93.0 fl (80.0-105.0) 03/30/17 08:00 MCH 30.9 pg (25.0-35.0) 03/30/17 08:00 MCHC 33.3 g/dl (31.0-37.0) 03/30/17 08:00 RDW 13.0 % (11.5-14.5) 03/30/17 08:00 Plt Count 279 10^3/uL (120.0-450.0) 03/30/17 08:00 MPV 9.5 fl (7.0-11.0) 03/30/17 08:00 Gran % 64.4 % (50.0-68.0) 03/30/17 08:00 Lymph % (Auto) 18.8 % (22.0-35.0) L 03/30/17 08:00 Branch % (Auto) 12.8 % (1.0-6.0) H 03/30/17 08:00 Eos % (Auto) 3.5 % (1.5-5.0) 03/30/17 08:00 Baso % (Auto) 0.5 % (0.0-3.0) 03/30/17 08:00 Gran # 4.01 (1.4-6.5) 03/30/17 08:00 Lymph # (Auto) 1.2 (1.2-3.4) 03/30/17 08:00 Branch # (Auto) 0.8 (0.1-0.6) H 03/30/17 08:00 Eos # (Auto) 0.2 (0.0-0.7) 03/30/17 08:00 Baso # (Auto) 0.03 K/mm3 (0.0-2.0) 03/30/17 08:00 Neutrophils % (Manual) 86 % (50.0-70.0) H 03/28/17 10:27 Band Neutrophils % 1 % (0-2) 03/28/17 10:27 Lymphocytes % (Manual) 6 % (22.0-35.0) L 03/28/17 10:27 Monocytes % (Manual) 6 % (1.0-6.0) 03/28/17 10:27 Basophils % (Manual) 1 % (0.0-1.0) 03/28/17 10:27 PT 13.0 SECONDS (9.4-12.5) H 03/29/17 06:30 INR 1.13 (0.93-1.08) H 03/29/17 06:30 APTT 29.2 Seconds (25.1-36.5) 03/29/17 06:30 Sodium 138 mmol/L (132-148) 03/30/17 08:00 Potassium 4.6 mmol/L (3.6-5.0) 03/30/17 08:00 Chloride 102 mmol/L (98-107) 03/30/17 08:00 Carbon Dioxide 29 mmol/L (21-33) 03/30/17 08:00 Anion Gap 11 (10-20) 03/30/17 08:00 BUN 13 mg/dL (7-21) 03/30/17 08:00 Creatinine 0.8 mg/dl (0.8-1.5) 03/30/17 08:00 Est GFR ( Amer) > 60 03/30/17 08:00 Est GFR (Non-Af Amer) > 60 03/30/17 08:00 POC Glucose (mg/dL) 101 mg/dL (65-110) 03/30/17 10:58 Random Glucose 89 mg/dL (70-110) 03/30/17 08:00 Hemoglobin A1c 5.2 % (4.2-6.5) 03/28/17 14:00 Calcium 10.1 mg/dL (8.4-10.5) 03/30/17 08:00 Phosphorus 3.2 mg/dL (2.5-4.5) 03/30/17 08:00 Magnesium 1.8 mg/dL (1.7-2.2) 03/30/17 08:00 Total Bilirubin 0.8 mg/dL (0.2-1.3) 03/30/17 08:00 AST 46 U/L (17-59) 03/30/17 08:00 ALT 48 U/L (7-56) 03/30/17 08:00 Alkaline Phosphatase 50 U/L (38-126) 03/30/17 08:00 Lactate Dehydrogenase 427 U/L (333-699) 03/28/17 12:00 Total Creatine Kinase 93 U/L (35-230) 03/28/17 12:00 Troponin I < 0.01 ng/mL 03/28/17 12:00 Total Protein 7.1 g/dL (5.8-8.3) 03/30/17 08:00 Albumin 3.9 g/dL (3.0-4.8) 03/30/17 08:00 Globulin 3.2 gm/dL 03/30/17 08:00 Albumin/Globulin Ratio 1.2 (1.1-1.8) 03/30/17 08:00 Triglycerides 50 mg/dL (35-160) 03/28/17 12:00 Cholesterol 160 mg/dL (130-200) 03/28/17 12:00 LDL Cholesterol Direct 77 mg/dL (0-129) 03/28/17 12:00 HDL Cholesterol 78 mg/dL (29-60) H 03/28/17 12:00 Vitamin B12 575 pg/mL (239-931) 03/28/17 14:00 25-OH Vitamin D Total 32.0 NG/ML (30.0-100.0) 03/29/17 06:30 Folate > 20.0 ng/mL 03/29/17 06:30 Procalcitonin < 0.05 NG/ML (0.19-0.49) L 03/28/17 14:00 Free T4 1.00 ng/dL (0.78-2.19) 03/29/17 10:30 TSH 3rd Generation 1.07 mIU/mL (0.46-4.68) 03/29/17 10:30 Urine Color Yellow (YELLOW) 03/28/17 15:20 Urine Appearance Clear (CLEAR) 03/28/17 15:20 Urine pH 6.0 (4.7-8.0) 03/28/17 15:20 Ur Specific [place] >= 1.030 (1.005-1.035) 03/28/17 15:20 Urine Protein Trace mg/dL (<30 mg/dL) H 03/28/17 15:20 Urine Glucose (UA) Negative mg/dL (NEGATIVE) 03/28/17 15:20 Urine Ketones 40 mg/dL (NEGATIVE) H 03/28/17 15:20 Urine Blood Negative (NEGATIVE) 03/28/17 15:20 Urine Nitrate Negative (NEGATIVE) 03/28/17 15:20 Urine Bilirubin Negative (NEGATIVE) 03/28/17 15:20 Urine Urobilinogen 0.2 E.U./dL (<1 E.U./dL) 03/28/17 15:20 Ur Leukocyte Esterase Negative Sergio/uL (NEGATIVE) 03/28/17 15:20 Urine RBC Negative /hpf (0-2) 03/28/17 15:20 Urine WBC 0 - 2 /hpf (0-6) 03/28/17 15:20 Ur Epithelial Cells 0 - 2 /hpf (0-5) 03/28/17 15:20 Urine Bacteria Neg (NEG) 03/28/17 15:20 Alcohol, Quantitative 44 mg/dL (0-10) H 03/28/17 10:27 Influenza Typ A,B (EIA) Negative for flu a/b (NEGATIVE) 03/28/17 15:17 Attending/Attestation - Attestation I have personally seen and examined this patient.: Yes I have fully participated in the care of the patient.: Yes I have reviewed all pertinent clinical information, including history, physical exam and plan: Yes Notes (Text): I have seen and examined the patient at bedside. Agree with the above note with the following additions/ exceptions: Briefly this is 51 year old male with history of multiple TIA in the past, HTN, alcohol abuse who is being admitted for evaluation of left sided numbness and tingling. CT is negative. Neuro consult appreciated. Echo, MRI and MRA is normal. Continue aspirin and lipitor. Lipid panel, TSH and B12 normal. Patient was hypoglycemic upon presentation. HBA1C 5.2. Passed swallow eval. His blood sugar improved once he started eating. Counselling provided. He also expressed that he has been very depressed. Psych consult appreciated. Recommended naltrexone which was given. Also advised the patient to have stress test as an outpatient. Upon discharge patient will follow up with Dr Riddle. Dr Slick Bradshaw
[2017-03-30 13:16] VITALS: BP 157/99; PULSE 75; RESP 18; TEMP 98.8
--- NOTE | 2017-03-30 19:57 | PN ---
DATE: 03/30/2017 LOCATION: Room 377, bed 1. REASON FOR CONSULTATION: Hypertension, history of alcohol abuse, history of episode of numbness on the left side. SUBJECTIVE: The patient is lying flat in bed without chest pain, shortness of breath, or palpitation. He states there is no numbness and he is moving all extremities normally. PHYSICAL EXAMINATION: VITAL SIGNS: Blood pressure 142/88, respirations 18, pulse 70, the patient afebrile. HEENT: Head is normocephalic. Eyes: Pupils are normal. Conjunctivae are normal. Nose and throat are normal. NECK: JVP low. Carotids are equal. THORAX: AP diameter normal. LUNGS: Clear. CARDIOVASCULAR: S1 and S2. ABDOMEN: Soft. No tenderness. No organomegaly. Bowel sounds normal. EXTREMITIES: No clubbing. No cyanosis. LABORATORY DATA: WBC 6.2, hemoglobin 13.8, hematocrit 41.5, platelets 279. Sodium 138, potassium 4.6, BUN 13, creatinine 0.8, sugar 101. Calcium, phosphorus, magnesium, AST, ALT, total protein, and albumin are normal. The patient had an echocardiogram on 03/29/2017 which showed left ventricle normal size, normal LV systolic function. Bubble study, no shunting noted, RVSP 34 mmHg. DIAGNOSES: Episode of numbness on the left side, hypertension, history of alcohol abuse, poor compliant patient. PLAN: Advised the patient again to stop drinking. The patient will continue present therapy. We will follow with the family physician. The patient also was advised to do a nuclear stress test as an outpatient and he promised that he will come and do it as outpatient. So, we will continue to follow with you. The patient was told again to stop drinking. Kaylee Gutierrez MD
== END 2017-03-30 13:30 | disposition home or self-care (01) | DRG 751 ==
LOC: ED 08:16 → ERH 11:32 → 3RSO 15:32
PROVIDERS: ADMIT Hospitalist; ATTEND Hospitalist
DX: F10.239 Alcohol dependence with withdrawal, unspecified (principal); F32.9 Major depressive disorder, single episode, unspecified; Y90.2 Blood alcohol level of 40-59 mg/100 ml; I10 Essential (primary) hypertension; Z87.891 Personal history of nicotine dependence; Z86.73 Personal history of transient ischemic attack (TIA), and cerebral infarction without residual deficits

== ENCOUNTER 2017-04-11 12:38 | Emergency (ER) | payer MEDICAID ==
[2017-04-11 12:38] VITALS: BMI 22.0
[2017-04-11 13:01] VITALS: BP 96/62; PULSE 78; RESP 16; TEMP 98.5; O2SAT 99
== END 2017-04-11 13:06 | disposition left against medical advice (07) ==
LOC: ED 12:38
DX: Z02.89 Encounter for other administrative examinations (principal); R20.0 Anesthesia of skin

== ENCOUNTER 2017-04-20 13:37 | Emergency (ER) | payer MEDICAID ==
[2017-04-20 13:42] VITALS: BMI 22.8
[2017-04-20 13:57] VITALS: RESP 18; TEMP 98.7
--- NOTE | 2017-04-20 14:44 | ED PDOC ---
Arrival/HPI - General Chief Complaint: Alcohol Ingestion Time Seen by Provider: 04/20/17 14:44 Historian: Patient - History of Present Illness Narrative History of Present Illness (Text): 04/20/17 14:44 A 51 year old male brought into the emergency department by EMS for alcohol intoxication. Patient admits to drinking alcohol today. He denies any pain or discomfort and states he would just like to rest. Patient denies any recent trauma, injuries, fever, chills, nausea, vomiting, abdominal pain, chest pain, shortness of breath, headache, dizziness, suicidal ideation, homicidal ideation or any other complaints. Past Medical History - Provider Review Nursing Documentation Reviewed: Yes - Infectious Disease Hx of Infectious Diseases: None - Tetanus Immunization Tetanus Immunization: Unknown - Past Medical History Past Medical History: Unable to Obtain - Cardiac Hx Cardiac Disorders: Yes Hx Hypertension: Yes - Pulmonary Hx Respiratory Disorders: No - Neurological Hx Neurological Disorder: Yes Hx Transient Ischemic Attacks (TIA): Yes - HEENT Hx HEENT Disorder: No - Renal Hx Renal Disorder: No - Endocrine/Metabolic Hx Endocrine Disorders: No - Hematological/Oncological Hx Blood Disorders: No - Integumentary Hx Dermatological Disorder: No - Musculoskeletal/Rheumatological Hx Musculoskeletal Disorders: Yes Hx Falls: Yes (2 yrs ago fell 0ff ladder) - Gastrointestinal Hx Gastrointestinal Disorders: No - Genitourinary/Gynecological Hx Genitourinary Disorders: No - Psychiatric Hx Psychophysiologic Disorder: No Hx Substance Use: No - Past Surgical History Past Surgical History: Unable to Obtain - Surgical History Hx Musculoskeletal Surgery: Yes (right hip and hand, facial fracture repair) Other/Comment: right wrist injury, bone marrow taken from right hip and inserted into fx bone in right hand along with metal, metal has since been [facility] - Anesthesia Hx Anesthesia: Yes Hx Anesthesia Reactions: No Hx Malignant Hyperthermia: No - Suicidal Assessment Feels Threatened In Home Enviroment: No Family/Social History - Physician Review Nursing Documentation Reviewed: Yes Family/Social History: No Known Family HX Smoking Status: Former Smoker Hx Alcohol Use: Yes (DRINKS 2 PINTS OF VODKA DAILY. LAST DRANK 3 D AGO.2 PINTS OF VODKA AND LIQU) Hx Substance Use: No Hx Substance Use Treatment: No Allergies/Home Meds Allergies/Adverse Reactions: Allergies coconut Allergy (Verified 04/20/17 13:45) RASH coconut oil Allergy (Verified 04/20/17 13:45) RASH cranberry Allergy (Verified 04/20/17 13:45) SWELLING Home Medications: Home Meds Medication Instructions Recorded Confirmed Unobtainable 04/20/17 04/20/17 Review of Systems - Physician Review All systems were reviewed & negative as marked: Yes - Review of Systems Constitutional: Normal. absent: Fevers, Night Sweats Respiratory: absent: SOB Cardiovascular: absent: Chest Pain Gastrointestinal: absent: Abdominal Pain, Nausea, Vomiting Neurological: absent: Headache, Dizziness Psychiatric: absent: Suicidal Ideation, Other (Homicidal ideation) Physical Exam - Physical Exam Narrative Physical Exam (Text): Constitutional: No acute distress. Head: Normocephalic. Atraumatic. Eyes: PERRL. ENT: Moist mucous membranes. Neck: Supple. Cardiovascular: Regular rate. Chest: No tenderness. Respiratory: Clear to auscultation bilaterally. GI: Soft. Nontender. Nondistended. Back: No CVA tenderness. Musculoskeletal: No tenderness or swelling of extremities. Skin: No rash. Neurologic: Alert, no focal deficit. Vital Signs Reviewed: Yes Vital Signs Temp Pulse Resp BP Pulse Ox 04/20/17 18:13 65 18 129/85 99 04/20/17 13:56 98.7 F 76 18 129/82 100 Temperature: Afebrile Blood Pressure: Normal Pulse: Regular Respiratory Rate: Normal Appearance: Positive for: Well-Appearing, Non-Toxic, Comfortable Pain Distress: None Mental Status: Positive for: Alert and Oriented X 3 - Scribe Statement The provider has reviewed the documentation as recorded by the Dara Pereyra Provider Scribe Attestation: All medical record entries made by the Scribe were at my direction and personally dictated by me. I have reviewed the chart and agree that the record accurately reflects my personal performance of the history, physical exam, medical decision making, and the department course for this patient. I have also personally directed, reviewed, and agree with the discharge instructions and disposition. Disposition/Present on Arrival - Present on Arrival Any Indicators Present on Arrival: No History of DVT/PE: No History of Uncontrolled Diabetes: No Urinary Catheter: No History of Decub. Ulcer: No History Surgical Site Infection Following: None - Disposition Have Diagnosis and Disposition been Completed?: Yes Diagnosis: Alcohol intoxication Disposition: HOME/ ROUTINE Disposition Time: :46 Patient Plan: Discharge Condition: STABLE Discharge Instructions (ExitCare): Alcohol Abuse and Alcoholism (DC) Forms: [employer] ([place])
[2017-04-20 20:20] VITALS: BP 124/76; PULSE 72; O2SAT 100
== END 2017-04-20 20:00 | disposition home or self-care (01) ==
LOC: ED 13:37
DX: F10.129 Alcohol abuse with intoxication, unspecified (principal); Y90.9 Presence of alcohol in blood, level not specified

== ENCOUNTER 2017-04-20 23:05 | Emergency (ER) | payer MEDICAID ==
[2017-04-20 23:07] VITALS: BMI 22.7
[2017-04-20 23:13] VITALS: BP 119/71; PULSE 69; RESP 17; TEMP 98.1; O2SAT 98
--- NOTE | 2017-04-20 23:32 | ED PDOC ---
Arrival/HPI - General Chief Complaint: Alcohol Ingestion Time Seen by Provider: 04/20/17 23:08 Historian: Patient - History of Present Illness Narrative History of Present Illness (Text): 04/20/17 23:31 David Larsen is a 51 year old male, whose past medical history includes alcohol abuse and hypertension, who presents to the Emergency department brought in for public intoxication tonight. Patient was outside inebriated, patient admits to drinking alcohol tonight. Limited HPI and ROS secondary to alcohol intoxication. Time/Duration: Other (tonight) Symptom Onset: Gradual Symptom Course: Unchanged Activities at Onset: Light Context: Street Past Medical History - Provider Review Nursing Documentation Reviewed: Yes - Infectious Disease Hx of Infectious Diseases: None - Tetanus Immunization Tetanus Immunization: Unknown - Past Medical History Past Medical History: Unable to Obtain - Cardiac Hx Cardiac Disorders: Yes Hx Hypertension: Yes - Pulmonary Hx Respiratory Disorders: No - Neurological Hx Neurological Disorder: Yes Hx Transient Ischemic Attacks (TIA): Yes - HEENT Hx HEENT Disorder: No - Renal Hx Renal Disorder: No - Endocrine/Metabolic Hx Endocrine Disorders: No - Hematological/Oncological Hx Blood Disorders: No - Integumentary Hx Dermatological Disorder: No - Musculoskeletal/Rheumatological Hx Musculoskeletal Disorders: Yes Hx Falls: Yes (2 yrs ago fell 0ff ladder) - Gastrointestinal Hx Gastrointestinal Disorders: No - Genitourinary/Gynecological Hx Genitourinary Disorders: No - Psychiatric Hx Psychophysiologic Disorder: No Hx Substance Use: No - Past Surgical History Past Surgical History: Unable to Obtain - Surgical History Hx Musculoskeletal Surgery: Yes (right hip and hand, facial fracture repair) Other/Comment: right wrist injury, bone marrow taken from right hip and inserted into fx bone in right hand along with metal, metal has since been removed, 23 yrs ago at [facility] - Anesthesia Hx Anesthesia: Yes Hx Anesthesia Reactions: No Hx Malignant Hyperthermia: No - Suicidal Assessment Feels Threatened In Home Enviroment: No Family/Social History - Physician Review Nursing Documentation Reviewed: Yes Family/Social History: Unknown Family HX Smoking Status: Former Smoker Hx Alcohol Use: Yes (DRINKS 2 PINTS OF VODKA DAILY. LAST DRANK 3 D AGO.2 PINTS OF VODKA AND LIQU) Hx Substance Use: No Hx Substance Use Treatment: No Allergies/Home Meds Allergies/Adverse Reactions: Allergies coconut Allergy (Verified 04/20/17 23:11) RASH coconut oil Allergy (Verified 04/20/17 23:11) RASH cranberry Allergy (Verified 04/20/17 23:11) SWELLING Home Medications: Home Meds Medication Instructions Recorded Confirmed Unobtainable 04/20/17 04/20/17 Review of Systems - Review of Systems Systems not reviewed;Unavailable: Intoxicated Physical Exam Vital Signs Reviewed: Yes Vital Signs Temp Pulse Resp BP Pulse Ox 04/20/17 23:12 98.1 F 69 17 119/71 98 Temperature: Afebrile Blood Pressure: Normal Pulse: Regular Respiratory Rate: Normal Appearance: Positive for: Well-Appearing, Comfortable Pain Distress: None Mental Status: Positive for: other (Intoxicated) - Systems Exam Head: Present: Atraumatic, Normocephalic Pupils: Present: PERRL Extroacular Muscles: Present: EOMI Conjunctiva: Present: Normal Mouth: Present: Moist Mucous Membranes Neck: Present: Normal Range of Motion Respiratory/Chest: Present: Clear to Auscultation, Good Air Exchange. No: Respiratory Distress, Accessory Muscle Use Cardiovascular: Present: Regular Rate and Rhythm, Normal S1, S2. No: Murmurs Abdomen: Present: Normal Bowel Sounds. No: Tenderness, Distention, Peritoneal Signs Back: Present: Normal Inspection Upper Extremity: Present: Normal Inspection. No: Cyanosis, Edema Lower Extremity: Present: Normal Inspection. No: Edema Neurological: Present: GCS=15, CN II-XII Intact Skin: Present: Warm, Dry, Normal Color. No: Rashes Psychiatric: Present: Intoxicated Medical Decision Making ED Course and Treatment: 04/20/17 23:31 Impression: 51 year old male complaining of public intoxication. Differential Diagnosis included but are not limited to: alcohol intoxication Plan: -- Reassess and disposition Prior Visits: Notes and results from previous visits were reviewed. On 04/20/2017, pt was seen for alcohol intoxication. Pt was d/c home. Progress Notes: 04/21/17 06:31 Pt awake, alert, ambulating with steady. Clinically sober. Pt stable for d/c. - Scribe Statement The provider has reviewed the documentation as recorded by the Dara Sanchez Provider Scribe Attestation: All medical record entries made by the Scribe were at my direction and personally dictated by me. I have reviewed the chart and agree that the record accurately reflects my personal performance of the history, physical exam, medical decision making, and the department course for this patient. I have also personally directed, reviewed, and agree with the discharge instructions and disposition. Disposition/Present on Arrival - Present on Arrival Any Indicators Present on Arrival: No History of DVT/PE: No History of Uncontrolled Diabetes: No Urinary Catheter: No History of Decub. Ulcer: No History Surgical Site Infection Following: None - Disposition Have Diagnosis and Disposition been Completed?: Yes Diagnosis: Alcohol intoxication, Alcohol abuse Disposition: HOME/ ROUTINE Disposition Time: 06:35 Patient Plan: Discharge Condition: GOOD Discharge Instructions (ExitCare): Alcohol Abuse and Alcoholism (DC) Referrals: Jose A Riddle MD [Primary Care Provider] - Follow up with primary Alcoholics Anonymous [Outside] - Follow up with primary Forms: [employer] (Tamazight)
== END 2017-04-21 06:45 | disposition home or self-care (01) ==
LOC: ED 23:05
DX: F10.129 Alcohol abuse with intoxication, unspecified (principal); Y90.9 Presence of alcohol in blood, level not specified

== ENCOUNTER 2017-06-28 12:40 | Emergency (ER) | payer MEDICAID ==
[2017-06-28 12:41] VITALS: BMI 22.7
[2017-06-28 12:51] VITALS: RESP 18; TEMP 98
--- NOTE | 2017-06-28 13:26 | ED PDOC ---
Arrival/HPI - General Chief Complaint: Alcohol Ingestion Time Seen by Provider: 06/28/17 12:59 Historian: Patient - History of Present Illness Narrative History of Present Illness (Text): 06/28/17 13:27 A 51 year old male, whose past medical history includes alcohol abuse, was brought in by EMS to the emergency department for evaluation of alcohol intoxication. Patient denies any other complaints at this time. Symptom Onset: Sudden Symptom Course: Unchanged Activities at Onset: Rest Context: Home Past Medical History - Provider Review Nursing Documentation Reviewed: Yes - Infectious Disease Hx of Infectious Diseases: None - Tetanus Immunization Tetanus Immunization: Unknown - Past Medical History Past Medical History: Unable to Obtain - Cardiac Hx Cardiac Disorders: Yes Hx Hypertension: Yes - Pulmonary Hx Respiratory Disorders: No - Neurological Hx Neurological Disorder: Yes Hx Transient Ischemic Attacks (TIA): Yes - HEENT Hx HEENT Disorder: No - Renal Hx Renal Disorder: No - Endocrine/Metabolic Hx Endocrine Disorders: No - Hematological/Oncological Hx Blood Disorders: No - Integumentary Hx Dermatological Disorder: No - Musculoskeletal/Rheumatological Hx Musculoskeletal Disorders: Yes Hx Falls: Yes (2 yrs ago fell 0ff ladder) - Gastrointestinal Hx Gastrointestinal Disorders: No - Genitourinary/Gynecological Hx Genitourinary Disorders: No - Psychiatric Hx Psychophysiologic Disorder: No Hx Substance Use: No - Past Surgical History Past Surgical History: Unable to Obtain - Surgical History Hx Musculoskeletal Surgery: Yes (right hip and hand, facial fracture repair) Other/Comment: right wrist injury, bone marrow taken from right hip and inserted into fx bone in right hand along with metal, metal has since been removed, 23 yrs ago at [facility] - Anesthesia Hx Anesthesia: Yes Hx Anesthesia Reactions: No Hx Malignant Hyperthermia: No - Suicidal Assessment Feels Threatened In Home Enviroment: No Family/Social History - Physician Review Nursing Documentation Reviewed: Yes Family/Social History: No Known Family HX Smoking Status: Former Smoker Hx Alcohol Use: Yes (DRINKS 2 PINTS OF VODKA DAILY. LAST DRANK 3 D AGO.2 PINTS OF VODKA AND LIQU) Hx Substance Use: No Hx Substance Use Treatment: No Allergies/Home Meds Allergies/Adverse Reactions: Allergies coconut Allergy (Verified 06/28/17 12:49) RASH coconut oil Allergy (Verified 06/28/17 12:49) RASH cranberry Allergy (Verified 06/28/17 12:49) SWELLING Home Medications: Home Meds Medication Instructions Recorded Confirmed Unobtainable 04/20/17 06/28/17 Review of Systems - Physician Review All systems were reviewed & negative as marked: Yes - Review of Systems Constitutional: absent: Fevers Psychiatric: absent: Suicidal Ideation, Other (homicidal ideation) Physical Exam Vital Signs Reviewed: Yes Vital Signs Temp Pulse Resp BP Pulse Ox 06/28/17 16:56 98 F 83 18 118/70 96 06/28/17 12:41 98 F 78 18 130/97 H 98 Temperature: Afebrile Blood Pressure: Hypertensive Pulse: Regular Respiratory Rate: Normal Appearance: Positive for: Comfortable Pain Distress: None Mental Status: Positive for: Alert and Oriented X 3 - Systems Exam Head: Present: Atraumatic, Normocephalic Pupils: Present: PERRL Extroacular Muscles: Present: EOMI Conjunctiva: Present: Normal Mouth: Present: Moist Mucous Membranes Neck: Present: Normal Range of Motion Respiratory/Chest: Present: Clear to Auscultation, Good Air Exchange. No: Respiratory Distress, Accessory Muscle Use Cardiovascular: Present: Regular Rate and Rhythm, Normal S1, S2. No: Murmurs Abdomen: No: Tenderness, Distention, Peritoneal Signs Back: Present: Normal Inspection Upper Extremity: Present: Normal Inspection. No: Cyanosis, Edema Lower Extremity: Present: Normal Inspection. No: Edema Neurological: Present: GCS=15, CN II-XII Intact, Speech Normal Skin: Present: Warm, Dry, Normal Color. No: Rashes Psychiatric: Present: Alert, Oriented x 3. No: Suicidal Ideation, Homicidal Ideation Medical Decision Making ED Course and Treatment: 06/28/17 13:23 Impression: A 51 year old male with alcohol intoxication. Plan: -- Reassess and disposition Prior Visits: Notes and results from previous visits were reviewed. Patient was last seen in the emergency department on 04/20/17 for evaluation of public alcohol intoxication. Progress Notes: 06/28/17 19:20 Patient eloped from the emergency department. - Lab Interpretations Lab Results: Lab Results 06/28/17 13:34: Alcohol, Quantitative 331 H* - Scribe Statement The provider has reviewed the documentation as recorded by the Dara Schaefer Provider Scribe Attestation: All medical record entries made by the Scribe were at my direction and personally dictated by me. I have reviewed the chart and agree that the record accurately reflects my personal performance of the history, physical exam, medical decision making, and the department course for this patient. I have also personally directed, reviewed, and agree with the discharge instructions and disposition. Disposition/Present on Arrival - Present on Arrival Any Indicators Present on Arrival: No History of DVT/PE: No History of Uncontrolled Diabetes: No Urinary Catheter: No History of Decub. Ulcer: No History Surgical Site Infection Following: None - Disposition Have Diagnosis and Disposition been Completed?: Yes Diagnosis: Alcohol abuse Disposition: HOME/ ROUTINE Disposition Time: 21:30 Patient Plan: Discharge Patient Problems: Current Active Problems Problem Status Onset Alcohol abuse Acute Condition: GOOD Discharge Instructions (ExitCare): Alcohol Abuse and Alcoholism (DC) Forms: [facility] (Guamanian)
[2017-06-28 19:38] VITALS: BP 120/68; PULSE 81; O2SAT 100
== END 2017-06-28 18:00 | disposition home or self-care (01) ==
LOC: ED 12:40
DX: F10.10 Alcohol abuse, uncomplicated (principal); Y90.8 Blood alcohol level of 240 mg/100 ml or more

== ENCOUNTER 2017-07-13 21:32 | Emergency (ER) | payer SELFPAY ==
[2017-07-13 21:32] VITALS: BMI 22.7
--- NOTE | 2017-07-13 21:43 | ED PDOC ---
Arrival/HPI - General Time Seen by Provider: 07/13/17 21:33 Historian: Patient, EMS - History of Present Illness Narrative History of Present Illness (Text): 07/13/17 21:43 David Larsen is a 51 year old male, whose past medical history includes alcohol abuse and hypertension, who presents to the Emergency department brought in for public intoxication tonight. Patient was outside inebriated, patient admits to drinking alcohol tonight. Patient denies any fever, chills, chest pain, shortness of breath, nausea, vomiting, diarrhea, urinary symptoms, back pain, neck pain, headache, dizziness, or any other complaints. Time/Duration: Other (tonight) Symptom Onset: Gradual Symptom Course: Unchanged Activities at Onset: Light Context: Street Past Medical History - Provider Review Nursing Documentation Reviewed: Yes - Infectious Disease Hx of Infectious Diseases: None - Tetanus Immunization Tetanus Immunization: Unknown - Past Medical History Past Medical History: Unable to Obtain - Cardiac Hx Cardiac Disorders: Yes Hx Hypertension: Yes - Pulmonary Hx Respiratory Disorders: No - Neurological Hx Neurological Disorder: Yes Hx Transient Ischemic Attacks (TIA): Yes - HEENT Hx HEENT Disorder: No - Renal Hx Renal Disorder: No - Endocrine/Metabolic Hx Endocrine Disorders: No - Hematological/Oncological Hx Blood Disorders: No - Integumentary Hx Dermatological Disorder: No - Musculoskeletal/Rheumatological Hx Musculoskeletal Disorders: Yes Hx Falls: Yes (2 yrs ago fell 0ff ladder) - Gastrointestinal Hx Gastrointestinal Disorders: No - Genitourinary/Gynecological Hx Genitourinary Disorders: No - Psychiatric Hx Psychophysiologic Disorder: No Hx Substance Use: No - Past Surgical History Past Surgical History: Unable to Obtain - Surgical History Hx Musculoskeletal Surgery: Yes (right hip and hand, facial fracture repair) Other/Comment: right wrist injury, bone marrow taken from right hip and inserted into fx bone in right hand along with metal, metal has since been removed, 23 yrs ago at [facility] - Anesthesia Hx Anesthesia: Yes Hx Anesthesia Reactions: No Hx Malignant Hyperthermia: No - Suicidal Assessment Feels Threatened In Home Enviroment: No Family/Social History - Physician Review Nursing Documentation Reviewed: Yes Family/Social History: Unknown Family HX Smoking Status: Former Smoker Hx Alcohol Use: Yes (DRINKS 2 PINTS OF VODKA DAILY. LAST DRANK 3 D AGO.2 PINTS OF VODKA AND LIQU) Hx Substance Use: No Hx Substance Use Treatment: No Allergies/Home Meds Allergies/Adverse Reactions: Allergies coconut Allergy (Verified 06/28/17 12:49) RASH coconut oil Allergy (Verified 06/28/17 12:49) RASH cranberry Allergy (Verified 06/28/17 12:49) SWELLING Home Medications: Home Meds Medication Instructions Recorded Confirmed Unobtainable 04/20/17 07/13/17 Review of Systems - Physician Review All systems were reviewed & negative as marked: Yes - Review of Systems Constitutional: Normal. absent: Fevers Eyes: Normal ENT: Normal Respiratory: Normal. absent: SOB, Cough Cardiovascular: Normal. absent: Chest Pain Gastrointestinal: Normal. absent: Abdominal Pain, Diarrhea, Nausea, Vomiting Genitourinary Male: Normal. absent: Dysuria, Frequency, Hematuria, Urinary Output Changes Musculoskeletal: Normal. absent: Back Pain, Neck Pain Skin: Normal. absent: Rash Neurological: Normal. absent: Headache, Dizziness Endocrine: Normal Hemo/Lymphatic: Normal Psychiatric: Normal Physical Exam Vital Signs Reviewed: Yes Vital Signs Temp Pulse Resp BP Pulse Ox 07/14/17 03:31 88 14 134/76 98 07/13/17 21:43 98.1 F 88 16 136/77 98 Temperature: Afebrile Blood Pressure: Normal Pulse: Regular Respiratory Rate: Normal Appearance: Positive for: Well-Appearing, Non-Toxic, Comfortable Pain Distress: None Mental Status: Positive for: Alert and Oriented X 3 - Systems Exam Head: Present: Atraumatic, Normocephalic Pupils: Present: PERRL Extroacular Muscles: Present: EOMI Conjunctiva: Present: Normal Mouth: Present: Moist Mucous Membranes Neck: Present: Normal Range of Motion Respiratory/Chest: Present: Clear to Auscultation, Good Air Exchange. No: Respiratory Distress, Accessory Muscle Use Cardiovascular: Present: Regular Rate and Rhythm, Normal S1, S2. No: Murmurs Abdomen: No: Tenderness, Distention, Peritoneal Signs Back: Present: Normal Inspection Upper Extremity: Present: Normal Inspection. No: Cyanosis, Edema Lower Extremity: Present: Normal Inspection. No: Edema Neurological: Present: GCS=15, CN II-XII Intact, Speech Normal Skin: Present: Warm, Dry, Normal Color. No: Rashes Psychiatric: Present: Alert, Oriented x 3, Normal Insight, Normal Concentration Medical Decision Making ED Course and Treatment: 07/13/17 21:43 Impression: 51 year old male brought in for public intoxication tonight. Differential Diagnosis included but are not limited to: alcohol intoxication Plan: -- Reassess and disposition Prior Visits: Notes and results from previous visits were reviewed. On 06/28/2017, pt was seen in the Emergency department for alcohol intoxication. Pt was d/c home. Progress Notes: 07/14/17 06:29 Pt awake, alert, and ambulating with steady gait. Clinically sober, in no acute distress. Pt stable for d/c. - Scribe Statement The provider has reviewed the documentation as recorded by the Dara Sanchez Provider Scribe Attestation: All medical record entries made by the Scribe were at my direction and personally dictated by me. I have reviewed the chart and agree that the record accurately reflects my personal performance of the history, physical exam, medical decision making, and the department course for this patient. I have also personally directed, reviewed, and agree with the discharge instructions and disposition. Disposition/Present on Arrival - Present on Arrival Any Indicators Present on Arrival: No History of DVT/PE: No History of Uncontrolled Diabetes: No Urinary Catheter: No History Surgical Site Infection Following: None - Disposition Have Diagnosis and Disposition been Completed?: Yes Diagnosis: Alcohol intoxication Disposition: HOME/ ROUTINE Disposition Time: 06:39 Patient Plan: Discharge Condition: GOOD Discharge Instructions (ExitCare): Alcohol Abuse and Alcoholism (DC) Referrals: Jose A Riddle MD [Primary Care Provider] - Follow up with primary Alcoholics Anonymous [Outside] - Follow up with primary
[2017-07-13 21:45] VITALS: TEMP 98.1
[2017-07-14 07:00] VITALS: BP 116/72; PULSE 72; RESP 16; O2SAT 100
== END 2017-07-14 06:58 | disposition home or self-care (01) ==
LOC: ED 21:32
DX: F10.129 Alcohol abuse with intoxication, unspecified (principal)

== ENCOUNTER 2017-07-20 23:21 | Emergency (ER) | payer SELFPAY ==
[2017-07-20 23:22] VITALS: BMI 22.7
--- NOTE | 2017-07-20 23:59 | ED PDOC ---
Arrival/HPI - General Time Seen by Provider: 07/20/17 23:24 Historian: Patient - History of Present Illness Narrative History of Present Illness (Text): 07/20/17 23:56 A 51 year old male, whose past medical history includes alcohol abuse and hypertension, is brought into the emergency department via EMS for alcohol intoxication. The patient is awake and alert and admits to drinking alcohol today. He denies fevers, chills, headache, dizziness, sore throat, cough, chest pain, shortness of breath, abdominal pain, nausea, vomiting, diarrhea, back pain , neck pain, urinary/bowl changes, trauma/injury, or any other physical complaint. Time/Duration: Prior to Arrival Symptom Course: Unchanged Activities at Onset: Rest, Light Context: Home Past Medical History - Provider Review Nursing Documentation Reviewed: Yes - Infectious Disease Hx of Infectious Diseases: None - Tetanus Immunization Tetanus Immunization: Unknown - Past Medical History Past Medical History: Unable to Obtain - Cardiac Hx Cardiac Disorders: Yes Hx Hypertension: Yes - Pulmonary Hx Respiratory Disorders: No - Neurological Hx Neurological Disorder: Yes Hx Transient Ischemic Attacks (TIA): Yes - HEENT Hx HEENT Disorder: No - Renal Hx Renal Disorder: No - Endocrine/Metabolic Hx Endocrine Disorders: No - Hematological/Oncological Hx Blood Disorders: No - Integumentary Hx Dermatological Disorder: No - Musculoskeletal/Rheumatological Hx Musculoskeletal Disorders: Yes Hx Falls: Yes (2 yrs ago fell 0ff ladder) - Gastrointestinal Hx Gastrointestinal Disorders: No - Genitourinary/Gynecological Hx Genitourinary Disorders: No - Psychiatric Hx Psychophysiologic Disorder: No Hx Substance Use: No - Past Surgical History Past Surgical History: Unable to Obtain - Surgical History Hx Musculoskeletal Surgery: Yes (right hip and hand, facial fracture repair) Other/Comment: right wrist injury, bone marrow taken from right hip and inserted into fx bone in right hand along with metal, metal has since been removed, [address] [facility] - Anesthesia Hx Anesthesia: Yes Hx Anesthesia Reactions: No Hx Malignant Hyperthermia: No - Suicidal Assessment Feels Threatened In Home Enviroment: No Family/Social History - Physician Review Nursing Documentation Reviewed: Yes Family/Social History: No Known Family HX Smoking Status: Former Smoker Hx Alcohol Use: Yes (DRINKS 2 PINTS OF VODKA DAILY. LAST DRANK 3 D AGO.2 PINTS OF VODKA AND LIQU) Hx Substance Use: No Hx Substance Use Treatment: No Allergies/Home Meds Allergies/Adverse Reactions: Allergies coconut Allergy (Verified 06/28/17 12:49) RASH coconut oil Allergy (Verified 06/28/17 12:49) RASH cranberry Allergy (Verified 06/28/17 12:49) SWELLING Home Medications: Home Meds Medication Instructions Recorded Confirmed Unobtainable 04/20/17 07/21/17 Review of Systems - Physician Review All systems were reviewed & negative as marked: Yes - Review of Systems Constitutional: absent: Fevers, Night Sweats ENT: absent: Sore Throat Respiratory: absent: SOB, Cough Cardiovascular: absent: Chest Pain, GARCIA Gastrointestinal: absent: Abdominal Pain, Stool Changes, Diarrhea, Nausea, Vomiting Genitourinary Male: absent: Urinary Output Changes Musculoskeletal: absent: Back Pain, Neck Pain Neurological: absent: Headache, Dizziness Psychiatric: Other (Alcohol Intoxication) Physical Exam Vital Signs Reviewed: Yes Vital Signs Temp Pulse Resp BP Pulse Ox 07/21/17 06:00 69 18 132/72 100 07/21/17 04:13 76 18 138/74 100 07/21/17 03:22 98.2 F 84 16 136/70 100 07/21/17 01:22 78 18 142/78 99 07/21/17 00:04 98.1 F 86 18 146/78 99 Temperature: Afebrile Blood Pressure: Normal Pulse: Regular Respiratory Rate: Normal Appearance: Positive for: Comfortable. No: Non-Toxic (Intoxicated ) Pain Distress: None Mental Status: Positive for: Alert and Oriented X 3 - Systems Exam Head: Present: Atraumatic, Normocephalic Pupils: Present: PERRL Extroacular Muscles: Present: EOMI Conjunctiva: Present: Normal Mouth: Present: Moist Mucous Membranes Neck: Present: Normal Range of Motion Respiratory/Chest: Present: Clear to Auscultation, Good Air Exchange. No: Respiratory Distress, Accessory Muscle Use Cardiovascular: Present: Regular Rate and Rhythm, Normal S1, S2. No: Murmurs Abdomen: No: Tenderness, Distention, Peritoneal Signs Back: Present: Normal Inspection Upper Extremity: Present: Normal Inspection. No: Cyanosis, Edema Lower Extremity: Present: Normal Inspection. No: Edema Neurological: Present: GCS=15, CN II-XII Intact, Speech Normal Skin: Present: Warm, Dry, Normal Color. No: Rashes Psychiatric: Present: Alert, Oriented x 3, Normal Insight, Normal Concentration Medical Decision Making ED Course and Treatment: 07/21/17 00:00 Impression: A 51 year old male is brought into the emergency department via EMS for alcohol intoxication. Plan: -- Reassess and disposition Progress Notes: 07/21/17 19:59 awake alert ambulatory steady gati - Scribe Statement The provider has reviewed the documentation as recorded by the Scribe Maura Bhandari Provider Scribe Attestation: All medical record entries made by the Scribe were at my direction and personally dictated by me. I have reviewed the chart and agree that the record accurately reflects my personal performance of the history, physical exam, medical decision making, and the department course for this patient. I have also personally directed, reviewed, and agree with the discharge instructions and disposition. Disposition/Present on Arrival - Present on Arrival Any Indicators Present on Arrival: No History of DVT/PE: No History of Uncontrolled Diabetes: No Urinary Catheter: No History Surgical Site Infection Following: None - Disposition Have Diagnosis and Disposition been Completed?: Yes Diagnosis: Alcohol abuse Disposition: HOME/ ROUTINE Disposition Time: 06:00 Condition: STABLE Discharge Instructions (ExitCare): Alcohol Abuse and Alcoholism (DC) Additional Instructions: return to er with worsening symptoms or concerns. Forms: [employer] (Sami)
[2017-07-21 00:07] VITALS: RESP 18
[2017-07-21 04:16] VITALS: TEMP 98.2; O2SAT 100
[2017-07-21 06:51] VITALS: BP 132/72; PULSE 69
== END 2017-07-21 06:00 | disposition home or self-care (01) ==
LOC: ED 23:21
DX: F10.129 Alcohol abuse with intoxication, unspecified (principal); I10 Essential (primary) hypertension; Z87.891 Personal history of nicotine dependence

== ENCOUNTER 2017-08-04 18:24 | Emergency (ER) | payer SELFPAY ==
[2017-08-04 18:25] VITALS: BMI 22.7
[2017-08-04 18:38] VITALS: BP 128/89; RESP 18; TEMP 98.2; O2SAT 98
--- NOTE | 2017-08-04 19:00 | ED PDOC ---
Arrival/HPI - General Chief Complaint: Alcohol Ingestion Time Seen by Provider: 08/04/17 18:32 Historian: Patient - History of Present Illness Narrative History of Present Illness (Text): 08/04/17 18:57 51yo male with history of alcohol abuse, well known to the emergency department bib the EMS for alcohol intoxication. Patient states he drank alcohol today and was sleeping in a park, when EMS came and picked him up. He is AAO x3 in Ed and denies any somatic complaint. Denies SI/HI, any other complaint. Past Medical History - Provider Review Nursing Documentation Reviewed: Yes - Infectious Disease Hx of Infectious Diseases: None - Tetanus Immunization Tetanus Immunization: Unknown - Past Medical History Past Medical History: Unable to Obtain - Cardiac Hx Cardiac Disorders: Yes Hx Hypertension: Yes - Pulmonary Hx Respiratory Disorders: No - Neurological Hx Neurological Disorder: Yes Hx Transient Ischemic Attacks (TIA): Yes - HEENT Hx HEENT Disorder: No - Renal Hx Renal Disorder: No - Endocrine/Metabolic Hx Endocrine Disorders: No - Hematological/Oncological Hx Blood Disorders: No - Integumentary Hx Dermatological Disorder: No - Musculoskeletal/Rheumatological Hx Musculoskeletal Disorders: Yes Hx Falls: Yes (2 yrs ago fell 0ff ladder) - Gastrointestinal Hx Gastrointestinal Disorders: No - Genitourinary/Gynecological Hx Genitourinary Disorders: No - Psychiatric Hx Psychophysiologic Disorder: No Hx Substance Use: No - Past Surgical History Past Surgical History: Unable to Obtain - Surgical History Hx Musculoskeletal Surgery: Yes (right hip and hand, facial fracture repair) Other/Comment: right wrist injury, bone marrow taken from right hip and inserted into fx bone in right hand along with metal, metal has since been removed, 23 yrs ago at [facility] - Anesthesia Hx Anesthesia: Yes Hx Anesthesia Reactions: No Hx Malignant Hyperthermia: No - Suicidal Assessment Feels Threatened In Home Enviroment: No Family/Social History - Physician Review Nursing Documentation Reviewed: Yes Family/Social History: Unknown Family HX Smoking Status: Former Smoker Hx Alcohol Use: Yes (DRINKS 2 PINTS OF VODKA DAILY. LAST DRANK 3 D AGO.2 PINTS OF VODKA AND LIQU) Frequency of alcohol use: Daily Hx Substance Use: No Hx Substance Use Treatment: No Allergies/Home Meds Allergies/Adverse Reactions: Allergies coconut Allergy (Verified 08/04/17 18:31) RASH coconut oil Allergy (Verified 08/04/17 18:31) RASH cranberry Allergy (Verified 08/04/17 18:31) SWELLING Home Medications: Home Meds Medication Instructions Recorded Confirmed Unobtainable 04/20/17 08/04/17 Review of Systems - Physician Review All systems were reviewed & negative as marked: Yes - Review of Systems Constitutional: Normal, Other (Alcohol intoxication) Eyes: Normal ENT: Normal Respiratory: Normal Cardiovascular: Normal Gastrointestinal: Normal Genitourinary Male: Normal Musculoskeletal: Normal Skin: Normal Neurological: Normal Endocrine: Normal Hemo/Lymphatic: Normal Psychiatric: Normal Physical Exam Vital Signs Reviewed: Yes Vital Signs Temp Pulse Resp BP Pulse Ox 08/04/17 18:25 98.2 F 78 18 128/89 98 Temperature: Afebrile Blood Pressure: Normal Pulse: Regular Respiratory Rate: Normal Appearance: Positive for: Well-Appearing, Non-Toxic, Comfortable, Other ( alcohol breathe) Pain Distress: None Mental Status: Positive for: Alert and Oriented X 3 - Systems Exam Head: Present: Atraumatic, Normocephalic Pupils: Present: PERRL Extroacular Muscles: Present: EOMI Conjunctiva: Present: Normal Mouth: Present: Moist Mucous Membranes Neck: Present: Normal Range of Motion Respiratory/Chest: Present: Clear to Auscultation, Good Air Exchange. No: Respiratory Distress, Accessory Muscle Use Cardiovascular: Present: Regular Rate and Rhythm, Normal S1, S2. No: Murmurs Abdomen: No: Tenderness, Distention, Peritoneal Signs Back: Present: Normal Inspection Upper Extremity: Present: Normal Inspection. No: Cyanosis, Edema Lower Extremity: Present: Normal Inspection. No: Edema Neurological: Present: GCS=15, CN II-XII Intact, Speech Normal Skin: Present: Warm, Dry, Normal Color. No: Rashes Psychiatric: Present: Alert, Oriented x 3, Normal Insight, Normal Concentration Medical Decision Making ED Course and Treatment: 08/04/17 18:59 Pt was AAO x3 in emergency department . He was ambulatory with steady gait, without help. He was hemodynamically stable and in no distress. He requested to be DC home and is stable for DC. He was picked up from emergency department by his girlfriend. Disposition/Present on Arrival - Present on Arrival Any Indicators Present on Arrival: No History of DVT/PE: No History of Uncontrolled Diabetes: No Urinary Catheter: No History of Decub. Ulcer: No History Surgical Site Infection Following: None - Disposition Have Diagnosis and Disposition been Completed?: Yes Diagnosis: Alcohol abuse Disposition: HOME/ ROUTINE Disposition Time: 19:00 Patient Plan: Discharge Condition: STABLE Discharge Instructions (ExitCare): Alcohol Abuse and Alcoholism (DC) Additional Instructions: Follow up with your Doctor/AA Return to emergency department for any new symptoms Referrals: Alcoholics Anonymous [Outside] - Follow up with primary Forms: [employer] (Bulgarian)
[2017-08-04 20:15] VITALS: PULSE 88
== END 2017-08-04 19:00 | disposition home or self-care (01) ==
LOC: ED 18:24
DX: F10.129 Alcohol abuse with intoxication, unspecified (principal); I10 Essential (primary) hypertension; Z87.891 Personal history of nicotine dependence

== ENCOUNTER 2017-08-06 00:49 | Emergency (ER) | payer OTHER ==
[2017-08-06 00:56] VITALS: BMI 25.8
[2017-08-06 01:03] VITALS: TEMP 98.3
--- NOTE | 2017-08-06 01:19 | ED PDOC ---
Arrival/HPI - General Chief Complaint: Alcohol Ingestion Time Seen by Provider: 08/06/17 00:51 Historian: Patient, EMS - History of Present Illness Narrative History of Present Illness (Text): 08/06/17 01:16 51 year old male, whose past medical history includes alcohol abuse, presents to the Emergency department while intoxicated. Patient was found sleeping outside by the police who called emergency services. Patient denies any fever, chills, chest pain, shortness of breath, nausea, vomiting, diarrhea, urinary symptoms, back pain, neck pain, headache, dizziness, or any other complaints. Time/Duration: Prior to Arrival Symptom Onset: Gradual Symptom Course: Improving Activities at Onset: Rest Past Medical History - Provider Review Nursing Documentation Reviewed: Yes - Infectious Disease Hx of Infectious Diseases: None - Tetanus Immunization Tetanus Immunization: Unknown - Past Medical History Past Medical History: Unable to Obtain - Cardiac Hx Cardiac Disorders: Yes Hx Hypertension: Yes - Pulmonary Hx Respiratory Disorders: No - Neurological Hx Neurological Disorder: Yes Hx Transient Ischemic Attacks (TIA): Yes - HEENT Hx HEENT Disorder: No - Renal Hx Renal Disorder: No - Endocrine/Metabolic Hx Endocrine Disorders: No - Hematological/Oncological Hx Blood Disorders: No - Integumentary Hx Dermatological Disorder: No - Musculoskeletal/Rheumatological Hx Musculoskeletal Disorders: Yes Hx Falls: Yes (2 yrs ago fell 0ff ladder) - Gastrointestinal Hx Gastrointestinal Disorders: No - Genitourinary/Gynecological Hx Genitourinary Disorders: No - Psychiatric Hx Psychophysiologic Disorder: No Hx Substance Use: No - Past Surgical History Past Surgical History: Unable to Obtain - Surgical History Hx Musculoskeletal Surgery: Yes (right hip and hand, facial fracture repair) Other/Comment: right wrist injury, bone marrow taken from right hip and inserted into fx bone in right hand along with metal, metal has since been removed, 23 yrs ago at [facility] - Anesthesia Hx Anesthesia: Yes Hx Anesthesia Reactions: No Hx Malignant Hyperthermia: No - Suicidal Assessment Feels Threatened In Home Enviroment: No Family/Social History - Physician Review Nursing Documentation Reviewed: Yes Family/Social History: Unknown Family HX Smoking Status: Former Smoker Hx Alcohol Use: Yes (DRINKS 2 PINTS OF VODKA DAILY. LAST DRANK 3 D AGO.2 PINTS OF VODKA AND LIQU) Hx Substance Use: No Hx Substance Use Treatment: No Allergies/Home Meds Allergies/Adverse Reactions: Allergies coconut Allergy (Verified 08/06/17 00:57) RASH coconut oil Allergy (Verified 08/06/17 00:57) RASH cranberry Allergy (Verified 08/06/17 00:57) SWELLING Home Medications: Home Meds Medication Instructions Recorded Confirmed Unobtainable 04/20/17 08/06/17 Review of Systems - Physician Review All systems were reviewed & negative as marked: Yes - Review of Systems Constitutional: Other (alcohol intoxication). absent: Fevers, Night Sweats Respiratory: absent: SOB Cardiovascular: absent: Chest Pain Gastrointestinal: absent: Diarrhea, Nausea, Vomiting Genitourinary Male: absent: Dysuria Musculoskeletal: absent: Back Pain, Neck Pain Neurological: absent: Headache, Dizziness Physical Exam Vital Signs Reviewed: Yes Vital Signs Temp Pulse Resp BP Pulse Ox 08/06/17 01:02 98.3 F 88 16 145/88 99 Temperature: Afebrile Blood Pressure: Normal Pulse: Regular Respiratory Rate: Normal Appearance: Positive for: Well-Appearing, Non-Toxic, Comfortable Pain Distress: None Mental Status: Positive for: Alert and Oriented X 3 - Systems Exam Head: Present: Atraumatic, Normocephalic Pupils: Present: PERRL Extroacular Muscles: Present: EOMI Conjunctiva: Present: Normal Mouth: Present: Moist Mucous Membranes, Other (EtOH on breath) Neck: Present: Normal Range of Motion Respiratory/Chest: Present: Clear to Auscultation, Good Air Exchange. No: Respiratory Distress, Accessory Muscle Use Cardiovascular: Present: Regular Rate and Rhythm, Normal S1, S2. No: Murmurs Abdomen: No: Tenderness, Distention, Peritoneal Signs Back: Present: Normal Inspection Upper Extremity: Present: Normal Inspection. No: Cyanosis, Edema Lower Extremity: Present: Normal Inspection. No: Edema Neurological: Present: GCS=15, CN II-XII Intact, Speech Normal Skin: Present: Warm, Dry, Normal Color. No: Rashes Psychiatric: Present: Alert, Oriented x 3, Normal Insight, Normal Concentration Medical Decision Making ED Course and Treatment: 08/06/17 01:19 Impression: 51 year old male presents to the Emergency department due to alcohol intoxication. Differential Diagnosis included but are not limited to: alcohol abuse Plan: -- Reassess and disposition Prior Visits: Notes and results from previous visits were reviewed. Patient was last seen in the emergency department on 08/04/17 and 07/20/17 for alcohol abuse and was discharged home. 08/04/17 and 07/20/17 for alcohol abuse and was discharged home. Progress Notes: - Scribe Statement The provider has reviewed the documentation as recorded by the Dara Peacock Provider Scribe Attestation: All medical record entries made by the Scribe were at my direction and personally dictated by me. I have reviewed the chart and agree that the record accurately reflects my personal performance of the history, physical exam, medical decision making, and the department course for this patient. I have also personally directed, reviewed, and agree with the discharge instructions and disposition. Disposition/Present on Arrival - Present on Arrival Any Indicators Present on Arrival: No History of DVT/PE: No History of Uncontrolled Diabetes: No Urinary Catheter: No History of Decub. Ulcer: No History Surgical Site Infection Following: None - Disposition Have Diagnosis and Disposition been Completed?: Yes Diagnosis: Alcohol abuse Disposition: HOME/ ROUTINE Disposition Time: 06:00 Patient Plan: Discharge Condition: GOOD Discharge Instructions (ExitCare): Alcohol Abuse and Alcoholism (DC) Forms: [employer] (Chinese)
[2017-08-06 06:13] VITALS: BP 165/85; PULSE 90; RESP 18; O2SAT 100
== END 2017-08-06 06:40 | disposition home or self-care (01) ==
LOC: ED 00:49
DX: F10.129 Alcohol abuse with intoxication, unspecified (principal); I10 Essential (primary) hypertension; Z87.891 Personal history of nicotine dependence

== ENCOUNTER 2017-08-16 14:39 | Emergency (ER) | payer SELFPAY ==
[2017-08-16 14:40] VITALS: BMI 25.8
[2017-08-16 14:48] VITALS: TEMP 98.3
--- NOTE | 2017-08-16 15:13 | ED PDOC ---
Arrival/HPI - General Chief Complaint: Alcohol Ingestion Time Seen by Provider: 08/16/17 15:08 Historian: Patient - History of Present Illness Narrative History of Present Illness (Text): 08/16/17 15:09 51 year old male, pmh including htn/tia, psychiatric history including alcohol abuse, nkda, biba for etoh intoxication with etoh on breath. Pt. stated that he was drinking, sitting on the street, no fall or trauma, no head or neck injury, no fever or chills, no night sweat, no rash, no numbness or tingling, no abdominal or pelvic pain, no fall or trauma, no nausea or vomiting, no headache or neck/back pain, no other medical or psychological complaints. Past Medical History - Provider Review Nursing Documentation Reviewed: Yes - Infectious Disease Hx of Infectious Diseases: None - Tetanus Immunization Tetanus Immunization: Unknown - Past Medical History Past Medical History: Unable to Obtain - Cardiac Hx Cardiac Disorders: Yes Hx Hypertension: Yes - Pulmonary Hx Respiratory Disorders: No - Neurological Hx Neurological Disorder: Yes Hx Transient Ischemic Attacks (TIA): Yes - HEENT Hx HEENT Disorder: No - Renal Hx Renal Disorder: No - Endocrine/Metabolic Hx Endocrine Disorders: No - Hematological/Oncological Hx Blood Disorders: No - Integumentary Hx Dermatological Disorder: No - Musculoskeletal/Rheumatological Hx Musculoskeletal Disorders: Yes Hx Falls: Yes (2 yrs ago fell 0ff ladder) - Gastrointestinal Hx Gastrointestinal Disorders: No - Genitourinary/Gynecological Hx Genitourinary Disorders: No - Psychiatric Hx Psychophysiologic Disorder: No Hx Substance Use: No - Past Surgical History Past Surgical History: Unable to Obtain - Surgical History Hx Musculoskeletal Surgery: Yes (right hip and hand, facial fracture repair) Other/Comment: right wrist injury, bone marrow taken from right hip and inserted into fx bone in right hand along with metal, metal has since been removed, 23 yrs ago at [facility] - Anesthesia Hx Anesthesia: Yes Hx Anesthesia Reactions: No Hx Malignant Hyperthermia: No - Suicidal Assessment Feels Threatened In Home Enviroment: No Family/Social History - Physician Review Nursing Documentation Reviewed: Yes Family/Social History: Unknown Family HX Smoking Status: Former Smoker Hx Alcohol Use: Yes (DRINKS 2 PINTS OF VODKA DAILY. LAST DRANK 3 D AGO.2 PINTS OF VODKA AND LIQU) Hx Substance Use: No Hx Substance Use Treatment: No Allergies/Home Meds Allergies/Adverse Reactions: Allergies coconut Allergy (Verified 08/16/17 14:54) RASH coconut oil Allergy (Verified 08/16/17 14:54) RASH cranberry Allergy (Verified 08/16/17 14:54) SWELLING Home Medications: Home Meds Medication Instructions Recorded Confirmed Unobtainable 04/20/17 08/16/17 Review of Systems - Review of Systems Constitutional: absent: Fatigue, Fevers Eyes: absent: Vision Changes ENT: absent: Hearing Changes Respiratory: absent: SOB Cardiovascular: absent: Chest Pain Gastrointestinal: absent: Abdominal Pain, Nausea, Vomiting Musculoskeletal: absent: Arthralgias, Back Pain, Neck Pain, Myalgias Neurological: absent: Headache, Dizziness, Seizure Psychiatric: absent: Anxiety, Depression, Suicidal Ideation Physical Exam Vital Signs Reviewed: Yes Vital Signs Temp Pulse Resp BP Pulse Ox 08/16/17 19:27 81 18 117/65 98 08/16/17 17:12 75 18 114/67 95 08/16/17 14:40 98.3 F 80 19 112/63 93 L Temperature: Afebrile Blood Pressure: Normal Pulse: Regular Respiratory Rate: Normal Appearance: Positive for: Well-Appearing, Non-Toxic, Comfortable Pain Distress: None - Systems Exam Head: Present: Atraumatic, Normocephalic, Other (no facial bony tenderness or swelling. ). No: Tenderness, Contusion, Swelling, Ecchymosis, Abrasion, Laceration Pupils: Present: PERRL Extroacular Muscles: Present: EOMI Conjunctiva: Present: Normal Ears: Present: NORMAL TM, Normal Canal Mouth: Present: Moist Mucous Membranes Pharnyx: No: ERYTHEMA, EXUDATE, TONSILS ENLARGED, Uvular Deviation, Muffled/ Hoarse Voice, Soft Palate/Uvular Edema Nose (External): Present: Atraumatic. No: Abrasion, Contusion, Laceration Nose (Internal): Present: Normal Inspection, No Active Bleeding. No: Rhinorrhea , Septal Hematoma, Epistaxis Neck: Present: Normal Range of Motion, Trachea Midline. No: MIDLINE TENDERNESS , Paraspinal Tenderness, Lymphadenopathy Respiratory/Chest: Present: Clear to Auscultation, Good Air Exchange. No: Respiratory Distress, Accessory Muscle Use, Wheezes, Decreased Breath Sounds, Rales, Retracting, Rhonchi, Tachypneic Cardiovascular: Present: Regular Rate and Rhythm, Normal S1, S2. No: Murmurs Abdomen: No: Tenderness, Distention, Peritoneal Signs, Rebound, Guarding Back: Present: Normal Inspection Upper Extremity: Present: Normal Inspection, Normal ROM, NORMAL PULSES, Neurovascularly Intact, Capillary Refill < 2s. No: Cyanosis, Edema, Deformity Lower Extremity: Present: Normal Inspection, Normal ROM, Neurovascularly Intact , Capillary Refill < 2 s. No: Edema, Tenderness, Swelling, Deformity Neurological: Present: GCS=15, CN II-XII Intact, Motor Func Grossly Intact, Memory Normal Skin: Present: Warm, Dry, Normal Color. No: Rashes Psychiatric: Present: Alert, Oriented x 3, Normal Insight, Normal Concentration Medical Decision Making ED Course and Treatment: 08/16/17 15:17 -Labs -IV banana bag -Observe and reassess 08/16/17 17:25 -Labs are non-significant, magnesium and potassium within normal limit, mild elevation of Na 149 but eating and drinking well. -Pt. sleeping well, easily arousable, will continue to monitor. 08/16/17 19:38 -Pt. is clinically sober, walking with normal gait and posture, food and drink given, request to be discharged home. Pt. stated that he feels well, no fall or trauma, no pain or discomfort, no hand tremors or facial twitching, no GI symptoms. -Discharge home with education on avoid drinking in public, follow up with your own pmd within 2 days, return to the ER for any new or worsening signs or symptoms. - Lab Interpretations Lab Results: 08/16/17 16:55 08/16/17 16:55 Lab Results 08/16/17 16:55: WBC 6.4, RBC 4.04, Hgb 13.4 L, Hct 38.2 L, MCV 94.6, MCH 33.2, MCHC 35.1, RDW 13.3, Plt Count 301, MPV 9.1, Gran % 62.4, Lymph % (Auto) 26.9, [place] % (Auto) 8.1 H, Eos % (Auto) 2.3, Baso % (Auto) 0.3, Gran # 4.02, Lymph # ( Auto) 1.7, [place] # (Auto) 0.5, Eos # (Auto) 0.2, Baso # (Auto) 0.02 08/16/17 16:55: Sodium 149 H, Potassium 4.2, Chloride 112 H, Carbon Dioxide 22, Anion Gap 19, BUN 17, Creatinine 1.1, Est GFR ( Amer) > 60, Est GFR (Non- Af Amer) > 60, Random Glucose 84, Calcium 8.5, Magnesium 2.0, Total Bilirubin 0.1 L, AST 33, ALT 18, Alkaline Phosphatase 61, Total Creatine Kinase 178, Total Protein 6.8, Albumin 3.8, Globulin 3.0, Albumin/Globulin Ratio 1.3 - Medication Orders Current Medication Orders: Discontinued Medications Multivitamins/Vitamin C 10 ml/Thiamine HCl 100 mg/ Folic Acid 1 mg/ Dextrose 1, 011.2 mls @ 1,000 mls/hr IV .Q1H1M ONE Stop: 08/16/17 16:18 Last Admin: 08/16/17 15:50 Dose: 1,000 mls/hr eMAR Start Stop Document 08/16/17 15:50 [email or web address] (Rec: 08/16/17 18:03 [email or web address] [id number]) Intravenous Solution Start Date 08/16/17 Start Time 15:50 End Date 08/16/17 - PA / INDUSTRIAL ENGINEERING TECHNICIAN / Resident Statement /DO has reviewed & agrees with the documentation as recorded. Disposition/Present on Arrival - Present on Arrival Any Indicators Present on Arrival: No History of DVT/PE: No History of Uncontrolled Diabetes: No Urinary Catheter: No History of Decub. Ulcer: No History Surgical Site Infection Following: None - Disposition Have Diagnosis and Disposition been Completed?: Yes Diagnosis: Alcohol intoxication Disposition: HOME/ ROUTINE Disposition Time: 15:18 Patient Plan: Discharge Condition: GOOD Additional Instructions: -Discharge home with education on avoid drinking in public, follow up with your own pmd within 2 days, return to the ER for any new or worsening signs or symptoms. Referrals: [facility] at [facility] [Outside] - Follow up with primary Forms: WORK NOTE
[2017-08-16] MEDS ORDERED: Multivitamin (MVI) 10 ML, Thiamine 100 MG, Folic Acid 1 MG in Dextrose 5% In Water 1,00... IV ONE (15:18)
[2017-08-16 17:08] LABS: BASO # 0.02 K/mm3 (0.0-2.0); BASO % 0.3 % (0.0-3.0); EOS # 0.2 (0.0-0.7); EOS % 2.3 % (1.5-5.0); GRAN # 4.02 (1.4-6.5); GRAN % 62.4 % (50.0-68.0); HEMOGLOBIN 13.4 g/dL (14.0-18.0); LYMPH # 1.7 (1.2-3.4); LYMPH % 26.9 % (22.0-35.0); MEAN CELL VOLUME 94.6 fl (80.0-105.0); MEAN CORPUSCULAR HEMOGLOBIN 33.2 pg (25.0-35.0); MEAN CORPUSCULAR HGB CONC 35.1 g/dl (31.0-37.0); MEAN PLATELET VOLUME 9.1 fl (7.0-11.0); MONO # 0.5 (0.1-0.6); MONO % 8.1 % (1.0-6.0); RBC 4.04 10^6/uL (3.5-6.1); RED CELL DISTRIBUTION WIDTH 13.3 % (11.5-14.5); WHITE BLOOD COUNT 6.4 10^3/ul (4.5-11.0)
[2017-08-16 17:12] VITALS: RESP 18
[2017-08-16 17:19] LABS: ALB/GLOB RATIO 1.3 (1.1-1.8); ALBUMIN 3.8 g/dL (3.0-4.8); ALT/SGPT 18 U/L (7-56); AST/SGOT 33 U/L (17-59); BLOOD UREA NITROGEN 17 mg/dL (7-21); CALCIUM 8.5 mg/dL (8.4-10.5); GFR AFRICAN-AMERICAN > 60; GFR NON-AFRICAN AMERICAN > 60
[2017-08-16 19:29] VITALS: BP 117/65; PULSE 81; O2SAT 98
== END 2017-08-16 19:47 | disposition home or self-care (01) ==
LOC: ED 14:39
DX: F10.129 Alcohol abuse with intoxication, unspecified (principal); I10 Essential (primary) hypertension; Z86.73 Personal history of transient ischemic attack (TIA), and cerebral infarction without residual deficits; Z87.891 Personal history of nicotine dependence
CPT/HCPCS: 80053; 82550; 83735; 85025; 99284; J3411; J7070

== ENCOUNTER 2017-08-18 12:29 | Emergency (ER) | payer SELFPAY ==
[2017-08-18 12:29] VITALS: BMI 25.8
--- NOTE | 2017-08-18 12:51 | ED PDOC ---
Arrival/HPI - General Chief Complaint: Alcohol Ingestion Time Seen by Provider: 08/18/17 12:38 Historian: Patient, EMS - History of Present Illness Narrative History of Present Illness (Text): 08/18/17 12:40 51 year old male, whose PMH includes HTn, TIA psychiatric history including alcohol abuse, nkda, biba for etoh intoxication, who presents to the emergency department via EMS s/p being found on the street. Patient states he was drinking both beer and hard liquor. Patient denies fall or trauma, no head or neck injury, no fever or chills, no night sweat, no rash, no numbness or tingling, no abdominal or pelvic pain, no fall or trauma, no nausea or vomiting , no headache or neck/back pain, no other medical or psychological complaints. Time/Duration: Prior to Arrival Symptom Onset: Sudden Symptom Course: Unchanged Context: Street Past Medical History - Provider Review Nursing Documentation Reviewed: Yes - Infectious Disease Hx of Infectious Diseases: None - Tetanus Immunization Tetanus Immunization: Unknown - Past Medical History Past Medical History: Unable to Obtain - Cardiac Hx Cardiac Disorders: Yes Hx Hypertension: Yes - Pulmonary Hx Respiratory Disorders: No - Neurological Hx Neurological Disorder: Yes Hx Transient Ischemic Attacks (TIA): Yes - HEENT Hx HEENT Disorder: No - Renal Hx Renal Disorder: No - Endocrine/Metabolic Hx Endocrine Disorders: No - Hematological/Oncological Hx Blood Disorders: No - Integumentary Hx Dermatological Disorder: No - Musculoskeletal/Rheumatological Hx Musculoskeletal Disorders: Yes Hx Falls: Yes (2 yrs ago fell 0ff ladder) - Gastrointestinal Hx Gastrointestinal Disorders: No - Genitourinary/Gynecological Hx Genitourinary Disorders: No - Psychiatric Hx Psychophysiologic Disorder: No Hx Substance Use: No - Past Surgical History Past Surgical History: Unable to Obtain - Surgical History Hx Musculoskeletal Surgery: Yes (right hip and hand, facial fracture repair) Other/Comment: right wrist injury, bone marrow taken from right hip and inserted into fx bone in right hand along with metal, metal has since been removed, 23 yrs ago at [facility] - Anesthesia Hx Anesthesia: Yes Hx Anesthesia Reactions: No Hx Malignant Hyperthermia: No - Suicidal Assessment Feels Threatened In Home Enviroment: No Family/Social History - Physician Review Nursing Documentation Reviewed: Yes Family/Social History: Unknown Family HX Smoking Status: Former Smoker Hx Alcohol Use: Yes (DRINKS 2 PINTS OF VODKA DAILY. LAST DRANK 3 D AGO.2 PINTS OF VODKA AND LIQU) Hx Substance Use: No Hx Substance Use Treatment: No Allergies/Home Meds Allergies/Adverse Reactions: Allergies coconut Allergy (Verified 08/18/17 12:39) RASH coconut oil Allergy (Verified 08/18/17 12:39) RASH cranberry Allergy (Verified 08/18/17 12:39) SWELLING Home Medications: Home Meds Medication Instructions Recorded Confirmed RX: Unobtainable 04/20/17 08/18/17 Review of Systems - Physician Review All systems were reviewed & negative as marked: Yes - Review of Systems Systems not reviewed;Unavailable: Intoxicated Respiratory: absent: SOB Cardiovascular: absent: Chest Pain Gastrointestinal: absent: Abdominal Pain Psychiatric: absent: Suicidal Ideation Physical Exam Vital Signs Reviewed: Yes Vital Signs Temp Pulse Resp BP Pulse Ox 08/18/17 12:39 98.4 F 89 16 147/88 94 L Temperature: Afebrile Blood Pressure: Normal Pulse: Regular Respiratory Rate: Normal Appearance: Positive for: Comfortable Pain Distress: None Finger Stick Blood Glucose: 84 - Systems Exam Head: Present: Atraumatic, Normocephalic Pupils: Present: PERRL Extroacular Muscles: Present: EOMI Conjunctiva: Present: Normal Respiratory/Chest: Present: Clear to Auscultation, Good Air Exchange. No: Respiratory Distress, Accessory Muscle Use, Wheezes, Decreased Breath Sounds, Rales, Retracting, Rhonchi Cardiovascular: Present: Regular Rate and Rhythm, Normal S1, S2. No: Murmurs Abdomen: Present: Normal Bowel Sounds. No: Tenderness, Distention, Peritoneal Signs, Rebound, Guarding Neurological: Present: GCS=15, CN II-XII Intact, Speech Normal, Motor Func Grossly Intact, Normal Sensory Function Skin: Present: Warm, Dry, Normal Color. No: Rashes Psychiatric: Present: Alert, Intoxicated Medical Decision Making ED Course and Treatment: 08/18/17 Impression: 51 year old male intoxicated and PMH of ETOH abuse. Differential Diagnosis included but are not limited to: ETOH intoxication Plan: -- Labs -- Reassess and disposition Progress Notes: 08/18/17 16:09 Patient is now AAOx3. No slurred speech. No ataxia. He denies SI or HI. He will be advised to attend an alcohol detox program and to make sure to follow up with the clinic, Dr. Sandhu in 1-2 day.s - Lab Interpretations Lab Results: Lab Results 08/18/17 12:44: POC Glucose (mg/dL) 84 I have reviewed the lab results: Yes - Scribe Statement The provider has reviewed the documentation as recorded by the Scribe Tish Maloney Provider Scribe Attestation: All medical record entries made by the Scribe were at my direction and personally dictated by me. I have reviewed the chart and agree that the record accurately reflects my personal performance of the history, physical exam, medical decision making, and the department course for this patient. I have also personally directed, reviewed, and agree with the discharge instructions and disposition. Disposition/Present on Arrival - Present on Arrival Any Indicators Present on Arrival: No History of DVT/PE: No History of Uncontrolled Diabetes: No Urinary Catheter: No History of Decub. Ulcer: No History Surgical Site Infection Following: None - Disposition Have Diagnosis and Disposition been Completed?: Yes Diagnosis: Alcohol intoxication Disposition: HOME/ ROUTINE Disposition Time: 16:10 Patient Plan: Discharge Patient Problems: Current Active Problems Problem Status Onset Alcohol intoxication Acute Condition: IMPROVED Discharge Instructions (ExitCare): Alcohol Abuse and Alcoholism (DC) Additional Instructions: ANDREEA TILLEY, thank you for letting us take care of you today. Your provider was Benjamín Tovar DO and you were treated for Alcohol intoxication. The emergency medical care you received today was directed at your acute symptoms. If you were prescribed any medication, please fill it and take as directed. It may take several days for your symptoms to resolve. Return to the Emergency Department if your symptoms worsen, do not improve, or if you have any other problems. Please contact your doctor or call one of the physicians/clinics you have been referred to that are listed on the Patient Visit Information form that is included in your discharge packet. Bring any paperwork you were given at discharge with you along with any medications you are taking to your follow up visit. Our treatment cannot replace ongoing medical care by a primary care provider outside of the emergency department. Thank you for allowing the [facility] team to be part of your care today. If you had an X-Ray or CT scan: A Radiologist will review the ED reading if any change in treatment is needed we will contact you. If you had a blood, urine, or wound culture: It will take several days for the results, if any change in treatment is needed we will contact you. If you had an STI test: It will take 48 hours for the results. Please call after 1 week if you have not heard back. Referrals: Ilana Sandhu MD [Staff Provider] - Follow up with primary Forms: [employer] (Serbian)
[2017-08-18 16:13] VITALS: RESP 18; TEMP 98.5; O2SAT 99
[2017-08-18 16:14] VITALS: BP 130/77; PULSE 78
== END 2017-08-18 16:13 | disposition home or self-care (01) ==
LOC: ED 12:29
DX: F10.129 Alcohol abuse with intoxication, unspecified (principal); I10 Essential (primary) hypertension; Z87.891 Personal history of nicotine dependence

== ENCOUNTER 2017-08-24 11:17 | Emergency (ER) | payer SELFPAY ==
[2017-08-24 11:18] VITALS: BMI 25.8
[2017-08-24 11:58] VITALS: RESP 18; TEMP 97.8; O2SAT 99
[2017-08-24] MEDS ORDERED: Thiamine 100 mg/ml Inj IM STA (12:10)
--- NOTE | 2017-08-24 13:14 | ED PDOC ---
Arrival/HPI - General Chief Complaint: Alcohol Ingestion Time Seen by Provider: 08/24/17 11:40 Historian: Patient - History of Present Illness Narrative History of Present Illness (Text): 08/24/17 15:16 51-year-old male presents today brought in by ambulance [place]. Patient admits to drinking alcohol last night and again this morning. He denies trauma or injury. He denies headaches dizziness or weakness. Denies chest pain or shortness of breath. Patient denies suicidal or homicidal ideation. No other complaints Time/Duration: Prior to Arrival Past Medical History - Provider Review Nursing Documentation Reviewed: Yes - Travel History Have you recently traveled outside [place] w/in the past 3 mons?: No - Infectious Disease Hx of Infectious Diseases: None - Tetanus Immunization Tetanus Immunization: Unknown - Past Medical History Past Medical History: Unable to Obtain - Cardiac Hx Cardiac Disorders: Yes Hx Hypertension: Yes - Pulmonary Hx Respiratory Disorders: No - Neurological Hx Neurological Disorder: Yes Hx Transient Ischemic Attacks (TIA): Yes - HEENT Hx HEENT Disorder: No - Renal Hx Renal Disorder: No - Endocrine/Metabolic Hx Endocrine Disorders: No - Hematological/Oncological Hx Blood Disorders: No - Integumentary Hx Dermatological Disorder: No - Musculoskeletal/Rheumatological Hx Musculoskeletal Disorders: Yes Hx Falls: Yes (2 yrs ago fell 0ff ladder) - Gastrointestinal Hx Gastrointestinal Disorders: No - Genitourinary/Gynecological Hx Genitourinary Disorders: No - Psychiatric Hx Psychophysiologic Disorder: No Hx Substance Use: No - Past Surgical History Past Surgical History: Unable to Obtain - Surgical History Hx Musculoskeletal Surgery: Yes (right hip and hand, facial fracture repair) Other/Comment: right wrist injury, bone marrow taken from right hip and inserted into fx bone in right hand along with metal, metal has since been removed, 23 yrs ago at [facility] - Anesthesia Hx Anesthesia: Yes Hx Anesthesia Reactions: No Hx Malignant Hyperthermia: No - Suicidal Assessment Feels Threatened In Home Enviroment: No Family/Social History - Physician Review Nursing Documentation Reviewed: Yes Family/Social History: Unknown Family HX Smoking Status: Former Smoker Hx Alcohol Use: Yes (DRINKS 2 PINTS OF VODKA DAILY. LAST DRANK 3 D AGO.2 PINTS OF VODKA AND LIQU) Hx Substance Use: No Hx Substance Use Treatment: No Allergies/Home Meds Allergies/Adverse Reactions: Allergies coconut Allergy (Verified 08/24/17 11:38) RASH coconut oil Allergy (Verified 08/24/17 11:38) RASH cranberry Allergy (Verified 08/24/17 11:38) SWELLING Home Medications: Home Meds Medication Instructions Recorded Confirmed Unobtainable 04/20/17 08/24/17 Review of Systems - Review of Systems Constitutional: absent: Fatigue, Fevers Respiratory: absent: SOB, Cough Cardiovascular: absent: Chest Pain, Palpitations Gastrointestinal: absent: Abdominal Pain, Nausea, Vomiting Genitourinary Male: absent: Dysuria, Frequency, Hematuria Musculoskeletal: absent: Arthralgias, Back Pain, Neck Pain Skin: absent: Rash, Pruritis Neurological: absent: Headache, Dizziness Psychiatric: absent: Anxiety, Depression, Suicidal Ideation Physical Exam Vital Signs Reviewed: Yes Vital Signs Temp Pulse Resp BP Pulse Ox 08/24/17 11:45 97.8 F 82 18 143/96 H 99 Temperature: Afebrile Blood Pressure: Normal Pulse: Regular Respiratory Rate: Normal Appearance: Positive for: Well-Appearing, Non-Toxic, Comfortable Pain Distress: None Mental Status: Positive for: Alert and Oriented X 3 Finger Stick Blood Glucose: 60 - Systems Exam Head: Present: Atraumatic Mouth: Present: Moist Mucous Membranes Neck: Present: Normal Range of Motion Respiratory/Chest: Present: Clear to Auscultation, Good Air Exchange. No: Respiratory Distress, Accessory Muscle Use Cardiovascular: Present: Regular Rate and Rhythm, Normal S1, S2. No: Murmurs Abdomen: No: Tenderness, Rebound, Guarding Upper Extremity: Present: Normal ROM Lower Extremity: Present: Normal ROM Neurological: Present: GCS=15, Speech Normal Skin: Present: Warm, Dry, Normal Color. No: Rashes Psychiatric: Present: Alert, Oriented x 3 Medical Decision Making ED Course and Treatment: Patient is nontoxic well-appearing no distress with stable vital signs. Patient admits to drinking alcohol today. patient is alert and oriented in no distress. Patient will be observed in the emergency room for sobriety. pt with glucose of 60 on fingerstick. pt given OJ and tray of food. thiamine 100mg IM ordered. 08/24/17 13:13 pt refused blood work. pt has agreed to CT of head ct head; FINDINGS: HEMORRHAGE: No intracranial hemorrhage. BRAIN: No mass effect or edema. No atrophy or chronic microvascular ischemic changes. There is a small well-defined hypodense lesion in the right parietal lobe. This is unchanged VENTRICLES: Unremarkable. No hydrocephalus. CALVARIUM: Unremarkable. PARANASAL SINUSES: Unremarkable as visualized. No significant inflammatory changes. MASTOID AIR CELLS: Unremarkable as visualized. No inflammatory changes. OTHER FINDINGS: None. IMPRESSION: No acute findings pt reassessment; pt is non toxic well appearing; no distress. stable vitals. 08/24/17 14:50 Patient nontoxic well-appearing no distress with stable vital signs ambulating with a steady gait. Patient ate a sandwich and tray of food as well as applesauce and drank 2 glasses of OJ. Patient states he has any and since yesterday. all aspects of this case were discussed the attending of record. Impression: Alcohol intoxication Increase fluids Follow-up with primary care physician within the next 2 days Return if symptoms worsen persist or if new concerning symptoms develop Reassessment Condition: Re-examined, Improved - Lab Interpretations Lab Results: Lab Results 08/24/17 12:00: POC Glucose (mg/dL) 60 L - RAD Interpretation Radiology Orders: 08/24/17 12:12 HEAD W/O CONTRAST [CT] Stat - Medication Orders Current Medication Orders: Discontinued Medications Thiamine HCl (Vitamin B1 Inj) 100 mg IM STAT STA Stop: 08/24/17 12:11 Last Admin: 08/24/17 12:40 Dose: 100 mg IM Administration Charges Document 08/24/17 12:40 JUAN MIGUEL (Rec: 08/24/17 12:55 JUAN MIGUEL [id number]) Injection Site MAR Injection Site Right Deltoid Charges for Administration # of IM Administrations 1 Disposition/Present on Arrival - Present on Arrival Any Indicators Present on Arrival: No History of DVT/PE: No History of Uncontrolled Diabetes: No Urinary Catheter: No History of Decub. Ulcer: No History Surgical Site Infection Following: None - Disposition Have Diagnosis and Disposition been Completed?: Yes Diagnosis: Alcohol intoxication Disposition: HOME/ ROUTINE Disposition Time: 15:15 Patient Plan: Discharge Condition: GOOD Discharge Instructions (ExitCare): Alcohol Abuse and Alcoholism (DC) Additional Instructions: increase fluids follow up with the primary care physician within the next 2 days return if any concerning symptoms develop. Referrals: Ilana Sandhu MD [Staff Provider] - Follow up with primary Forms: [employer] (Gibraltarian)
--- NOTE | 2017-08-24 13:23 | CT ---
Date of service: 08/24/2017 PROCEDURE: CT HEAD WITHOUT CONTRAST. HISTORY: etoh COMPARISON: 03/28/2017 TECHNIQUE: Axial computed tomography images were obtained through the head/brain without intravenous contrast. Radiation dose: Total exam DLP = 854 mGy-cm. This CT exam was performed using one or more of the following dose reduction techniques: Automated exposure control, adjustment of the mA and/or kV according to patient size, and/or use of iterative reconstruction technique. FINDINGS: HEMORRHAGE: No intracranial hemorrhage. BRAIN: No mass effect or edema. No atrophy or chronic microvascular ischemic changes. There is a small well-defined hypodense lesion in the right parietal lobe. This is unchanged VENTRICLES: Unremarkable. No hydrocephalus. CALVARIUM: Unremarkable. PARANASAL SINUSES: Unremarkable as visualized. No significant inflammatory changes. MASTOID AIR CELLS: Unremarkable as visualized. No inflammatory changes. OTHER FINDINGS: None. IMPRESSION: No acute findings
[2017-08-24 16:06] VITALS: BP 149/91; PULSE 82
== END 2017-08-24 15:16 | disposition home or self-care (01) ==
LOC: ED 11:17
DX: F10.129 Alcohol abuse with intoxication, unspecified (principal); I10 Essential (primary) hypertension; Z86.73 Personal history of transient ischemic attack (TIA), and cerebral infarction without residual deficits; Z87.891 Personal history of nicotine dependence
CPT/HCPCS: 70450; 82948; 96372; 99283; J3411

== ENCOUNTER 2017-08-24 20:13 | Emergency (ER) | payer SELFPAY ==
[2017-08-24 20:14] VITALS: BMI 25.8
[2017-08-24 20:27] VITALS: O2SAT 98
--- NOTE | 2017-08-24 20:49 | ED PDOC ---
Arrival/HPI - General Chief Complaint: Alcohol Ingestion Time Seen by Provider: 08/24/17 20:17 Historian: Patient, EMS - History of Present Illness Narrative History of Present Illness (Text): 08/24/17 20:44 A 51 year old male whose past medical history includes alcohol abuse, is brought into the emergency department by EMS for alcohol intoxication. As per EMS, patient was found sitting outdoors intoxicated. Patient admits to drinking alcohol again this evening after drinking all day today. He denies any drug use , fevers, chills, headache, dizziness, chest pain, shortness of breath, dyspnea on exertion, cough, abdominal pain, nausea, vomiting, diarrhea, back pain, neck pain, urinary/bowel changes, or any other somatic complaints. Time/Duration: Prior to Arrival Symptom Onset: Sudden Symptom Course: Unchanged Activities at Onset: Rest, Light Context: Sitting, Street Past Medical History - Provider Review Nursing Documentation Reviewed: Yes - Infectious Disease Hx of Infectious Diseases: None - Tetanus Immunization Tetanus Immunization: Unknown - Past Medical History Past Medical History: Unable to Obtain - Cardiac Hx Cardiac Disorders: Yes Hx Hypertension: Yes - Pulmonary Hx Respiratory Disorders: No - Neurological Hx Neurological Disorder: Yes Hx Transient Ischemic Attacks (TIA): Yes - HEENT Hx HEENT Disorder: No - Renal Hx Renal Disorder: No - Endocrine/Metabolic Hx Endocrine Disorders: No - Hematological/Oncological Hx Blood Disorders: No - Integumentary Hx Dermatological Disorder: No - Musculoskeletal/Rheumatological Hx Musculoskeletal Disorders: Yes Hx Falls: Yes (2 yrs ago fell 0ff ladder) - Gastrointestinal Hx Gastrointestinal Disorders: No - Genitourinary/Gynecological Hx Genitourinary Disorders: No - Psychiatric Hx Psychophysiologic Disorder: No Hx Substance Use: No - Past Surgical History Past Surgical History: Unable to Obtain - Surgical History Hx Musculoskeletal Surgery: Yes (right hip and hand, facial fracture repair) Other/Comment: right wrist injury, bone marrow taken from right hip and inserted into fx bone in right hand along with metal, metal has since been removed, 23 yrs ago at [facility] - Anesthesia Hx Anesthesia: Yes Hx Anesthesia Reactions: No Hx Malignant Hyperthermia: No - Suicidal Assessment Feels Threatened In Home Enviroment: No Family/Social History - Physician Review Nursing Documentation Reviewed: Yes Family/Social History: No Known Family HX Smoking Status: Former Smoker Hx Alcohol Use: Yes (DRINKS 2 PINTS OF VODKA DAILY. LAST DRANK 3 D AGO.2 PINTS OF VODKA AND LIQU) Hx Substance Use: No Hx Substance Use Treatment: No Allergies/Home Meds Allergies/Adverse Reactions: Allergies coconut Allergy (Verified 08/24/17 11:38) RASH coconut oil Allergy (Verified 08/24/17 11:38) RASH cranberry Allergy (Verified 08/24/17 11:38) SWELLING Home Medications: Home Meds Medication Instructions Recorded Confirmed Unobtainable 04/20/17 08/24/17 Review of Systems - Physician Review All systems were reviewed & negative as marked: Yes - Review of Systems Constitutional: absent: Fevers, Night Sweats Respiratory: absent: SOB, Cough Cardiovascular: absent: Chest Pain, GARCIA Gastrointestinal: absent: Abdominal Pain, Stool Changes, Diarrhea, Nausea, Vomiting Genitourinary Male: absent: Urinary Output Changes Musculoskeletal: absent: Back Pain, Neck Pain Neurological: absent: Headache, Dizziness Psychiatric: Other (Alcohol Intoxication) Physical Exam Vital Signs Reviewed: Yes Vital Signs Temp Pulse Resp BP Pulse Ox 08/24/17 20:26 97.3 F L 97 H 16 118/67 98 Temperature: Hypothermic Blood Pressure: Normal Pulse: Tachycardic Respiratory Rate: Normal Appearance: Positive for: Well-Appearing, Non-Toxic, Comfortable Pain Distress: None Mental Status: Positive for: Alert and Oriented X 3 - Systems Exam Head: Present: Atraumatic, Normocephalic Pupils: Present: PERRL Extroacular Muscles: Present: EOMI Conjunctiva: Present: Normal Mouth: Present: Moist Mucous Membranes Neck: Present: Normal Range of Motion Respiratory/Chest: Present: Clear to Auscultation, Good Air Exchange. No: Respiratory Distress, Accessory Muscle Use Cardiovascular: Present: Regular Rate and Rhythm, Normal S1, S2. No: Murmurs Abdomen: No: Tenderness, Distention, Peritoneal Signs Back: Present: Normal Inspection Upper Extremity: Present: Normal Inspection. No: Cyanosis, Edema Lower Extremity: Present: Normal Inspection. No: Edema Neurological: Present: GCS=15, CN II-XII Intact, Speech Normal Skin: Present: Warm, Dry, Normal Color. No: Rashes Psychiatric: Present: Alert, Oriented x 3, Normal Insight, Normal Concentration , Intoxicated Medical Decision Making ED Course and Treatment: 08/24/17 20:51 Impression: A 51 year old male is brought into the emergency department via EMS for alcohol intoxication. Plan: -- Reassess and disposition Progress Notes: 08/25/17 06:13 Patient is awake alert sober with steady gait. - Scribe Statement The provider has reviewed the documentation as recorded by the Scribe Maura Bhandari Provider Scribe Attestation: All medical record entries made by the Scribe were at my direction and personally dictated by me. I have reviewed the chart and agree that the record accurately reflects my personal performance of the history, physical exam, medical decision making, and the department course for this patient. I have also personally directed, reviewed, and agree with the discharge instructions and disposition. Disposition/Present on Arrival - Present on Arrival Any Indicators Present on Arrival: No History of DVT/PE: No History of Uncontrolled Diabetes: No Urinary Catheter: No History of Decub. Ulcer: No History Surgical Site Infection Following: None - Disposition Have Diagnosis and Disposition been Completed?: Yes Diagnosis: Alcohol abuse, Alcohol intoxication Disposition: HOME/ ROUTINE Disposition Time: 06:13 Patient Plan: Discharge Condition: GOOD Referrals: FAMILY PROVIDER,NO [Primary Care Provider] - Follow up with primary Alcoholics Anonymous [Outside] - Follow up with primary Forms: [employer] (Danish)
[2017-08-25 07:36] VITALS: BP 138/72; PULSE 89; RESP 17; TEMP 98.2
== END 2017-08-25 06:44 | disposition home or self-care (01) ==
LOC: ED 20:13
DX: F10.129 Alcohol abuse with intoxication, unspecified (principal)

== ENCOUNTER 2017-08-25 22:49 | Emergency (ER) | payer SELFPAY ==
[2017-08-25 22:50] VITALS: BMI 25.8
--- NOTE | 2017-08-25 23:17 | ED PDOC ---
Arrival/HPI <Aftab Tovar - Last Filed: 08/26/17 06:18> - General Historian: Patient, EMS EM Caveat: Intoxicated - History of Present Illness Time/Duration: Prior to Arrival Symptom Onset: Gradual Symptom Course: Unchanged Quality: Unable to Describe Severity Level: 1 Activities at Onset: Sleeping Context: Street <RobinDulce L - Last Filed: 08/26/17 11:30> - General Chief Complaint: Alcohol Ingestion Time Seen by Provider: 08/25/17 23:12 - History of Present Illness Narrative History of Present Illness (Text): 08/25/17 23:14 Pt is a 51 yr old male with past medical history of alcohol abuse, BIBA to the emergency department for alcohol intoxication. As per EMS, pt was found on the street intoxicated. Denies fevers, chills, headache, chest pain, shortness of breath, dyspnea on exertion, cough, abdominal pain, nausea, vomiting, diarrhea, back pain, neck pain, urinary/bowel changes, or any other complaints. (Dulce Kelly) Past Medical History - Provider Review Nursing Documentation Reviewed: Yes - Travel History Have you recently traveled outside [place] w/in the past 3 mons?: No - Infectious Disease Hx of Infectious Diseases: None - Tetanus Immunization Tetanus Immunization: Unknown - Past Medical History Past Medical History: Unable to Obtain - Cardiac Hx Cardiac Disorders: Yes Hx Hypertension: Yes - Pulmonary Hx Respiratory Disorders: No - Neurological Hx Neurological Disorder: Yes Hx Transient Ischemic Attacks (TIA): Yes - HEENT Hx HEENT Disorder: No - Renal Hx Renal Disorder: No - Endocrine/Metabolic Hx Endocrine Disorders: No - Hematological/Oncological Hx Blood Disorders: No - Integumentary Hx Dermatological Disorder: No - Musculoskeletal/Rheumatological Hx Musculoskeletal Disorders: Yes Hx Falls: Yes (2 yrs ago fell 0ff ladder) - Gastrointestinal Hx Gastrointestinal Disorders: No - Genitourinary/Gynecological Hx Genitourinary Disorders: No - Psychiatric Hx Psychophysiologic Disorder: No Hx Substance Use: No - Past Surgical History Past Surgical History: Unable to Obtain - Surgical History Hx Musculoskeletal Surgery: Yes (right hip and hand, facial fracture repair) Other/Comment: right wrist injury, bone marrow taken from right hip and inserted into fx bone in right hand along with metal, metal has since been removed, 23 yrs ago at [facility] - Anesthesia Hx Anesthesia: Yes Hx Anesthesia Reactions: No Hx Malignant Hyperthermia: No - Suicidal Assessment Feels Threatened In Home Enviroment: No <Dulce Kelly - Last Filed: 08/26/17 11:30> Family/Social History - Physician Review Nursing Documentation Reviewed: Yes Family/Social History: Unknown Family HX Smoking Status: Former Smoker Hx Alcohol Use: Yes (DRINKS 2 PINTS OF VODKA DAILY. LAST DRANK 3 D AGO.2 PINTS OF VODKA AND LIQU) Hx Substance Use: No Hx Substance Use Treatment: No <Dulce Kelly - Last Filed: 08/26/17 11:30> Allergies/Home Meds <Aftab Tovar - Last Filed: 08/26/17 06:18> <Dulce Kelly - Last Filed: 08/26/17 11:30> Allergies/Adverse Reactions: Allergies coconut Allergy (Verified 08/25/17 22:54) RASH coconut oil Allergy (Verified 08/25/17 22:54) RASH cranberry Allergy (Verified 08/25/17 22:54) SWELLING Home Medications: Home Meds Medication Instructions Recorded Confirmed Unobtainable 04/20/17 08/25/17 Review of Systems - Review of Systems Systems not reviewed;Unavailable: Intoxicated Constitutional: Normal Eyes: Normal ENT: Normal Respiratory: Normal Cardiovascular: Normal Gastrointestinal: Normal Genitourinary Male: Normal Musculoskeletal: Normal Skin: Normal Neurological: Normal Endocrine: Normal Hemo/Lymphatic: Normal Psychiatric: Normal <Dulce Kelly - Last Filed: 08/26/17 11:30> Physical Exam - Physical Exam Physical Exam Limitations: Intoxication Temperature: Afebrile Blood Pressure: Normal Pulse: Regular Respiratory Rate: Normal Appearance: Positive for: Well-Appearing, Non-Toxic, Comfortable Pain Distress: None Mental Status: Positive for: Alert and Oriented X 3 - Systems Exam Head: Present: Atraumatic, Normocephalic Pupils: Present: PERRL Extroacular Muscles: Present: EOMI Conjunctiva: Present: Normal Mouth: Present: Moist Mucous Membranes Neck: Present: Normal Range of Motion Respiratory/Chest: Present: Clear to Auscultation, Good Air Exchange. No: Respiratory Distress, Accessory Muscle Use Cardiovascular: Present: Regular Rate and Rhythm, Normal S1, S2. No: Murmurs Abdomen: No: Tenderness, Distention, Peritoneal Signs Back: Present: Normal Inspection Upper Extremity: Present: Normal Inspection. No: Cyanosis, Edema Lower Extremity: Present: Normal Inspection. No: Edema Neurological: Present: GCS=15, CN II-XII Intact, Speech Normal Skin: Present: Warm, Dry, Normal Color. No: Rashes Psychiatric: Present: Alert, Oriented x 3, Normal Insight, Normal Concentration , Intoxicated. No: Suicidal Ideation, Homicidal Ideation <Dulce Kelly - Last Filed: 08/26/17 11:30> Vital Signs Temp Pulse Resp BP Pulse Ox 08/26/17 06:23 98.1 F 81 18 141/71 99 08/26/17 05:51 98.1 F 89 18 141/71 99 08/26/17 02:11 98.2 F 92 H 19 145/81 98 Medical Decision Making <Aftab Tovar - Last Filed: 08/26/17 06:18> - Lab Interpretations I have reviewed the lab results: Yes (Alcohol level 273) <Dulce Kelly - Last Filed: 08/26/17 11:30> ED Course and Treatment: 08/26/17 05:53 Pt awake, alert, ambulating with steady again. Clinically sober, in no acute distress. Pt stable for d/c. (Aftab Tovar) 08/25/17 23:16 Impression Pt is a 51 yr old male with past medical history of alcohol abuse, BIBA to the emergency department for alcohol intoxication. 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 / has examined the patient and agrees with the treatment plan. <Aftab Tovar - Last Filed: 08/26/17 06:18> Disposition/Present on Arrival - Present on Arrival Any Indicators Present on Arrival: No - Disposition Have Diagnosis and Disposition been Completed?: Yes Disposition Time: 05:58 Patient Plan: Discharge <Aftab Tovar - Last Filed: 08/26/17 06:18> - Present on Arrival Any Indicators Present on Arrival: Yes History of DVT/PE: No History of Uncontrolled Diabetes: No Urinary Catheter: No History of Decub. Ulcer: No History Surgical Site Infection Following: None - Disposition Have Diagnosis and Disposition been Completed?: Yes Disposition Time: 06:00 Patient Plan: Discharge <Dulce Kelly Dianna - Last Filed: 08/26/17 11:30> - Disposition Diagnosis: Alcohol abuse, Alcohol intoxication Disposition: HOME/ ROUTINE Condition: STABLE Discharge Instructions (ExitCare): Alcohol Abuse and Alcoholism (DC) Referrals: Alcoholics Anonymous [Outside] - Follow up with primary Forms: [employer] (Georgian)
[2017-08-26 05:52] VITALS: BP 141/71; RESP 18; TEMP 98.1; O2SAT 99
[2017-08-26 06:24] VITALS: PULSE 81
== END 2017-08-26 06:23 | disposition home or self-care (01) ==
LOC: ED 22:49
DX: F10.129 Alcohol abuse with intoxication, unspecified (principal); Y90.8 Blood alcohol level of 240 mg/100 ml or more
CPT/HCPCS: 99283; G0480

== ENCOUNTER 2017-09-08 12:24 | Emergency (ER) | payer SELFPAY ==
[2017-09-08] MEDS ORDERED: Multivitamin (MVI) 10 ML, Thiamine 100 MG, Folic Acid 1 MG in Dextrose 5% In Water 1,00... IV ONE (13:01)
--- NOTE | 2017-09-08 13:01 | ED PDOC ---
Arrival/HPI - General Chief Complaint: Alcohol Ingestion Time Seen by Provider: 09/08/17 12:57 Historian: Patient - History of Present Illness Narrative History of Present Illness (Text): 09/08/17 12:58 51 y/o male, pmh including htn, psychiatric history including alcohol abuse, nkda, biba for public intoxication x 1 day with etoh on breath. Pt. stated that he has been drinking all night last night, walking on the street, accidentally hit his head, no witnessed, stated that he is intoxicated, no neck or back injury, no chest or abdominal injury, no extremity injury, no rash, no abrasion or laceration, no urinary or bowel incontinence or retention, no other medical or psychological complaints. Past Medical History - Provider Review Nursing Documentation Reviewed: Yes - Infectious Disease Hx of Infectious Diseases: None - Tetanus Immunization Tetanus Immunization: Unknown - Past Medical History Past Medical History: Unable to Obtain - Cardiac Hx Cardiac Disorders: Yes Hx Hypertension: Yes - Pulmonary Hx Respiratory Disorders: No - Neurological Hx Neurological Disorder: Yes Hx Transient Ischemic Attacks (TIA): Yes - HEENT Hx HEENT Disorder: No - Renal Hx Renal Disorder: No - Endocrine/Metabolic Hx Endocrine Disorders: No - Hematological/Oncological Hx Blood Disorders: No - Integumentary Hx Dermatological Disorder: No - Musculoskeletal/Rheumatological Hx Musculoskeletal Disorders: Yes Hx Falls: Yes (2 yrs ago fell 0ff ladder) - Gastrointestinal Hx Gastrointestinal Disorders: No - Genitourinary/Gynecological Hx Genitourinary Disorders: No - Psychiatric Hx Psychophysiologic Disorder: No Hx Substance Use: No - Past Surgical History Past Surgical History: Unable to Obtain - Surgical History Hx Musculoskeletal Surgery: Yes (right hip and hand, facial fracture repair) Other/Comment: right wrist injury, bone marrow taken from right hip and inserted into fx bone in right hand along with metal, metal has since been removed, 23 yrs ago at [facility] - Anesthesia Hx Anesthesia: Yes Hx Anesthesia Reactions: No Hx Malignant Hyperthermia: No - Suicidal Assessment Feels Threatened In Home Enviroment: No Family/Social History - Physician Review Nursing Documentation Reviewed: Yes Family/Social History: Unknown Family HX Smoking Status: Former Smoker Hx Alcohol Use: Yes (DRINKS 2 PINTS OF VODKA DAILY. LAST DRANK 3 D AGO.2 PINTS OF VODKA AND LIQU) Hx Substance Use: No Hx Substance Use Treatment: No Allergies/Home Meds Allergies/Adverse Reactions: Allergies coconut Allergy (Verified 08/25/17 22:54) RASH coconut oil Allergy (Verified 08/25/17 22:54) RASH cranberry Allergy (Verified 08/25/17 22:54) SWELLING Home Medications: Home Meds Medication Instructions Recorded Confirmed Unobtainable 04/20/17 08/25/17 Review of Systems - Review of Systems Constitutional: absent: Fatigue, Fevers Eyes: absent: Vision Changes ENT: absent: Hearing Changes Respiratory: absent: SOB, Cough, Sputum Cardiovascular: absent: Chest Pain Gastrointestinal: absent: Abdominal Pain, Diarrhea, Nausea, Vomiting Musculoskeletal: absent: Arthralgias, Back Pain Skin: absent: Rash, Pruritis Neurological: absent: Headache, Dizziness Psychiatric: absent: Anxiety, Depression, Suicidal Ideation Physical Exam - Systems Exam Head: Present: Atraumatic, Normocephalic, Other (no facial bony tenderness). No : Tenderness, Contusion, Swelling, Ecchymosis, Abrasion, Laceration Pupils: Present: PERRL Extroacular Muscles: Present: EOMI Conjunctiva: Present: Normal Ears: Present: NORMAL TM, Normal Canal. No: Erythema Mouth: Present: Moist Mucous Membranes Pharnyx: Present: Normal. No: ERYTHEMA, EXUDATE, TONSILS ENLARGED Nose (External): Present: Atraumatic. No: Abrasion, Contusion, Laceration Nose (Internal): Present: Normal Inspection, No Active Bleeding. No: Rhinorrhea , Septal Hematoma, Epistaxis Neck: Present: Normal Range of Motion, Trachea Midline. No: MIDLINE TENDERNESS , Paraspinal Tenderness, Lymphadenopathy Respiratory/Chest: Present: Clear to Auscultation, Good Air Exchange. No: Respiratory Distress, Accessory Muscle Use Cardiovascular: Present: Regular Rate and Rhythm, Normal S1, S2. No: Murmurs Abdomen: No: Tenderness, Distention, Peritoneal Signs, Rebound, Guarding Back: Present: Normal Inspection Upper Extremity: Present: Normal Inspection, Normal ROM, Neurovascularly Intact , Capillary Refill < 2s. No: Cyanosis, Edema, Tenderness, Swelling, Erythema, Deformity Lower Extremity: Present: Normal Inspection, NORMAL PULSES, Normal ROM, Neurovascularly Intact, Capillary Refill < 2 s. No: Edema, Tenderness, Swelling , Deformity Neurological: Present: GCS=15, CN II-XII Intact, Speech Normal, Motor Func Grossly Intact, Memory Normal Skin: Present: Warm, Dry, Normal Color. No: Rashes Psychiatric: Present: Alert, Oriented x 3, Normal Insight, Normal Concentration Medical Decision Making ED Course and Treatment: 09/08/17 13:04 -Labs -CT head -IV [place] bag -Observe and reassess 09/08/17 16:28 -CT Head: No acute intracranial abnormalities. No significant findings to account for the clinical presentation. No significant interval change compared to the prior examination(s). -Labs show no acute findings -Pt. is sleeping, easily arousable. 09/08/17 18:08 -Pt. is fully awake, no tremors or signs of withdrawal, request to be discharged home, no headache or pain, refused detox, will discharge home. -Discharge home with education on avoid public intoxication, follow up with your own pmd witin 2 days, return to the ER for any new or worsening signs or symptoms. - Lab Interpretations Lab Results: 09/08/17 15:00 09/08/17 15:00 Lab Results 09/08/17 15:00: WBC 6.7, RBC 4.41, Hgb 14.3, Hct 41.7 L, MCV 94.6, MCH 32.4, MCHC 34.3, RDW 13.1, Plt Count 351, MPV 9.4, Gran % 63.5, Lymph % (Auto) 26.3, Lane % (Auto) 7.3 H, Eos % (Auto) 2.5, Baso % (Auto) 0.4, Gran # 4.28, Lymph # ( Auto) 1.8, Lane # (Auto) 0.5, Eos # (Auto) 0.2, Baso # (Auto) 0.03 09/08/17 15:00: Sodium 148, Potassium 4.1, Chloride 110 H, Carbon Dioxide 24, Anion Gap 17, BUN 16, Creatinine 0.8, Est GFR ( Amer) > 60, Est GFR (Non- Af Amer) > 60, Random Glucose 91, Calcium 8.7, Magnesium 1.9, Total Bilirubin 0.2, AST 37, ALT 21, Alkaline Phosphatase 86, Total Protein 7.9, Albumin 4.3, Globulin 3.5, Albumin/Globulin Ratio 1.2 - RAD Interpretation Radiology Orders: 07/29/18 13:01 HEAD W/O CONTRAST [CT] Stat HISTORY: etoh, drunk, head injury COMPARISON: 08/24/2017 TECHNIQUE: Axial computed tomography images were obtained through the head/brain without intravenous contrast. Coronal and sagittal reconstructed images. Radiation dose: Total exam DLP = 877.59 mGy-cm. This CT exam was performed using one or more of the following dose reduction techniques: Automated exposure control, adjustment of the mA and/or kV according to patient size, and/or use of iterative reconstruction technique. FINDINGS: HEMORRHAGE: No intracranial hemorrhage. BRAIN: No mass effect or edema. Cortical atrophy, periventricular small vessel disease. VENTRICLES: Unremarkable. No hydrocephalus. CALVARIUM: Unremarkable. PARANASAL SINUSES: Unremarkable as visualized. No significant inflammatory changes. MASTOID AIR CELLS: Unremarkable as visualized. No inflammatory changes. OTHER FINDINGS: None. IMPRESSION: No acute intracranial abnormalities. No significant findings to account for the clinical presentation. No significant interval change compared to the prior examination(s). 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 Disposition/Present on Arrival - Present on Arrival Any Indicators Present on Arrival: No History of DVT/PE: No History of Uncontrolled Diabetes: No Urinary Catheter: No History of Decub. Ulcer: No History Surgical Site Infection Following: None - Disposition Have Diagnosis and Disposition been Completed?: Yes Diagnosis: Alcohol intoxication, Head injury Disposition: HOME/ ROUTINE Disposition Time: 18:10 Patient Plan: Discharge Patient Problems: Current Active Problems Problem Status Onset Alcohol intoxication Acute Condition: IMPROVED Additional Instructions: -Discharge home with education on avoid public intoxication, follow up with your own pmd witin 2 days, return to the ER for any new or worsening signs or symptoms. Referrals: [facility] at [facility] [Outside] - Follow up with primary Forms: [employer] (Maltese), WORK NOTE
--- NOTE | 2017-09-08 13:43 | CT ---
Date of service: 09/08/2017 PROCEDURE: CT HEAD WITHOUT CONTRAST. HISTORY: etoh, drunk, head injury COMPARISON: 08/24/2017 TECHNIQUE: Axial computed tomography images were obtained through the head/brain without intravenous contrast. Coronal and sagittal reconstructed images. Radiation dose: Total exam DLP = 877.59 mGy-cm. This CT exam was performed using one or more of the following dose reduction techniques: Automated exposure control, adjustment of the mA and/or kV according to patient size, and/or use of iterative reconstruction technique. FINDINGS: HEMORRHAGE: No intracranial hemorrhage. BRAIN: No mass effect or edema. Cortical atrophy, periventricular small vessel disease. VENTRICLES: Unremarkable. No hydrocephalus. CALVARIUM: Unremarkable. PARANASAL SINUSES: Unremarkable as visualized. No significant inflammatory changes. MASTOID AIR CELLS: Unremarkable as visualized. No inflammatory changes. OTHER FINDINGS: None. IMPRESSION: No acute intracranial abnormalities. No significant findings to account for the clinical presentation. No significant interval change compared to the prior examination(s).
[2017-09-08 15:45] LABS: BASO # 0.03 K/mm3 (0.0-2.0); BASO % 0.4 % (0.0-3.0); EOS # 0.2 (0.0-0.7); EOS % 2.5 % (1.5-5.0); GRAN # 4.28 (1.4-6.5); GRAN % 63.5 % (50.0-68.0); HEMOGLOBIN 14.3 g/dL (14.0-18.0); LYMPH # 1.8 (1.2-3.4); LYMPH % 26.3 % (22.0-35.0); MEAN CELL VOLUME 94.6 fl (80.0-105.0); MEAN CORPUSCULAR HEMOGLOBIN 32.4 pg (25.0-35.0); MEAN CORPUSCULAR HGB CONC 34.3 g/dl (31.0-37.0); MEAN PLATELET VOLUME 9.4 fl (7.0-11.0); MONO # 0.5 (0.1-0.6); MONO % 7.3 % (1.0-6.0); RBC 4.41 10^6/uL (3.5-6.1); RED CELL DISTRIBUTION WIDTH 13.1 % (11.5-14.5); WHITE BLOOD COUNT 6.7 10^3/ul (4.5-11.0)
[2017-09-08 16:11] LABS: ALB/GLOB RATIO 1.2 (1.1-1.8); ALBUMIN 4.3 g/dL (3.0-4.8); ALT/SGPT 21 U/L (7-56); AST/SGOT 37 U/L (17-59); BLOOD UREA NITROGEN 16 mg/dL (7-21); CALCIUM 8.7 mg/dL (8.4-10.5); GFR AFRICAN-AMERICAN > 60; GFR NON-AFRICAN AMERICAN > 60
[2017-09-08 18:23] VITALS: RESP 19
[2017-09-08 18:26] VITALS: BP 139/80; PULSE 82; TEMP 98; O2SAT 98
== END 2017-09-08 18:26 | disposition home or self-care (01) ==
LOC: ED 12:24
DX: F10.129 Alcohol abuse with intoxication, unspecified (principal); S09.90XA Unspecified injury of head, initial encounter; W22.8XXA Striking against or struck by other objects, initial encounter; Y93.01 Activity, walking, marching and hiking; Y92.410 Unspecified street and highway as the place of occurrence of the external cause

== ENCOUNTER 2017-09-17 13:44 | Emergency (ER) | payer SELFPAY ==
[2017-09-17 13:53] VITALS: BMI 21.6
--- NOTE | 2017-09-17 15:45 | ED PDOC ---
Arrival/HPI - General Chief Complaint: Alcohol Ingestion Time Seen by Provider: 09/17/17 14:17 Historian: Patient, EMS - History of Present Illness Narrative History of Present Illness (Text): 09/17/17 51 yo male w/PMHx of htn, psychiatric history including alcohol abuse, BIBA for public intoxication well known to ED due to multiple visits with alcohol intoxication, last 09/08/17. As per EMS, pt was found in [place] sleeping, (+) alcohol odor. Pt walks to ED with unsteady gait, admits to "drinking a lot today ". Pt denies known trauma or injury. Appears comfortable, not in any apparent distress. FYI: ED visits review, last was on 09/08/17, pt had blood work, CT head due to trauma, results review, no acute abnormalities noted. Past Medical History - Provider Review Nursing Documentation Reviewed: Yes - Travel History Have you recently traveled outside [place] w/in the past 3 mons?: No - Infectious Disease Hx of Infectious Diseases: None - Tetanus Immunization Tetanus Immunization: Unknown - Past Medical History Past Medical History: Unable to Obtain - Cardiac Hx Cardiac Disorders: Yes Hx Hypertension: Yes - Pulmonary Hx Respiratory Disorders: No - Neurological Hx Neurological Disorder: Yes Hx Transient Ischemic Attacks (TIA): Yes - HEENT Hx HEENT Disorder: No - Renal Hx Renal Disorder: No - Endocrine/Metabolic Hx Endocrine Disorders: No - Hematological/Oncological Hx Blood Disorders: No - Integumentary Hx Dermatological Disorder: No - Musculoskeletal/Rheumatological Hx Musculoskeletal Disorders: Yes Hx Falls: Yes (2 yrs ago fell 0ff ladder) - Gastrointestinal Hx Gastrointestinal Disorders: No - Genitourinary/Gynecological Hx Genitourinary Disorders: No - Psychiatric Hx Psychophysiologic Disorder: No Hx Substance Use: No - Past Surgical History Past Surgical History: Unable to Obtain - Surgical History Hx Musculoskeletal Surgery: Yes (right hip and hand, facial fracture repair) Other/Comment: right wrist injury, bone marrow taken from right hip and inserted into fx bone in right hand along with metal, metal has since been removed, 23 yrs ago at [facility] - Anesthesia Hx Anesthesia: Yes Hx Anesthesia Reactions: No Hx Malignant Hyperthermia: No - Suicidal Assessment Feels Threatened In Home Enviroment: No Family/Social History - Physician Review Nursing Documentation Reviewed: Yes Family/Social History: No Known Family HX Smoking Status: Former Smoker Hx Alcohol Use: Yes (DRINKS 2 PINTS OF VODKA DAILY. LAST DRANK 3 D AGO.2 PINTS OF VODKA AND LIQU) Frequency of alcohol use: Daily Hx Substance Use: No Hx Substance Use Treatment: No Allergies/Home Meds Allergies/Adverse Reactions: Allergies coconut Allergy (Verified 09/17/17 13:57) RASH coconut oil Allergy (Verified 09/17/17 13:57) RASH cranberry Allergy (Verified 09/17/17 13:57) SWELLING Home Medications: Home Meds Medication Instructions Recorded Confirmed Unobtainable 04/20/17 09/17/17 Review of Systems - Review of Systems Systems not reviewed;Unavailable: Intoxicated Physical Exam Vital Signs Reviewed: Yes Vital Signs Temp Pulse Resp BP Pulse Ox 09/17/17 20:25 82 18 137/88 100 09/17/17 19:10 85 18 124/79 100 09/17/17 17:13 98.1 F 78 19 122/66 98 09/17/17 13:51 98.7 F 99 H 19 119/66 100 Temperature: Afebrile Blood Pressure: Normal Pulse: Regular Respiratory Rate: Normal Appearance: Positive for: Well-Appearing, Non-Toxic Mental Status: Positive for: Alert and Oriented X 3 - Systems Exam Head: Present: Atraumatic, Normocephalic Pupils: Present: PERRL Conjunctiva: Present: Normal Mouth: Present: Moist Mucous Membranes, Normal Lips. No: Drooling Nose (External): Present: Atraumatic Neck: Present: Normal Range of Motion, Trachea Midline. No: MIDLINE TENDERNESS , JVD, Bruit Respiratory/Chest: Present: Clear to Auscultation, Good Air Exchange. No: Respiratory Distress, Accessory Muscle Use Cardiovascular: Present: Regular Rate and Rhythm, Normal S1, S2. No: Murmurs Abdomen: No: Tenderness, Distention, Peritoneal Signs, Rebound, Guarding Back: No: Midline Tenderness, Paraspinal Tenderness Upper Extremity: Present: Normal ROM. No: Deformity Lower Extremity: Present: Normal ROM. No: Edema, Deformity Neurological: Present: GCS=15, Speech Normal (slurred due to alcohol intoxication) Skin: Present: Warm, Dry, Normal Color. No: Rashes, Laceration Psychiatric: Present: Alert, Oriented x 3 Medical Decision Making ED Course and Treatment: 09/17/17 15:48 Pt was OBS in ED for 6 hours, re-eval every hour for neuro check, remained stable. At 20:24, pt is AAO#3, not in any apparent distress. Afebrile, hemodynamicaly stable. Ambulatory in ED with stable gait. Neurologicaly intact, request discharge. Pt has clinical findings c/w alcohol intoxication. Advised. Ref. to f/u with PMD, detox. Stable for discharge now. - Lab Interpretations Lab Results: Lab Results 09/17/17 15:48: POC Glucose (mg/dL) 135 H Disposition/Present on Arrival - Present on Arrival Any Indicators Present on Arrival: No History of DVT/PE: No History of Uncontrolled Diabetes: No Urinary Catheter: No History of Decub. Ulcer: No History Surgical Site Infection Following: None - Disposition Have Diagnosis and Disposition been Completed?: Yes Diagnosis: Alcohol intoxication Disposition: HOME/ ROUTINE Disposition Time: 20:24 Patient Plan: Discharge Condition: STABLE Discharge Instructions (ExitCare): Alcohol Abuse and Alcoholism (DC) Additional Instructions: Follow up with PMD, Detox in 2-3 days for re-evaluation Referrals: at [facility] [Outside] - Follow up with primary Alcoholics Anonymous [Outside] - Follow up with primary Forms: [employer] (Divehi)
[2017-09-17 17:14] VITALS: TEMP 98.1
[2017-09-17 19:49] VITALS: RESP 18; O2SAT 100
[2017-09-17 20:32] VITALS: BP 137/88; PULSE 82
== END 2017-09-17 20:25 | disposition home or self-care (01) ==
LOC: ED 13:44
DX: F10.129 Alcohol abuse with intoxication, unspecified (principal); I10 Essential (primary) hypertension; Z87.891 Personal history of nicotine dependence

== ENCOUNTER 2017-09-29 17:26 | Emergency (ER) | payer SELFPAY ==
[2017-09-29 17:28] VITALS: BMI 21.6
[2017-09-29 17:35] VITALS: TEMP 97.6
--- NOTE | 2017-09-29 18:34 | ED PDOC ---
Arrival/HPI - General Chief Complaint: Alcohol Ingestion Time Seen by Provider: 09/29/17 18:24 Historian: Patient - History of Present Illness Narrative History of Present Illness (Text): 09/29/17 18:26 51 y/o male, pmh including htn, nkda, FS 121, +etoh on breath, biba for etoh intoxication with no fall or trauma. Pt. stated that he admits drinking, +etoh on breath, no head/neck/back/extremity injury, no chest pain or shortness of breath, no abdominal or pelvic pain, no palpitation, no numbness or tingling, no change in vision, no other medical or psychological complaints. Past Medical History - Provider Review Nursing Documentation Reviewed: Yes - Infectious Disease Hx of Infectious Diseases: None - Tetanus Immunization Tetanus Immunization: Unknown - Past Medical History Past Medical History: Unable to Obtain - Cardiac Hx Cardiac Disorders: Yes Hx Hypertension: Yes - Pulmonary Hx Respiratory Disorders: No - Neurological Hx Neurological Disorder: Yes Hx Transient Ischemic Attacks (TIA): Yes - HEENT Hx HEENT Disorder: No - Renal Hx Renal Disorder: No - Endocrine/Metabolic Hx Endocrine Disorders: No - Hematological/Oncological Hx Blood Disorders: No - Integumentary Hx Dermatological Disorder: No - Musculoskeletal/Rheumatological Hx Musculoskeletal Disorders: Yes Hx Falls: Yes (2 yrs ago fell 0ff ladder) - Gastrointestinal Hx Gastrointestinal Disorders: No - Genitourinary/Gynecological Hx Genitourinary Disorders: No - Psychiatric Hx Psychophysiologic Disorder: No Hx Substance Use: No - Past Surgical History Past Surgical History: Unable to Obtain - Surgical History Hx Musculoskeletal Surgery: Yes (right hip and hand, facial fracture repair) Other/Comment: right wrist injury, bone marrow taken from right hip and inserted into fx bone in right hand along with metal, metal has since been removed, 23 yrs ago at [facility] - Anesthesia Hx Anesthesia: Yes Hx Anesthesia Reactions: No Hx Malignant Hyperthermia: No - Suicidal Assessment Feels Threatened In Home Enviroment: No Family/Social History - Physician Review Nursing Documentation Reviewed: Yes Family/Social History: Unknown Family HX Smoking Status: Former Smoker Hx Alcohol Use: Yes (DRINKS 2 PINTS OF VODKA DAILY. LAST DRANK 3 D AGO.2 PINTS OF VODKA AND LIQU) Hx Substance Use: No Hx Substance Use Treatment: No Allergies/Home Meds Allergies/Adverse Reactions: Allergies coconut Allergy (Verified 09/17/17 13:57) RASH coconut oil Allergy (Verified 09/17/17 13:57) RASH cranberry Allergy (Verified 09/17/17 13:57) SWELLING Home Medications: Home Meds Medication Instructions Recorded Confirmed Unobtainable 04/20/17 09/29/17 Review of Systems - Review of Systems Constitutional: absent: Fatigue, Fevers Eyes: absent: Vision Changes ENT: absent: Hearing Changes Respiratory: absent: SOB, Cough Cardiovascular: absent: Chest Pain Gastrointestinal: absent: Abdominal Pain, Nausea, Vomiting Musculoskeletal: absent: Arthralgias, Back Pain Skin: absent: Rash, Pruritis Neurological: absent: Headache, Dizziness Psychiatric: absent: Anxiety, Depression, Suicidal Ideation Physical Exam Vital Signs Reviewed: Yes Vital Signs Temp Pulse Resp BP Pulse Ox 09/29/17 21:39 80 16 117/62 98 09/29/17 19:21 134/92 H 09/29/17 17:53 97.6 F 88 18 136/89 97 09/29/17 17:34 97.6 F 88 18 136/89 97 Temperature: Afebrile Blood Pressure: Normal Pulse: Regular Respiratory Rate: Normal Appearance: Positive for: Well-Appearing, Non-Toxic, Comfortable Pain Distress: None Mental Status: Positive for: Alert and Oriented X 3 - Systems Exam Head: Present: Atraumatic, Normocephalic, Other (no facial bony tenderness/ swelling). No: Tenderness, Contusion, Swelling, Ecchymosis, Abrasion, Laceration Pupils: Present: PERRL Extroacular Muscles: Present: EOMI Conjunctiva: Present: Normal Ears: Present: NORMAL TM, Normal Canal. No: Erythema Mouth: Present: Moist Mucous Membranes Pharnyx: Present: Normal. No: ERYTHEMA, EXUDATE, TONSILS ENLARGED Nose (External): Present: Atraumatic. No: Abrasion, Contusion Nose (Internal): Present: Normal Inspection, No Active Bleeding. No: Rhinorrhea , Septal Hematoma, Epistaxis Neck: Present: Normal Range of Motion, Trachea Midline. No: MIDLINE TENDERNESS , Paraspinal Tenderness, Lymphadenopathy Respiratory/Chest: Present: Clear to Auscultation, Good Air Exchange. No: Respiratory Distress, Accessory Muscle Use Cardiovascular: Present: Regular Rate and Rhythm, Normal S1, S2. No: Murmurs Abdomen: No: Tenderness, Distention, Peritoneal Signs, Rebound, Guarding Back: Present: Normal Inspection Upper Extremity: Present: Normal Inspection, Normal ROM, Neurovascularly Intact. No: Cyanosis, Edema, Deformity Lower Extremity: Present: Normal Inspection, Normal ROM, Neurovascularly Intact , Capillary Refill < 2 s. No: Edema, Tenderness, Swelling, Deformity Neurological: Present: GCS=15, CN II-XII Intact, Speech Normal, Motor Func Grossly Intact, Gait Normal, Memory Normal Skin: Present: Warm, Dry, Normal Color. No: Rashes Psychiatric: Present: Alert, Oriented x 3, Normal Insight, Normal Concentration Medical Decision Making ED Course and Treatment: 09/29/17 18:52 -Finger stick -Observe and reassess 09/29/17 19:35 -FS 121 -Sleeping comfortably, easily arousable 09/30/17 00:25 Pt has been observed in the ER for approximately 6-7 hours. Pt currently awake, states he did not have any falls/head trauma, states he feels good to go home. Pt declines further evaluation and declines detox. Pt with no tremors, facial twitching, abdominal pain, vomiting, or any signs of withdrawal. Pt standing up , walking with normal gait and posture independently. Discharge home with education on avoiding drinking, instructions to follow up with PMD in 2 days, and to return to the ER for any new or worsening signs or symptoms. - PA / [employer] MANAGER / 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 Disposition/Present on Arrival - Present on Arrival Any Indicators Present on Arrival: No History of DVT/PE: No History of Uncontrolled Diabetes: No Urinary Catheter: No History of Decub. Ulcer: No History Surgical Site Infection Following: None - Disposition Have Diagnosis and Disposition been Completed?: Yes Diagnosis: Alcohol intoxication Disposition: HOME/ ROUTINE Disposition Time: 18:52 Patient Plan: Discharge Patient Problems: Current Active Problems Problem Status Onset Alcohol intoxication Acute Condition: IMPROVED Additional Instructions: Discharge home with education on avoiding drinking, instructions to follow up with PMD in 2 days, and to return to the ER for any new or worsening signs or symptoms. Referrals: Nilton Zazueta Rereina, [Primary Care Provider] - Follow up with primary [facility] [Outside] - Follow up with primary Forms: [employer] (Luxembourger), WORK NOTE
[2017-09-30 00:41] VITALS: BP 140/72; PULSE 89; RESP 17; O2SAT 99
== END 2017-09-30 00:40 | disposition home or self-care (01) ==
LOC: ED 17:26
DX: F10.129 Alcohol abuse with intoxication, unspecified (principal); I10 Essential (primary) hypertension; Z87.891 Personal history of nicotine dependence

== ENCOUNTER 2017-11-17 15:32 | Emergency (ER) | payer SELFPAY ==
[2017-11-17 15:32] VITALS: BMI 22.1
[2017-11-17 16:16] VITALS: TEMP 98.5
--- NOTE | 2017-11-17 16:58 | ED PDOC ---
Arrival/HPI - General Chief Complaint: Alcohol Ingestion Time Seen by Provider: 11/17/17 16:02 Historian: Patient - History of Present Illness Narrative History of Present Illness (Text): 11/17/17 16:55 52 year old male, whose past medical history includes ETOH abuse, who presents to the emergency department intoxicated. Patient states he drank too much but denies drug use. Limited HPI and ROS due to intoxication. Time/Duration: Prior to Arrival Symptom Onset: Gradual Symptom Course: Unchanged Activities at Onset: Light Context: Home Past Medical History - Provider Review Nursing Documentation Reviewed: Yes - Infectious Disease Hx of Infectious Diseases: None - Tetanus Immunization Tetanus Immunization: Unknown - Past Medical History Past Medical History: Unable to Obtain - Cardiac Hx Cardiac Disorders: Yes Hx Hypertension: Yes - Pulmonary Hx Respiratory Disorders: No - Neurological Hx Neurological Disorder: Yes Hx Transient Ischemic Attacks (TIA): Yes - HEENT Hx HEENT Disorder: No - Renal Hx Renal Disorder: No - Endocrine/Metabolic Hx Endocrine Disorders: No - Hematological/Oncological Hx Blood Disorders: No - Integumentary Hx Dermatological Disorder: No - Musculoskeletal/Rheumatological Hx Musculoskeletal Disorders: Yes Hx Falls: Yes (2 yrs ago fell 0ff ladder) - Gastrointestinal Hx Gastrointestinal Disorders: No - Genitourinary/Gynecological Hx Genitourinary Disorders: No - Psychiatric Hx Psychophysiologic Disorder: No Hx Substance Use: No - Past Surgical History Past Surgical History: Unable to Obtain - Surgical History Hx Musculoskeletal Surgery: Yes (right hip and hand, facial fracture repair) Other/Comment: right wrist injury, bone marrow taken from right hip and inserted into fx bone in right hand along with metal, metal has since been removed, 23 yrs ago at [facility] - Anesthesia Hx Anesthesia: Yes Hx Anesthesia Reactions: No Hx Malignant Hyperthermia: No - Suicidal Assessment Feels Threatened In Home Enviroment: No Family/Social History - Physician Review Nursing Documentation Reviewed: Yes Family/Social History: Unknown Family HX Smoking Status: Former Smoker Hx Alcohol Use: Yes (DRINKS 2 PINTS OF VODKA DAILY. LAST DRANK 3 D AGO.2 PINTS OF VODKA AND LIQU) Hx Substance Use: No Hx Substance Use Treatment: No Allergies/Home Meds Allergies/Adverse Reactions: Allergies coconut Allergy (Verified 11/17/17 15:46) RASH coconut oil Allergy (Verified 11/17/17 15:46) RASH cranberry Allergy (Verified 11/17/17 15:46) SWELLING Home Medications: Home Meds Medication Instructions Recorded Confirmed Unobtainable 04/20/17 10/31/17 Review of Systems - Review of Systems Systems not reviewed;Unavailable: Intoxicated Physical Exam Vital Signs Reviewed: Yes Vital Signs Temp Pulse Resp BP Pulse Ox 11/17/17 16:15 98.5 F 79 17 102/67 97 11/17/17 15:40 98.4 F 98 H 18 142/95 H 98 Temperature: Afebrile Blood Pressure: Normal Pulse: Regular Respiratory Rate: Normal Appearance: Positive for: Well-Appearing, Non-Toxic, Comfortable Pain Distress: None Mental Status: Positive for: Alert and Oriented X 3 Finger Stick Blood Glucose: 114 - Systems Exam Head: Present: Atraumatic, Normocephalic Pupils: Present: PERRL Extroacular Muscles: Present: EOMI Conjunctiva: Present: Normal Mouth: Present: Moist Mucous Membranes Neck: Present: Normal Range of Motion Respiratory/Chest: Present: Clear to Auscultation, Good Air Exchange. No: Respiratory Distress, Accessory Muscle Use Cardiovascular: Present: Regular Rate and Rhythm, Normal S1, S2. No: Murmurs Abdomen: No: Tenderness, Distention, Peritoneal Signs Back: Present: Normal Inspection Upper Extremity: Present: Normal Inspection. No: Cyanosis, Edema Lower Extremity: Present: Normal Inspection. No: Edema Neurological: Present: GCS=15, CN II-XII Intact, Speech Normal Skin: Present: Warm, Dry, Normal Color. No: Rashes Psychiatric: Present: Alert, Oriented x 3, Normal Insight, Normal Concentration, Intoxicated Medical Decision Making ED Course and Treatment: 11/17/17 16:57 Impression: 52 year old male presents to the Emergency department intoxicated. Plan: -- Reassess and disposition Progress Notes: 11/17/17 20:[address] Tovar to f/u sobriety. - Scribe Statement The provider has reviewed the documentation as recorded by the Scribteagan Garcia All medical record entries made by the Scribe were at my direction and personally dictated by me. I have reviewed the chart and agree that the record accurately reflects my personal performance of the history, physical exam, medical decision making, and the department course for this patient. I have also personally directed, reviewed, and agree with the discharge instructions and disposition. Disposition/Present on Arrival - Present on Arrival Any Indicators Present on Arrival: No History of DVT/PE: No History of Uncontrolled Diabetes: No Urinary Catheter: No History of Decub. Ulcer: No History Surgical Site Infection Following: None - Disposition Have Diagnosis and Disposition been Completed?: Yes Diagnosis: Alcohol intoxication Disposition Time: 20:15 Condition: GOOD Forms: [employer] (German)
[2017-11-17 20:06] VITALS: RESP 18
--- NOTE | 2017-11-17 20:29 | ED PDOC ---
Physical Exam Vital Signs Reviewed: Yes Vital Signs Temp Pulse Resp BP Pulse Ox 11/17/17 18:00 81 18 115/70 99 11/17/17 16:15 98.5 F 79 17 102/67 97 11/17/17 15:40 98.4 F 98 H 18 142/95 H 98 Temperature: Afebrile Blood Pressure: Hypertensive Pulse: Regular Respiratory Rate: Normal Appearance: Positive for: Well-Appearing, Non-Toxic, Comfortable Pain Distress: None Mental Status: Positive for: Alert and Oriented X 3 Finger Stick Blood Glucose: 114 - Systems Exam Head: Present: Atraumatic, Normocephalic Pupils: Present: PERRL Extroacular Muscles: Present: EOMI Conjunctiva: Present: Normal Mouth: Present: Moist Mucous Membranes Neck: Present: Normal Range of Motion Respiratory/Chest: Present: Clear to Auscultation, Good Air Exchange. No: Respiratory Distress, Accessory Muscle Use Cardiovascular: Present: Regular Rate and Rhythm, Normal S1, S2. No: Murmurs Abdomen: No: Tenderness, Distention, Peritoneal Signs Back: Present: Normal Inspection Upper Extremity: Present: Normal Inspection. No: Cyanosis, Edema Lower Extremity: Present: Normal Inspection. No: Edema Neurological: Present: GCS=15, CN II-XII Intact, Speech Normal Skin: Present: Warm, Dry, Normal Color. No: Rashes Psychiatric: Present: Alert, Oriented x 3, Normal Insight, Normal Concentration Medical Decision Making ED Course and Treatment: 11/17/17 20:26 Case endorsed to me by Dr. Tovar, pending sobriety. 11/17/17 22:41 Upon reassessment, patient is able to ambulate with a stead gait in the Emergency room and is being discharged to . - Scribe Statement The provider has reviewed the documentation as recorded by the Scribe Shima Garcia All medical record entries made by the Scribe were at my direction and personally dictated by me. I have reviewed the chart and agree that the record accurately reflects my personal performance of the history, physical exam, medical decision making, and the department course for this patient. I have also personally directed, reviewed, and agree with the discharge instructions and dis position. Disposition/Present on Arrival - Present on Arrival Any Indicators Present on Arrival: No History of DVT/PE: No History of Uncontrolled Diabetes: No Urinary Catheter: No History of Decub. Ulcer: No History Surgical Site Infection Following: None - Disposition Have Diagnosis and Disposition been Completed?: Yes Diagnosis: Alcohol intoxication Disposition: HOME/ ROUTINE Disposition Time: 22:40 Patient Plan: Discharge Patient Problems: Current Active Problems Problem Status Onset Alcohol intoxication Acute Condition: GOOD Referrals: Alcoholics Anonymous [Outside] - Follow up with primary Forms: [employer] (Setswana)
[2017-11-17 23:33] VITALS: BP 118/74; PULSE 80; O2SAT 98
== END 2017-11-17 22:40 | disposition home or self-care (01) ==
LOC: ED 15:32
DX: F10.129 Alcohol abuse with intoxication, unspecified (principal); I10 Essential (primary) hypertension; Z87.891 Personal history of nicotine dependence

== ENCOUNTER 2017-12-03 10:29 | Inpatient (IN) | payer MEDICAID, OTHER ==
[2017-12-03 10:52] VITALS: BMI 25.6
--- NOTE | 2017-12-03 11:11 | EDPD ---
HPI Stroke - General Time Seen by Provider: 12/03/17 11:03 Chief Complaint: Weakness/Neurological Deficit Historian: Patient - History of Present Illness Narrative History of Present Illness (Free Text): 12/03/17 11:12 Patient is a 52 yo male, past medical history of alcohol abuse, history of "TIAs", presents to the Emergency Department stating that he was walking and suddenly felt left sided numbness and "couldn't remember names" at 930 am this morning. He states he woke up at 730 am with no numbness. Denies weakness. Denies headache. Denies bloody urine or stool. Denies hemoptyis or hematemesis. Feels shaky. Admits to daily drinking of alcohol, last drink he states was two days ago. He states symptoms are similar to when he had "TIAs" in past. Denies trauma. Denies neck pain. Denies visual symptoms. rTPA Inclusion/Exclusion - Refusal of Treatment Patient Refused Treatment: Yes - Exclusion Criteria for Altepase Uncontrolled Hypertension at Time of Treatment (Systolic BP above 185 or Diastolic BP above 110 mmHg): Yes - Warning to TPA With Conditions Condition: Stroke Serevity Too Mild Past Medical History - Infectious Disease Hx of Infectious Diseases: None - Tetanus Immunization Tetanus Immunization: Unknown - Past Medical History Past Medical History: Unable to Obtain - Cardiac Hx Cardiac Disorders: Yes Hx Hypertension: Yes - Pulmonary Hx Respiratory Disorders: No - Neurological Hx Neurological Disorder: Yes Hx Transient Ischemic Attacks (TIA): Yes - HEENT Hx HEENT Disorder: No - Renal Hx Renal Disorder: No - Endocrine/Metabolic Hx Endocrine Disorders: No - Hematological/Oncological Hx Blood Disorders: No - Integumentary Hx Dermatological Disorder: No - Musculoskeletal/Rheumatological Hx Musculoskeletal Disorders: Yes Hx Falls: Yes (2 yrs ago fell 0ff ladder) - Gastrointestinal Hx Gastrointestinal Disorders: No - Genitourinary/Gynecological Hx Genitourinary Disorders: No - Psychiatric Hx Psychophysiologic Disorder: No Hx Substance Use: No - Past Surgical History Past Surgical History: Unable to Obtain - Surgical History Hx Musculoskeletal Surgery: Yes (right hip and hand, facial fracture repair) Other/Comment: right wrist injury, bone marrow taken from right hip and inserted into fx bone in right hand along with metal, metal has since been removed, [address] [facility] - Anesthesia Hx Anesthesia: Yes Hx Anesthesia Reactions: No Hx Malignant Hyperthermia: No - Suicidal Assessment Feels Threatened In Home Enviroment: No Allergies/Home Meds Allergies/Adverse Reactions: Allergies coconut Allergy (Verified 12/03/17 10:57) RASH coconut oil Allergy (Verified 12/03/17 10:57) RASH cranberry Allergy (Verified 12/03/17 10:57) SWELLING Home Medications: Home Meds Medication Instructions Recorded Confirmed No Known Home Med 12/03/17 12/03/17 Review of Systems - Review of Systems Constitutional: absent: Fatigue, Fevers Eyes: absent: Vision Changes ENT: absent: Hearing Changes, Sore Throat Respiratory: absent: SOB Cardiovascular: absent: Chest Pain, Palpitations, Edema, Calf Pain, GARCIA Gastrointestinal: absent: Abdominal Pain, Nausea, Vomiting, Hematochezia, Hematemesis Genitourinary Male: absent: Dysuria Musculoskeletal: absent: Back Pain Skin: absent: Rash Neurological: Speech Changes, Other (left sided numbness). absent: Headache, Dizziness, Focal Weakness, Facial Droop Endocrine: absent: Polyuria Hemo/Lymphatic: absent: Easy Bleeding Psychiatric: absent: Anxiety, Depression ED Stroke Physical Exam Vital Signs Reviewed: Yes Vital Signs Temp Pulse Resp BP Pulse Ox 12/03/17 10:52 98.2 F 72 19 190/130 H 97 Temperature: Afebrile Blood Pressure: Hypertensive Pulse: Tachycardic Appearance: Positive for: Unkept Pain Distress: Mild Mental Status: Positive for: Alert and Oriented X 3 - Systems Exam Head: Present: Atraumatic Pupils: Present: PERRL, Other (visual acuity and visual gibbs intact) Extroacular Muscles: Present: EOMI Conjunctiva: Present: Injected Ears: No: Erythema Mouth: Present: Moist Mucous Membranes Pharnyx: No: ERYTHEMA, TONSILS ENLARGED, Muffled/Hoarse Voice, Strider Nose (Internal): Present: Normal Inspection, No Active Bleeding Neck: Present: Normal Range of Motion. No: Meningeal Signs, MIDLINE TENDERNESS Respiratory/Chest: Present: Clear to Auscultation. No: Respiratory Distress Cardiovascular: Present: Murmurs, Tachycardic Abdomen: No: Tenderness, Distention Back: No: CVA Tenderness Upper Extremity: No: Cyanosis Lower Extremity: Present: Neurovascularly Intact. No: Edema, CALF TENDERNESS Neurologic: Present: GCS=15, CN II-XII Intact, Speech Normal, Motor Func Grossly Intact, Normal Sensory Function, Normal Cerebellar Funct, Memory Normal. No: Norm Deep Tendon Reflexes (hyperreflexive), Pronator Drift, Facial Droop, Dysmetric Finger to Nose Skin: Present: Warm Psychiatric: Present: Alert, Oriented x 3, Normal Insight, Normal Concentration. No: Suicidal Ideation, Homicidal Ideation, Hallucinations Medical Decision Making ED Course and Treatment: 12/03/17 11:11 Impression: Patient reports numbness of left sided onset at 930 am while walking. No trauma reported or noted. Current neuro exam reveals no focal weakness or pronator drift. He is tachycardic and hypertensive. I suspect also a component of alcohol withdrawal. Ativan ordered. Differential Diagnosis included but are not limited to: tia, cva, hypoglycemia, alcohol withdrawal Plan: CODE STROKE, monitoring, serial exams. -- Reassess and disposition Prior Visits: Notes and results from previous visits were reviewed. Progress Notes: 12/03/17 11:11 CODE STROKE ACTIVATED. 12/03/17 12:00 On re-examination, patient has a stroke scale of 0 with no complaints of weakness or numbness. Plan is to observe patient fro alcohol withdrawal and hydrate. 12/03/17 16:39 Patient with serial exams continues to have no focal weakness. After Ativan, less tachycardic, blood pressure slightly improved but persistently elevated. He states he has history of hypertension. Has not taken his blood pressure medication in 2 months he states. Clonidine ordered. Will admit to telemetry bed for possible alcohol withdrawal, hypertension. He is not a tpa candidate as no focal weakness or neuro deficits at this time. No active bleeding noted. Case d/w hospitalist team will admit for monitoring, serial exams. Reviewed case with Dr. Forrest, [facility] stroke team process consultant. 12/03/17 17:50 Blood pressure improved. Patient calm, cooperative, no respiratory distress. Denies headache, no focal neuro deficits noted. No pronator drift. - Lab Interpretations Lab Results: Lab Results 12/03/17 10:43: POC Glucose (mg/dL) 106 - RAD Interpretation Narrative RAD Interpretations (Text): 12/03/17 11:53 CT of head reviewed by radiologist, shows: FINDINGS: HEMORRHAGE: No intracranial hemorrhage. BRAIN: Small chronic lacune is seen the left frontal subcortical white matter as well as at the right frontal vertex unchanged in the interval. Limited bilateral medial basal ganglia calcifications are identified with posterior fossa contents unremarkable. No mass effect. No suspicious extra-axial collection identified. Cortex is unremarkable above and below the tentorium. VENTRICLES: Unremarkable. No hydrocephalus. CALVARIUM: Unremarkable. PARANASAL SINUSES: Unremarkable as visualized. No significant inflammatory changes. MASTOID AIR CELLS: Unremarkable as visualized. No inflammatory changes. OTHER FINDINGS: None. IMPRESSION: No definitive acute intracranial findings identified in the interval. Chronic lacunes as discussed above and bilateral frontal lobes. Follow-up CT or MRI are available if clinically warranted. 12/03/17 15:39 Chest X-ray reviewed by radiologist, shows: FINDINGS: LUNGS: No active pulmonary disease. PLEURA: No significant pleural effusion identified, no pneumothorax apparent. CARDIOVASCULAR: No atherosclerotic calcification present No radiographic findings to suggest acute or significant cardiovascular disease. OSSEOUS STRUCTURES: No significant abnormalities. VISUALIZED UPPER ABDOMEN: Normal. OTHER FINDINGS: None. IMPRESSION: No active disease. No significant interval change compared to the prior examination(s). Radiology Orders: 12/03/17 11:09 HEAD W/O (CODE STROKE) [CT] Stat CHEST PORTABLE [RAD] Stat Reed Or Wind Instrument Tuner: Radiologist - EKG Interpretation EKG Interpretation (Text): 12/03/17 17:49 EKG at 14:35 normal sinus rhythm rate of [address] elevations Interpreted by ED Physician: Yes Type: 12 lead EKG - Medication Orders Current Medication Orders: Sodium Chloride (Sodium Chloride 0.9%) 1,000 mls @ 100 mls/hr IV .Q10H [facility] NIHSS Scale ([place]) Time Performed: 11:16 - How Severe is the Stoke Baseline Level of Consciousness: 0=Alert LOC to Questions: 0=Both comments correct LOC to commands: 0=Obeys both correctly Best Gaze: 0=Normal Visual: 0=No visual loss Facial: 0=Normal Motor Arm - Left: 0=No drift Motor Arm - Right: 0=No drift Motor Leg - Left: 0=No drift Motor Leg - Right: 0=No drift Limb Ataxia: 0=Absent Sensory: 0=Normal Best Language: 0=No aphasia Dysarthia: 0=Normal articulation Extinction & Inattention (Neglect): 0=Normal, no object Score: 0 Risk Level: No Stroke Risk Disposition/Present on Arrival - Present on Arrival Any Indicators Present on Arrival: No History of DVT/PE: No History of Uncontrolled Diabetes: No Urinary Catheter: No History of Decub. Ulcer: No History Surgical Site Infection Following: None - Disposition Have Diagnosis and Disposition been Completed?: Yes Diagnosis: Hypertension, Transient ischemic attack (TIA), Alcohol withdrawal Disposition: HOSPITALIZED Disposition Time: 13:00 Patient Plan: Admission, Telemetry Patient Problems: Current Active Problems Problem Status Onset Alcohol withdrawal Acute Transient ischemic attack (TIA) Acute Hypertension Chronic Condition: SERIOUS
[2017-12-03] MEDS ORDERED: Sodium Chloride 0.9% 1,000 ML IV SCH (11:15)
[2017-12-03 11:25] LABS: BASO # 0.02 K/mm3 (0.0-2.0); BASO % 0.3 % (0.0-3.0); EOS # 0.1 (0.0-0.7); EOS % 1.2 % (1.5-5.0); GRAN # 5.62 (1.4-6.5); HEMOGLOBIN 14.5 g/dL (14.0-18.0); LYMPH # 0.8 (1.2-3.4); LYMPH % 10.5 % (22.0-35.0); MEAN CELL VOLUME 93.2 fl (80.0-105.0); MEAN CORPUSCULAR HEMOGLOBIN 31.7 pg (25.0-35.0); MONO # 0.8 (0.1-0.6); RBC 4.57 10^6/uL (3.5-6.1); RED CELL DISTRIBUTION WIDTH 13.5 % (11.5-14.5); WHITE BLOOD COUNT 7.3 10^3/ul (4.5-11.0)
[2017-12-03 11:33] LABS: INR 1.03; PARTIAL THROMBOPLASTIN TIME 31.4 Seconds (25.1-36.5); PROTHROMBIN TIME 11.9 SECONDS (9.4-12.5)
[2017-12-03 11:36] LABS: ALB/GLOB RATIO 1.2 (1.1-1.8); ALBUMIN 4.3 g/dL (3.0-4.8); ALT/SGPT 26 U/L (7-56); AMYLASE 92 U/L (35-125); AST/SGOT 35 U/L (17-59); BLOOD UREA NITROGEN 14 mg/dL (7-21); GFR NON-AFRICAN AMERICAN > 60; LIPASE 53 U/L (23-300)
[2017-12-03 11:45] LABS: HDL CHOLESTEROL 122 mg/dL (29-60)
--- NOTE | 2017-12-03 11:46 | CT ---
Date of service: 12/03/2017 PROCEDURE: CT HEAD WITHOUT CONTRAST. HISTORY: Code Stroke COMPARISON: Unenhanced head CT 11/01/2017. TECHNIQUE: Axial computed tomography images were obtained through the head/brain without intravenous contrast. Radiation dose: Total exam DLP = 920.06 mGy-cm. This CT exam was performed using one or more of the following dose reduction techniques: Automated exposure control, adjustment of the mA and/or kV according to patient size, and/or use of iterative reconstruction technique. FINDINGS: HEMORRHAGE: No intracranial hemorrhage. BRAIN: Small chronic lacune is seen the left frontal subcortical white matter as well as at the right frontal vertex unchanged in the interval. Limited bilateral medial basal ganglia calcifications are identified with posterior fossa contents unremarkable. No mass effect. No suspicious extra-axial collection identified. Cortex is unremarkable above and below the tentorium. VENTRICLES: Unremarkable. No hydrocephalus. CALVARIUM: Unremarkable. PARANASAL SINUSES: Unremarkable as visualized. No significant inflammatory changes. MASTOID AIR CELLS: Unremarkable as visualized. No inflammatory changes. OTHER FINDINGS: None. IMPRESSION: No definitive acute intracranial findings identified in the interval. Chronic lacunes as discussed above and bilateral frontal lobes. Follow-up CT or MRI are available if clinically warranted. Findings discussed with Dr. Bower with written down and read back verification 12/03/2017 11:35 a.m..
[2017-12-03 11:47] LABS: LDL CHOLESTEROL 83 mg/dL (0-129)
[2017-12-03 11:49] LABS: TROPONIN I 0.02 ng/mL
--- NOTE | 2017-12-03 12:06 | CP.PCM.CON ---
History of Present Illness - History of Present Illness History of Present Illness: Code Stroke Note Walter Caro- Internal Medicine Resident Subjective: CC: Numbness HPI: Patient is a 52 year old male with past medical history of TIAs and alcohol abuse who presented to the emergency department for evaluation and treatment of acute numbness of the left side of his body ranging from the top of his scalp to his groin. Denies provoking event. States numbness began acutely while walking. Also, states associated confusion. Admits to speaking with his whose name he was not able to recall during there conversation. Ambulated to the emergency room. Symptoms have resolved since onset with no acute intervention. Admits to localized unilateral headache near left temporal region. Characterized as dull/aching. Rated a 6/10. Denies confusion, dizziness, weakness, auditory/visual changes from baseline, and focal deficits. Further denies fever, chills, chest pain, shortness of breath, nausea, vomiting, diarrhea, constipation, and urinary stymptoms. 12 point ROS negative except as indicated in HPI Past medical history: TIA, ETOH abuse Past surgical history: "right forearm repair", bone marrow injection right wrist, zygomatic fracture repair Allergies: coconut, coconut oil, cranberry. Social history: EtoH 2-3 pints of liquor on the weekend, denies tobacco and illicit drug use Family history: father- CVA Home meds: please see medication reconciliation Physical Examination: - Constitutional Appears: No Acute Distress - Head Exam Head Exam: ATRAUMATIC - Eye Exam Eye Exam: EOMI, Normal appearance, SOL absent: Conjunctival injection, Periorbital swelling, Scleral icterus - ENT Exam ENT Exam: Mucous Membranes Moist, Normal External Ear Exam. absent: Mucous Membranes Dry - Neck Exam Neck Exam: Normal Inspection. absent: Meningismus, Tenderness - Respiratory Exam Respiratory Exam: Clear to Auscultation Bilateral, NORMAL BREATHING PATTERN. absent: Accessory Muscle Use, Chest Wall Tenderness, Decreased Breath Sounds, Rales, Respiratory Distress - Cardiovascular Exam Cardiovascular Exam: REGULAR RHYTHM. +s1, +s2, absent: Bradycardia, Tachycardia, Murmur - GI/Abdominal Exam GI & Abdominal Exam: Soft, Normal Bowel Sounds. absent: Distended, Firm, Guarding, Rigid, Tenderness - Extremities Exam Extremities Exam: no swelling, no edema, no cyanosis absent: Calf Tenderness, Joint Swelling, Pedal Edema, Tenderness - Neurological Exam Neurological Exam: Alert, Awake, Oriented x 3, responds to verbals stimuli, follows commands, answers questions appropriately, moves extremities past midline, CN II- XII intact, muscle strength 5/5 throughout, sensation intact to touch throughout, no slurred speech, no facial asymmetry, no focal deficits - Psychiatric Exam Psychiatric exam: Normal Affect, Normal Mood. absent: Agitated, Anxious - Skin Skin Exam: multiple scabs and healing wounds on scalp and lower extremities Assessment and Plan: Patient is a 52 year old male with past medical history of TIAs and alcohol abuse who presented to the emergency department for evaluation and treatment of acute numbness of the left side of his body with associated confusion. Code stroke was called. Code Stroke - NIHSS scale 0 - CT head noncontrast-No definitive acute intracranial findings identified in the interval. Small chronic lacune is seen the left frontal subcortical white matter as well as at the right frontal vertex unchanged in the interval. - not a tPA candidate - dispo as per ED Patient case discussed with and plan approved by attending physician, Dr. Forrest. Past Patient History - Infectious Disease Hx of Infectious Diseases: None - Tetanus Immunizations Tetanus Immunization: Unknown - Past Medical History & Family History Past Medical History?: Yes - Past Social History Smoking Status: Former Smoker - CARDIAC Hx Cardiac Disorders: Yes Hx Hypertension: Yes - PULMONARY Hx Respiratory Disorders: No - NEUROLOGICAL Hx Neurological Disorder: Yes Hx Transient Ischemic Attacks (TIA): Yes - HEENT Hx HEENT Problems: No - RENAL Hx Chronic Kidney Disease: No - ENDOCRINE/METABOLIC Hx Endocrine Disorders: No - HEMATOLOGICAL/ONCOLOGICAL Hx Blood Disorders: No - INTEGUMENTARY Hx Dermatological Problems: No - MUSCULOSKELETAL/RHEUMATOLOGICAL Hx Musculoskeletal Disorders: Yes Hx Falls: Yes (2 yrs ago fell 0ff ladder) - GASTROINTESTINAL Hx Gastrointestinal Disorders: No - GENITOURINARY/GYNECOLOGICAL Hx Genitourinary Disorders: No - PSYCHIATRIC Hx Psychophysiologic Disorder: No Hx Substance Use: No - SURGICAL HISTORY Hx Musculoskeletal Surgery: Yes (right hip and hand, facial fracture repair) Other/Comment: right wrist injury, bone marrow taken from right hip and inserted into fx bone in right hand along with metal, metal has since been removed, 23 yrs ago at [facility] - ANESTHESIA Hx Anesthesia: Yes Hx Anesthesia Reactions: No Hx Malignant Hyperthermia: No Meds Allergies/Adverse Reactions: Allergies Allergy/AdvReac Type Severity Reaction Status Date / Time coconut Allergy RASH Verified 12/03/17 10:57 coconut oil Allergy RASH Verified 12/03/17 10:57 cranberry Allergy SWELLING Verified 12/03/17 10:57 - Medications Medications: Current Medications Sodium Chloride (Sodium Chloride 0.9%) 1,000 mls @ 100 mls/hr IV .Q10H MARIO Last Admin: 12/03/17 12:01 Dose: 100 mls/hr Results - Vital Signs Recent Vital Signs: Last Vital Signs Temp 98.2 F 12/03/17 10:52 Pulse 72 12/03/17 10:52 Resp 19 12/03/17 10:52 BP 190/130 H 12/03/17 10:52 Pulse Ox 97 12/03/17 10:52 - Labs Result Diagrams: 12/03/17 11:15 12/03/17 11:15 Labs: Laboratory Results - last 24 hr 12/03/17 12/03/17 12/03/17 10:43 11:09 11:15 WBC 7.3 RBC 4.57 Hgb 14.5 Hct 42.6 MCV 93.2 MCH 31.7 MCHC 34.0 RDW 13.5 Plt Count 264 MPV 9.0 Gran % 77.0 H Lymph % (Auto) 10.5 L Gray % (Auto) 11.0 H Eos % (Auto) 1.2 L Baso % (Auto) 0.3 Gran # 5.62 Lymph # (Auto) 0.8 L Gray # (Auto) 0.8 H Eos # (Auto) 0.1 Baso # (Auto) 0.02 PT INR APTT Sodium Potassium Chloride Carbon Dioxide Anion Gap BUN Creatinine Est GFR ( Amer) Est GFR (Non-Af Amer) POC Glucose (mg/dL) 106 Random Glucose Calcium Phosphorus Magnesium Total Bilirubin AST ALT Alkaline Phosphatase Troponin I Total Protein Albumin Globulin Albumin/Globulin Ratio Triglycerides Cholesterol LDL Cholesterol Direct HDL Cholesterol Amylase Lipase Alcohol, Quantitative BBK History Checked Patient has bt 12/03/17 12/03/17 12/03/17 11:15 11:15 11:15 WBC RBC Hgb Hct MCV MCH MCHC RDW Plt Count MPV Gran % Lymph % (Auto) Gray % (Auto) Eos % (Auto) Baso % (Auto) Gran # Lymph # (Auto) Gray # (Auto) Eos # (Auto) Baso # (Auto) PT 11.9 INR 1.03 APTT 31.4 Sodium 139 Potassium 4.3 Chloride 103 Carbon Dioxide 29 Anion Gap 12 BUN 14 Creatinine 0.8 Est GFR ( Amer) > 60 Est GFR (Non-Af Amer) > 60 POC Glucose (mg/dL) Random Glucose 144 H Calcium 9.0 Phosphorus 3.4 Magnesium 1.6 L Total Bilirubin 0.4 AST 35 ALT 26 Alkaline Phosphatase 70 Troponin I 0.02 D Total Protein 7.9 Albumin 4.3 Globulin 3.6 Albumin/Globulin Ratio 1.2 Triglycerides 65 Cholesterol 210 H LDL Cholesterol Direct 83 HDL Cholesterol 122 H Amylase 92 Lipase 53 Alcohol, Quantitative 96 H BBK History Checked
[2017-12-03 14:54] LABS: BARBITURATES, UR NEGATIVE (NEGATIVE); BENZODIAZEPINES, UR NEGATIVE (NEGATIVE); OPIATES, UR NEGATIVE (NEGATIVE); PHENCYCLIDINE, UR NEGATIVE (NEGATIVE)
--- NOTE | 2017-12-03 15:36 | RAD ---
Date of service: 12/03/2017 HISTORY: Code Stroke COMPARISON: 03/28/2017 FINDINGS: LUNGS: No active pulmonary disease. PLEURA: No significant pleural effusion identified, no pneumothorax apparent. CARDIOVASCULAR: No atherosclerotic calcification present No radiographic findings to suggest acute or significant cardiovascular disease. OSSEOUS STRUCTURES: No significant abnormalities. VISUALIZED UPPER ABDOMEN: Normal. OTHER FINDINGS: None. IMPRESSION: No active disease. No significant interval change compared to the prior examination(s).
[2017-12-03] MEDS ORDERED: Labetalol 5 mg/ml Inj 20ML IV STA (16:19)
--- NOTE | 2017-12-03 16:44 | CP.PCM.HP ---
Addendum entered and electronically signed by Ashanti Duong DO 12/03/17 17:23: CT Head: shows chronic frontal lobe lacunes bilaterally but no evidence of acute changes Original Note: <AdAshanti - Last Filed: 12/03/17 17:16> History of Present Illness - History of Present Illness History of Present Illness: CC: numbness and tingling left side HPI: Patient is a 52 yr old male with PMH ETOH abuse, HTN (noncompliant on medications) and TIAs x 5 who presented to [facility] [place] ED today after having numbness and tingling on the left side from his scalp to his groin area without any weakness or falls. He states that he came immediately to the hospital due to his previous history. He states that he drank heavily on Saturday (Vodka and white russians)and does not remember much of yesterday but does not remember drinking. He states that he has not eaten since Saturday either. He now indicates that all symptoms have resolved with the exception of his scalp tingling and "throbbing". He states that in the past he has had a seizure while withdrawing from ETOH. He admits to mild nausea and lightheadedness but otherwise denies OCONNOR, CP, SOB, abdominal pain, weakness, confusion, vision changes, loss of sensation or difficulty speaking. He additionally indicates that he lost his medicaid 8 months ago and has not seen a doctor in some time and has not been taking his BP medications. PMH:HTN, TIAx5 PSH: denies ALL: coconut, cranberry Social: ETOH abuse 4-6 pints of vodka at a time, former smoker, no illicit drugs, works for a [employer] [place]iddle FamHX: mother CHF Father stroke @ 50 Diet: mostly burger yecenia, drinks heavily Present on Admission - Present on Admission Any Indicators Present on Admission: No Review of Systems - Review of Systems All systems: reviewed and no additional remarkable complaints except (as per HPI) Past Patient History - Infectious Disease Hx of Infectious Diseases: None - Tetanus Immunizations Tetanus Immunization: Unknown - Past Medical History & Family History Past Medical History?: Yes - Past Social History Smoking Status: Former Smoker - CARDIAC Hx Cardiac Disorders: Yes Hx Hypertension: Yes - PULMONARY Hx Respiratory Disorders: No - NEUROLOGICAL Hx Neurological Disorder: Yes Hx Transient Ischemic Attacks (TIA): Yes - HEENT Hx HEENT Problems: No - RENAL Hx Chronic Kidney Disease: No - ENDOCRINE/METABOLIC Hx Endocrine Disorders: No - HEMATOLOGICAL/ONCOLOGICAL Hx Blood Disorders: No - INTEGUMENTARY Hx Dermatological Problems: No - MUSCULOSKELETAL/RHEUMATOLOGICAL Hx Musculoskeletal Disorders: Yes Hx Falls: Yes (2 yrs ago fell 0ff ladder) - GASTROINTESTINAL Hx Gastrointestinal Disorders: No - GENITOURINARY/GYNECOLOGICAL Hx Genitourinary Disorders: No - PSYCHIATRIC Hx Psychophysiologic Disorder: No Hx Substance Use: No - SURGICAL HISTORY Hx Musculoskeletal Surgery: Yes (right hip and hand, facial fracture repair) Other/Comment: right wrist injury, bone marrow taken from right hip and inserted into fx bone in right hand along with metal, metal has since been removed, 23 yrs ago at [facility] - ANESTHESIA Hx Anesthesia: Yes Hx Anesthesia Reactions: No Hx Malignant Hyperthermia: No Meds Allergies/Adverse Reactions: Allergies Allergy/AdvReac Type Severity Reaction Status Date / Time coconut Allergy RASH Verified 12/03/17 10:57 coconut oil Allergy RASH Verified 12/03/17 10:57 cranberry Allergy SWELLING Verified 12/03/17 10:57 Physical Exam - Constitutional Appears: Well, Non-toxic, No Acute Distress - Head Exam Head Exam: ATRAUMATIC (numerous scabbed areas on the head consistent with insect bites or picking), NORMOCEPHALIC - Eye Exam Eye Exam: EOMI, PERRL Pupil Exam: NORMAL ACCOMODATION, PERRL - ENT Exam ENT Exam: Mucous Membranes Moist - Respiratory Exam Respiratory Exam: Clear to Auscultation Bilateral, NORMAL BREATHING PATTERN. absent: Accessory Muscle Use, Chest Wall Tenderness - Cardiovascular Exam Cardiovascular Exam: REGULAR RHYTHM. absent: Tachycardia, JVD - GI/Abdominal Exam GI & Abdominal Exam: Soft. absent: Distended, Firm, Guarding, Rigid, Tenderness Additional comments: no signs of caput medusae - Extremities Exam Extremities exam: Positive for: normal capillary refill, pedal pulses present. Negative for: calf tenderness, pedal edema, tenderness - Back Exam Back exam: absent: CVA tenderness (L), CVA tenderness (R), paraspinal t enderness, rash noted, tenderness, vertebral tenderness - Neurological Exam Neurological exam: Alert, CN II-XII Intact, Oriented x3 Additional comments: no sensory or motor deficits, NIHS score 0 no neglect, no facial droop or weakness, no coordination deficits, no strength deficits, normal and symmetric sensory exam, no difficulty with repeating phrases - Psychiatric Exam Psychiatric exam: Normal Affect, Normal Mood Additional comments: slight tremor with arms outstretched bilaterally - Skin Skin Exam: Dry, Normal Color, Rash, Warm Additional comments: rash aboce left eye on forhead, numerous scabs on head and legs, 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 Results - Vital Signs Recent Vital Signs: Last Vital Signs Temp 98.4 F 12/03/17 14:48 Pulse 103 H 12/03/17 15:43 Resp 14 12/03/17 14:48 BP 187/116 H 12/03/17 15:43 Pulse Ox 98 12/03/17 14:48 - Labs Result Diagrams: 12/03/17 11:15 12/03/17 11:15 Labs: Laboratory Results - last 24 hr 12/03/17 12/03/17 12/03/17 10:43 11:09 11:15 WBC 7.3 RBC 4.57 Hgb 14.5 Hct 42.6 MCV 93.2 MCH 31.7 MCHC 34.0 RDW 13.5 Plt Count 264 MPV 9.0 Gran % 77.0 H Lymph % (Auto) 10.5 L [place] % (Auto) 11.0 H Eos % (Auto) 1.2 L Baso % (Auto) 0.3 Gran # 5.62 Lymph # (Auto) 0.8 L [place] # (Auto) 0.8 H Eos # (Auto) 0.1 Baso # (Auto) 0.02 PT INR APTT Sodium Potassium Chloride Carbon Dioxide Anion Gap BUN Creatinine Est GFR ( Amer) Est GFR (Non-Af Amer) POC Glucose (mg/dL) 106 Random Glucose Hemoglobin A1c Calcium Phosphorus Magnesium Total Bilirubin AST ALT Alkaline Phosphatase Troponin I Total Protein Albumin Globulin Albumin/Globulin Ratio Triglycerides Cholesterol LDL Cholesterol Direct HDL Cholesterol Amylase Lipase Urine Opiates Screen Urine Methadone Screen Ur Barbiturates Screen Ur Phencyclidine Scrn Ur Amphetamines Screen U Benzodiazepines Scrn U Oth Cocaine Metabols U Cannabinoids Screen Alcohol, Quantitative Blood Type O POSITIVE Antibody Screen Negative BBK History Checked Patient has bt 12/03/17 12/03/17 12/03/17 11:15 11:15 11:15 WBC RBC Hgb Hct MCV MCH MCHC RDW Plt Count MPV Gran % Lymph % (Auto) [place] % (Auto) Eos % (Auto) Baso % (Auto) Gran # Lymph # (Auto) [place] # (Auto) Eos # (Auto) Baso # (Auto) PT 11.9 INR 1.03 APTT 31.4 Sodium 139 Potassium 4.3 Chloride 103 Carbon Dioxide 29 Anion Gap 12 BUN 14 Creatinine 0.8 Est GFR ( Amer) > 60 Est GFR (Non-Af Amer) > 60 POC Glucose (mg/dL) Random Glucose 144 H Hemoglobin A1c 5.5 Calcium 9.0 Phosphorus 3.4 Magnesium 1.6 L Total Bilirubin 0.4 AST 35 ALT 26 Alkaline Phosphatase 70 Troponin I 0.02 D Total Protein 7.9 Albumin 4.3 Globulin 3.6 Albumin/Globulin Ratio 1.2 Triglycerides 65 Cholesterol 210 H LDL Cholesterol Direct 83 HDL Cholesterol 122 H Amylase 92 Lipase 53 Urine Opiates Screen Urine Methadone Screen Ur Barbiturates Screen Ur Phencyclidine Scrn Ur Amphetamines Screen U Benzodiazepines Scrn U Oth Cocaine Metabols U Cannabinoids Screen Alcohol, Quantitative Blood Type Antibody Screen BBK History Checked 12/03/17 12/03/17 11:15 14:20 WBC RBC Hgb Hct MCV MCH MCHC RDW Plt Count MPV Gran % Lymph % (Auto) [place] % (Auto) Eos % (Auto) Baso % (Auto) Gran # Lymph # (Auto) [place] # (Auto) Eos # (Auto) Baso # (Auto) PT INR APTT Sodium Potassium Chloride Carbon Dioxide Anion Gap BUN Creatinine Est GFR ( Amer) Est GFR (Non-Af Amer) POC Glucose (mg/dL) Random Glucose Hemoglobin A1c Calcium Phosphorus Magnesium Total Bilirubin AST ALT Alkaline Phosphatase Troponin I Total Protein Albumin Globulin Albumin/Globulin Ratio Triglycerides Cholesterol LDL Cholesterol Direct HDL Cholesterol Amylase Lipase Urine Opiates Screen Negative Urine Methadone Screen Negative Ur Barbiturates Screen Negative Ur Phencyclidine Scrn Negative Ur Amphetamines Screen Negative U Benzodiazepines Scrn Negative U Oth Cocaine Metabols Negative U Cannabinoids Screen Negative Alcohol, Quantitative 96 H Blood Type Antibody Screen BBK History Checked Assessment & Plan - Assessment and Plan (Free Text) Assessment: 52 yr old male with PMH multiple TIAs and uncontrolled BP presenting with stroke-like symptoms and hypertension Plan: TIA vs Stroke * NIHS score 0, patient indicates that only his scalp is now tingly * head CT negative * ASA 81 mg daily * Atorvastatin 10 mg Daily * PT/OT eval * MRI brain * CTA head and neck * ECHO * Hydralazine 10 mg PRN for SBP >200 * HHD HTN: * BP in ED 208/120 * 2 doses of clonidine given in ED * permissive HTN, hydralazine for SBP> 200 * f/u neuro recs ETOH abuse * Multivitamin, folate, B12 and Vit C * banana bag * CIWA evaluation Q 4 Hr * Ativan PRN for withdrawal symptoms, may increase if symptoms worsen Prophylaxis: * Heparin, SCD * protonix Patient seen and discussed with Dr. Mary Duong, PGY 1 - Date & Time Date: 12/03/17 Time: 15:23 <Mary Caro R - Last Filed: 12/03/17 21:24> Results - Vital Signs Recent Vital Signs: Last Vital Signs Temp 98 F 12/03/17 18:40 Pulse 82 12/03/17 19:16 Resp 18 12/03/17 19:16 BP 164/93 H 12/03/17 18:40 Pulse Ox 98 12/03/17 18:40 - Labs Result Diagrams: 12/03/17 11:15 12/03/17 11:15 Labs: Laboratory Results - last 24 hr 12/03/17 12/03/17 12/03/17 10:43 11:09 11:15 WBC 7.3 RBC 4.57 Hgb 14.5 Hct 42.6 MCV 93.2 MCH 31.7 MCHC 34.0 RDW 13.5 Plt Count 264 MPV 9.0 Gran % 77.0 H Lymph % (Auto) 10.5 L [place] % (Auto) 11.0 H Eos % (Auto) 1.2 L Baso % (Auto) 0.3 Gran # 5.62 Lymph # (Auto) 0.8 L [place] # (Auto) 0.8 H Eos # (Auto) 0.1 Baso # (Auto) 0.02 PT INR APTT Sodium Potassium Chloride Carbon Dioxide Anion Gap BUN Creatinine Est GFR ( Amer) Est GFR (Non-Af Amer) POC Glucose (mg/dL) 106 Random Glucose Hemoglobin A1c Calcium Phosphorus Magnesium Total Bilirubin AST ALT Alkaline Phosphatase Troponin I Total Protein Albumin Globulin Albumin/Globulin Ratio Triglycerides Cholesterol LDL Cholesterol Direct HDL Cholesterol Amylase Lipase Urine Opiates Screen Urine Methadone Screen Ur Barbiturates Screen Ur Phencyclidine Scrn Ur Amphetamines Screen U Benzodiazepines Scrn U Oth Cocaine Metabols U Cannabinoids Screen Alcohol, Quantitative Blood Type O POSITIVE Antibody Screen Negative BBK History Checked Patient has bt 12/03/17 12/03/17 12/03/17 11:15 11:15 11:15 WBC RBC Hgb Hct MCV MCH MCHC RDW Plt Count MPV Gran % Lymph % (Auto) [place] % (Auto) Eos % (Auto) Baso % (Auto) Gran # Lymph # (Auto) [place] # (Auto) Eos # (Auto) Baso # (Auto) PT 11.9 INR 1.03 APTT 31.4 Sodium 139 Potassium 4.3 Chloride 103 Carbon Dioxide 29 Anion Gap 12 BUN 14 Creatinine 0.8 Est GFR ( Amer) > 60 Est GFR (Non-Af Amer) > 60 POC Glucose (mg/dL) Random Glucose 144 H Hemoglobin A1c 5.5 Calcium 9.0 Phosphorus 3.4 Magnesium 1.6 L Total Bilirubin 0.4 AST 35 ALT 26 Alkaline Phosphatase 70 Troponin I 0.02 D Total Protein 7.9 Albumin 4.3 Globulin 3.6 Albumin/Globulin Ratio 1.2 Triglycerides 65 Cholesterol 210 H LDL Cholesterol Direct 83 HDL Cholesterol 122 H Amylase 92 Lipase 53 Urine Opiates Screen Urine Methadone Screen Ur Barbiturates Screen Ur Phencyclidine Scrn Ur Amphetamines Screen U Benzodiazepines Scrn U Oth Cocaine Metabols U Cannabinoids Screen Alcohol, Quantitative Blood Type Antibody Screen BBK History Checked 12/03/17 12/03/17 11:15 14:20 WBC RBC Hgb Hct MCV MCH MCHC RDW Plt Count MPV Gran % Lymph % (Auto) [place] % (Auto) Eos % (Auto) Baso % (Auto) Gran # Lymph # (Auto) [place] # (Auto) Eos # (Auto) Baso # (Auto) PT INR APTT Sodium Potassium Chloride Carbon Dioxide Anion Gap BUN Creatinine Est GFR ( Amer) Est GFR (Non-Af Amer) POC Glucose (mg/dL) Random Glucose Hemoglobin A1c Calcium Phosphorus Magnesium Total Bilirubin AST ALT Alkaline Phosphatase Troponin I Total Protein Albumin Globulin Albumin/Globulin Ratio Triglycerides Cholesterol LDL Cholesterol Direct HDL Cholesterol Amylase Lipase Urine Opiates Screen Negative Urine Methadone Screen Negative Ur Barbiturates Screen Negative Ur Phencyclidine Scrn Negative Ur Amphetamines Screen Negative U Benzodiazepines Scrn Negative U Oth Cocaine Metabols Negative U Cannabinoids Screen Negative Alcohol, Quantitative 96 H Blood Type Antibody Screen BBK History Checked Attending/Attestation - Attestation I have personally seen and examined this patient.: Yes I have fully participated in the care of the patient.: Yes I have reviewed all pertinent clinical information: Yes Notes (Text): Patient seen and examined by me with resident at 4:25PM with resident. Case including HPI, physical exam, and assessment and plan discussed with resident. Agree with above with following additions/corrections. Patient is a 52-year-old male with past medical history significant for ETOH abuse, HTN, and TIAs that is noncompliant with medications presented to the emergency room with left sided numbness going from his head to groin area. Patient states that he was walking on [address] when he suddenly felt the left side of his head down to the groin area go numb. He states he panicked and came to the hospital. While in the hospital, the numbness resolved. Patient denies any associated change in vision. No lightheadedness. Patient states he does have a throbbing headache. Patient states that he did drink a lot of alcohol on Saturday12/01/17. He states he was drinking all day. He states he drank a quart of vodka and white Russians. Patient is unsure if he drank alcohol yesterday. Patient states he has had a seizure in the past when stopping alcohol. He states he does not remember much of yesterday. Patient denies any chest pain or shortness of breath. No nausea or vomiting. No abdominal pain. No diarrhea or constipation. No fevers or chills. No neck or back pain. No dysuria. 12 point review of systems reviewed by me. See above HPI, all other systems negative. Family history: Father and a CVA. Mother of heart disease. Medications at home: Patient state he does not take any medications. Past surgical history. Reviewed and patient denies. Physical exam: General: Awake and alert lying in bed in no acute distress HEENT: Normocephalic atraumatic. Extra ocular muscles intact. Pupils equal and reactive. No scleral icterus. Oropharynx is pink and moist. No pharyngeal erythema or exudate appreciated. Neck is supple. Ears and nose externally unr emarkable. Cardiovascular: Normal rhythm. Normal S1, S2. No murmurs, rubs, or gallops appreciated Pulmonary: Normal respiratory effort. No rhonchi, rales or wheezing appreciated. Gastrointestinal: Soft, nondistended. Nontender. Positive bowel sounds all 4 quadrants, no guarding. Musculoskeletal: Normal range of motion all extremities, no calf tenderness. No edema appreciated Central nervous system: AAOx3. CN2-12 grossly intact. 5/5 muscle strength all extremities.No focal deficits. Sensation intact. NIHSS 0. Dermatologic: Skin warm and dry. Assessment and plan: Patient is a 52-year-old male with past medical history significant for ETOH abuse, HTN, and TIAs that is noncompliant with medications presented to the emergency room with left sided numbness going from his head to groin area. 1. Left sided numbness. TIA vs CVA. Numbness resolved. Patient was a code stroke in the ED. Head CT per radiologist showed no definitive acute intracranial findings identified; chronic lacunes seen in left frontal subcortical white mater as well as at the right frontal vertex unchanged. Follow up MRI brain. Follow up CTA head and neck. Follow up 2D echo. Allow for permissive hypertension for first 24 to 48 hours or until CVA ruled out. Started on ASA and Lipitor. PT/OT eval and treat. Monitor on telemetry. NIHSS 0. 2. Accelerated hypertension. Allow for permissive hypertension for now. Will need to be placed on anti-hypertensives once CVA ruled out. 3. ETOH abuse/intoxication. Alcohol level 96. Patient counseled at length on alcohol cessation. Placed on CIWA protocol. Placed on Ativan prn. Placed on banana bag. Started on thiamine, folic acid, and multivitamin. 4. GI/DVT prophylaxis. Protonix and heparin. Case discussed in detail with patient regarding current diagnosis and treatment plan. All questions answered.
[2017-12-03] MEDS ORDERED: Iohexol 350 MG/100 ML VIAL ONE (17:05)
[2017-12-03] MEDS: Pantoprazole 40 mg EC Tab PO SCH (18:33)
[2017-12-03] MEDS: Folic Acid 1 MG, Thiamine 100 MG, Multivitamin (MVI) 10 ML in Dextrose 5% In Water 1,00... IV SCH (18:39)
--- NOTE | 2017-12-03 18:44 | CT ---
Date of service: 12/03/2017 PROCEDURE: CT Angiography of the neck and brain. HISTORY: possible TIA COMPARISON: Comparison is made to the previous MRA of the head and neck dated 03/29/2017. TECHNIQUE: CT angiography of the intracranial arteries was performed. Coronal and sagittal maximum intensity projection reformated images were generated. Radiation dose: Total exam DLP = 559.93 mGy-cm. This CT exam was performed using one or more of the following dose reduction techniques: Automated exposure control, adjustment of the mA and/or kV according to patient size, and/or use of iterative reconstruction technique. FINDINGS: RIGHT CAROTID ARTERIES: Common Carotid Artery: Diffuse mural thickening and foci of calcification noted. Carotid Bifurcation: Foci of atherosclerotic calcification and mural thickening without evidence of significant stenosis. Internal Carotid Artery:Atherosclerotic calcification noted without evidence of critical stenosis. External Carotid Artery (proximal branches): Normal. LEFT CAROTID ARTERIES: Common Carotid Artery: Diffuse mild mural thickening and foci of calcification distally. Carotid Bifurcation: Mural thickening and atherosclerotic calcification without evidence of significant stenosis. Internal Carotid Artery:Foci of atherosclerotic calcification without evidence of significant stenosis External Carotid Artery (proximal branches): Normal. VERTEBRAL ARTERIES: Right Vertebral Artery: The right vertebral artery is slightly smaller than the left. The distal segment of the right vertebral artery is small in size Left Vertebral Artery: . the left vertebral artery demonstrate mild diffuse irregularity. The distal segment of the left vertebral artery is small in size. INTERNAL CEREBRAL ARTERIES: Unremarkable. The skull base, petrous, cavernous and supraclinoid segments are bilaterally widely patent. ANTERIOR CEREBRAL ARTERIES: Unremarkable. A1 and A2 segments are widely patent. Smaller distal branches unremarkable, as visualized. MIDDLE CEREBRAL ARTERIES: Unremarkable. M1 and M2 segments are widely patent. Perisylvian branches grossly symmetric. POSTERIOR CIRCULATION: Basilar Artery: Small size basilar artery. Distal Vertebral Arteries: Small size distal vertebral arteries. Posterior Cerebral Arteries: There is origin of the left posterior cerebral artery. Posterior Inferior Cerebellar Arteries: Very small size posterior inferior cerebellar arteries with possible foci of calcification noted image 186 series 2 and 189 series 2. ANEURYSM/ VASCULAR MALFORMATIONS: None. OTHER FINDINGS: None. IMPRESSION: [id number] diffuse atherosclerotic calcification. Small size posterior circulation arteries as described above. No evidence of arterial occlusion or focal critical stenosis in the anterior circulation.
--- NOTE | 2017-12-03 18:57 | MRI ---
Date of service: 12/03/2017 PROCEDURE: MRI BRAIN WITHOUT CONTRAST HISTORY: TIA vs stroke COMPARISON: Comparison is made to the previous study dated 03/29/2017 TECHNIQUE: Multiplanar, multisequence MR images of the brain were obtained without intravenous contrast enhancement. FINDINGS: HEMORRHAGE: None DWI: No evidence of an acute or early subacute infarction. BRAIN PARENCHYMA: No mass effect or edema. Again noted are few scattered foci of hyperintense T2 and FLAIR signal in the white matter likely represent mild chronic microvascular ischemic changes. VENTRICLES: Unremarkable. No hydrocephalus. CRANIUM: Unremarkable. ORBITS: Grossly unremarkable. PARANASAL SINUSES/MASTOIDS: Clear VASCULAR SYSTEM: Skull base flow voids intact. OTHER FINDINGS: None. IMPRESSION: No evidence of acute infarct or intracranial hemorrhage. No significant interval changes noted compared to the prior exam.
[2017-12-03] MEDS ORDERED: Magnesium Sulfate 1 gm in D5W 1 GM/100 ML BAG IVPB ONE (20:16)
[2017-12-04] MEDS: Folic Acid 1 MG, Thiamine 100 MG, Multivitamin (MVI) 10 ML in Dextrose 5% In Water 1,00... IV SCH (03:23)
--- NOTE | 2017-12-04 07:32 | CP.PCM.CON ---
<Walter Caro - Last Filed: 12/04/17 13:04> History of Present Illness - History of Present Illness History of Present Illness: Walter Caro- Internal Medicine Resident- Consult Note on Behalf of Neurology Team Subjective: CC: Numbness HPI: Patient is a 52 year old male with past medical history of TIAs and alcohol abuse who presented to the emergency department for evaluation and treatment of acute numbness of the left side of his body ranging from the top of his scalp to his groin. Denies provoking event. States numbness began acutely while walking. Also, states associated confusion. Admits to speaking with his whose name he was not able to recall during there conversation. Ambulated to the emergency room. Symptoms have resolved since onset with no acute intervention. Admits to localized unilateral headache near left temporal region. Characterized as dull/aching. Rated a 6/10. Denies confusion, dizziness, weakness, auditory/visual changes from baseline, and focal deficits. Further denies fever, chills, chest pain, shortness of breath, nausea, vomiting, diarrhea, constipation, and urinary stymptoms. 12 point ROS negative except as indicated in HPI Past medical history: TIA, ETOH abuse Past surgical history: "right forearm repair", bone marrow injection right wrist, zygomatic fracture repair Allergies: coconut, coconut oil, cranberry. Social history: EtoH 2-3 pints of liquor on the weekend, former tobacco smoker, denies current tobacco and illicit drug use Family history: father- CVA, mother- CHF Home meds: please see medication reconciliation Physical Examination: - Constitutional Appears: No Acute Distress - Head Exam Head Exam: ATRAUMATIC - Eye Exam Eye Exam: EOMI, Normal appearance, SOL absent: Conjunctival injection, Periorbital swelling, Scleral icterus - ENT Exam ENT Exam: Mucous Membranes Moist, Normal External Ear Exam. absent: Mucous Membranes Dry - Neck Exam Neck Exam: Normal Inspection. absent: Meningismus, Tenderness - Respiratory Exam Respiratory Exam: Clear to Auscultation Bilateral, NORMAL BREATHING PATTERN. absent: Accessory Muscle Use, Chest Wall Tenderness, Decreased Breath Sounds, Rales, Respiratory Distress - Cardiovascular Exam Cardiovascular Exam: REGULAR RHYTHM. +s1, +s2, absent: Bradycardia, Tachycardia, Murmur - GI/Abdominal Exam GI & Abdominal Exam: Soft, Normal Bowel Sounds. absent: Distended, Firm, Guarding, Rigid, Tenderness - Extremities Exam Extremities Exam: no swelling, no edema, no cyanosis absent: Calf Tenderness, Joint Swelling, Pedal Edema, Tenderness - Neurological Exam Neurological Exam: Alert, Awake, Oriented x 3, responds to verbals stimuli, follows commands, answers questions appropriately, moves extremities past midline, CN II- XII intact, muscle strength 5/5 throughout, sensation intact to touch throughout, no slurred speech, no facial asymmetry, no focal deficits, no dysmetria, negative rhomberg - Psychiatric Exam Psychiatric exam: Normal Affect, Normal Mood. absent: Agitated, Anxious - Skin Skin Exam: multiple scabs and healing wounds on scalp and lower extremities Assessment and Plan: Patient is a 52 year old male with past medical history of TIAs and alcohol abuse who presented to the emergency department for evaluation and treatment of acute numbness of the left side of his body with associated confusion. Code stroke was called. NIHSS 0. Head CT per radiologist showed no definitive acute intracranial findings identified; chronic lacunes seen in left frontal subcortical white mater as well as at the right frontal vertex unchanged. Patient is not a tPA candidate. Left Sided Numbness - likely secondary to TIA, new CVA ruled out - Brain MRI 12/03/2017- No evidence of acute infarct or intracranial hemorrhage. - Head/Neck 12/03/2017 CTA- [id number] diffuse atherosclerotic calcif ication - continue ASA and Lipitor - ensure electrolytes are within normal range, recommend supplement Folate, Vitamin b12, and multivitamin - maintain euglycemia - continue secondary stroke prevention: aspirin, blood pressure control goal SBP 90-150mmHg, lack of tobacco use, proper diet/physical activity - PT eval and treat - Echo ordered and pending - no further neurological intervention at this time Patient case discussed with and plan approved by attending physician, Dr. Forrest. Past Patient History - Infectious Disease Hx of Infectious Diseases: None - Tetanus Immunizations Tetanus Immunization: Unknown - Past Medical History & Family History Past Medical History?: Yes - Past Social History Smoking Status: Never Smoked - CARDIAC Hx Cardiac Disorders: Yes Hx Angina: No Hx Cardia Arrhythmia: No Hx Circulatory Problems: No Hx Congestive Heart Failure: No Hx Heart Murmur: No Hx Heart Transplant: No Hx Hypercholesterolemia: No Hx Hypertension: Yes Hx Internal Defibrillator: No Hx Mitral Valve Prolapse: No Hx Pacemaker: No Hx Peripheral Edema: No Hx Peripheral Vascular Disease: No - PULMONARY Hx Respiratory Disorders: Yes Hx Asthma: No Hx Bronchitis: No Hx Chronic Obstructive Pulmonary Disease (COPD): No Hx Emphysema: No Hx Pneumonia: Yes Hx Respiratory Aspiration: No Hx Respiratory Tract Infection: No Hx Sleep Apnea: No Hx Tuberculosis: No - NEUROLOGICAL Hx Neurological Disorder: Yes Hx Alzheimer's Disease: No HX Cerebrovascular Accident: No Hx Dementia: No Hx Dizziness: No Hx Meningitis: No Hx Migraine: No Hx Parkinson's Disease: No Hx Seizures: No Hx Transient Ischemic Attacks (TIA): Yes - HEENT Hx HEENT Problems: No Hx Blind: No Hx Cataracts: No Hx Deafness: No Hx Difficulty Chewing: No Hx Epistaxis: No Hx Glaucoma: No Hx Macular Degeneration: No - RENAL Hx Chronic Kidney Disease: No Hx Dialysis: No Hx Kidney Stones: No Hx Neurogenic Bladder: No Hx Pyelonephritis: No Hx Renal (Kidney) Cancer: No Hx Renal Failure: No - ENDOCRINE/METABOLIC Hx Endocrine Disorders: No Hx Adrenal Cancer: No Hx Diabetes Insipidus: No Hx Diabetes Mellitus Type 1: No Hx Diabetes Mellitus Type 2: No Hx Hyperthyroidism: No Hx Hypothyroidism: No Hx Systemic Lupus Erythematosus: No - HEMATOLOGICAL/ONCOLOGICAL Hx Blood Disorders: No Hx AIDS: No Hx Anemia: No Hx Cancer: No Hx Chemotherapy: No Hx Cirrhosis: No Hx Hemophilia: No Hx Hepatitis A: No Hx Hepatitis B: No Hx Hepatitis C: No Hx Human Immunodeficiency Virus (HIV): No Hx Metastesis: No Hx Shingles: No Hx Sickle Cell Disease: No Hx Unexplained Bleeding: No - INTEGUMENTARY Hx Dermatological Problems: No Hx Basil Cell: No Hx Eczema: No Hx Melanoma: No Hx Psoriasis: No Hx Squamous Cell: No - MUSCULOSKELETAL/RHEUMATOLOGICAL Hx Musculoskeletal Disorders: Yes Hx Arthritis: No Hx Back Pain: No Hx Degenerative Joint Disease: No Hx Falls: Yes Hx Fractures: Yes (Right hip/hand and facial fracture due to fall) Hx Gout: No Hx Herniated Disk: No Hx Myasthenia Gravis: No Hx Osteoarthritis: No Hx Osteomyelitis: No Hx Osteoporosis: No Hx Rhabdomyolysis: No Hx Spinal Stenosis: No Hx Unsteady Gait: Yes - GASTROINTESTINAL Hx Gastrointestinal Disorders: No Hx Colostomy: No Hx Crohn's Disease: No Hx Diverticulitis: No Hx Gall Bladder Disease: No Hx Gastroesophageal Reflux: No Hx Ileostomy: No Hx Liver Failure: No Hx Pancreatitis: No HX Swallowing Problems: No Hx Ulcer: No - GENITOURINARY/GYNECOLOGICAL Hx Genitourinary Disorders: No Hx Hematuria: No Hx Incontinence: No Hx Prostate Problems: No Hx Sexually Transmitted Disorders: No Hx Urinary Tract Infection: No - PSYCHIATRIC Hx Psychophysiologic Disorder: Yes Hx Anxiety: Yes Hx Bipolar Disorder: No Hx Depression: Yes Hx Emotional Abuse: No Hx Hallucinations: No Hx Panic Symptoms: No Hx Paranoia: No Hx Post Traumatic Stress Disorder: No Hx Psychosis: No Hx Physical Abuse: No Hx Schizophrenia: No Hx Sexual Abuse: No Hx Substance Use: No - SURGICAL HISTORY Hx Surgeries: Yes Hx Amputation: No Hx Appendectomy: No Hx Cardiac Catheterization: No Hx Cholecystectomy: No Hx Coronary Stent: No Hx Gastric Bypass Surgery: No Hx Hysterectomy: No Hx Joint Replacement: No Hx Kidney Transplant: No Hx Liver Transplant: No Hx Mastectomy: No Hx Musculoskeletal Surgery: No Hx Open Heart Surgery: No Hx Orthopedic Surgery: No Hx Splenectomy: No Hx Valve Replacement: No - ANESTHESIA Hx Anesthesia: Yes Hx Anesthesia Reactions: No Hx Malignant Hyperthermia: No Meds Allergies/Adverse Reactions: Allergies Allergy/AdvReac Type Severity Reaction Status Date / Time coconut Allergy RASH Verified 12/03/17 10:57 coconut oil Allergy RASH Verified 12/03/17 10:57 cranberry Allergy SWELLING Verified 12/03/17 10:57 - Medications Medications: Current Medications Aspirin (Aspirin Chewable) 81 mg PO DAILY [facility] Last Admin: 12/03/17 18:34 Dose: Not Given Atorvastatin Calcium (Lipitor) 10 mg PO DIN [facility] Last Admin: 12/03/17 18:34 Dose: 10 mg Heparin Sodium (Porcine) (Heparin) 5,000 units SC Q8 [facility]; Protocol Last Admin: 12/04/17 05:24 Dose: 5,000 units Hydralazine HCl (Apresoline) 10 mg IVP Q6H PRN PRN Reason: Systolic Blood Pressure Folic Acid 1 mg/ Thiamine HCl 100 mg/ Multivitamins/Vitamin C 10 ml/ Dextrose 1,011.2 mls @ 100 mls/hr IV .Q10H7M [facility] Last Admin: 12/04/17 03:23 Dose: 100 mls/hr Lorazepam (Ativan) 1 mg IVP Q4H PRN; Protocol PRN Reason: Symptoms of alcohol withdrawl Multivitamins/Minerals (Therapeutic-M Tab) 1 tab PO 0800 [facility] Pantoprazole Sodium (Protonix Ec Tab) 40 mg PO ACB [facility] Last Admin: 12/03/17 18:33 Dose: 40 mg Vitamin B Complex/Vit C/Folic Acid (Nephro-Conor) 1 tab PO 0800 [facility] Results - Vital Signs Recent Vital Signs: Last Vital Signs Temp 98.1 F 12/04/17 05:38 Pulse 70 12/04/17 05:38 Resp 18 12/04/17 05:38 BP 154/105 H 12/04/17 05:38 Pulse Ox 98 12/04/17 05:38 - Labs Result Diagrams: 12/04/17 07:30 12/04/17 07:30 Labs: Laboratory Results - last 24 hr 12/03/17 12/03/17 12/03/17 10:43 11:09 11:15 WBC 7.3 RBC 4.57 Hgb 14.5 Hct 42.6 MCV 93.2 MCH 31.7 MCHC 34.0 RDW 13.5 Plt Count 264 MPV 9.0 Gran % 77.0 H Lymph % (Auto) 10.5 L [place] % (Auto) 11.0 H Eos % (Auto) 1.2 L Baso % (Auto) 0.3 Gran # 5.62 Lymph # (Auto) 0.8 L [place] # (Auto) 0.8 H Eos # (Auto) 0.1 Baso # (Auto) 0.02 PT INR APTT Sodium Potassium Chloride Carbon Dioxide Anion Gap BUN Creatinine Est GFR ( Amer) Est GFR (Non-Af Amer) POC Glucose (mg/dL) 106 Random Glucose Hemoglobin A1c Calcium Phosphorus Magnesium Total Bilirubin AST ALT Alkaline Phosphatase Troponin I Total Protein Albumin Globulin Albumin/Globulin Ratio Triglycerides Cholesterol LDL Cholesterol Direct HDL Cholesterol Amylase Lipase Urine Opiates Screen Urine Methadone Screen Ur Barbiturates Screen Ur Phencyclidine Scrn Ur Amphetamines Screen U Benzodiazepines Scrn U Oth Cocaine Metabols U Cannabinoids Screen Alcohol, Quantitative Blood Type O POSITIVE Antibody Screen Negative BBK History Checked Patient has bt 12/03/17 12/03/17 12/03/17 11:15 11:15 11:15 WBC RBC Hgb Hct MCV MCH MCHC RDW Plt Count MPV Gran % Lymph % (Auto) [place] % (Auto) Eos % (Auto) Baso % (Auto) Gran # Lymph # (Auto) [place] # (Auto) Eos # (Auto) Baso # (Auto) PT 11.9 INR 1.03 APTT 31.4 Sodium 139 Potassium 4.3 Chloride 103 Carbon Dioxide 29 Anion Gap 12 BUN 14 Creatinine 0.8 Est GFR ( Amer) > 60 Est GFR (Non-Af Amer) > 60 POC Glucose (mg/dL) Random Glucose 144 H Hemoglobin A1c 5.5 Calcium 9.0 Phosphorus 3.4 Magnesium 1.6 L Total Bilirubin 0.4 AST 35 ALT 26 Alkaline Phosphatase 70 Troponin I 0.02 D Total Protein 7.9 Albumin 4.3 Globulin 3.6 Albumin/Globulin Ratio 1.2 Triglycerides 65 Cholesterol 210 H LDL Cholesterol Direct 83 HDL Cholesterol 122 H Amylase 92 Lipase 53 Urine Opiates Screen Urine Methadone Screen Ur Barbiturates Screen Ur Phencyclidine Scrn Ur Amphetamines Screen U Benzodiazepines Scrn U Oth Cocaine Metabols U Cannabinoids Screen Alcohol, Quantitative Blood Type Antibody Screen BBK History Checked 12/03/17 12/03/17 11:15 14:20 WBC RBC Hgb Hct MCV MCH MCHC RDW Plt Count MPV Gran % Lymph % (Auto) [place] % (Auto) Eos % (Auto) Baso % (Auto) Gran # Lymph # (Auto) [place] # (Auto) Eos # (Auto) Baso # (Auto) PT INR APTT Sodium Potassium Chloride Carbon Dioxide Anion Gap BUN Creatinine Est GFR ( Amer) Est GFR (Non-Af Amer) POC Glucose (mg/dL) Random Glucose Hemoglobin A1c Calcium Phosphorus Magnesium Total Bilirubin AST ALT Alkaline Phosphatase Troponin I Total Protein Albumin Globulin Albumin/Globulin Ratio Triglycerides Cholesterol LDL Cholesterol Direct HDL Cholesterol Amylase Lipase Urine Opiates Screen Negative Urine Methadone Screen Negative Ur Barbiturates Screen Negative Ur Phencyclidine Scrn Negative Ur Amphetamines Screen Negative U Benzodiazepines Scrn Negative U Oth Cocaine Metabols Negative U Cannabinoids Screen Negative Alcohol, Quantitative 96 H Blood Type Antibody Screen BBK History Checked <Peri Forrest - Last Filed: 12/05/17 12:54> History of Present Illness - History of Present Illness History of Present Illness: Patient who is not a TPA candidate, and is here for evaluation. He will need stroke workup. When it is completed, he may be discharged. All medical record entries made by the Resident were at my direction and personally dictated by me. I have reviewed the chart and agree that the record accurately reflects my personal performance of the history, physical exam, medical decision making, and the department course for this patient. I have also personally directed, reviewed, and agree with the discharge instructions and disposition. Thank you Dr. ajith Maher - Medications Medications: Current Medications Amlodipine Besylate (Norvasc) 5 mg PO DAILY [facility] Last Admin: 12/05/17 11:45 Dose: 5 mg Aspirin (Aspirin Chewable) 81 mg PO DAILY [facility] Last Admin: 12/05/17 11:45 Dose: 81 mg Atorvastatin Calcium (Lipitor) 10 mg PO DIN [facility] Last Admin: 12/04/17 17:32 Dose: 10 mg Folic Acid (Folic Acid) 1 mg PO DAILY [facility] Last Admin: 12/05/17 11:44 Dose: 1 mg Heparin Sodium (Porcine) (Heparin) 5,000 units SC Q8 [facility]; Protocol Last Admin: 12/05/17 05:59 Dose: 5,000 units Insulin Human Regular (Humulin R Med) 0 units SC ACHS [facility]; Protocol Last Admin: 12/05/17 11:45 Dose: Not Given Lisinopril (Zestril) 40 mg PO DAILY [facility] Last Admin: 12/05/17 11:44 Dose: 40 mg Lorazepam (Ativan) 1 mg IVP Q4H PRN; Protocol PRN Reason: Symptoms of alcohol withdrawl Multivitamins/Minerals (Therapeutic-M Tab) 1 tab PO 0800 [facility] Last Admin: 12/05/17 11:44 Dose: 1 tab Pantoprazole Sodium (Protonix Ec Tab) 40 mg PO ACB [facility] Last Admin: 12/05/17 11:44 Dose: 40 mg Thiamine HCl (Vitamin B1 Tab) 100 mg PO DAILY [facility] Last Admin: 12/05/17 11:45 Dose: 100 mg Vitamin B Complex/Vit C/Folic Acid (Nephro-Conor) 1 tab PO 0800 [facility] Last Admin: 12/05/17 11:44 Dose: 1 tab Results - Vital Signs Recent Vital Signs: Last Vital Signs Temp 98.2 F 12/05/17 06:00 Pulse 88 12/05/17 11:45 Resp 16 12/05/17 06:00 BP 171/108 H 12/05/17 11:45 Pulse Ox 98 12/05/17 06:00 - Labs Result Diagrams: 12/05/17 05:45 12/05/17 05:45 Labs: Laboratory Results - last 24 hr 12/04/17 12/04/17 12/04/17 10:59 16:35 21:33 WBC RBC Hgb Hct MCV MCH MCHC RDW Plt Count MPV Gran % Lymph % (Auto) [place] % (Auto) Eos % (Auto) Baso % (Auto) Gran # Lymph # (Auto) [place] # (Auto) Eos # (Auto) Baso # (Auto) Sodium Potassium Chloride Carbon Dioxide Anion Gap BUN Creatinine Est GFR ( Amer) Est GFR (Non-Af Amer) POC Glucose (mg/dL) 115 H 99 94 Random Glucose Calcium Phosphorus Magnesium Total Bilirubin AST ALT Alkaline Phosphatase Total Protein Albumin Globulin Albumin/Globulin Ratio 12/05/17 12/05/17 12/05/17 05:45 05:45 07:21 WBC 5.2 RBC 4.61 Hgb 14.4 Hct 43.1 MCV 93.5 MCH 31.2 MCHC 33.4 RDW 13.6 Plt Count 290 MPV 9.8 Gran % 56.3 Lymph % (Auto) 24.5 [place] % (Auto) 15.7 H Eos % (Auto) 3.1 Baso % (Auto) 0.4 Gran # 2.90 Lymph # (Auto) 1.3 [place] # (Auto) 0.8 H Eos # (Auto) 0.2 Baso # (Auto) 0.02 Sodium 137 Potassium 4.2 Chloride 102 Carbon Dioxide 28 Anion Gap 11 BUN 10 Creatinine 0.7 L Est GFR ( Amer) > 60 Est GFR (Non-Af Amer) > 60 POC Glucose (mg/dL) 93 Random Glucose 92 Calcium 9.4 Phosphorus 4.0 Magnesium 1.9 Total Bilirubin 0.7 AST 32 ALT 20 Alkaline Phosphatase 66 Total Protein 7.6 Albumin 4.0 Globulin 3.6 Albumin/Globulin Ratio 1.1 12/05/17 11:18 WBC RBC Hgb Hct MCV MCH MCHC RDW Plt Count MPV Gran % Lymph % (Auto) [place] % (Auto) Eos % (Auto) Baso % (Auto) Gran # Lymph # (Auto) [place] # (Auto) Eos # (Auto) Baso # (Auto) Sodium Potassium Chloride Carbon Dioxide Anion Gap BUN Creatinine Est GFR ( Amer) Est GFR (Non-Af Amer) POC Glucose (mg/dL) 92 Random Glucose Calcium Phosphorus Magnesium Total Bilirubin AST ALT Alkaline Phosphatase Total Protein Albumin Globulin Albumin/Globulin Ratio
--- NOTE | 2017-12-04 07:45 | CARD ---
APPROVED REPORT Date of service: 12/03/2017 EKG Measurement Heart [id number] <Conclusion> Normal sinus rhythm LVH by voltage criteria
[2017-12-04 08:01] LABS: BASO # 0.02 K/mm3 (0.0-2.0); BASO % 0.4 % (0.0-3.0); EOS # 0.2 (0.0-0.7); EOS % 3.4 % (1.5-5.0); GRAN # 2.84 (1.4-6.5); GRAN % 57.4 % (50.0-68.0); HEMOGLOBIN 13.4 g/dL (14.0-18.0); LYMPH # 0.8 (1.2-3.4); LYMPH % 15.2 % (22.0-35.0); MEAN CELL VOLUME 92.9 fl (80.0-105.0); MEAN CORPUSCULAR HEMOGLOBIN 31.6 pg (25.0-35.0); MEAN PLATELET VOLUME 9.4 fl (7.0-11.0); MONO # 1.2 (0.1-0.6); MONO % 23.6 % (1.0-6.0); PLATELET COUNT 254 10^3/uL (120.0-450.0); RBC 4.24 10^6/uL (3.5-6.1); RED CELL DISTRIBUTION WIDTH 13.4 % (11.5-14.5)
[2017-12-04 08:11] LABS: ALB/GLOB RATIO 1.1 (1.1-1.8); ALBUMIN 3.6 g/dL (3.0-4.8); ALT/SGPT 21 U/L (7-56); AST/SGOT 29 U/L (17-59); BLOOD UREA NITROGEN 11 mg/dL (7-21); CALCIUM 8.8 mg/dL (8.4-10.5); GFR NON-AFRICAN AMERICAN > 60
[2017-12-04 08:15] LABS: EOSINOPHIL 3 % (0.0-3.0); LYMPHOCYTE 21 % (22.0-35.0); MONOCYTE 16 % (1.0-6.0); NEUTROPHIL 60 % (50.0-70.0); PLATELET ESTIMATE NORMAL (NORMAL)
[2017-12-04] MEDS: Multivitamin With Minerals Tab PO SCH (08:22)
[2017-12-04] MEDS: Pantoprazole 40 mg EC Tab PO SCH (08:22)
[2017-12-04] MEDS: Multivitamin Vitamin B Complex (Nephro-Vite) Tab PO SCH (08:24)
[2017-12-04] MEDS: Insulin Reg-MEDIUM-Coverage SC SCH ×3 (12:00→21:52)
--- NOTE | 2017-12-04 15:36 | CP.PCM.PN ---
<Ashanti Duong - Last Filed: 12/04/17 15:54> Subjective - Date & Time of Evaluation Date of Evaluation: 12/04/17 Time of Evaluation: 09:30 - Subjective Subjective: Patient is a 52 year old male with a PMHx of EtOH abuse, HTN (non-compliance with medications), and previous TIAs x5, who presented yesterday with stroke- like symptoms following a weekend of drinking. There were no acute overnight events for this patient. He states that he is doing a lot better today than upon admission. He continues to complain of a frontal band-like headache which is localized, non-radiating and continuous. He was given tylenol for his pain which improved his pain. Along with this, he is experiencing ongoing numbness of his forehead which he states he has had since admission as well. He hasn't had much to eat since Saturday, and also has not had a bowel movement since then. He has no other acute concerns or complaints at this time. He otherwise denies CP, SOB, dizziness, vision changes, abdominal pain, dysuria, confusion, weakness or numbness in his extremities. Patient indicates that he has been working with social work to get reapproved for his medicaid if not he will need to apply for goldie care. Objective - Vital Signs/Intake and Output Vital Signs (last 24 hours): Temp Pulse Resp BP Pulse Ox 98.4 F 79 18 171/115 H 98 12/04/17 12:00 12/04/17 14:09 12/04/17 12:00 12/04/17 14:09 12/04/17 05:38 Intake and Output: 12/04/17 12/04/17 06:59 18:59 Intake Total 1560 Output Total 600 Balance 960 - Medications Medications: Current Medications Amlodipine Besylate (Norvasc) 5 mg PO DAILY [facility] Last Admin: 12/04/17 14:09 Dose: 5 mg Aspirin (Aspirin Chewable) 81 mg PO DAILY [facility] Last Admin: 12/04/17 09:58 Dose: 81 mg Atorvastatin Calcium (Lipitor) 10 mg PO DIN [facility] Last Admin: 12/03/17 18:34 Dose: 10 mg Folic Acid (Folic Acid) 1 mg PO DAILY [facility] Last Admin: 12/04/17 09:59 Dose: 1 mg Heparin Sodium (Porcine) (Heparin) 5,000 units SC Q8 [facility]; Protocol Last Admin: 12/04/17 13:09 Dose: 5,000 units Insulin Human Regular (Humulin R Med) 0 units SC ACHS [facility]; Protocol Last Admin: 12/04/17 12:00 Dose: Not Given Lisinopril (Zestril) 40 mg PO DAILY [facility] Last Admin: 12/04/17 14:11 Dose: 40 mg Lorazepam (Ativan) 1 mg IVP Q4H PRN; Protocol PRN Reason: Symptoms of alcohol withdrawl Multivitamins/Minerals (Therapeutic-M Tab) 1 tab PO 0800 [facility] Last Admin: 12/04/17 08:22 Dose: 1 tab Pantoprazole Sodium (Protonix Ec Tab) 40 mg PO ACB [facility] Last Admin: 12/04/17 08:22 Dose: 40 mg Thiamine HCl (Vitamin B1 Tab) 100 mg PO DAILY [facility] Last Admin: 12/04/17 09:58 Dose: 100 mg Vitamin B Complex/Vit C/Folic Acid (Nephro-Conor) 1 tab PO 0800 [facility] Last Admin: 12/04/17 08:24 Dose: 1 tab - Labs Labs: 12/04/17 07:30 12/04/17 07:30 PT 11.9 SECONDS (9.4-12.5) 12/03/17 11:15 INR 1.03 12/03/17 11:15 APTT 31.4 Seconds (25.1-36.5) 12/03/17 11:15 - Constitutional Appears: Well, Non-toxic, No Acute Distress - Head Exam Head Exam: ATRAUMATIC, NORMOCEPHALIC - Eye Exam Eye Exam: EOMI - ENT Exam ENT Exam: Mucous Membranes Moist - Respiratory Exam Respiratory Exam: NORMAL BREATHING PATTERN - Cardiovascular Exam Cardiovascular Exam: REGULAR RHYTHM - GI/Abdominal Exam GI & Abdominal Exam: Soft. absent: Distended, Firm, Guarding, Rigid, Tenderness, Rebound - Extremities Exam Extremities Exam: Normal Inspection. absent: Calf Tenderness, Pedal Edema - Neurological Exam Neurological Exam: Alert, Awake, Oriented x3 Additional comments: decreased tremor from prior exam - Psychiatric Exam Psychiatric exam: Normal Affect, Normal Mood - Skin Skin Exam: Dry, Intact, Normal Color, Warm Assessment and Plan - Assessment and Plan (Free Text) Assessment: 52 yr old male with PMH multiple TIAs and uncontrolled BP presenting with stroke-like symptoms and hypertension, both have now resolved Plan: TIA vs Stroke NIHS score 0, patient indicates that only his eyebrow area is now tingly Head CT negative ASA 81 mg daily Atorvastatin 10 mg Daily PT/OT eval and treat MRI brain negative for stroke pathology CTA head and neck shows anatomically small posterior vasculature ECHO pending HHD HTN: BP in ED 208/120, improved to 150/100 today before restarting home medications Lisinopril 40 mg Daily Norvasc 5 mg Daily ETOH abuse Multivitamin, folate, B12 and Vit C banana bag CIWA evaluation Q 4 Hr Ativan PRN for withdrawal symptoms, may increase if symptoms worsen Prophylaxis: Heparin, SCD Protonix Social: manager business continuity is working with patient to regain medicaid or apply for goldie care Patient seen and discussed with Dr. Scott Duong, PGY 1 <Franco Chavez - Last Filed: 12/05/17 17:57> Objective - Vital Signs/Intake and Output Vital Signs (last 24 hours): Temp Pulse Resp BP Pulse Ox 98.1 F 88 20 171/108 H 98 12/05/17 14:08 12/05/17 14:08 12/05/17 14:08 12/05/17 14:08 12/05/17 06:00 Intake and Output: 12/05/17 12/05/17 06:59 18:59 Intake Total 780 Balance 780 - Labs Labs: 12/05/17 05:45 12/05/17 05:45 PT 11.9 SECONDS (9.4-12.5) 12/03/17 11:15 INR 1.03 12/03/17 11:15 APTT 31.4 Seconds (25.1-36.5) 12/03/17 11:15 Attending/Attestation - Attestation I have personally seen and examined this patient.: Yes I have fully participated in the care of the patient.: Yes I have reviewed all pertinent clinical information, including history, physical exam and plan: Yes Notes (Text): Hypertensive emergency initially HTN uncontrolled - Non compliance restart home meds ETOH abuse
[2017-12-05 06:34] LABS: ALB/GLOB RATIO 1.1 (1.1-1.8); ALT/SGPT 20 U/L (7-56); AST/SGOT 32 U/L (17-59); BLOOD UREA NITROGEN 10 mg/dL (7-21); CALCIUM 9.4 mg/dL (8.4-10.5); GFR NON-AFRICAN AMERICAN > 60
[2017-12-05 06:58] LABS: BASO # 0.02 K/mm3 (0.0-2.0); BASO % 0.4 % (0.0-3.0); EOS # 0.2 (0.0-0.7); EOS % 3.1 % (1.5-5.0); GRAN # 2.9 (1.4-6.5); GRAN % 56.3 % (50.0-68.0); HEMOGLOBIN 14.4 g/dL (14.0-18.0); LYMPH # 1.3 (1.2-3.4); LYMPH % 24.5 % (22.0-35.0); MEAN CELL VOLUME 93.5 fl (80.0-105.0); MEAN CORPUSCULAR HEMOGLOBIN 31.2 pg (25.0-35.0); MEAN CORPUSCULAR HGB CONC 33.4 g/dl (31.0-37.0); MEAN PLATELET VOLUME 9.8 fl (7.0-11.0); MONO # 0.8 (0.1-0.6); MONO % 15.7 % (1.0-6.0); RBC 4.61 10^6/uL (3.5-6.1); RED CELL DISTRIBUTION WIDTH 13.6 % (11.5-14.5); WHITE BLOOD COUNT 5.2 10^3/ul (4.5-11.0)
[2017-12-05 07:24] VITALS: O2SAT 98
[2017-12-05] MEDS: Insulin Reg-MEDIUM-Coverage SC SCH ×2 (08:07→11:45)
--- NOTE | 2017-12-05 10:21 | CARD ---
APPROVED REPORT Date of service: 12/04/2017 EXAM: Two-dimensional and M-mode echocardiogram with Doppler and color Doppler. Other Information Quality : AverageRhythm : INDICATION TIA VS CVA 2D DIMENSIONS Left Atrium (2D)4.0 (1.6-4.0cm)IVSd1.2 (0.7-1.1cm) LVDd4.9 (3.9-5.9cm)PWd1.2 (0.7-1.1cm) LVDs3.5 (2.5-4.0cm)FS (%) 28.7 % LVEF (%)55.0 (>50%) M-Mode DIMENSIONS Aortic Root4.00 (2.2-3.7cm)Aortic Cusp Exc.1.60 (1.5-2.0cm) Aortic Valve AoV Peak Rrpeudij197.0cm/sAoV VTI31.9cmLVOT Peak Rgssnnol663.0cm/s LVOT VTI20.60cm Mitral Valve MV E Ttfymbfl43.6cm/sMV A Akixdiau508.0cm/sE/A ratio0.6 TDI Lateral E' Peak V5.75cm/sMedial E' Peak V5.46cm/sE/Lateral E'12.3 E/Medial E'12.9 Pulmonary Valve PV Peak Zbhnysgy72.0cm/sPV Peak Grad.2mmHg Tricuspid Valve TR Peak Xxgrxwlf802tb/sRAP NZRWNOYW20gdSnVX Peak Gr.21mmHg [id number] LEFT VENTRICLE The left ventricle is normal size. There is normal left ventricular wall thickness. The left ventricular function is normal. The left ventricular ejection fraction is within the normal range. There is normal LV segmental wall motion. RIGHT VENTRICLE The right ventricle is normal size. ATRIA The left atrium size is normal. The right atrium size is normal. The interatrial septum is intact with no evidence for an atrial septal defect. AORTIC VALVE The aortic valve is mildly calcified. There is trace aortic regurgitation. MITRAL VALVE The mitral valve is normal in structure. TRICUSPID VALVE The tricuspid valve is normal in structure. There is trace to mild tricuspid regurgitation. PULMONIC VALVE The pulmonary valve is normal in structure. There is trace to mild pulmonic valvular regurgitation. GREAT VESSELS The aortic root is normal in size. PERICARDIAL EFFUSION There is no pericardial effusion. <Conclusion> The left ventricle is normal size. The left ventricular function is normal. The left ventricular ejection fraction is within the normal range.
[2017-12-05] MEDS: Multivitamin Vitamin B Complex (Nephro-Vite) Tab PO SCH (11:44)
[2017-12-05] MEDS: Pantoprazole 40 mg EC Tab PO SCH (11:44)
[2017-12-05] MEDS: Multivitamin With Minerals Tab PO SCH (11:44)
[2017-12-05 11:46] VITALS: BP 171/108; PULSE 88
[2017-12-05] MEDS ORDERED: Influenza Vaccine 60 mcg/0.5 mL SYR (4YR UP) IM ONE (12:38)
--- NOTE | 2017-12-05 12:50 | CP.PCM.DIS ---
Provider - Provider Date of Admission: 12/03/17 15:01 Attending physician: Mary Caro DO Consults: Dr. Forrest Time Spent in preparation of Discharge (in minutes): 45 Hospital Course - Lab Results Lab Results: Most Recent Lab Values WBC 5.2 10^3/ul (4.5-11.0) 12/05/17 05:45 RBC 4.61 10^6/uL (3.5-6.1) 12/05/17 05:45 Hgb 14.4 g/dL (14.0-18.0) 12/05/17 05:45 Hct 43.1 % (42.0-52.0) 12/05/17 05:45 MCV 93.5 fl (80.0-105.0) 12/05/17 05:45 MCH 31.2 pg (25.0-35.0) 12/05/17 05:45 MCHC 33.4 g/dl (31.0-37.0) 12/05/17 05:45 RDW 13.6 % (11.5-14.5) 12/05/17 05:45 Plt Count 290 10^3/uL (120.0-450.0) 12/05/17 05:45 MPV 9.8 fl (7.0-11.0) 12/05/17 05:45 Gran % 56.3 % (50.0-68.0) 12/05/17 05:45 Lymph % (Auto) 24.5 % (22.0-35.0) 12/05/17 05:45 [place] % (Auto) 15.7 % (1.0-6.0) H 12/05/17 05:45 Eos % (Auto) 3.1 % (1.5-5.0) 12/05/17 05:45 Baso % (Auto) 0.4 % (0.0-3.0) 12/05/17 05:45 Gran # 2.90 (1.4-6.5) 12/05/17 05:45 Lymph # (Auto) 1.3 (1.2-3.4) 12/05/17 05:45 [place] # (Auto) 0.8 (0.1-0.6) H 12/05/17 05:45 Eos # (Auto) 0.2 (0.0-0.7) 12/05/17 05:45 Baso # (Auto) 0.02 K/mm3 (0.0-2.0) 12/05/17 05:45 Neutrophils % (Manual) 60 % (50.0-70.0) 12/04/17 07:30 Lymphocytes % (Manual) 21 % (22.0-35.0) L 12/04/17 07:30 Monocytes % (Manual) 16 % (1.0-6.0) H 12/04/17 07:30 Eosinophils % (Manual) 3 % (0.0-3.0) 12/04/17 07:30 Platelet Evaluation Normal (NORMAL) 12/04/17 07:30 PT 11.9 SECONDS (9.4-12.5) 12/03/17 11:15 INR 1.03 12/03/17 11:15 APTT 31.4 Seconds (25.1-36.5) 12/03/17 11:15 Sodium 137 mmol/L (132-148) 12/05/17 05:45 Potassium 4.2 mmol/L (3.6-5.0) 12/05/17 05:45 Chloride 102 mmol/L (98-107) 12/05/17 05:45 Carbon Dioxide 28 mmol/L (21-33) 12/05/17 05:45 Anion Gap 11 (10-20) 12/05/17 05:45 BUN 10 mg/dL (7-21) 12/05/17 05:45 Creatinine 0.7 mg/dl (0.8-1.5) L 12/05/17 05:45 Est GFR ( Amer) > 60 12/05/17 05:45 Est GFR (Non-Af Amer) > 60 12/05/17 05:45 POC Glucose (mg/dL) 92 mg/dL (65-110) 12/05/17 11:18 Random Glucose 92 mg/dL (70-110) 12/05/17 05:45 Hemoglobin A1c 5.5 % (4.2-6.5) 12/03/17 11:15 Calcium 9.4 mg/dL (8.4-10.5) 12/05/17 05:45 Phosphorus 4.0 mg/dL (2.5-4.5) 12/05/17 05:45 Magnesium 1.9 mg/dL (1.7-2.2) 12/05/17 05:45 Total Bilirubin 0.7 mg/dL (0.2-1.3) 12/05/17 05:45 AST 32 U/L (17-59) 12/05/17 05:45 ALT 20 U/L (7-56) 12/05/17 05:45 Alkaline Phosphatase 66 U/L (38-126) 12/05/17 05:45 Troponin I 0.02 ng/mL D 12/03/17 11:15 Total Protein 7.6 g/dL (5.8-8.3) 12/05/17 05:45 Albumin 4.0 g/dL (3.0-4.8) 12/05/17 05:45 Globulin 3.6 gm/dL 12/05/17 05:45 Albumin/Globulin Ratio 1.1 (1.1-1.8) 12/05/17 05:45 Triglycerides 65 mg/dL (35-160) 12/03/17 11:15 Cholesterol 210 mg/dL (130-200) H 12/03/17 11:15 LDL Cholesterol Direct 83 mg/dL (0-129) 12/03/17 11:15 HDL Cholesterol 122 mg/dL (29-60) H 12/03/17 11:15 Amylase 92 U/L (35-125) 12/03/17 11:15 Lipase 53 U/L (23-300) 12/03/17 11:15 Urine Opiates Screen Negative (NEGATIVE) 12/03/17 14:20 Urine Methadone Screen Negative (NEGATIVE) 12/03/17 14:20 Ur Barbiturates Screen Negative (NEGATIVE) 12/03/17 14:20 Ur Phencyclidine Scrn Negative (NEGATIVE) 12/03/17 14:20 Ur Amphetamines Screen Negative (NEGATIVE) 12/03/17 14:20 U Benzodiazepines Scrn Negative (NEGATIVE) 12/03/17 14:20 U Oth Cocaine Metabols Negative (NEGATIVE) 12/03/17 14:20 U Cannabinoids Screen Negative (NEGATIVE) 12/03/17 14:20 Alcohol, Quantitative 96 mg/dL (0-10) H 12/03/17 11:15 Blood Type O POSITIVE 12/03/17 11:09 Antibody Screen Negative 12/03/17 11:09 BBK History Checked Patient has bt 12/03/17 11:09 - Hospital Course Hospital Course: Upon Admission Patient is a 52 year old male with a past medical history of EtOH abuse, HTN (non-compliant with medications), and 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 He states that he came to the hospital based on his previous history of TIAs. He did not have insurance upon admission as he lost Medicaid 8 months ago, and has not seen a doctor or taken his blood pressure medications since that time. In the ED, he was afebrile, mildly tachycardic, with hypertensive emergency (205/120) and possible components of alcohol withdrawal. A code stroke was called, and patient was given 2 doses of Clonidine, which decreased his blood pressure to 190/122. An ECG revealed normal sinus rhythm with no acute ST elevations. He was admitted for further workup of TIA vs Stroke. Hospital Course During his hospital stay, the patient had a CXR done which showed no active disease. CT showed no definitive acute findings, but had chronic lacunae. On MRI brain, there were no acute infractions or intracranial hemorrhage. A CTA head and neck revealed mild-mod diffuse atherosclerosis, no evidence of arterial occlusion or focal cortical stenosis in anterior circulation, but small sized posterior circulating arteries were seen. His echo revealed normal left ventricular size and function and left ventricular ejection fraction within normal limits. Over the course of his stay, the patient was maintained with seizure precautions, neuro checks, and CIWA assessments. He remained afebrile and stable, with no development of focal neurological deficits and resolution of all of his previous symptoms. Discharge Patient is stable and cleared for medical discharge. Patient discussed insurance coverage with social work, and was told he would only get [facility] while in the hospital, but his medications upon discharge will be covered by [facility] pharmacy through [facility]. He wasn't approved for a medicaid application, due to lack of paperwork from the patient. He was educated about alcohol cessation, and advised to follow up with his primary care physician after discharge. He is also educated to return to the ER if his symptoms reoccur or progressively worsen. All medications and their purposes were discussed with the patient as well as in his discharge instructions. - Date & Time of H&P Date of H&P: 12/05/17 Time of H&P: 09:30 Discharge Exam - Head Exam Head Exam: ATRAUMATIC, NORMOCEPHALIC - Eye Exam Eye Exam: EOMI - ENT Exam ENT Exam: Mucous Membranes Moist - Respiratory Exam Respiratory Exam: Clear to PA & Lateral, NORMAL BREATHING PATTERN - Cardiovascular Exam Cardiovascular Exam: REGULAR RHYTHM - GI/Abdominal Exam GI & Abdominal Exam: Soft. absent: Distended, Guarding, Tenderness - Extremities Exam Extremities exam: normal capillary refill, pedal pulses present - Back Exam Back exam: FULL ROM, NORMAL INSPECTION - Neurological Exam Neurological exam: Alert, CN II-XII Intact, Normal Gait, Oriented x3 Additional comments: no motor or sensory deficits, strength intact and equal in extremities bilaterally, sensation intact - Psychiatric Exam Psychiatric exam: Normal Affect, Normal Mood - Skin Skin Exam: Dry, Intact, Normal Color, Warm Discharge Plan - Discharge Medications Prescriptions: amLODIPine [Norvasc] 5 mg PO DAILY #30 tab Aspirin [Aspirin Chewable] 81 mg PO DAILY #30 chew Atorvastatin [Lipitor] 10 mg PO DIN #30 tab Folic Acid 1 mg PO DAILY #30 tab Lisinopril [Zestril] 40 mg PO DAILY #30 tab Multimineral/Multivitamin [Therapeutic-M Tab] 1 tab PO 0800 #30 tab Thiamine [Vitamin B1 Tab] 100 mg PO DAILY #30 tab - Follow Up Plan Condition: SERIOUS Disposition: HOME/ ROUTINE Instructions: Transient Ischemic Attack (DC), Alcohol Abuse and Alcoholism (DC), Flu Vaccine, Hypertension (DC), Hypertension (GEN) Additional Instructions: Upon Discharge from the hospital you will continue taking the following medications for which prescriptions will be provided and medications given prior to your leaving the hospital. Lipitor 10 mg Daily by mouth ASA 81 mg Daily by mouth Lisinopril 40 mg Daily by mouth Norvasc 5 mg Daily by mouth Multivitamin 1 tab daily by mouth Thiamine 100 mg Daily by mouth Folic Acid 1mg Daily by mouth While in the hospital and upon discharge you were extensively counseled to stop drinking alcohol and encouraged to seek out a support group or sponsor for your sobriety. It is essential that you comply with your medication regimen and follow up with your primary care doctor within 5-7 days of being discharged. [facility] have been [facility] with [facility] with Dr. Sandhu. Your first appointment will be December 12, 2017, at 4:30 pm. If your begin to experience symptoms such as but not limited to, sever headache, numbness, weakness, tingling, confusion, difficulty speaking or being understood by others, chest pain, shortness of breath please return immediately to your nearest ED for evaluation. Referrals: Ilana Sandhu MD [Medical Doctor] -
[2017-12-05 14:09] VITALS: RESP 20; TEMP 98.1
== END 2017-12-05 15:00 | disposition home or self-care (01) | DRG 305 ==
LOC: ED 10:29 → ERH 15:01 → 2RNO 19:04
PROVIDERS: ADMIT Internal Medicine; ATTEND Hospitalist
DX: I16.1 Hypertensive emergency (principal); F10.239 Alcohol dependence with withdrawal, unspecified; I10 Essential (primary) hypertension; R29.700 NIHSS score 0; Y90.4 Blood alcohol level of 80-99 mg/100 ml; Z82.3 Family history of stroke; Z82.49 Family history of ischemic heart disease and other diseases of the circulatory system; Z86.73 Personal history of transient ischemic attack (TIA), and cerebral infarction without residual deficits; Z87.01 Personal history of pneumonia (recurrent); Z87.891 Personal history of nicotine dependence; Z91.14 Patient's other noncompliance with medication regimen; Z91.19 Patient's noncompliance with other medical treatment and regimen; Z91.018 Allergy to other foods; Z23 Encounter for immunization

== ENCOUNTER 2017-12-09 00:44 | Emergency (ER) | payer MEDICAID, OTHER ==
[2017-12-09 01:39] VITALS: BMI 22.0
[2017-12-09 01:51] VITALS: TEMP 97.3
--- NOTE | 2017-12-09 05:44 | ED PDOC ---
Arrival/HPI - General Chief Complaint: Alcohol Ingestion Time Seen by Provider: 12/09/17 01:36 Historian: Patient, EMS - History of Present Illness Narrative History of Present Illness (Text): 52 y/o M w/ a past medical history of alcohol abuse presents to the emergency room brought in by EMS for alcohol intoxication. Per EMS, patient was found intoxicated on the street. Patient admits to drinking a pint of vodka and states he is a daily alcoholic consumer. Patient denies any fever, chills, shortness of breath, chest pain, diarrhea, nausea, vomiting, urinary symptoms, back pain, neck pain, headache, dizziness, or any other complaints. Time/Duration: 1-3 hours (earlier tonight) Symptom Onset: Gradual Symptom Course: Unchanged Activities at Onset: Light Context: Street Past Medical History - Provider Review Nursing Documentation Reviewed: Yes - Travel History Have you recently traveled outside [place] w/in the past 3 mons?: No - Infectious Disease Hx of Infectious Diseases: None - Tetanus Immunization Tetanus Immunization: Unknown - Past Medical History Past Medical History: Unable to Obtain - Cardiac Hx Hypertension: Yes - Pulmonary Hx Respiratory Disorders: Yes Hx Asthma: No Hx Bronchitis: No Hx Chronic Obstructive Pulmonary Disease (COPD): No Hx Emphysema: No Hx Pneumonia: Yes Hx Respiratory Aspiration: No Hx Respiratory Tract Infection: No Hx Sleep Apnea: No Hx Tuberculosis: No - Neurological HX Cerebrovascular Accident: No - HEENT Hx HEENT Disorder: No Hx Blind: No Hx Cataracts: No Hx Deafness: No Hx Difficulty Chewing: No Hx Epistaxis: No Hx Glaucoma: No Hx Macular Degeneration: No - Renal Hx Renal Disorder: No Hx Dialysis: No Hx Kidney Stones: No Hx Neurogenic Bladder: No Hx Pyelonephritis: No Hx Renal Cancer: No Hx Renal Failure: No - Endocrine/Metabolic Hx Endocrine Disorders: No Hx Adrenal Cancer: No Hx Diabetes Insipidus: No Hx Diabetes Mellitus Type 1: No Hx Diabetes Mellitus Type 2: No Hx Hyperthyroidism: No Hx Hypothyroidism: No Hx Systemic Lupus Erythematosus: No - Hematological/Oncological Hx Blood Disorders: No Hx AIDS: No Hx Anemia: No Hx Cancer: No Hx Chemotherapy: No Hx Cirrhosis: No Hx Hemophilia: No Hx Hepatitis A: No Hx Hepatitis B: No Hx Hepatitis C: No Hx Metastasis: No Hx Shingles: No Hx Sickle Cell Disease: No Hx Unexplained Bleeding: No - Integumentary Hx Dermatological Disorder: No Hx Basal Cell Carcinoma: No Hx Eczema: No Hx Melanoma: No Hx Psoriasis: No Hx Squamous Cell Carcinoma: No - Musculoskeletal/Rheumatological Hx Musculoskeletal Disorders: Yes Hx Arthritis: No Hx Back Pain: No Hx Degenerative Joint Disease: No Hx Falls: Yes Hx Fractures: Yes (Right hip/hand and facial fracture due to fall) Hx Gout: No Hx Herniated Disk: No Hx Myasthenia Gravis: No Hx Osteoarthritis: No Hx Osteomyelitis: No Hx Osteoporosis: No Hx Rhabdomyolysis: No Hx Spinal Stenosis: No Hx Unsteady Gait: Yes - Gastrointestinal Hx Gastrointestinal Disorders: No Hx Colostomy: No Hx Crohn's Disease: No Hx Diverticulitis: No Hx Gall Bladder Disease: No Hx Gastroesophageal Reflux: No Hx Ileostomy: No Hx Liver Failure: No Hx Pancreatitis: No HX Swallowing Problems: No - Genitourinary/Gynecological Hx Genitourinary Disorders: No Hx Hematuria: No Hx Incontinence: No Hx Prostate Problems: No Hx Sexually Transmitted Diseases: No Hx Urinary Tract Infection: No - Psychiatric Hx Psychophysiologic Disorder: Yes Hx Anxiety: Yes Hx Bipolar Disorder: No Hx Depression: Yes Hx Emotional Abuse: No Hx Hallucinations: No Hx Panic Disorder: No Hx Post Traumatic Stress Disorder: No Hx Psychosis: No Hx Physical Abuse: No Hx Schizophrenia: No Hx Sexual Abuse: No Hx Substance Use: No - Past Surgical History Past Surgical History: Unable to Obtain - Surgical History Hx Amputation: No Hx Appendectomy: No Hx Cardiac Catheterization: No Hx Cholecystectomy: No Hx Coronary Stent: No Hx Gastric Bypass Surgery: No Hx Hysterectomy: No Hx Joint Replacement: No Hx Kidney Transplant: No Hx Liver Transplant: No Hx Mastectomy: No Hx Musculoskeletal Surgery: No Hx Open Heart Surgery: No Hx Orthopedic Surgery: No Hx Splenectomy: No Hx Valve Replacement: No - Anesthesia Hx Anesthesia: Yes Hx Anesthesia Reactions: No Hx Malignant Hyperthermia: No - Suicidal Assessment Feels Threatened In Home Enviroment: No Family/Social History - Physician Review Nursing Documentation Reviewed: Yes Family/Social History: Unknown Family HX Smoking Status: Never Smoked Hx Alcohol Use: Yes Hx Substance Use: No Hx Substance Use Treatment: No Allergies/Home Meds Allergies/Adverse Reactions: Allergies coconut Allergy (Verified 12/09/17 10:59) RASH coconut oil Allergy (Verified 12/09/17 10:59) RASH cranberry Allergy (Verified 12/09/17 10:59) SWELLING Review of Systems - Review of Systems Systems not reviewed;Unavailable: Intoxicated Constitutional: absent: Fevers, Night Sweats Respiratory: absent: SOB Cardiovascular: absent: Chest Pain Gastrointestinal: absent: Diarrhea, Nausea, Vomiting Genitourinary Male: absent: Urinary Output Changes Musculoskeletal: absent: Back Pain, Neck Pain Neurological: absent: Headache, Dizziness Physical Exam Vital Signs Reviewed: Yes Vital Signs Temp Pulse Resp BP Pulse Ox 12/09/17 04:31 96 H 17 94 L 12/09/17 01:50 97.3 F L 98 H 16 129/70 100 Temperature: Hypothermic Blood Pressure: Normal Pulse: Tachycardic Respiratory Rate: Normal Appearance: Positive for: Unkept Pain Distress: None Mental Status: Positive for: Alert and Oriented X 3 Finger Stick Blood Glucose: 82 - Systems Exam Head: Present: Atraumatic, Normocephalic, Other (No obvious evidence of facial trauma, ecchymosis or gross deformities of the face) Pupils: Present: PERRL Extroacular Muscles: Present: EOMI Conjunctiva: Present: Normal Mouth: Present: Moist Mucous Membranes Neck: Present: Normal Range of Motion Respiratory/Chest: Present: Clear to Auscultation, Good Air Exchange. No: Respiratory Distress, Accessory Muscle Use Cardiovascular: Present: Regular Rate and Rhythm, Normal S1, S2. No: Murmurs Abdomen: No: Tenderness, Distention, Peritoneal Signs Back: Present: Normal Inspection Upper Extremity: Present: Normal Inspection. No: Cyanosis, Edema Lower Extremity: Present: Normal Inspection. No: Edema Neurological: Present: GCS=15, CN II-XII Intact, Speech Normal Skin: No: Laceration, Other (no trauma noted, no noted ecchymosis) Psychiatric: Present: Intoxicated Medical Decision Making ED Course and Treatment: 12/09/17 01:42 Impression 52 y/o M presenting with alcohol intoxication. Plan --Glucose --Reassess & disposition Progress Notes 12/10/17 07:00 Patient reassessed and noted to be ambulatory without assistance around unit. No tremulousness or fasiculations noted. Patient tolerating PO intake without difficulty. He is stable for discharge. - Lab Interpretations Lab Results: Lab Results 12/09/17 03:40: Alcohol, Quantitative 261 H - Scribe Statement The provider has reviewed the documentation as recorded by the Teeibteagan Woodward All medical record entries made by the Scribe were at my direction and personally dictated by me. I have reviewed the chart and agree that the record accurately reflects my personal performance of the history, physical exam, medical decision making, and the department course for this patient. I have also personally directed, reviewed, and agree with the discharge instructions and dis position. Disposition/Present on Arrival - Present on Arrival Any Indicators Present on Arrival: No History of DVT/PE: No History of Uncontrolled Diabetes: No Urinary Catheter: No History of Decub. Ulcer: No History Surgical Site Infection Following: None - Disposition Have Diagnosis and Disposition been Completed?: Yes Diagnosis: Alcohol abuse Disposition: HOME/ ROUTINE Disposition Time: 06:17 Patient Plan: Discharge Condition: IMPROVED Discharge Instructions (ExitCare): Alcohol Abuse and Alcoholism (DC) Additional Instructions: All medical record entries made by the Scribe were at my direction and personally dictated by me. I have reviewed the chart and agree that the record accurately reflects my personal performance of the history, physical exam, medical decision making, and the department course for this patient. I have also personally directed, reviewed, and agree with the discharge instructions and disposition. Referrals: [facility] at [facility] [place] [Outside] - Follow up with primary Ilana Sandhu MD [Medical Doctor] - Follow up with primary Forms: [employer] ([place])
[2017-12-09 06:31] VITALS: BP 133/68; PULSE 90; RESP 18; O2SAT 99
== END 2017-12-09 06:31 | disposition home or self-care (01) ==
LOC: ED 00:44
DX: F10.10 Alcohol abuse, uncomplicated (principal)

== ENCOUNTER 2017-12-17 15:22 | Emergency (ER) | payer MEDICAID ==
[2017-12-17 15:37] VITALS: RESP 18; TEMP 97.6; BMI 24.2
--- NOTE | 2017-12-17 18:51 | ED PDOC ---
Arrival/HPI - General Historian: Patient - History of Present Illness Narrative History of Present Illness (Text): 12/17/17 18:49 52-year-old male presents today brought in by ambulance for alcohol intoxication. Per EMS the patient was found sitting at a [facility]. Patient admits to drinking alcohol. He denies any trauma or injury. He denies any complaints. <Demi Brown - Last Filed: 12/17/17 19:16> <Sebastián Kern - Last Filed: 12/18/17 19:05> - General Chief Complaint: Alcohol Ingestion Time Seen by Provider: 12/17/17 15:49 Past Medical History - Provider Review Nursing Documentation Reviewed: Yes - Travel History Have you recently traveled outside [place] w/in the past 3 mons?: No - Infectious Disease Hx of Infectious Diseases: None - Tetanus Immunization Tetanus Immunization: Unknown - Past Medical History Past Medical History: Unable to Obtain - Cardiac Hx Hypertension: Yes - Pulmonary Hx Respiratory Disorders: Yes Hx Asthma: No Hx Bronchitis: No Hx Chronic Obstructive Pulmonary Disease (COPD): No Hx Emphysema: No Hx Pneumonia: Yes Hx Respiratory Aspiration: No Hx Respiratory Tract Infection: No Hx Sleep Apnea: No Hx Tuberculosis: No - Neurological HX Cerebrovascular Accident: No - HEENT Hx HEENT Disorder: No Hx Blind: No Hx Cataracts: No Hx Deafness: No Hx Difficulty Chewing: No Hx Epistaxis: No Hx Glaucoma: No Hx Macular Degeneration: No - Renal Hx Renal Disorder: No Hx Dialysis: No Hx Kidney Stones: No Hx Neurogenic Bladder: No Hx Pyelonephritis: No Hx Renal Cancer: No Hx Renal Failure: No - Endocrine/Metabolic Hx Endocrine Disorders: No Hx Adrenal Cancer: No Hx Diabetes Insipidus: No Hx Diabetes Mellitus Type 1: No Hx Diabetes Mellitus Type 2: No Hx Hyperthyroidism: No Hx Hypothyroidism: No Hx Systemic Lupus Erythematosus: No - Hematological/Oncological Hx Blood Disorders: No Hx AIDS: No Hx Anemia: No Hx Cancer: No Hx Chemotherapy: No Hx Cirrhosis: No Hx Hemophilia: No Hx Hepatitis A: No Hx Hepatitis B: No Hx Hepatitis C: No Hx Metastasis: No Hx Shingles: No Hx Sickle Cell Disease: No Hx Unexplained Bleeding: No - Integumentary Hx Dermatological Disorder: No Hx Basal Cell Carcinoma: No Hx Eczema: No Hx Melanoma: No Hx Psoriasis: No Hx Squamous Cell Carcinoma: No - Musculoskeletal/Rheumatological Hx Musculoskeletal Disorders: Yes Hx Arthritis: No Hx Back Pain: No Hx Degenerative Joint Disease: No Hx Falls: Yes Hx Fractures: Yes (Right hip/hand and facial fracture due to fall) Hx Gout: No Hx Herniated Disk: No Hx Myasthenia Gravis: No Hx Osteoarthritis: No Hx Osteomyelitis: No Hx Osteoporosis: No Hx Rhabdomyolysis: No Hx Spinal Stenosis: No Hx Unsteady Gait: Yes - Gastrointestinal Hx Gastrointestinal Disorders: No Hx Colostomy: No Hx Crohn's Disease: No Hx Diverticulitis: No Hx Gall Bladder Disease: No Hx Gastroesophageal Reflux: No Hx Ileostomy: No Hx Liver Failure: No Hx Pancreatitis: No HX Swallowing Problems: No - Genitourinary/Gynecological Hx Genitourinary Disorders: No Hx Hematuria: No Hx Incontinence: No Hx Prostate Problems: No Hx Sexually Transmitted Diseases: No Hx Urinary Tract Infection: No - Psychiatric Hx Psychophysiologic Disorder: Yes Hx Anxiety: Yes Hx Bipolar Disorder: No Hx Depression: Yes Hx Emotional Abuse: No Hx Hallucinations: No Hx Panic Disorder: No Hx Post Traumatic Stress Disorder: No Hx Psychosis: No Hx Physical Abuse: No Hx Schizophrenia: No Hx Sexual Abuse: No Hx Substance Use: No - Past Surgical History Past Surgical History: Unable to Obtain - Surgical History Hx Amputation: No Hx Appendectomy: No Hx Cardiac Catheterization: No Hx Cholecystectomy: No Hx Coronary Stent: No Hx Gastric Bypass Surgery: No Hx Hysterectomy: No Hx Joint Replacement: No Hx Kidney Transplant: No Hx Liver Transplant: No Hx Mastectomy: No Hx Musculoskeletal Surgery: No Hx Open Heart Surgery: No Hx Orthopedic Surgery: No Hx Splenectomy: No Hx Valve Replacement: No - Anesthesia Hx Anesthesia: Yes Hx Anesthesia Reactions: No Hx Malignant Hyperthermia: No - Suicidal Assessment Feels Threatened In Home Enviroment: No <Demi Brown - Last Filed: 12/17/17 19:16> Family/Social History - Physician Review Nursing Documentation Reviewed: Yes Family/Social History: Unknown Family HX Smoking Status: Never Smoked Hx Alcohol Use: Yes Hx Substance Use: No Hx Substance Use Treatment: No <Demi Brown - Last Filed: 12/17/17 19:16> Allergies/Home Meds <Demi Brown - Last Filed: 12/17/17 19:16> <Sebastián Kern - Last Filed: 12/18/17 19:05> Allergies/Adverse Reactions: Allergies coconut Allergy (Verified 12/18/17 15:49) RASH coconut oil Allergy (Verified 12/18/17 15:49) RASH cranberry Allergy (Verified 12/18/17 15:49) SWELLING Home Medications: Home Meds Medication Instructions Recorded Confirmed RX: No Known Home Med 12/18/17 12/18/17 Review of Systems - Review of Systems Constitutional: absent: Fatigue, Fevers Respiratory: absent: SOB, Cough Cardiovascular: absent: Chest Pain, Palpitations Gastrointestinal: absent: Abdominal Pain, Nausea, Vomiting Musculoskeletal: absent: Arthralgias, Back Pain, Neck Pain Neurological: absent: Headache, Dizziness Psychiatric: absent: Anxiety, Depression, Suicidal Ideation <Demi Brown - Last Filed: 12/17/17 19:16> Physical Exam Vital Signs Reviewed: Yes Vital Signs Temp Pulse Resp BP Pulse Ox 12/17/17 17:47 80 18 116/64 95 12/17/17 15:37 97.6 F 84 18 107/79 96 Temperature: Afebrile Blood Pressure: Normal Pulse: Regular Respiratory Rate: Normal Appearance: Positive for: Well-Appearing, Non-Toxic, Comfortable Pain Distress: None Mental Status: Positive for: Alert and Oriented X 3, other (intoxicated) - Systems Exam Head: Present: Atraumatic Mouth: Present: Moist Mucous Membranes Neck: Present: Normal Range of Motion Respiratory/Chest: Present: Clear to Auscultation, Good Air Exchange. No: Respiratory Distress, Accessory Muscle Use Cardiovascular: Present: Regular Rate and Rhythm, Normal S1, S2. No: Murmurs Abdomen: No: Tenderness, Distention, Rebound, Guarding Back: Present: Normal Inspection, Other (no ecchymosis) Upper Extremity: Present: Normal ROM Lower Extremity: Present: Normal ROM Neurological: Present: GCS=15 Skin: Present: Warm, Dry, Normal Color. No: Rashes Psychiatric: Present: Alert, Intoxicated <Demi Brown - Last Filed: 12/17/17 19:16> Vital Signs Temp Pulse Resp BP Pulse Ox 12/17/17 17:47 80 18 116/64 95 12/17/17 15:37 97.6 F 84 18 107/79 96 <Sebastián Kern - Last Filed: 12/18/17 19:05> Medical Decision Making ED Course and Treatment: 12/17/17 52-year-old male with a history of alcohol abuse presents today brought in for alcohol abuse after being found sitting in a C. Patient denies any complaints. Vital signs are stable. Fingerstick is 103. Will observe the patient for sobriety 12/17/17 18:50 Patient reassessment: Patient resting comfortably in the emergency room alert and oriented no distress. 12/17/17 19:15 case signed out to dr. kern pending sobriety, re-evaluation and disposition. - Lab Interpretations Lab Results: Lab Results 12/17/17 15:39: POC Glucose (mg/dL) 103 <Demi Brown - Last Filed: 12/17/17 19:16> ED Course and Treatment: 12/18/17 06:02 Patient is alert and oriented with a steady gait. Patient denies any current complaints at this time. Patient is stable for discharge. 12/18/17 19:05 - Lab Interpretations Lab Results: Lab Results 12/17/17 15:39: POC Glucose (mg/dL) 103 <Sebastián Kern - Last Filed: 12/18/17 19:05> - PA / LIEN SEARCHER / 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 <Sebastián Kern - Last Filed: 12/18/17 19:05> Disposition/Present on Arrival - Present on Arrival Any Indicators Present on Arrival: No History of DVT/PE: No History of Uncontrolled Diabetes: No Urinary Catheter: No History of Decub. Ulcer: No History Surgical Site Infection Following: None - Disposition Have Diagnosis and Disposition been Completed?: Yes Disposition Time: 19:16 Patient Plan: Discharge <Demi Brown - Last Filed: 12/17/17 19:16> <Sebastián Kern - Last Filed: 12/18/17 19:05> - Disposition Diagnosis: Alcohol abuse Disposition: HOME/ ROUTINE Condition: GOOD Discharge Instructions (ExitCare): Alcohol Abuse and Alcoholism (DC) Forms: [facility] (Arabic)
[2017-12-18 06:43] VITALS: O2SAT 100
[2017-12-18 07:12] VITALS: BP 121/79; PULSE 75
== END 2017-12-18 06:00 | disposition home or self-care (01) ==
LOC: ED 15:22
DX: F10.129 Alcohol abuse with intoxication, unspecified (principal); I10 Essential (primary) hypertension

== ENCOUNTER 2017-12-18 15:47 | Emergency (ER) | payer MEDICAID ==
[2017-12-18 15:50] VITALS: BMI 20.7
[2017-12-18 16:07] VITALS: RESP 18
--- NOTE | 2017-12-18 16:10 | ED PDOC ---
Arrival/HPI - General Chief Complaint: Alcohol Ingestion Time Seen by Provider: 12/18/17 15:48 - History of Present Illness Narrative History of Present Illness (Text): 12/18/17 16:00 52 year old male, with past medical history EtOH abuse, is brought in for alcohol intoxication. Limited HPI and ROS due to intoxication. Patient was here last night for similar issue. No PMD Past Medical History - Provider Review Nursing Documentation Reviewed: Yes - Infectious Disease Hx of Infectious Diseases: None - Tetanus Immunization Tetanus Immunization: Unknown - Past Medical History Past Medical History: Unable to Obtain - Cardiac Hx Hypertension: Yes - Pulmonary Hx Respiratory Disorders: Yes Hx Asthma: No Hx Bronchitis: No Hx Chronic Obstructive Pulmonary Disease (COPD): No Hx Emphysema: No Hx Pneumonia: Yes Hx Respiratory Aspiration: No Hx Respiratory Tract Infection: No Hx Sleep Apnea: No Hx Tuberculosis: No - Neurological HX Cerebrovascular Accident: No - HEENT Hx HEENT Disorder: No Hx Blind: No Hx Cataracts: No Hx Deafness: No Hx Difficulty Chewing: No Hx Epistaxis: No Hx Glaucoma: No Hx Macular Degeneration: No - Renal Hx Renal Disorder: No Hx Dialysis: No Hx Kidney Stones: No Hx Neurogenic Bladder: No Hx Pyelonephritis: No Hx Renal Cancer: No Hx Renal Failure: No - Endocrine/Metabolic Hx Endocrine Disorders: No Hx Adrenal Cancer: No Hx Diabetes Insipidus: No Hx Diabetes Mellitus Type 1: No Hx Diabetes Mellitus Type 2: No Hx Hyperthyroidism: No Hx Hypothyroidism: No Hx Systemic Lupus Erythematosus: No - Hematological/Oncological Hx Blood Disorders: No Hx AIDS: No Hx Anemia: No Hx Cancer: No Hx Chemotherapy: No Hx Cirrhosis: No Hx Hemophilia: No Hx Hepatitis A: No Hx Hepatitis B: No Hx Hepatitis C: No Hx Metastasis: No Hx Shingles: No Hx Sickle Cell Disease: No Hx Unexplained Bleeding: No - Integumentary Hx Dermatological Disorder: No Hx Basal Cell Carcinoma: No Hx Eczema: No Hx Melanoma: No Hx Psoriasis: No Hx Squamous Cell Carcinoma: No - Musculoskeletal/Rheumatological Hx Musculoskeletal Disorders: Yes Hx Arthritis: No Hx Back Pain: No Hx Degenerative Joint Disease: No Hx Falls: Yes Hx Fractures: Yes (Right hip/hand and facial fracture due to fall) Hx Gout: No Hx Herniated Disk: No Hx Myasthenia Gravis: No Hx Osteoarthritis: No Hx Osteomyelitis: No Hx Osteoporosis: No Hx Rhabdomyolysis: No Hx Spinal Stenosis: No Hx Unsteady Gait: Yes - Gastrointestinal Hx Gastrointestinal Disorders: No Hx Colostomy: No Hx Crohn's Disease: No Hx Diverticulitis: No Hx Gall Bladder Disease: No Hx Gastroesophageal Reflux: No Hx Ileostomy: No Hx Liver Failure: No Hx Pancreatitis: No HX Swallowing Problems: No - Genitourinary/Gynecological Hx Genitourinary Disorders: No Hx Hematuria: No Hx Incontinence: No Hx Prostate Problems: No Hx Sexually Transmitted Diseases: No Hx Urinary Tract Infection: No - Psychiatric Hx Psychophysiologic Disorder: Yes Hx Anxiety: Yes Hx Bipolar Disorder: No Hx Depression: Yes Hx Emotional Abuse: No Hx Hallucinations: No Hx Panic Disorder: No Hx Post Traumatic Stress Disorder: No Hx Psychosis: No Hx Physical Abuse: No Hx Schizophrenia: No Hx Sexual Abuse: No Hx Substance Use: No - Past Surgical History Past Surgical History: Unable to Obtain - Surgical History Hx Amputation: No Hx Appendectomy: No Hx Cardiac Catheterization: No Hx Cholecystectomy: No Hx Coronary Stent: No Hx Gastric Bypass Surgery: No Hx Hysterectomy: No Hx Joint Replacement: No Hx Kidney Transplant: No Hx Liver Transplant: No Hx Mastectomy: No Hx Musculoskeletal Surgery: No Hx Open Heart Surgery: No Hx Orthopedic Surgery: No Hx Splenectomy: No Hx Valve Replacement: No - Anesthesia Hx Anesthesia: Yes Hx Anesthesia Reactions: No Hx Malignant Hyperthermia: No - Suicidal Assessment Feels Threatened In Home Enviroment: No Family/Social History - Physician Review Nursing Documentation Reviewed: Yes Family/Social History: No Known Family HX Smoking Status: Never Smoked Hx Alcohol Use: Yes Hx Substance Use: No Hx Substance Use Treatment: No Allergies/Home Meds Allergies/Adverse Reactions: Allergies coconut Allergy (Verified 12/18/17 15:49) RASH coconut oil Allergy (Verified 12/18/17 15:49) RASH cranberry Allergy (Verified 12/18/17 15:49) SWELLING Home Medications: Home Meds Medication Instructions Recorded Confirmed RX: No Known Home Med 12/18/17 12/18/17 Review of Systems - Review of Systems Systems not reviewed;Unavailable: Intoxicated Physical Exam - Physical Exam Physical Exam Limitations: Intoxication Vital Signs Temp Pulse Resp BP Pulse Ox 12/18/17 16:06 97.5 F L 95 H 18 144/81 98 Finger Stick Blood Glucose: 101 Medical Decision Making ED Course and Treatment: 12/18/17 16:03 Impression: 52 year old male brought in for EtOH intoxication. Plan: -- Reassess and disposition Prior Visits: Notes and results from previous visits were reviewed. Patient was last seen in the emergency department on 12/17/2017 for alcohol intoxication. Progress Notes: 12/18/17 20:30 patient seen for alcohol intoxication, no acute s/s of alcohol withdrawal, patient resting comfortably throughout ED course. case endorsed to dr. oglesby, clinical re-eval and disposition. - Scribe Statement The provider has reviewed the documentation as recorded by the Dara Tinoco Provider Scribe Attestation: All medical record entries made by the Scribe were at my direction and personally dictated by me. I have reviewed the chart and agree that the record accurately reflects my personal performance of the history, physical exam, medical decision making, and the department course for this patient. I have also personally directed, reviewed, and agree with the discharge instructions and dis position. Disposition/Present on Arrival - Present on Arrival Any Indicators Present on Arrival: No History of DVT/PE: No History of Uncontrolled Diabetes: No Urinary Catheter: No History of Decub. Ulcer: No History Surgical Site Infection Following: None - Disposition Have Diagnosis and Disposition been Completed?: Yes Diagnosis: Alcohol intoxication Disposition: HOME/ ROUTINE Disposition Time: 20:30 Condition: STABLE Discharge Instructions (ExitCare): Alcohol Abuse and Alcoholism (DC) Referrals: [facility] [Outside] - Follow up with primary Ilana Sandhu MD [Medical Doctor] - Follow up with primary Forms: [facility] (Greek)
[2017-12-18 19:15] VITALS: TEMP 97.8
--- NOTE | 2017-12-18 21:05 | ED PDOC ---
Physical Exam Vital Signs Temp Pulse Resp BP Pulse Ox 12/18/17 19:14 97.8 F 97 H 18 136/82 97 12/18/17 16:06 97.5 F L 95 H 18 144/81 98 Finger Stick Blood Glucose: 101 Medical Decision Making ED Course and Treatment: 12/18/17 21:04 Patient endorsed to me by Dr. Archibald pending sobriety. - Lab Interpretations Lab Results: Lab Results 12/18/17 16:03: POC Glucose (mg/dL) 101 Disposition/Present on Arrival - Present on Arrival Any Indicators Present on Arrival: No History of DVT/PE: No History of Uncontrolled Diabetes: No Urinary Catheter: No History of Decub. Ulcer: No History Surgical Site Infection Following: None - Disposition Have Diagnosis and Disposition been Completed?: Yes Diagnosis: Alcohol intoxication Disposition: HOME/ ROUTINE Disposition Time: 05:39 Patient Problems: Current Active Problems Problem Status Onset Alcohol intoxication Acute Condition: STABLE Discharge Instructions (ExitCare): Alcohol Abuse and Alcoholism (DC) Referrals: [facility] [Outside] - Follow up with primary Ilana Sandhu MD [Medical Doctor] - Follow up with primary Forms: [employer] (Kyrgyz)
[2017-12-19 02:34] VITALS: O2SAT 98
[2017-12-19 05:39] VITALS: BP 149/91; PULSE 83
== END 2017-12-19 05:50 | disposition home or self-care (01) ==
LOC: ED 15:47
DX: F10.129 Alcohol abuse with intoxication, unspecified (principal)

== ENCOUNTER 2017-12-25 05:17 | Observation (INO) | payer MEDICAID ==
--- NOTE | 2017-12-25 05:33 | EDPD ---
HPI Stroke - General Time Seen by Provider: 12/25/17 05:22 Chief Complaint: Weakness/Neurological Deficit - History of Present Illness Narrative History of Present Illness (Free Text): 12/25/17 05:30 Paul Larsen is a 52 year old male, whose past medical history includes hypertension, TIAs, and alcohol abuse, who presents to the Emergency department complaining of left-sided numbness. Patient states he had breakfast and went to the gym this morning, states at 05:00 while exercising he lost consciousness and had numbness to the left side of his body upon waking. Patient also reports he was unable to recall his name or where he was. Patient admits to drinking alcohol yesterday evening. Patient denies any vision changes, weakness, chest pain, shortness of breath, abdominal pain, dizziness, or any other complaints. Date:: 12/25/17 Time: 05:30 Onset:: Today Timing: Currently Symptomatic Context: Other (Gym) Associated Symptoms: Numbness Exacerbated by: Nothing Relieved by: Nothing - Location Location: Mental Status rTPA Inclusion/Exclusion - Refusal of Treatment Patient Refused Treatment: No - Inclusion Criteria for Altepase Patient is 18 years or Older: Yes The Clinical Diagnosis of Ischemic Stroke That is Causing a Potentially Disabling Neurological Deficit: No Time of Onset is Well Established to be Less Than 270 Minute Before Treatment Would Begin: Yes Risk/Benefit Discussed With Patient/Family Member Present: Yes - Exclusion Criteria for Altepase Uncontrolled Hypertension at Time of Treatment (Systolic BP above 185 or Diastolic BP above 110 mmHg): No Active Internal Bleeding: No Known Bleeding Diathesis Including but Not Limited to: Platelets Below 100,000/mm,PTT Above 40 sec After Heparin Use, Current Use of Oral Anitcoagulant With INR Greater Than 1.7 or PT Greater Than 15 secs: No Evidence of an Intracranial Hemorrhage: No Evidence of Major Acute Infarct With Signs Greater Than 1/3 MCA Territory: No Suspicion of Subarachnoid Hemorrhage on Pretreatment Evaluation Even if CT Head Negative For Hemorrhage: No - Warning to TPA With Conditions Following Conditions Weighed Against Anticipated Benefit: Yes Condition: Rapid Improvement Past Medical History - Provider Review Nursing Documentation Reviewed: Yes - Infectious Disease Hx of Infectious Diseases: None - Tetanus Immunization Tetanus Immunization: Unknown - Past Medical History Past Medical History: Unable to Obtain - Cardiac Hx Hypertension: Yes - Pulmonary Hx Respiratory Disorders: Yes Hx Asthma: No Hx Bronchitis: No Hx Chronic Obstructive Pulmonary Disease (COPD): No Hx Emphysema: No Hx Pneumonia: Yes Hx Respiratory Aspiration: No Hx Respiratory Tract Infection: No Hx Sleep Apnea: No Hx Tuberculosis: No - Neurological HX Cerebrovascular Accident: No - HEENT Hx HEENT Disorder: No Hx Blind: No Hx Cataracts: No Hx Deafness: No Hx Difficulty Chewing: No Hx Epistaxis: No Hx Glaucoma: No Hx Macular Degeneration: No - Renal Hx Renal Disorder: No Hx Dialysis: No Hx Kidney Stones: No Hx Neurogenic Bladder: No Hx Pyelonephritis: No Hx Renal Cancer: No Hx Renal Failure: No - Endocrine/Metabolic Hx Endocrine Disorders: No Hx Adrenal Cancer: No Hx Diabetes Insipidus: No Hx Diabetes Mellitus Type 1: No Hx Diabetes Mellitus Type 2: No Hx Hyperthyroidism: No Hx Hypothyroidism: No Hx Systemic Lupus Erythematosus: No - Hematological/Oncological Hx Blood Disorders: No Hx AIDS: No Hx Anemia: No Hx Cancer: No Hx Chemotherapy: No Hx Cirrhosis: No Hx Hemophilia: No Hx Hepatitis A: No Hx Hepatitis B: No Hx Hepatitis C: No Hx Metastasis: No Hx Shingles: No Hx Sickle Cell Disease: No Hx Unexplained Bleeding: No - Integumentary Hx Dermatological Disorder: No Hx Basal Cell Carcinoma: No Hx Eczema: No Hx Melanoma: No Hx Psoriasis: No Hx Squamous Cell Carcinoma: No - Musculoskeletal/Rheumatological Hx Musculoskeletal Disorders: Yes Hx Arthritis: No Hx Back Pain: No Hx Degenerative Joint Disease: No Hx Falls: Yes Hx Fractures: Yes (Right hip/hand and facial fracture due to fall) Hx Gout: No Hx Herniated Disk: No Hx Myasthenia Gravis: No Hx Osteoarthritis: No Hx Osteomyelitis: No Hx Osteoporosis: No Hx Rhabdomyolysis: No Hx Spinal Stenosis: No Hx Unsteady Gait: Yes - Gastrointestinal Hx Gastrointestinal Disorders: No Hx Colostomy: No Hx Crohn's Disease: No Hx Diverticulitis: No Hx Gall Bladder Disease: No Hx Gastroesophageal Reflux: No Hx Ileostomy: No Hx Liver Failure: No Hx Pancreatitis: No HX Swallowing Problems: No - Genitourinary/Gynecological Hx Genitourinary Disorders: No Hx Hematuria: No Hx Incontinence: No Hx Prostate Problems: No Hx Sexually Transmitted Diseases: No Hx Urinary Tract Infection: No - Psychiatric Hx Psychophysiologic Disorder: Yes Hx Anxiety: Yes Hx Bipolar Disorder: No Hx Depression: Yes Hx Emotional Abuse: No Hx Hallucinations: No Hx Panic Disorder: No Hx Post Traumatic Stress Disorder: No Hx Psychosis: No Hx Physical Abuse: No Hx Schizophrenia: No Hx Sexual Abuse: No Hx Substance Use: No - Past Surgical History Past Surgical History: Unable to Obtain - Surgical History Hx Amputation: No Hx Appendectomy: No Hx Cardiac Catheterization: No Hx Cholecystectomy: No Hx Coronary Stent: No Hx Gastric Bypass Surgery: No Hx Hysterectomy: No Hx Joint Replacement: No Hx Kidney Transplant: No Hx Liver Transplant: No Hx Mastectomy: No Hx Musculoskeletal Surgery: No Hx Open Heart Surgery: No Hx Orthopedic Surgery: No Hx Splenectomy: No Hx Valve Replacement: No - Anesthesia Hx Anesthesia: Yes Hx Anesthesia Reactions: No Hx Malignant Hyperthermia: No - Suicidal Assessment Feels Threatened In Home Enviroment: No Family/Social History - Family/Social History Family History: Non-Contributory - DrRell Review Nursing documentation reviewed.: Yes Allergies/Home Meds Allergies/Adverse Reactions: Allergies coconut Allergy (Verified 12/18/17 15:49) RASH coconut oil Allergy (Verified 12/18/17 15:49) RASH cranberry Allergy (Verified 12/18/17 15:49) SWELLING Home Medications: Home Meds Medication Instructions Recorded Confirmed No Known Home Med 12/18/17 12/18/17 Review of Systems - Physician Review All systems were reviewed & negative as marked: Yes - Review of Systems Constitutional: Normal Eyes: Normal ENT: Normal Respiratory: Normal. absent: Cough Cardiovascular: Normal. absent: Chest Pain Gastrointestinal: Normal. absent: Abdominal Pain, Vomiting Genitourinary Male: Normal. absent: Dysuria, Frequency, Hematuria, Urinary Output Changes Musculoskeletal: Normal. absent: Back Pain, Neck Pain Skin: Normal. absent: Rash Neurological: Other (+left-sided numbness, +memory loss) Endocrine: Normal Hemo/Lymphatic: Normal Psychiatric: Normal ED Stroke Physical Exam Vital Signs Reviewed: Yes Temperature: Afebrile Blood Pressure: Hypertensive Pulse: Regular Respiratory Rate: Normal Appearance: Positive for: Well-Appearing, Non-Toxic, Comfortable Pain Distress: None Mental Status: Positive for: Alert and Oriented X 3 - Systems Exam Head: Present: Atraumatic, Normocephalic Pupils: Present: PERRL Extroacular Muscles: Present: EOMI Conjunctiva: Present: Normal Mouth: Present: Moist Mucous Membranes Neck: Present: Normal Range of Motion Respiratory/Chest: Present: Clear to Auscultation, Good Air Exchange. No: Respiratory Distress, Accessory Muscle Use Cardiovascular: Present: Regular Rate and Rhythm, Normal S1, S2. No: Murmurs Abdomen: Present: Normal Bowel Sounds. No: Tenderness, Distention, Peritoneal Signs Back: Present: GCS, CN, SP Upper Extremity: Present: Normal Inspection. No: Cyanosis, Edema Lower Extremity: Present: Normal Inspection. No: Edema Neurologic: Present: GCS=15, CN II-XII Intact, Speech Normal, Motor Func Grossly Intact, Normal Sensory Function, Normal Cerebellar Funct, Memory Normal Skin: Present: Warm, Dry, Normal Color. No: Rashes Lymphatic: Present: OX3, NI, NC Psychiatric: Present: Alert, Oriented x 3, Normal Insight, Normal Concentration Medical Decision Making ED Course and Treatment: 12/25/17 05:30 Impression: 52 year old male complaining of left-sided numbness and memory loss since 05:00. Differential Diagnosis included but are not limited to: Plan: -- CT Head w/o contrast -- EKG -- Chest X-ray -- Labs, blood type and screen, lipid panel, troponin -- IV fluids -- Reassess and disposition Prior Visits: Notes and results from previous visits were reviewed. Progress Notes: 12/25/17 05:30 Pt seen on arrival to ED. Code Stroke called. Pt taken to CT scan. 12/25/17 06:[address] Mayers, neurologist typewriter ribbon winder, who is aware and agrees with plan. *States pt is not a candidate for tPA.* Recommends Aspirin, which was given. 12/25/17 06:13 CT Head: There is normal configuration of sella turcica. There are no intra or extra- axial collections. There is no mass effect or midline shift. There is no evidence of hematoma formation. No hydrocephalus is present. The ventricles are symmetrical. No abnormal calcifications are present. There is diffuse age-appropriate cerebellar and cerebral atrophy with proportionally dilated ventricles and cortical sulci. There are bilateral periventricular and subcortical white matter hypolucencies compatible with mild chronic microvascular disease. Otherwise, no significant focal abnormalities are seen either in the posterior fossa or supratentorial compartment. Mild chronic because of the inflammatory changes of the maxillary sinuses and ethmoid air cells. IMPRESSION: 1. Age-appropriate cerebellar and cerebral atrophy. 2. Mild chronic microvascular disease. 3. No evidence of acute intracranial pathology. Electronically signed on Dec 25, 2017 6:09:51 AM EST by: Ronan Bernal M.D., Certified by ABR, MSK, Neuroradiology 12/25/17 06:30 Reviewed EKG, NSR at 72 bpm. PAC. No acute changes. 12/25/17 07:11 Case was discussed with hospitalist who accepted to the hospitalist service. - Critical Care Critical Care Minutes: 30 minutes - Lab Interpretations I have reviewed the lab results: Yes - RAD Interpretation Second Worker: Radiologist - EKG Interpretation Interpreted by ED Physician: Yes Type: 12 lead EKG - Scribe Statement The provider has reviewed the documentation as recorded by the Scribe Camryn Sanchez Provider Scribe Attestation: All medical record entries made by the Scribe were at my direction and personally dictated by me. I have reviewed the chart and agree that the record accurately reflects my personal performance of the history, physical exam, medical decision making, and the department course for this patient. I have also personally directed, reviewed, and agree with the discharge instructions and di sposition. NIHSS Scale ([place]) Time Performed: 05:30 - How Severe is the Stoke Baseline Level of Consciousness: 0=Alert LOC to Questions: 0=Both comments correct LOC to commands: 0=Obeys both correctly Best Gaze: 0=Normal Visual: 0=No visual loss Facial: 0=Normal Motor Arm - Left: 0=No drift Motor Arm - Right: 0=No drift Motor Leg - Left: 0=No drift Motor Leg - Right: 0=No drift Limb Ataxia: 0=Absent Sensory: 0=Normal Best Language: 0=No aphasia Dysarthia: 0=Normal articulation Extinction & Inattention (Neglect): 0=Normal, no object Score: 0 Risk Level: No Stroke Risk Disposition/Present on Arrival - Present on Arrival Any Indicators Present on Arrival: No History of DVT/PE: No History of Uncontrolled Diabetes: No Urinary Catheter: No History of Decub. Ulcer: No History Surgical Site Infection Following: None - Disposition Have Diagnosis and Disposition been Completed?: Yes Diagnosis: Transient ischemic attack (TIA) Disposition: HOSPITALIZED Disposition Time: 06:45 Patient Problems: Current Active Problems Problem Status Onset Transient ischemic attack (TIA) Acute Condition: STABLE
[2017-12-25] MEDS ORDERED: Sodium Chloride 0.9% 1,000 ML IV SCH (05:45)
[2017-12-25 06:19] LABS: BASO # 0.02 K/mm3 (0.0-2.0); BASO % 0.2 % (0.0-3.0); EOS # 0.2 (0.0-0.7); EOS % 2.1 % (1.5-5.0); GRAN # 6.08 (1.4-6.5); GRAN % 70.5 % (50.0-68.0); HEMOGLOBIN 12.7 g/dL (14.0-18.0); LYMPH # 1.3 (1.2-3.4); LYMPH % 14.8 % (22.0-35.0); MEAN CELL VOLUME 93.6 fl (80.0-105.0); MEAN CORPUSCULAR HEMOGLOBIN 31.4 pg (25.0-35.0); MEAN CORPUSCULAR HGB CONC 33.6 g/dl (31.0-37.0); MEAN PLATELET VOLUME 9.3 fl (7.0-11.0); MONO # 1.1 (0.1-0.6); MONO % 12.4 % (1.0-6.0); RBC 4.04 10^6/uL (3.5-6.1); RED CELL DISTRIBUTION WIDTH 13.4 % (11.5-14.5); WHITE BLOOD COUNT 8.6 10^3/uL (4.5-11.0)
[2017-12-25 06:24] LABS: INR 0.95; PARTIAL THROMBOPLASTIN TIME 33.3 Seconds (25.1-36.5); PROTHROMBIN TIME 10.9 SECONDS (9.4-12.5)
[2017-12-25 06:47] LABS: ALB/GLOB RATIO 1.1 (1.1-1.8); ALBUMIN 3.7 g/dL (3.0-4.8); ALT/SGPT 22 U/L (7-56); AST/SGOT 39 U/L (17-59); BLOOD UREA NITROGEN 15 mg/dL (7-21); GFR NON-AFRICAN AMERICAN > 60; HDL CHOLESTEROL 100 mg/dL (29-60)
[2017-12-25 06:54] LABS: LDL CHOLESTEROL 51 mg/dL (0-129); TROPONIN I 0.01 ng/mL
--- NOTE | 2017-12-25 08:01 | CT ---
Date of service: 12/25/2017 PROCEDURE: CT HEAD WITHOUT CONTRAST. HISTORY: Code Stroke COMPARISON: None available. TECHNIQUE: Axial computed tomography images were obtained through the head/brain without intravenous contrast. Radiation dose: Total exam DLP = 970.52 mGy-cm. This CT exam was performed using one or more of the following dose reduction techniques: Automated exposure control, adjustment of the mA and/or kV according to patient size, and/or use of iterative reconstruction technique. FINDINGS: HEMORRHAGE: No intracranial hemorrhage. BRAIN: No mass effect or edema. No atrophy or chronic microvascular ischemic changes. VENTRICLES: Unremarkable. No hydrocephalus. CALVARIUM: Unremarkable. PARANASAL SINUSES: Unremarkable as visualized. No significant inflammatory changes. MASTOID AIR CELLS: Unremarkable as visualized. No inflammatory changes. OTHER FINDINGS: The report concurs with the preliminary [facility] report IMPRESSION: No acute findings
--- NOTE | 2017-12-25 08:03 | CP.PCM.HP ---
<Emanuel Armstrong - Last Filed: 12/25/17 16:07> History of Present Illness - History of Present Illness History of Present Illness: Armando Armstrong PGY2 IM Resident - History and Physical for Hospitalist Service CC: Left sided numbness HPI: Mr. Larsen is a 52 year old male with past medical history of past medical history of etoh abuse, multiple TIA who presented to [facility] ED by private vehicle complaining of left sided facial, arm and torso numbness. Patient reports he has had previous episodes similar to this. He indicates that he started feeling these symptoms when he was on his way to the gym this AM around 4am. Patient indicates that as he began his workout he felt his symptoms worsen. He indicates that he was able to communicate with the dentist/owner of the gym to ambulate to the emergency department on his own. He reports having similar symptoms in the recent past and being admitted to [facility] for workup. Patient indicates that he is a significant drinker. He reports multiple pints of vodka a week. He reports being in rehab in the past and that he wants to cut back on his drinking. Patient also reports poor compliance with medication as he has not taken any of previously prescribed medication due to being unable to afford the medication. Patient denies neck stiffness, syncope, dizziness, fevers, chills, shortness of breath, chest pain, abdominal pain, gait instability, weakness. Of note patient speech is stuttered and lacks focus. HPI and medical history is collected from patient and medical records. In emergency department patient had a Head CT without contrast that showed no acute intracranial abnormalities. Patient blood pressure was slightly hypertensive this AM. PMH: TIA, ETOH abuse PSH: Zygomatic fracture intervention, right forearm fracture intervention FMH: Father hx CVA SOCHx: Tobacco: Denies, ETOH: Liquor, 2-3 pints a week, ID: Denies ALL: Cococnut, coconut oil, cranberry MEDS: Denies Present on Admission - Present on Admission Any Indicators Present on Admission: No Review of Systems - Review of Systems All systems: reviewed and no additional remarkable complaints except (as mentioned in HPI) Past Patient History - Infectious Disease Hx of Infectious Diseases: None - Tetanus Immunizations Tetanus Immunization: Unknown - Past Medical History & Family History Past Medical History?: Yes - Past Social History Smoking Status: Never Smoked Alcohol: > 2 Drinks/Day Drugs: Denies Home Situation {Lives}: With Family - CARDIAC Hx Hypertension: Yes - PULMONARY Hx Respiratory Disorders: Yes Hx Asthma: No Hx Bronchitis: No Hx Chronic Obstructive Pulmonary Disease (COPD): No Hx Emphysema: No Hx Pneumonia: Yes Hx Respiratory Aspiration: No Hx Respiratory Tract Infection: No Hx Sleep Apnea: No Hx Tuberculosis: No - NEUROLOGICAL HX Cerebrovascular Accident: No - HEENT Hx HEENT Problems: No Hx Blind: No Hx Cataracts: No Hx Deafness: No Hx Difficulty Chewing: No Hx Epistaxis: No Hx Glaucoma: No Hx Macular Degeneration: No - RENAL Hx Chronic Kidney Disease: No Hx Dialysis: No Hx Kidney Stones: No Hx Neurogenic Bladder: No Hx Pyelonephritis: No Hx Renal (Kidney) Cancer: No Hx Renal Failure: No - ENDOCRINE/METABOLIC Hx Endocrine Disorders: No Hx Adrenal Cancer: No Hx Diabetes Insipidus: No Hx Diabetes Mellitus Type 1: No Hx Diabetes Mellitus Type 2: No Hx Hyperthyroidism: No Hx Hypothyroidism: No Hx Systemic Lupus Erythematosus: No - HEMATOLOGICAL/ONCOLOGICAL Hx Blood Disorders: No Hx AIDS: No Hx Anemia: No Hx Cancer: No Hx Chemotherapy: No Hx Cirrhosis: No Hx Hemophilia: No Hx Hepatitis A: No Hx Hepatitis B: No Hx Hepatitis C: No Hx Metastesis: No Hx Shingles: No Hx Sickle Cell Disease: No Hx Unexplained Bleeding: No - INTEGUMENTARY Hx Dermatological Problems: No Hx Basil Cell: No Hx Eczema: No Hx Melanoma: No Hx Psoriasis: No Hx Squamous Cell: No - MUSCULOSKELETAL/RHEUMATOLOGICAL Hx Musculoskeletal Disorders: Yes Hx Arthritis: No Hx Back Pain: No Hx Degenerative Joint Disease: No Hx Falls: Yes Hx Fractures: Yes (Right hip/hand and facial fracture due to fall) Hx Gout: No Hx Herniated Disk: No Hx Myasthenia Gravis: No Hx Osteoarthritis: No Hx Osteomyelitis: No Hx Osteoporosis: No Hx Rhabdomyolysis: No Hx Spinal Stenosis: No Hx Unsteady Gait: Yes - GASTROINTESTINAL Hx Gastrointestinal Disorders: No Hx Colostomy: No Hx Crohn's Disease: No Hx Diverticulitis: No Hx Gall Bladder Disease: No Hx Gastroesophageal Reflux: No Hx Ileostomy: No Hx Liver Failure: No Hx Pancreatitis: No HX Swallowing Problems: No - GENITOURINARY/GYNECOLOGICAL Hx Genitourinary Disorders: No Hx Hematuria: No Hx Incontinence: No Hx Prostate Problems: No Hx Sexually Transmitted Disorders: No Hx Urinary Tract Infection: No - PSYCHIATRIC Hx Psychophysiologic Disorder: Yes Hx Anxiety: Yes Hx Bipolar Disorder: No Hx Depression: Yes Hx Emotional Abuse: No Hx Hallucinations: No Hx Panic Symptoms: No Hx Post Traumatic Stress Disorder: No Hx Psychosis: No Hx Physical Abuse: No Hx Schizophrenia: No Hx Sexual Abuse: No Hx Substance Use: No - SURGICAL HISTORY Hx Amputation: No Hx Appendectomy: No Hx Cardiac Catheterization: No Hx Cholecystectomy: No Hx Coronary Stent: No Hx Gastric Bypass Surgery: No Hx Hysterectomy: No Hx Joint Replacement: No Hx Kidney Transplant: No Hx Liver Transplant: No Hx Mastectomy: No Hx Musculoskeletal Surgery: No Hx Open Heart Surgery: No Hx Orthopedic Surgery: No Hx Splenectomy: No Hx Valve Replacement: No - ANESTHESIA Hx Anesthesia: Yes Hx Anesthesia Reactions: No Hx Malignant Hyperthermia: No Meds Allergies/Adverse Reactions: Allergies Allergy/AdvReac Type Severity Reaction Status Date / Time coconut Allergy RASH Verified 12/25/17 12:14 coconut oil Allergy RASH Verified 12/25/17 12:14 cranberry Allergy SWELLING Verified 12/25/17 12:14 Physical Exam - Constitutional Appears: No Acute Distress - Head Exam Head Exam: ATRAUMATIC, NORMAL INSPECTION, NORMOCEPHALIC - Eye Exam Eye Exam: EOMI, PERRL - ENT Exam ENT Exam: Mucous Membranes Moist - Neck Exam Neck exam: Positive for: Full Rom - Respiratory Exam Respiratory Exam: Clear to Auscultation Bilateral, NORMAL BREATHING PATTERN - Cardiovascular Exam Cardiovascular Exam: REGULAR RHYTHM, +S1, +S2 - GI/Abdominal Exam GI & Abdominal Exam: Normal Bowel Sounds, Soft - Extremities Exam Extremities exam: Positive for: normal inspection. Negative for: pedal edema - Back Exam Back exam: NORMAL INSPECTION - Neurological Exam Neurological exam: Alert, CN II-XII Intact, Normal Gait, Oriented x3, Reflexes Normal Additional comments: Strength 5/5 in all four extremities Left facial, upper extremity, abdomen numbness with comparison to right side No gait instability appreciated - Psychiatric Exam Psychiatric exam: Anxious - Skin Skin Exam: Dry, Intact Results - Vital Signs Recent Vital Signs: Last Vital Signs Temp 98.2 F 12/25/17 05:33 Pulse 76 12/25/17 07:33 Resp 18 12/25/17 06:17 BP 169/116 H 12/25/17 07:33 Pulse Ox 100 12/25/17 06:17 - Labs Result Diagrams: 12/25/17 05:50 12/25/17 05:50 Labs: Laboratory Results - last 24 hr 12/25/17 12/25/17 12/25/17 05:50 05:50 05:50 WBC 8.6 RBC 4.04 Hgb 12.7 L Hct 37.8 L MCV 93.6 MCH 31.4 MCHC 33.6 RDW 13.4 Plt Count 271 MPV 9.3 Gran % 70.5 H Lymph % (Auto) 14.8 L [place] % (Auto) 12.4 H Eos % (Auto) 2.1 Baso % (Auto) 0.2 Gran # 6.08 Lymph # (Auto) 1.3 [place] # (Auto) 1.1 H Eos # (Auto) 0.2 Baso # (Auto) 0.02 PT 10.9 INR 0.95 APTT 33.3 Sodium 138 Potassium 3.9 Chloride 103 Carbon Dioxide 29 Anion Gap 11 BUN 15 Creatinine 0.7 L Est GFR ( Amer) > 60 Est GFR (Non-Af Amer) > 60 Random Glucose 94 Calcium 9.0 Total Bilirubin 0.4 AST 39 ALT 22 Alkaline Phosphatase 82 Troponin I 0.01 D Total Protein 7.1 Albumin 3.7 Globulin 3.4 Albumin/Globulin Ratio 1.1 Triglycerides 40 Cholesterol 150 LDL Cholesterol Direct 51 HDL Cholesterol 100 H Alcohol, Quantitative 12/25/17 05:50 WBC RBC Hgb Hct MCV MCH MCHC RDW Plt Count MPV Gran % Lymph % (Auto) [place] % (Auto) Eos % (Auto) Baso % (Auto) Gran # Lymph # (Auto) [place] # (Auto) Eos # (Auto) Baso # (Auto) PT INR APTT Sodium Potassium Chloride Carbon Dioxide Anion Gap BUN Creatinine Est GFR ( Amer) Est GFR (Non-Af Amer) Random Glucose Calcium Total Bilirubin AST ALT Alkaline Phosphatase Troponin I Total Protein Albumin Globulin Albumin/Globulin Ratio Triglycerides Cholesterol LDL Cholesterol Direct HDL Cholesterol Alcohol, Quantitative < 10 Assessment & Plan - Assessment and Plan (Free Text) Assessment: 52 year old male with past medical history of TIAs and alcohol abuse who presented to the emergency department for evaluation and treatment of acute numbness of the left side of his body with associated confusion. Patient with previous evaluation and negative work up for TIA. Patient to be admitted for further observation and evaluation. Plan: Left sided numbness - Etiology likely secondary to TIA -Head CT: No acute intracranial abn -MRI Brain:(12/03/2017) No evidence of acute infarct or intracranial hemorrhage. -CTA Head/Neck:(12/03/2017) [id number] diffuse atherosclerotic calcification -ASA, Lipitor, Norvasc -Maintain eugylcemia -Maintain blood pressur goal SBP 90-150mmHg -Folate, MV, VB12 -Etoh cessation counseling -PT eval treat -Neuro consulted EtOH abuse -Patient with history of etoh abuse -MV, VB12, Folate -ETOH <10 -Etoh cessation counseling provided GI/DVT ppx: -Protonix -Heparin 5000 units SC Q8H Patient seen, case and plan discussed with attending - Date & Time Date: 12/25/17 Time: 09:23 <Kaylee Nino - Last Filed: 12/26/17 15:45> Results - Vital Signs Recent Vital Signs: Last Vital Signs Temp 98.3 F 12/26/17 11:56 Pulse 68 12/26/17 11:56 Resp 20 12/26/17 11:56 BP 147/100 H 12/26/17 11:56 Pulse Ox 98 12/26/17 06:00 - Labs Result Diagrams: 12/26/17 06:00 12/26/17 06:00 Labs: Laboratory Results - last 24 hr 12/25/17 12/26/17 12/26/17 05:50 06:00 06:00 WBC 6.4 D RBC 4.05 Hgb 12.6 L Hct 37.9 L MCV 93.6 MCH 31.1 MCHC 33.2 RDW 13.3 Plt Count 265 MPV 9.7 Sodium 136 Potassium 4.1 Chloride 104 Carbon Dioxide 28 Anion Gap 8 L BUN 12 Creatinine 0.8 Est GFR ( Amer) > 60 Est GFR (Non-Af Amer) > 60 Random Glucose 90 Hemoglobin A1c 5.6 Calcium 9.0 Total Bilirubin 0.9 AST 34 ALT 27 Alkaline Phosphatase 62 Total Protein 6.6 Albumin 3.3 Globulin 3.2 Albumin/Globulin Ratio 1.0 L Attending/Attestation - Attestation I have personally seen and examined this patient.: Yes I have fully participated in the care of the patient.: Yes I have reviewed all pertinent clinical information: Yes Notes (Text): 12/26/17 15:45 Medical record note made by the resident after discussion with my direction and input after the patient was personally seen and examined by me. I have reviewed the chart and agree that the record accurately reflects by personal performance of the history, physical exam, data review, and medical decision-making, in the course for the patient. I have also personally directed the plan of care.
--- NOTE | 2017-12-25 10:07 | RAD ---
Date of service: 12/25/2017 PROCEDURE: CHEST RADIOGRAPH, 1 VIEW HISTORY: Code Stroke COMPARISON: 12/03/2017 FINDINGS: LUNGS: Clear. PLEURA: No pneumothorax or pleural fluid seen. CARDIOVASCULAR: No aortic atherosclerotic calcification present. Normal. OSSEOUS STRUCTURES: No significant abnormalities. VISUALIZED UPPER ABDOMEN: Normal. OTHER FINDINGS: None. IMPRESSION: No active disease.
--- NOTE | 2017-12-25 10:36 | CP.PCM.CON ---
History of Present Illness - History of Present Illness History of Present Illness: Neurology Consultation Note: Mr. Larsen is a 52-year-old man with past medical history of alcohol abuse and previous TIAs, worked up with negative neuro-imaging, who was at the gym this morning and developed left side numbness. Shortly after, he felt that he had difficulty with remembering his ex-'s name and his own name. He has had memory lapses like this before lasting several hours. He presented to the ED by foot. Symptoms were resolving in the ED. Non-contrast CT scan of the head was unremarkable. The patient is a daily drinker. He drinks vodka. His routine includes waking up at 3:00 AM and going to the diner to eat, followed by the gym, then he goes to work. He leaves work at 2 PM, and gets home to start Askem. He usually finishes a pint of vodka and "passes out" by 6 PM. He admits to having a drinking problem and would like to stop drinking. Review of Systems - Constitutional Constitutional: As Per HPI - EENT Eyes: absent: As Per HPI, Blind Spots, Blurred Vision, Change in Vision, Decreased Night Vision, Diplopia, Discharge, Dry Eye, Exophthalmos, Floaters, Irritation, Itchy Eyes, Loss of Peripheral Vision, Pain, Photophobia, Requires Corrective Lenses, Sees Flashes, Spots in Vision, Tunnel Vision, Other Visual Disturbances, Loss of Vision, Other Ears: absent: As Per HPI, Decreased Hearing, Ear Discharge, Ear Pain, Tinnitus, Abnormal Hearing, Disequilibrium, Dizziness, Other Nose/Mouth/Throat: absent: As Per HPI, Epistaxis, Nasal Congestion, Nasal Discharge, Nasal Obstruction, Nasal Trauma, Nose Pain, Post Nasal Drip, Sinus Pain, Sinus Pressure, Bleeding Gums, Change in Voice, Dental Pain, Dry Mouth, Dysphagia, Halitosis, Hoarsness, Lip Swelling, Mouth Lesions, Mouth Pain, Odynophagia, Sore Throat, Throat Swelling, Tongue Swelling, Facial Pain, Neck Pain, Neck Mass, Other - Cardiovascular Cardiovascular: absent: As Per HPI, Acrocyanosis, Chest Pain, Chest Pain at Rest, Chest Pain with Activity, Claudication, Diaphoresis, Dyspnea, Dyspnea on Exertion, Edema, Irregular Heart Rhythm, Pain Radiating to Arm/Neck/Jaw, Leg Edema, Leg Ulcers, Lightheadedness, Orthopnea, Palpitations, Paroxysmal Nocturnal Dyspnea, Pedal Edema, Radiating Pain, Rapid Heart Rate, Slow Heart Rate, Syncope, Other - Respiratory Respiratory: absent: As Per HPI, Cough, Dyspnea, Hemoptysis, Dyspnea on Exertion, Wheezing, Snoring, Stridor, Pain on Inspiration, Chest Congestion, Excessive Mucous Production, Change in Mucous Color, Pain with Coughing, Other - Gastrointestinal Gastrointestinal: absent: As Per HPI, Abdominal Pain, Belching, Bloating, Change in Bowel Habits, Change in Stool Character, Coffee Ground Emesis, Constipation, Cramping, Diarrhea, Dyspepsia, Dysphagia, Early Satiety, Excessive Flatus, Fecal Incontinence, Heartburn, Hematemesis, Hematochezia, Loose Stools, Melena, Nausea, Odynophagia, Temesmus, Vomiting, Other - Genitourinary Genitourinary: absent: As Per HPI, Change in Urinary Stream, Difficulty Urinating, Dysuria, Flank Pain, Hematuria, Pyuria, Nocturia, Urinary Incontinence, Urinary Frequency, Urinary Hesitance, Urinary Urgency, Voiding Freq/Small Amts, Freq UTI, Hx Renal/Bladder Calculi, Hx /Renal Surgery, Bladder Distension, Other - Musculoskeletal Musculoskeletal: absent: As Per HPI, Abnormal Gait, Arthralgias, Atrophy, Back Pain, Deformity, Joint Swelling, Limited Range of Motion, Loss of Height, Muscle Cramps, Muscle Weakness, Myalgias, Neck Pain, Numbness, Radiating Pain into Limb, Stiffness, Tingling, Other - Integumentary Integumentary: absent: As Per HPI, Acne, Alopecia, Bleeding Lesions, Change in Hair, Change in Nails, Change in Pigmentation, Changing Lesions, Dry Skin, Erythema, Furuncle, Hirsutism, Lesions, New Lesions, Non-Healing Lesions, Photosensitivity, Pruritus, Rash, Skin Pain, Skin Ulcer, Sores, Striae, Swelling, Unusual Bruising, Wounds, Jaundice, Other - Neurological Neurological: As Per HPI - Psychiatric Psychiatric: absent: As Per HPI, Abnormal Sleep Pattern, Anhedonia, Anxiety, Auditory Hallucinations, Behavioral Changes, Change in Appetite, Change in Elizabeth maribell, Confusion, Depression, Difficulty Concentrating, Hallucinations, Homicidal Ideation, Hopelessness, Irritability, Memory Loss, Mood Swings, Panic Attacks, Paranoia, Suicidal Ideation, Visual Hallucinations, Tactile Hallucinations, Other - Endocrine Endocrine: absent: As Per HPI, Change in Body Appearance, Change in Libido, Cold Intolorance, Deepening of Voice, Excessive Sweating, Fatigue, Flushing, Heat Intolorance, Increase in Ring/Shoe/Hat Size, Palpitations, Polydipsia, Polyphagia, Polyuria, Other - Hematologic/Lymphatic Hematologic: absent: As Per HPI, Easy Bleeding, Easy Bruising, Lymphadenopathy, Other Past Patient History - Infectious Disease Hx of Infectious Diseases: None - Tetanus Immunizations Tetanus Immunization: Unknown - Past Medical History & Family History Past Medical History?: Yes - Past Social History Smoking Status: Never Smoked - CARDIAC Hx Hypertension: Yes - PULMONARY Hx Respiratory Disorders: Yes Hx Asthma: No Hx Bronchitis: No Hx Chronic Obstructive Pulmonary Disease (COPD): No Hx Emphysema: No Hx Pneumonia: Yes Hx Respiratory Aspiration: No Hx Respiratory Tract Infection: No Hx Sleep Apnea: No Hx Tuberculosis: No - NEUROLOGICAL HX Cerebrovascular Accident: No - HEENT Hx HEENT Problems: No Hx Blind: No Hx Cataracts: No Hx Deafness: No Hx Difficulty Chewing: No Hx Epistaxis: No Hx Glaucoma: No Hx Macular Degeneration: No - RENAL Hx Chronic Kidney Disease: No Hx Dialysis: No Hx Kidney Stones: No Hx Neurogenic Bladder: No Hx Pyelonephritis: No Hx Renal (Kidney) Cancer: No Hx Renal Failure: No - ENDOCRINE/METABOLIC Hx Endocrine Disorders: No Hx Adrenal Cancer: No Hx Diabetes Insipidus: No Hx Diabetes Mellitus Type 1: No Hx Diabetes Mellitus Type 2: No Hx Hyperthyroidism: No Hx Hypothyroidism: No Hx Systemic Lupus Erythematosus: No - HEMATOLOGICAL/ONCOLOGICAL Hx Blood Disorders: No Hx AIDS: No Hx Anemia: No Hx Cancer: No Hx Chemotherapy: No Hx Cirrhosis: No Hx Hemophilia: No Hx Hepatitis A: No Hx Hepatitis B: No Hx Hepatitis C: No Hx Metastesis: No Hx Shingles: No Hx Sickle Cell Disease: No Hx Unexplained Bleeding: No - INTEGUMENTARY Hx Dermatological Problems: No Hx Basil Cell: No Hx Eczema: No Hx Melanoma: No Hx Psoriasis: No Hx Squamous Cell: No - MUSCULOSKELETAL/RHEUMATOLOGICAL Hx Musculoskeletal Disorders: Yes Hx Arthritis: No Hx Back Pain: No Hx Degenerative Joint Disease: No Hx Falls: Yes Hx Fractures: Yes (Right hip/hand and facial fracture due to fall) Hx Gout: No Hx Herniated Disk: No Hx Myasthenia Gravis: No Hx Osteoarthritis: No Hx Osteomyelitis: No Hx Osteoporosis: No Hx Rhabdomyolysis: No Hx Spinal Stenosis: No Hx Unsteady Gait: Yes - GASTROINTESTINAL Hx Gastrointestinal Disorders: No Hx Colostomy: No Hx Crohn's Disease: No Hx Diverticulitis: No Hx Gall Bladder Disease: No Hx Gastroesophageal Reflux: No Hx Ileostomy: No Hx Liver Failure: No Hx Pancreatitis: No HX Swallowing Problems: No - GENITOURINARY/GYNECOLOGICAL Hx Genitourinary Disorders: No Hx Hematuria: No Hx Incontinence: No Hx Prostate Problems: No Hx Sexually Transmitted Disorders: No Hx Urinary Tract Infection: No - PSYCHIATRIC Hx Psychophysiologic Disorder: Yes Hx Anxiety: Yes Hx Bipolar Disorder: No Hx Depression: Yes Hx Emotional Abuse: No Hx Hallucinations: No Hx Panic Symptoms: No Hx Post Traumatic Stress Disorder: No Hx Psychosis: No Hx Physical Abuse: No Hx Schizophrenia: No Hx Sexual Abuse: No Hx Substance Use: No - SURGICAL HISTORY Hx Amputation: No Hx Appendectomy: No Hx Cardiac Catheterization: No Hx Cholecystectomy: No Hx Coronary Stent: No Hx Gastric Bypass Surgery: No Hx Hysterectomy: No Hx Joint Replacement: No Hx Kidney Transplant: No Hx Liver Transplant: No Hx Mastectomy: No Hx Musculoskeletal Surgery: No Hx Open Heart Surgery: No Hx Orthopedic Surgery: No Hx Splenectomy: No Hx Valve Replacement: No - ANESTHESIA Hx Anesthesia: Yes Hx Anesthesia Reactions: No Hx Malignant Hyperthermia: No Meds Allergies/Adverse Reactions: Allergies Allergy/AdvReac Type Severity Reaction Status Date / Time coconut Allergy RASH Verified 12/18/17 15:49 coconut oil Allergy RASH Verified 12/18/17 15:49 cranberry Allergy SWELLING Verified 12/18/17 15:49 - Medications Medications: Current Medications Amlodipine Besylate (Norvasc) 5 mg PO DAILY [facility] Aspirin (Aspirin Chewable) 81 mg PO DAILY [facility] Atorvastatin Calcium (Lipitor) 10 mg PO DIN [facility] Folic Acid (Folic Acid) 1 mg PO DAILY [facility] Heparin Sodium (Porcine) (Heparin) 5,000 units SC Q8H [facility]; Protocol Last Admin: 12/25/17 09:18 Dose: 5,000 units Lisinopril (Zestril) 40 mg PO DAILY [facility] Multivitamins/Minerals (Therapeutic-M Tab) 1 tab PO 0800 [facility] Pantoprazole Sodium (Protonix Ec Tab) 40 mg PO 0600 [facility] Thiamine HCl (Vitamin B1 Tab) 50 mg PO DAILY [facility] Physical Exam - Constitutional Appears: Well - Head Exam Head Exam: ATRAUMATIC, NORMAL INSPECTION, NORMOCEPHALIC - Eye Exam Eye Exam: EOMI, Normal appearance, PERRL - ENT Exam ENT Exam: Mucous Membranes Moist, Normal Exam - Neck Exam Neck exam: Positive for: Normal Inspection - Respiratory Exam Respiratory Exam: Clear to Auscultation Bilateral, NORMAL BREATHING PATTERN - Cardiovascular Exam Cardiovascular Exam: REGULAR RHYTHM, +S1, +S2 - GI/Abdominal Exam GI & Abdominal Exam: Normal Bowel Sounds, Soft. absent: Tenderness - Rectal Exam Rectal Exam: Deferred - Extremities Exam Extremities exam: Positive for: normal inspection - Back Exam Back exam: NORMAL INSPECTION - Neurological Exam Neurological exam: Alert, CN II-XII Intact, Normal Gait, Oriented x3, Reflexes Normal Additional comments: slight tremor on the left side. - Psychiatric Exam Psychiatric exam: Normal Affect, Normal Mood - Skin Skin Exam: Dry, Intact, Normal Color, Warm Results - Vital Signs Recent Vital Signs: Last Vital Signs Temp 98.6 F 12/25/17 08:00 Pulse 74 12/25/17 09:50 Resp 18 12/25/17 09:50 BP 149/98 H 12/25/17 09:50 Pulse Ox 100 12/25/17 09:50 - Labs Result Diagrams: 12/25/17 05:50 12/25/17 05:50 Labs: Laboratory Results - last 24 hr 12/25/17 12/25/17 12/25/17 05:50 05:50 05:50 WBC 8.6 RBC 4.04 Hgb 12.7 L Hct 37.8 L MCV 93.6 MCH 31.4 MCHC 33.6 RDW 13.4 Plt Count 271 MPV 9.3 Gran % 70.5 H Lymph % (Auto) 14.8 L Stokes % (Auto) 12.4 H Eos % (Auto) 2.1 Baso % (Auto) 0.2 Gran # 6.08 Lymph # (Auto) 1.3 Stokes # (Auto) 1.1 H Eos # (Auto) 0.2 Baso # (Auto) 0.02 PT 10.9 INR 0.95 APTT 33.3 Sodium 138 Potassium 3.9 Chloride 103 Carbon Dioxide 29 Anion Gap 11 BUN 15 Creatinine 0.7 L Est GFR ( Amer) > 60 Est GFR (Non-Af Amer) > 60 Random Glucose 94 Calcium 9.0 Total Bilirubin 0.4 AST 39 ALT 22 Alkaline Phosphatase 82 Troponin I 0.01 D Total Protein 7.1 Albumin 3.7 Globulin 3.4 Albumin/Globulin Ratio 1.1 Triglycerides 40 Cholesterol 150 LDL Cholesterol Direct 51 HDL Cholesterol 100 H Alcohol, Quantitative 12/25/17 05:50 WBC RBC Hgb Hct MCV MCH MCHC RDW Plt Count MPV Gran % Lymph % (Auto) Stokes % (Auto) Eos % (Auto) Baso % (Auto) Gran # Lymph # (Auto) Stokes # (Auto) Eos # (Auto) Baso # (Auto) PT INR APTT Sodium Potassium Chloride Carbon Dioxide Anion Gap BUN Creatinine Est GFR ( Amer) Est GFR (Non-Af Amer) Random Glucose Calcium Total Bilirubin AST ALT Alkaline Phosphatase Troponin I Total Protein Albumin Globulin Albumin/Globulin Ratio Triglycerides Cholesterol LDL Cholesterol Direct HDL Cholesterol Alcohol, Quantitative < 10 Assessment & Plan (1) Transient ischemic attack (TIA) Assessment and Plan: 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 With his history of alcohol abuse, a possible focal seizure is in the differential. An EEG is recommended. However, the patient should also be started on aspirin 81 mg daily. Furthermore, I recommend starting gabapentin 300 mg TID for seizure prevention and it may help prevent the patient from drinking. Thank you for this consultation. Status: Acute Priority: High
--- NOTE | 2017-12-25 12:38 | CARD ---
APPROVED REPORT Date of service: 12/25/2017 EKG Measurement Heart [id number] ID [id number] <Conclusion> Sinus rhythm with premature atrial complexes Otherwise normal ECG
--- NOTE | 2017-12-25 14:29 | MRI ---
Date of service: 12/25/2017 PROCEDURE: Magnetic Resonance Angiography Brain HISTORY: VBI COMPARISON: None available. TECHNIQUE: 3D time of flight MR angiography of the intracranial arteries was performed. Rotating maximum intensity projection images were generated. FINDINGS: INTERNAL CAROTID ARTERIES: Unremarkable. The skull base, petrous, cavernous and supraclinoid segments are bilaterally widely patient. ANTERIOR CEREBRAL ARTERIES: Unremarkable. A1 and A2 segments are widely patent. Smaller distal branches unremarkable, as visualized. MIDDLE CEREBRAL ARTERIES: Unremarkable. M1 and M2 segments are widely patent. Perisylvian branches grossly symmetric. POSTERIOR CIRCULATION: Basilar Artery: Unremarkable. Distal Vertebral Arteries: Unremarkable. Posterior Cerebral Arteries: Unremarkable. Posterior Inferior Cerebellar Arteries: Unremarkable. ANEURYSM/ VASCULAR MALFORMATIONS: None. OTHER FINDINGS: None. IMPRESSION: Unremarkable MR angiography of the brain.
--- NOTE | 2017-12-25 14:31 | MRI ---
Date of service: 12/25/2017 PROCEDURE: MR Angiography of the neck without contrast HISTORY: VBI COMPARISON: None available. TECHNIQUE: 3D [id number] angiography of the neck was performed. Rotating maximum intensity projection images of the cervical carotid and vertebral arteries were generated. The origins of the common carotid arteries were not visualized, which is a limitation inherent to the non-contrast time of flight technique. FINDINGS: RIGHT CAROTID ARTERIES: Common Carotid Artery: Normal. Carotid Bifurcation: Normal. Internal Carotid Artery:Normal. External Carotid Artery (proximal branches): Normal. LEFT CAROTID ARTERIES: Common Carotid Artery: Normal. Carotid Bifurcation: Normal. Internal Carotid Artery:Normal. External Carotid Artery (proximal branches): Normal. VERTEBRAL ARTERIES: Right Vertebral Artery: Normal. Left Vertebral Artery: Normal. OTHER FINDINGS: None. IMPRESSION: Normal MR Angiography of the neck.
[2017-12-25 15:45] VITALS: BMI 22.8
[2017-12-25] MEDS ORDERED: Pneumococcal 23-Valent Vaccine IM ONE (15:45)
[2017-12-25] MEDS ORDERED: Influenza Vaccine 60 mcg/0.5 mL SYR (4YR UP) IM ONE (15:45)
[2017-12-25 23:38] VITALS: RESP 20; O2SAT 98
[2017-12-26] MEDS ORDERED: Pantoprazole 40 mg EC Tab PO SCH (06:00)
[2017-12-26 06:51] LABS: ALBUMIN 3.3 g/dL (3.0-4.8); ALT/SGPT 27 U/L (7-56); AST/SGOT 34 U/L (17-59); BLOOD UREA NITROGEN 12 mg/dL (7-21); GFR NON-AFRICAN AMERICAN > 60
[2017-12-26 06:55] LABS: HEMOGLOBIN 12.6 g/dL (14.0-18.0); MEAN CELL VOLUME 93.6 fl (80.0-105.0); MEAN CORPUSCULAR HEMOGLOBIN 31.1 pg (25.0-35.0); MEAN CORPUSCULAR HGB CONC 33.2 g/dl (31.0-37.0); MEAN PLATELET VOLUME 9.7 fl (7.0-11.0); RBC 4.05 10^6/uL (3.5-6.1); RED CELL DISTRIBUTION WIDTH 13.3 % (11.5-14.5); WHITE BLOOD COUNT 6.4 10^3/uL (4.5-11.0)
[2017-12-26] MEDS ORDERED: Multivitamin With Minerals Tab PO SCH (08:00)
--- NOTE | 2017-12-26 10:42 | PCM.EEG ---
Electroencephalogram Report - Electroencephalogram Report Procedure Date: 12/25/17 Medication: ASA, GBP, Lisinopril, Pantoprazole. Interpretation: Technical Information: This was a 16 -channel EEG, 1-channel EKG routine EEG performed using an [employer] machine. Electrodes were applied using the 10/20 international placement system. Start; 17;36 Stop; 18;30 Total; 65 minutes. Clinical Information: 52 y/o man with an episode of alteration of awareness/me lyndsey. During resting wakefulness there was a symmetric posterior dominant rhythm at 8.5-9.5 Hz, 30-50 uV, which was reactive to eye opening and closing. Drowsiness was associated with fragmentation of the posterior dominant rhythm and with slow roving eye movements, seen at 17;42 Light sleep was not recorded. Hyperventilation was performed., and there were no changes in the record. Photic stimulation was performed and there were no changes on the record. Focal abnormality; none ECG was associated with a normal sinus rhythm. Impression: This is a normal awake and drowsy electroencephalogram.
[2017-12-26 11:56] VITALS: BP 147/100; PULSE 68; TEMP 98.3
--- NOTE | 2017-12-26 17:59 | CP.PCM.DIS ---
Provider - Provider Date of Admission: 12/25/17 06:43 Attending physician: Kaylee Nino MD Time Spent in preparation of Discharge (in minutes): 35 Hospital Course - Lab Results Lab Results: Most Recent Lab Values WBC 6.4 10^3/uL (4.5-11.0) D 12/26/17 06:00 RBC 4.05 10^6/uL (3.5-6.1) 12/26/17 06:00 Hgb 12.6 g/dL (14.0-18.0) L 12/26/17 06:00 Hct 37.9 % (42.0-52.0) L 12/26/17 06:00 MCV 93.6 fl (80.0-105.0) 12/26/17 06:00 MCH 31.1 pg (25.0-35.0) 12/26/17 06:00 MCHC 33.2 g/dl (31.0-37.0) 12/26/17 06:00 RDW 13.3 % (11.5-14.5) 12/26/17 06:00 Plt Count 265 10^3/uL (120.0-450.0) 12/26/17 06:00 MPV 9.7 fl (7.0-11.0) 12/26/17 06:00 Gran % 70.5 % (50.0-68.0) H 12/25/17 05:50 Lymph % (Auto) 14.8 % (22.0-35.0) L 12/25/17 05:50 [place] % (Auto) 12.4 % (1.0-6.0) H 12/25/17 05:50 Eos % (Auto) 2.1 % (1.5-5.0) 12/25/17 05:50 Baso % (Auto) 0.2 % (0.0-3.0) 12/25/17 05:50 Gran # 6.08 (1.4-6.5) 12/25/17 05:50 Lymph # (Auto) 1.3 (1.2-3.4) 12/25/17 05:50 [place] # (Auto) 1.1 (0.1-0.6) H 12/25/17 05:50 Eos # (Auto) 0.2 (0.0-0.7) 12/25/17 05:50 Baso # (Auto) 0.02 K/mm3 (0.0-2.0) 12/25/17 05:50 PT 10.9 SECONDS (9.4-12.5) 12/25/17 05:50 INR 0.95 12/25/17 05:50 APTT 33.3 Seconds (25.1-36.5) 12/25/17 05:50 Sodium 136 mmol/L (132-148) 12/26/17 06:00 Potassium 4.1 mmol/L (3.6-5.0) 12/26/17 06:00 Chloride 104 mmol/L (98-107) 12/26/17 06:00 Carbon Dioxide 28 mmol/L (21-33) 12/26/17 06:00 Anion Gap 8 (10-20) L 12/26/17 06:00 BUN 12 mg/dL (7-21) 12/26/17 06:00 Creatinine 0.8 mg/dl (0.8-1.5) 12/26/17 06:00 Est GFR ( Amer) > 60 12/26/17 06:00 Est GFR (Non-Af Amer) > 60 12/26/17 06:00 Random Glucose 90 mg/dL (70-110) 12/26/17 06:00 Hemoglobin A1c 5.6 % (4.2-6.5) 12/25/17 05:50 Calcium 9.0 mg/dL (8.4-10.5) 12/26/17 06:00 Total Bilirubin 0.9 mg/dL (0.2-1.3) 12/26/17 06:00 AST 34 U/L (17-59) 12/26/17 06:00 ALT 27 U/L (7-56) 12/26/17 06:00 Alkaline Phosphatase 62 U/L (38-126) 12/26/17 06:00 Troponin I 0.01 ng/mL D 12/25/17 05:50 Total Protein 6.6 g/dL (5.8-8.3) 12/26/17 06:00 Albumin 3.3 g/dL (3.0-4.8) 12/26/17 06:00 Globulin 3.2 gm/dL 12/26/17 06:00 Albumin/Globulin Ratio 1.0 (1.1-1.8) L 12/26/17 06:00 Triglycerides 40 mg/dL (35-160) 12/25/17 05:50 Cholesterol 150 mg/dL (130-200) 12/25/17 05:50 LDL Cholesterol Direct 51 mg/dL (0-129) 12/25/17 05:50 HDL Cholesterol 100 mg/dL (29-60) H 12/25/17 05:50 Alcohol, Quantitative < 10 mg/dL (0-10) 12/25/17 05:50 - Hospital Course Hospital Course: Sigifredo Ybarra, PGY1 Discharge Summary for Dr. Nino Patient is a 52 year old male with a PMHx of hypertension,alcohol abuse, and multiple transient ischemic attacks, who presented to the Emergency Department complaining of left sided facial, arm and torso numbness. Patient reports he has had previous episodes similar to this. He indicates that he started feeling these symptoms when he was on his way to the gym the morning he came in. Patient indicates that as he began his workout he felt his symptoms worsen. Patient indicates that he is a significant drinker. He reports multiple pints of vodka a week. He reports being in rehab in the past and that he wants to cut back on his drinking. Patient also reports poor compliance with medication as he has not taken any of previously prescribed medication due to being unable to afford the medication. Medical team was consulted. In the Emergency department a Code stroke was called. Non-contrast CT showed no acute pathology. Chest x-ray was negative for acute pathology. Head and Neck MRA was negative. EKG showed sinus rythm with some PAC's. Upon hospitalization, CIWA score was 0. Neurology was consulted and stated that patient was having memory changes consistent with temporal lobe dysfunction. Neurology did a workup for possible seizures, however, EEG was done and was negative. Started on gabapentin and asa 81mg for seizure prevention. Patient's symptoms have improved clinically during hospital course. Patient is hemodynamically stable for discharge to home. Patient will be continue home medications with the addition of Gabapentin, folic acid, and thiamine. Alcohol cessation education was discussed with the patient prior to discharge. Discharge Exam - Head Exam Head Exam: ATRAUMATIC, NORMAL INSPECTION, NORMOCEPHALIC - Eye Exam Eye Exam: EOMI, Normal appearance Pupil Exam: NORMAL ACCOMODATION - ENT Exam ENT Exam: Mucous Membranes Moist, Normal Exam - Respiratory Exam Respiratory Exam: Clear to PA & Lateral. absent: Rales, Rhonchi, Wheezes - Cardiovascular Exam Cardiovascular Exam: REGULAR RHYTHM, +S1, +S2 - GI/Abdominal Exam GI & Abdominal Exam: Normal Bowel Sounds, Soft. absent: Distended, Guarding, Rigid, Tenderness - Extremities Exam Extremities exam: full ROM, normal capillary refill, normal inspection, pedal pulses present - Neurological Exam Neurological exam: Alert, CN II-XII Intact, Oriented x3 - Skin Skin Exam: Dry, Intact, Normal Color, Warm Discharge Plan - Discharge Medications Prescriptions: Folic Acid 1 mg PO DAILY #10 tab Gabapentin [Neurontin] 300 mg PO TID #42 cap Thiamine [Vitamin B1 Tab] 50 mg PO DAILY #10 tab - Follow Up Plan Condition: STABLE Disposition: HOME/ ROUTINE Instructions: Transient Ischemic Attack, Alcohol Use - When Is Drinking a Problem?, Heart Healthy Diet, Smoking: Not Just Harmful to Your Lungs and Heart, Transient Ischemic Attack (DC), Alcohol Abuse and Alcoholism (DC) Additional Instructions: 1. Please follow up with your appointment at the [facility] clinic (01/03 at 3pm) within 1 week of discharge. ( ) 2. Please resume all home medications as prescribed. 3. You are being prescribed new medication: Gabapentin 300mg three times a day. Folic acid 1mg daily for 10 days. Thiamine 50mg daily for 10 days[address] 4[address] do not drive while you are taking your Gabapentin (Neurontin). 5. Please return to the Emergency Department if symptoms worsen (weakness, numbness).
== END 2017-12-26 16:43 | disposition home or self-care (01) ==
LOC: ED 05:17 → ERH 06:43 → 2RSO 09:58
PROVIDERS: ADMIT Hospitalist; ATTEND Internal Medicine
DX: R20.0 Anesthesia of skin (principal); F10.10 Alcohol abuse, uncomplicated; Z86.73 Personal history of transient ischemic attack (TIA), and cerebral infarction without residual deficits; I10 Essential (primary) hypertension; Z91.14 Patient's other noncompliance with medication regimen
CPT/HCPCS: 36415; 70450; 70544; 70547; 71045; 80053; 80061; 80320; 83036; 84484; 85025; 85027; 85610; 85730; 93005; 96372; 97116; 97161; 99285; G0378; G8978; G8979; G8980; J1644; J7030

== ENCOUNTER 2018-01-06 20:18 | Emergency (ER) | payer MEDICAID ==
[2018-01-06 20:18] VITALS: BMI 22.8
--- NOTE | 2018-01-06 21:46 | ED PDOC ---
Arrival/HPI - General Chief Complaint: Alcohol Ingestion Time Seen by Provider: 01/06/18 20:20 Historian: Patient, EMS - History of Present Illness Narrative History of Present Illness (Text): 01/06/18 21:43 52 year old male, whose past medical history includes alcohol abuse, presents to the Emergency department by EMS for public intoxication. EMS states patient was found sleeping in front of [employer]. Patient states he feels fine and denies any complaints. Patient denies any fevers, chills, headache, dizziness, chest pain, shortness of breath, cough, abdominal pain, nausea, vomiting, diarrhea, back pain, neck pain, urinary/bowel changes, or any other complaint. Time/Duration: Prior to Arrival Past Medical History - Provider Review Nursing Documentation Reviewed: Yes - Infectious Disease Hx of Infectious Diseases: None - Tetanus Immunization Tetanus Immunization: Unknown - Past Medical History Past Medical History: Unable to Obtain - Cardiac Hx Hypertension: Yes - Pulmonary Hx Respiratory Disorders: Yes Hx Asthma: No Hx Bronchitis: No Hx Chronic Obstructive Pulmonary Disease (COPD): No Hx Emphysema: No Hx Pneumonia: Yes Hx Respiratory Aspiration: No Hx Respiratory Tract Infection: No Hx Sleep Apnea: No Hx Tuberculosis: No - Neurological HX Cerebrovascular Accident: Yes (Multiple TIAs) - HEENT Hx HEENT Disorder: No Hx Blind: No Hx Cataracts: No Hx Deafness: No Hx Difficulty Chewing: No Hx Epistaxis: No Hx Glaucoma: No Hx Macular Degeneration: No - Renal Hx Renal Disorder: No Hx Dialysis: No Hx Kidney Stones: No Hx Neurogenic Bladder: No Hx Pyelonephritis: No Hx Renal Cancer: No Hx Renal Failure: No - Endocrine/Metabolic Hx Endocrine Disorders: No Hx Adrenal Cancer: No Hx Diabetes Insipidus: No Hx Diabetes Mellitus Type 1: No Hx Diabetes Mellitus Type 2: No Hx Hyperthyroidism: No Hx Hypothyroidism: No Hx Systemic Lupus Erythematosus: No - Hematological/Oncological Hx Blood Disorders: No Hx AIDS: No Hx Anemia: No Hx Cancer: No Hx Chemotherapy: No Hx Cirrhosis: No Hx Hemophilia: No Hx Hepatitis A: No Hx Hepatitis B: No Hx Hepatitis C: No Hx Metastasis: No Hx Shingles: No Hx Sickle Cell Disease: No Hx Unexplained Bleeding: No - Integumentary Hx Dermatological Disorder: No Hx Basal Cell Carcinoma: No Hx Eczema: No Hx Melanoma: No Hx Psoriasis: No Hx Squamous Cell Carcinoma: No - Musculoskeletal/Rheumatological Hx Musculoskeletal Disorders: Yes Hx Arthritis: No Hx Back Pain: No Hx Degenerative Joint Disease: No Hx Falls: Yes Hx Fractures: Yes (Right hip/hand and facial fracture due to fall) Hx Gout: No Hx Herniated Disk: No Hx Myasthenia Gravis: No Hx Osteoarthritis: No Hx Osteomyelitis: No Hx Osteoporosis: No Hx Rhabdomyolysis: No Hx Spinal Stenosis: No Hx Unsteady Gait: Yes - Gastrointestinal Hx Gastrointestinal Disorders: No Hx Colostomy: No Hx Crohn's Disease: No Hx Diverticulitis: No Hx Gall Bladder Disease: No Hx Gastroesophageal Reflux: No Hx Ileostomy: No Hx Liver Failure: No Hx Pancreatitis: No HX Swallowing Problems: No - Genitourinary/Gynecological Hx Genitourinary Disorders: No Hx Hematuria: No Hx Incontinence: No Hx Prostate Problems: No Hx Sexually Transmitted Diseases: No Hx Urinary Tract Infection: No - Psychiatric Hx Psychophysiologic Disorder: Yes Hx Anxiety: Yes Hx Bipolar Disorder: No Hx Depression: Yes Hx Emotional Abuse: No Hx Hallucinations: No Hx Panic Disorder: No Hx Post Traumatic Stress Disorder: No Hx Psychosis: No Hx Physical Abuse: No Hx Schizophrenia: No Hx Sexual Abuse: No Hx Substance Use: No - Past Surgical History Past Surgical History: Unable to Obtain - Surgical History Hx Amputation: No Hx Appendectomy: No Hx Cardiac Catheterization: No Hx Cholecystectomy: No Hx Coronary Stent: No Hx Gastric Bypass Surgery: No Hx Hysterectomy: No Hx Joint Replacement: No Hx Kidney Transplant: No Hx Liver Transplant: No Hx Mastectomy: No Hx Musculoskeletal Surgery: No Hx Open Heart Surgery: No Hx Orthopedic Surgery: No Hx Splenectomy: No Hx Valve Replacement: No - Anesthesia Hx Anesthesia: Yes Hx Anesthesia Reactions: No Hx Malignant Hyperthermia: No - Suicidal Assessment Feels Threatened In Home Enviroment: No Family/Social History - Physician Review Nursing Documentation Reviewed: Yes Family/Social History: No Known Family HX Smoking Status: Never Smoked Hx Alcohol Use: Yes (DRINKS DAILY PINT OF VODKA.LAST DRANK YESTERDAY PINT OF VODKA) Hx Substance Use: No Hx Substance Use Treatment: No Allergies/Home Meds Allergies/Adverse Reactions: Allergies coconut Allergy (Verified 12/25/17 12:14) RASH coconut oil Allergy (Verified 12/25/17 12:14) RASH cranberry Allergy (Verified 12/25/17 12:14) SWELLING Home Medications: Home Meds Medication Instructions Recorded Confirmed Aspirin [Ecotrin] 81 mg PO DAILY 12/25/17 12/25/17 Atorvastatin [Lipitor] 10 mg PO DIN 12/25/17 12/25/17 Folic Acid 1 mg PO DAILY 12/25/17 12/25/17 Lisinopril [Zestril] 40 mg PO DAILY 12/25/17 01/07/18 Multivitamin [Multivitamins] 1 each PO DAILY 12/25/17 12/25/17 amLODIPine [Norvasc] 5 mg PO DAILY 12/25/17 01/07/18 Review of Systems - Physician Review All systems were reviewed & negative as marked: Yes - Review of Systems Constitutional: absent: Fevers, Night Sweats Respiratory: absent: SOB, Cough Cardiovascular: absent: Chest Pain Genitourinary Male: absent: Urinary Output Changes Musculoskeletal: absent: Back Pain, Neck Pain Neurological: absent: Headache, Dizziness Physical Exam Vital Signs Reviewed: Yes Vital Signs Temp Pulse Resp BP Pulse Ox 01/06/18 20:27 98.7 F 85 20 164/110 H 100 Temperature: Afebrile Blood Pressure: Hypertensive Pulse: Regular Respiratory Rate: Normal Appearance: Positive for: Well-Appearing, Non-Toxic, Comfortable Pain Distress: None Mental Status: Positive for: Alert and Oriented X 3 Finger Stick Blood Glucose: 96 - Systems Exam Head: Present: Atraumatic, Normocephalic Pupils: Present: PERRL Extroacular Muscles: Present: EOMI Conjunctiva: Present: Normal Mouth: Present: Moist Mucous Membranes Neck: Present: Normal Range of Motion Respiratory/Chest: Present: Clear to Auscultation, Good Air Exchange. No: Respiratory Distress, Accessory Muscle Use Cardiovascular: Present: Regular Rate and Rhythm, Normal S1, S2. No: Murmurs Abdomen: No: Tenderness, Distention, Peritoneal Signs Back: Present: Normal Inspection Upper Extremity: Present: Normal Inspection. No: Cyanosis, Edema Lower Extremity: Present: Normal Inspection. No: Edema Neurological: Present: GCS=15, CN II-XII Intact, Speech Normal Skin: Present: Warm, Dry, Normal Color. No: Rashes Psychiatric: Present: Alert, Oriented x 3, Normal Insight, Normal Concentration Medical Decision Making ED Course and Treatment: 01/06/18 21:45 Impression: 52 year old male presents by EMS for public intoxication. Plan: -- Sobriety -- Reassess and disposition Prior Visits: Notes and results from previous visits were reviewed. Progress Notes: - Scribe Statement The provider has reviewed the documentation as recorded by the Dara Mensah Provider Scribe Attestation: All medical record entries made by the Scribe were at my direction and personally dictated by me. I have reviewed the chart and agree that the record accurately reflects my personal performance of the history, physical exam, medical decision making, and the department course for this patient. I have also personally directed, reviewed, and agree with the discharge instructions and disposition. Disposition/Present on Arrival - Present on Arrival Any Indicators Present on Arrival: No History of DVT/PE: No History of Uncontrolled Diabetes: No Urinary Catheter: No History of Decub. Ulcer: No History Surgical Site Infection Following: None - Disposition Have Diagnosis and Disposition been Completed?: Yes Diagnosis: Hypertension, Alcohol abuse Disposition: HOME/ ROUTINE Disposition Time: 22:00 Patient Problems: Current Active Problems Problem Status Onset Hypertension Chronic Alcohol abuse Acute Condition: IMPROVED Discharge Instructions (ExitCare): High Blood Pressure (DC), Effects of Alcohol on Your Health Additional Instructions: ANDREEA TILLEY, thank you for letting us take care of you today. The emergency medical care you received today was directed at your acute symptoms. If you were prescribed any medication, please fill it and take as directed. It may take several days for your symptoms to resolve. Return to the Emergency Department if your symptoms worsen, do not improve, or if you have any other problems. Please contact your doctor or call one of the physicians/clinics you have been referred to that are listed on the Patient Visit Information form that is included in your discharge packet. Bring any paperwork you were given at discharge with you along with any medications you are taking to your follow up visit. Our treatment cannot replace ongoing medical care by a primary care provider outside of the emergency department. Thank you for allowing the [facility] team to be part of your care today. Do not drink too much alcohol at one time. Follow up with the clinic this week for outpatient care and management. Referrals: [facility] [Outside] - Follow up with primary Ilana Sandhu MD [Primary Care Provider] - Follow up with primary Forms: [employer] (Botswanan)
[2018-01-07 05:59] VITALS: BP 160/90; PULSE 90; RESP 18; TEMP 98.6; O2SAT 98
== END 2018-01-07 05:45 | disposition home or self-care (01) ==
LOC: ED 20:18
DX: F10.10 Alcohol abuse, uncomplicated (principal); I10 Essential (primary) hypertension; Z86.73 Personal history of transient ischemic attack (TIA), and cerebral infarction without residual deficits

== ENCOUNTER 2018-05-05 21:08 | Emergency (ER) | payer MEDICAID ==
[2018-05-05 21:08] VITALS: BMI 22.8
--- NOTE | 2018-05-05 21:39 | ED PDOC ---
Arrival/HPI - General Chief Complaint: Alcohol Ingestion Time Seen by Provider: 05/05/18 21:14 Historian: Patient - History of Present Illness Narrative History of Present Illness (Text): 05/05/18 21:33 52 year old male, whose past medical history includes alcohol abuse, presents to the emergency department by EMS for public intoxication. Patient admits to drinking tonight. Patient denies any other somatic or psychological complaints. Patient denies any suicidal or homicidal ideation. Patient denies any fevers, chills, headache, dizziness, chest pain, shortness of breath, cough, diaphoresis, abdominal pain, nausea, vomiting, diarrhea, back pain, neck pain, or any other complaint. Time/Duration: Prior to Arrival Symptom Onset: Gradual Symptom Course: Unchanged Context: Street Past Medical History - Provider Review Nursing Documentation Reviewed: Yes - Infectious Disease Hx of Infectious Diseases: None - Tetanus Immunization Tetanus Immunization: Unknown - Past Medical History Past Medical History: Unable to Obtain - Cardiac Hx Hypertension: Yes - Pulmonary Hx Respiratory Disorders: Yes Hx Asthma: No Hx Bronchitis: No Hx Chronic Obstructive Pulmonary Disease (COPD): No Hx Emphysema: No Hx Pneumonia: Yes Hx Respiratory Aspiration: No Hx Respiratory Tract Infection: No Hx Sleep Apnea: No Hx Tuberculosis: No - Neurological HX Cerebrovascular Accident: Yes (Multiple TIAs) - HEENT Hx HEENT Disorder: No Hx Blind: No Hx Cataracts: No Hx Deafness: No Hx Difficulty Chewing: No Hx Epistaxis: No Hx Glaucoma: No Hx Macular Degeneration: No - Renal Hx Renal Disorder: No Hx Dialysis: No Hx Kidney Stones: No Hx Neurogenic Bladder: No Hx Pyelonephritis: No Hx Renal Cancer: No Hx Renal Failure: No - Endocrine/Metabolic Hx Endocrine Disorders: No Hx Adrenal Cancer: No Hx Diabetes Insipidus: No Hx Diabetes Mellitus Type 1: No Hx Diabetes Mellitus Type 2: No Hx Hyperthyroidism: No Hx Hypothyroidism: No Hx Systemic Lupus Erythematosus: No - Hematological/Oncological Hx Blood Disorders: No Hx AIDS: No Hx Anemia: No Hx Cancer: No Hx Chemotherapy: No Hx Cirrhosis: No Hx Hemophilia: No Hx Hepatitis A: No Hx Hepatitis B: No Hx Hepatitis C: No Hx Metastasis: No Hx Shingles: No Hx Sickle Cell Disease: No Hx Unexplained Bleeding: No - Integumentary Hx Dermatological Disorder: No Hx Basal Cell Carcinoma: No Hx Eczema: No Hx Melanoma: No Hx Psoriasis: No Hx Squamous Cell Carcinoma: No - Musculoskeletal/Rheumatological Hx Musculoskeletal Disorders: Yes Hx Arthritis: No Hx Back Pain: No Hx Degenerative Joint Disease: No Hx Falls: Yes Hx Fractures: Yes (Right hip/hand and facial fracture due to fall) Hx Gout: No Hx Herniated Disk: No Hx Myasthenia Gravis: No Hx Osteoarthritis: No Hx Osteomyelitis: No Hx Osteoporosis: No Hx Rhabdomyolysis: No Hx Spinal Stenosis: No Hx Unsteady Gait: Yes - Gastrointestinal Hx Gastrointestinal Disorders: No Hx Colostomy: No Hx Crohn's Disease: No Hx Diverticulitis: No Hx Gall Bladder Disease: No Hx Gastroesophageal Reflux: No Hx Ileostomy: No Hx Liver Failure: No Hx Pancreatitis: No HX Swallowing Problems: No - Genitourinary/Gynecological Hx Genitourinary Disorders: No Hx Hematuria: No Hx Incontinence: No Hx Prostate Problems: No Hx Sexually Transmitted Diseases: No Hx Urinary Tract Infection: No - Psychiatric Hx Psychophysiologic Disorder: Yes Hx Anxiety: Yes Hx Bipolar Disorder: No Hx Depression: Yes Hx Emotional Abuse: No Hx Hallucinations: No Hx Panic Disorder: No Hx Post Traumatic Stress Disorder: No Hx Psychosis: No Hx Physical Abuse: No Hx Schizophrenia: No Hx Sexual Abuse: No Hx Substance Use: No - Past Surgical History Past Surgical History: Unable to Obtain - Surgical History Hx Amputation: No Hx Appendectomy: No Hx Cardiac Catheterization: No Hx Cholecystectomy: No Hx Coronary Stent: No Hx Gastric Bypass Surgery: No Hx Hysterectomy: No Hx Joint Replacement: No Hx Kidney Transplant: No Hx Liver Transplant: No Hx Mastectomy: No Hx Musculoskeletal Surgery: No Hx Open Heart Surgery: No Hx Orthopedic Surgery: No Hx Splenectomy: No Hx Valve Replacement: No - Anesthesia Hx Anesthesia: Yes Hx Anesthesia Reactions: No Hx Malignant Hyperthermia: No - Suicidal Assessment Feels Threatened In Home Enviroment: No Family/Social History - Physician Review Nursing Documentation Reviewed: Yes Family/Social History: No Known Family HX Smoking Status: Never Smoked Hx Alcohol Use: Yes (DRINKS DAILY PINT OF VODKA.LAST DRANK YESTERDAY PINT OF VODKA) Hx Substance Use: No Hx Substance Use Treatment: No Allergies/Home Meds Allergies/Adverse Reactions: Allergies coconut Allergy (Verified 12/25/17 12:14) RASH coconut oil Allergy (Verified 12/25/17 12:14) RASH cranberry Allergy (Verified 12/25/17 12:14) SWELLING Home Medications: Home Meds Medication Instructions Recorded Confirmed Aspirin [Ecotrin] 81 mg PO DAILY 12/25/17 12/25/17 Atorvastatin [Lipitor] 10 mg PO DIN 12/25/17 12/25/17 Folic Acid 1 mg PO DAILY 12/25/17 12/25/17 Lisinopril [Zestril] 40 mg PO DAILY 12/25/17 01/07/18 Multivitamin [Multivitamins] 1 each PO DAILY 12/25/17 12/25/17 amLODIPine [Norvasc] 5 mg PO DAILY 12/25/17 01/07/18 Review of Systems - Physician Review All systems were reviewed & negative as marked: Yes - Review of Systems Constitutional: absent: Fevers, Night Sweats Respiratory: absent: SOB, Cough Cardiovascular: absent: Chest Pain Gastrointestinal: absent: Abdominal Pain, Diarrhea, Nausea, Vomiting Musculoskeletal: absent: Back Pain, Neck Pain Neurological: absent: Headache, Dizziness Endocrine: absent: Diaphoresis Psychiatric: absent: Suicidal Ideation Physical Exam Mental Status: Positive for: Alert and Oriented X 3 - Systems Exam Head: Present: Atraumatic, Normocephalic Pupils: Present: PERRL Extroacular Muscles: Present: EOMI Conjunctiva: Present: Normal Mouth: Present: Moist Mucous Membranes Neck: Present: Normal Range of Motion Respiratory/Chest: Present: Clear to Auscultation, Good Air Exchange. No: Respiratory Distress, Accessory Muscle Use Cardiovascular: Present: Regular Rate and Rhythm, Normal S1, S2. No: Murmurs Abdomen: No: Tenderness, Distention, Peritoneal Signs Back: Present: Normal Inspection Upper Extremity: Present: Normal Inspection. No: Cyanosis, Edema Lower Extremity: Present: Normal Inspection. No: Edema Neurological: Present: GCS=15, CN II-XII Intact, Speech Normal Skin: Present: Warm, Dry, Normal Color. No: Rashes Psychiatric: Present: Alert, Oriented x 3, Intoxicated. No: Suicidal Ideation Medical Decision Making ED Course and Treatment: 05/05/18 21:40 Impression: 52 year old male presents by EMS for public intoxication. Plan: -- Sobriety -- Reassess and disposition Prior Visits: Notes and results from previous visits were reviewed. Progress Notes: 05/06/18 06:30 Patient awake alert sober with steady gait in ED - Scribe Statement The provider has reviewed the documentation as recorded by the Scribteagan Mensah Provider Scribe Attestation: All medical record entries made by the Scribe were at my direction and personally dictated by me. I have reviewed the chart and agree that the record accurately reflects my personal performance of the history, physical exam, medical decision making, and the department course for this patient. I have also personally directed, reviewed, and agree with the discharge instructions and disposition. Disposition/Present on Arrival - Present on Arrival Any Indicators Present on Arrival: No History of DVT/PE: No History of Uncontrolled Diabetes: No Urinary Catheter: No History of Decub. Ulcer: No History Surgical Site Infection Following: None - Disposition Have Diagnosis and Disposition been Completed?: Yes Diagnosis: Alcohol intoxication Disposition: HOME/ ROUTINE Disposition Time: 06:30 Patient Plan: Discharge Condition: STABLE Discharge Instructions (ExitCare): Alcohol Abuse and Alcoholism (DC) Referrals: Marylu Carrasco DO [Primary Care Provider] - Follow up with primary Alcoholics Anonymous [Outside] - Follow up with primary Forms: [employer] (Albanian)
[2018-05-05 22:44] VITALS: TEMP 98.7
[2018-05-06 06:47] VITALS: BP 117/84; PULSE 89; RESP 17; O2SAT 100
== END 2018-05-06 06:45 | disposition home or self-care (01) ==
LOC: ED 21:08
DX: F10.129 Alcohol abuse with intoxication, unspecified (principal); I10 Essential (primary) hypertension; Z86.73 Personal history of transient ischemic attack (TIA), and cerebral infarction without residual deficits

== ENCOUNTER 2018-05-07 23:00 | Emergency (ER) | payer MEDICAID | END 2018-05-08 05:10 | disposition home or self-care (01) | LOC: ED 05-08 05:10 ==

== ENCOUNTER 2018-05-14 12:19 | Emergency (ER) | payer MEDICAID ==
[2018-05-14 12:29] VITALS: BP 99/60; PULSE 89; RESP 18; TEMP 97.9; O2SAT 96
[2018-05-14 12:30] VITALS: BMI 23.5
--- NOTE | 2018-05-14 13:00 | ED PDOC ---
Arrival/HPI - General Chief Complaint: Alcohol Ingestion Time Seen by Provider: 05/14/18 12:21 Historian: Patient - History of Present Illness Narrative History of Present Illness (Text): 05/14/18 12:57 52 year old male, whose past medical history includes alcohol abuse and hypertension, who presents to the Emergency department brought in for public intoxication earlier today. Patient was outside inebriated, patient admits to drinking alcohol this morning. Patient denies any fever, chills, chest pain, shortness of breath, nausea, vomiting, diarrhea, urinary symptoms, back pain, neck pain, headache, dizziness, or any other complaints. Time/Duration: Prior to Arrival Symptom Onset: Sudden Symptom Course: Unchanged Activities at Onset: Light Context: Street Past Medical History - Provider Review Nursing Documentation Reviewed: Yes - Infectious Disease Hx of Infectious Diseases: None - Tetanus Immunization Tetanus Immunization: Unknown - Past Medical History Past Medical History: Unable to Obtain - Cardiac Hx Cardiac Disorders: Yes Hx Hypertension: Yes - Pulmonary Hx Respiratory Disorders: Yes Hx Pneumonia: Yes - Neurological Hx Neurological Disorder: Yes HX Cerebrovascular Accident: Yes (Multiple TIAs) - HEENT Hx HEENT Disorder: No - Renal Hx Renal Disorder: No - Endocrine/Metabolic Hx Endocrine Disorders: No - Hematological/Oncological Hx Blood Disorders: No - Integumentary Hx Dermatological Disorder: No - Musculoskeletal/Rheumatological Hx Musculoskeletal Disorders: Yes Hx Falls: Yes Hx Fractures: Yes (Right hip/hand and facial fracture due to fall) Hx Unsteady Gait: Yes - Gastrointestinal Hx Gastrointestinal Disorders: No - Genitourinary/Gynecological Hx Genitourinary Disorders: No - Psychiatric Hx Psychophysiologic Disorder: Yes Hx Anxiety: Yes Hx Depression: Yes Hx Substance Use: No - Past Surgical History Past Surgical History: Unable to Obtain - Surgical History Hx Tubal Ligation: No Hx Valve Replacement: No - Anesthesia Hx Anesthesia: Yes Hx Anesthesia Reactions: No Hx Malignant Hyperthermia: No - Suicidal Assessment Feels Threatened In Home Enviroment: No Family/Social History - Physician Review Nursing Documentation Reviewed: Yes Family/Social History: Unknown Family HX Smoking Status: Never Smoked Hx Alcohol Use: Yes (DRINKS DAILY PINT OF VODKA.LAST DRANK YESTERDAY PINT OF VODKA) Hx Substance Use: No Hx Substance Use Treatment: No Allergies/Home Meds Allergies/Adverse Reactions: Allergies coconut Allergy (Verified 05/14/18 12:29) RASH coconut oil Allergy (Verified 05/14/18 12:29) RASH cranberry Allergy (Verified 05/14/18 12:29) SWELLING Review of Systems - Physician Review All systems were reviewed & negative as marked: Yes - Review of Systems Systems not reviewed;Unavailable: Intoxicated Constitutional: Normal Eyes: Normal ENT: Normal Respiratory: Normal Cardiovascular: Normal Gastrointestinal: Normal Genitourinary Male: Normal Musculoskeletal: Normal Skin: Normal Neurological: Normal Endocrine: Normal Hemo/Lymphatic: Normal Psychiatric: Normal. absent: Suicidal Ideation Physical Exam Vital Signs Reviewed: Yes Vital Signs Temp Pulse Resp BP Pulse Ox 05/14/18 12:28 97.9 F 89 18 99/60 L 96 Temperature: Afebrile Blood Pressure: Hypertensive Pulse: Regular Respiratory Rate: Normal Appearance: Positive for: Well-Appearing, Non-Toxic, Comfortable Pain Distress: Mild Mental Status: No: Alert and Oriented X 3 (A0x2) - Systems Exam Psychiatric: Present: Alert, Intoxicated. No: Oriented x 3 (0x2), Suicidal Ideation, Homicidal Ideation Medical Decision Making ED Course and Treatment: 05/14/18 13:00 Impression: 52 year old male includes alcohol abuse and hypertension, who presents to the Emergency department brought in for public intoxication earlier today Plan: -- Reassess and disposition Prior Visits: Notes and results from previous visits were reviewed. Progress Notes: 05/14/18 15:45 Patient is alert and orientated with a steady gait. Patient has a dermatitis rash to b/l arms, b/l legs and back. Already on treatment for the rash. suspect ?scabies. 05/14/18 16:30 - Scribe Statement The provider has reviewed the documentation as recorded by the Dara Antonio All medical record entries made by the Teeibteagan were at my direction and personally dictated by me. I have reviewed the chart and agree that the record accurately reflects my personal performance of the history, physical exam, medical decision making, and the department course for this patient. I have also personally directed, reviewed, and agree with the discharge instructions and disposition. Disposition/Present on Arrival - Present on Arrival Any Indicators Present on Arrival: No History of DVT/PE: No History of Uncontrolled Diabetes: No Urinary Catheter: No History of Decub. Ulcer: No History Surgical Site Infection Following: None - Disposition Have Diagnosis and Disposition been Completed?: Yes Diagnosis: Alcohol abuse Disposition: HOME/ ROUTINE Disposition Time: 12:00 Patient Problems: Current Active Problems Problem Status Onset Alcohol abuse Acute Condition: STABLE Discharge Instructions (ExitCare): Alcohol Use - When Is Drinking a Problem?, Skin Rash, Scabies (DC) Additional Instructions: please follow up with your doctor. Prescriptions: Permethrin 5% [Permethrin 5% Cream] 1 applic TOP ONCE #1 tube Forms: [employer] (Upper Sorbian)
--- NOTE | 2018-05-14 22:19 | CARD ---
APPROVED REPORT Date of service: 05/14/2018 EKG Measurement Heart [id number] <Conclusion> Normal sinus rhythm Nonspecific T wave abnormality Abnormal ECG
== END 2018-05-14 16:35 | disposition home or self-care (01) ==
LOC: ED 12:19
DX: F10.10 Alcohol abuse, uncomplicated (principal); I10 Essential (primary) hypertension

== ENCOUNTER 2018-05-17 02:04 | Emergency (ER) | payer MEDICAID ==
[2018-05-17 02:13] VITALS: BMI 27.3
--- NOTE | 2018-05-17 02:28 | ED PDOC ---
Arrival/HPI - General Chief Complaint: Alcohol Ingestion Time Seen by Provider: 05/17/18 02:08 Historian: Patient, EMS - History of Present Illness Narrative History of Present Illness (Text): 05/17/18 02:25 A 52 year old male presenting to the emergency room vis EMS for alcohol intoxication. Time/Duration: 4-6 hours Symptom Onset: Gradual Symptom Course: Unchanged Activities at Onset: Light Past Medical History - Infectious Disease Hx of Infectious Diseases: None - Tetanus Immunization Tetanus Immunization: Unknown - Past Medical History Past Medical History: Unable to Obtain - Cardiac Hx Cardiac Disorders: Yes Hx Hypertension: Yes - Pulmonary Hx Respiratory Disorders: Yes Hx Pneumonia: Yes - Neurological Hx Neurological Disorder: Yes HX Cerebrovascular Accident: Yes (Multiple TIAs) - HEENT Hx HEENT Disorder: No - Renal Hx Renal Disorder: No - Endocrine/Metabolic Hx Endocrine Disorders: No - Hematological/Oncological Hx Blood Disorders: No - Integumentary Hx Dermatological Disorder: No - Musculoskeletal/Rheumatological Hx Musculoskeletal Disorders: Yes Hx Falls: Yes Hx Fractures: Yes (Right hip/hand and facial fracture due to fall) Hx Unsteady Gait: Yes - Gastrointestinal Hx Gastrointestinal Disorders: No - Genitourinary/Gynecological Hx Genitourinary Disorders: No - Psychiatric Hx Psychophysiologic Disorder: Yes Hx Anxiety: Yes Hx Depression: Yes Hx Substance Use: No - Past Surgical History Past Surgical History: Unable to Obtain - Surgical History Hx Tubal Ligation: No Hx Valve Replacement: No - Anesthesia Hx Anesthesia: Yes Hx Anesthesia Reactions: No Hx Malignant Hyperthermia: No - Suicidal Assessment Feels Threatened In Home Enviroment: No Family/Social History Smoking Status: Never Smoked Hx Alcohol Use: Yes (DRINKS DAILY PINT OF VODKA.LAST DRANK YESTERDAY PINT OF VODKA) Hx Substance Use: No Hx Substance Use Treatment: No Allergies/Home Meds Allergies/Adverse Reactions: Allergies coconut Allergy (Verified 05/14/18 12:29) RASH coconut oil Allergy (Verified 05/14/18 12:29) RASH cranberry Allergy (Verified 05/14/18 12:29) SWELLING Home Medications: Home Meds Medication Instructions Recorded Confirmed Unobtainable 05/17/18 05/17/18 Review of Systems - Review of Systems Systems not reviewed;Unavailable: Intoxicated Physical Exam - Physical Exam Narrative Physical Exam (Text): 05/17/18 02:29 Gen: VS reviewed, alert, well developed, well nourished, nontoxic, mild distress. ENT: normal pharynx. Eye: EOMI, PERRL. Neck: no JVD, supple, no adenopathy. CV: regular rate, regular rhythm, no rubs, no murmur, no gallops, S1, S2, pulses equal and strong. Pulm: no distress, clear to auscultation, no wheeze, no rhonchi, breath sounds equal, no rales. Abd: soft, nontender, no guarding, no rebound, no rigidity, normal bowel sounds. Ext: no edema. Skin: good color, no rash, no cyanosis. Psych: responds appropriately to questions, normal affect. Neuro: oriented x 3, CN2-12 intact grossly, motor intact, sensation intact. Vital Signs Reviewed: Yes Vital Signs Temp Pulse Resp BP Pulse Ox 05/17/18 02:22 98.2 F 69 18 98/60 L 96 Temperature: Afebrile Blood Pressure: Hypertensive Pulse: Regular Respiratory Rate: Normal Medical Decision Making ED Course and Treatment: 05/17/18 02:29 Impression: 52 year old male presenting to the emergency room for alcohol intoxication. will observe to sobriety. Plan: -- Reassess and disposition Prior Visits: Notes and results from previous visits were reviewed. Progress Notes: 05/17/18 07:[address] thakkar to observe to sobriety and final disposition. - Scribe Statement The provider has reviewed the documentation as recorded by the Dara Woodward All medical record entries made by the Scribe were at my direction and personally dictated by me. I have reviewed the chart and agree that the record accurately reflects my personal performance of the history, physical exam, medical decision making, and the department course for this patient. I have also personally directed, reviewed, and agree with the discharge instructions and disposition. Disposition/Present on Arrival - Present on Arrival Any Indicators Present on Arrival: No History of DVT/PE: No History of Uncontrolled Diabetes: No Urinary Catheter: No History of Decub. Ulcer: No History Surgical Site Infection Following: None - Disposition Have Diagnosis and Disposition been Completed?: Yes Diagnosis: Alcohol intoxication Disposition: HOME/ ROUTINE Patient Problems: Current Active Problems Problem Status Onset Alcohol intoxication Acute Condition: STABLE Discharge Instructions (ExitCare): Alcohol Abuse and Alcoholism (DC) Additional Instructions: seek help for your alcohol addiction. Referrals: Sanjuana Juan MD [Primary Care Provider] - Follow up with primary Forms: [employer] (Qatari)
[2018-05-17 08:10] VITALS: BP 125/73; PULSE 85; RESP 17; TEMP 97; O2SAT 98
== END 2018-05-17 08:26 | disposition home or self-care (01) ==
LOC: ED 02:04
DX: F10.129 Alcohol abuse with intoxication, unspecified (principal); I10 Essential (primary) hypertension; Z86.73 Personal history of transient ischemic attack (TIA), and cerebral infarction without residual deficits

== ENCOUNTER 2018-05-17 20:43 | Emergency (ER) | payer MEDICAID ==
[2018-05-17 20:45] VITALS: BMI 24.3
[2018-05-17 21:03] VITALS: RESP 18; TEMP 98.1
--- NOTE | 2018-05-17 23:43 | ED PDOC ---
Arrival/HPI - General Historian: Patient - History of Present Illness Narrative History of Present Illness (Text): 05/17/18 23:40 52-year-old male presents today brought in by ambulance for alcohol intoxication. Per EMS patient was found sleeping on a bench. Patient is alert and admits to drinking alcohol today. He denies any chest pain or shortness of breath. No abdominal pain. He denies any recent trauma or injury. <Demi Brown - Last Filed: 05/18/18 01:27> <Aftab Walters - Last Filed: 05/18/18 06:12> - General Chief Complaint: Alcohol Ingestion Time Seen by Provider: 05/17/18 20:55 Past Medical History - Provider Review Nursing Documentation Reviewed: Yes - Infectious Disease Hx of Infectious Diseases: None - Tetanus Immunization Tetanus Immunization: Unknown - Past Medical History Past Medical History: Unable to Obtain - Cardiac Hx Cardiac Disorders: Yes Hx Hypertension: Yes - Pulmonary Hx Respiratory Disorders: Yes Hx Pneumonia: Yes - Neurological Hx Neurological Disorder: Yes HX Cerebrovascular Accident: Yes (Multiple TIAs) - HEENT Hx HEENT Disorder: No - Renal Hx Renal Disorder: No - Endocrine/Metabolic Hx Endocrine Disorders: No - Hematological/Oncological Hx Blood Disorders: No - Integumentary Hx Dermatological Disorder: No - Musculoskeletal/Rheumatological Hx Musculoskeletal Disorders: Yes Hx Falls: Yes Hx Fractures: Yes (Right hip/hand and facial fracture due to fall) Hx Unsteady Gait: Yes - Gastrointestinal Hx Gastrointestinal Disorders: No - Genitourinary/Gynecological Hx Genitourinary Disorders: No - Psychiatric Hx Psychophysiologic Disorder: Yes Hx Anxiety: Yes Hx Depression: Yes Hx Substance Use: No - Past Surgical History Past Surgical History: Unable to Obtain - Surgical History Hx Tubal Ligation: No Hx Valve Replacement: No - Anesthesia Hx Anesthesia: Yes Hx Anesthesia Reactions: No Hx Malignant Hyperthermia: No - Suicidal Assessment Feels Threatened In Home Enviroment: No <Demi Brown - Last Filed: 05/18/18 01:27> Family/Social History - Physician Review Nursing Documentation Reviewed: Yes Family/Social History: Unknown Family HX Smoking Status: Never Smoked Hx Alcohol Use: Yes (DRINKS DAILY PINT OF VODKA.LAST DRANK YESTERDAY PINT OF VODKA) Hx Substance Use: No Hx Substance Use Treatment: No <Demi Brown - Last Filed: 05/18/18 01:27> Allergies/Home Meds <Demi Brown - Last Filed: 05/18/18 01:27> <Aftab Walters - Last Filed: 05/18/18 06:12> Allergies/Adverse Reactions: Allergies coconut Allergy (Verified 05/14/18 12:29) RASH coconut oil Allergy (Verified 05/14/18 12:29) RASH cranberry Allergy (Verified 05/14/18 12:29) SWELLING Home Medications: Home Meds Medication Instructions Recorded Confirmed Unobtainable 05/17/18 05/17/18 Review of Systems - Review of Systems Constitutional: absent: Fatigue, Fevers Respiratory: absent: SOB, Cough Cardiovascular: absent: Chest Pain, Palpitations Gastrointestinal: absent: Abdominal Pain, Nausea, Vomiting Musculoskeletal: absent: Arthralgias, Back Pain, Neck Pain Skin: absent: Rash, Pruritis Neurological: absent: Headache <Demi Brown - Last Filed: 05/18/18 01:27> Physical Exam Vital Signs Reviewed: Yes Vital Signs Temp Pulse Resp BP Pulse Ox 05/17/18 21:02 98.1 F 107 H 18 119/71 95 Temperature: Afebrile Blood Pressure: Normal Pulse: Tachycardic Respiratory Rate: Normal Appearance: Positive for: Well-Appearing, Non-Toxic, Comfortable Pain Distress: None Mental Status: Positive for: Alert and Oriented X 3 Finger Stick Blood Glucose: 138 - Systems Exam Head: Present: Atraumatic Mouth: Present: Moist Mucous Membranes Neck: Present: Normal Range of Motion Respiratory/Chest: Present: Clear to Auscultation Cardiovascular: Present: Tachycardic. No: Murmurs Abdomen: No: Tenderness, Distention, Rebound, Guarding Back: Present: Normal Inspection Upper Extremity: Present: Normal Inspection, Normal ROM, Other (no ecchymosis). No: Tenderness Lower Extremity: Present: Normal Inspection, Normal ROM Neurological: Present: Speech Normal, Other Skin: Present: Warm, Dry, Normal Color. No: Rashes Psychiatric: Present: Alert, Oriented x 3 <Demi Brown - Last Filed: 05/18/18 01:27> Vital Signs Temp Pulse Resp BP Pulse Ox 05/17/18 21:02 98.1 F 107 H 18 119/71 95 <Aftab Walters - Last Filed: 05/18/18 06:12> Medical Decision Making ED Course and Treatment: 05/17/18 23:43 52-year-old male with a history of alcohol abuse found sleeping on a park bench. He is alert and oriented in no distress resting comfortably Patient is slightly tachycardic on initial vital signs. Patient's fingerstick 138. No signs of trauma visualized. Patient denies any trauma or injury. Patient denies any pain. We will observe the patient in the emergency room for sobriety. 05/18/18 01:28 pt non toxic well appearing; resting comfortably. drinking water. alert and oriented. no distress. continues to deny any complaints. All aspects of this case were discussed the attending of record. Impression; alcohol intoxication 05/18/18 01:47 case signed out to dr. walters pending sobriety. <Demi Brown - Last Filed: 05/18/18 01:27> ED Course and Treatment: 05/18/18 02:09: Case endorsed to me by SIENA Brown pending sobriety, reassessment, and disposition. 05/18/18 06:11 Patient is awake alert sober with steady gait. <Aftab Walters - Last Filed: 05/18/18 06:12> - PA / DRAIN TECHNICIAN / Resident Statement SANTOS has reviewed & agrees with the documentation as recorded. ASNTOS has examined the patient and agrees with the treatment plan. <Aftab Walters - Last Filed: 05/18/18 06:12> Disposition/Present on Arrival - Present on Arrival Any Indicators Present on Arrival: No History of DVT/PE: No History of Uncontrolled Diabetes: No Urinary Catheter: No History of Decub. Ulcer: No History Surgical Site Infection Following: None - Disposition Have Diagnosis and Disposition been Completed?: Yes Disposition Time: 02:00 <Demi Brown - Last Filed: 05/18/18 01:27> - Present on Arrival Any Indicators Present on Arrival: No - Disposition Have Diagnosis and Disposition been Completed?: Yes Disposition Time: 06:10 Patient Plan: Discharge <Aftab Walters - Last Filed: 05/18/18 06:12> - Disposition Diagnosis: Alcohol intoxication Disposition: HOME/ ROUTINE Patient Problems: Current Active Problems Problem Status Onset Alcohol intoxication Acute Condition: STABLE Discharge Instructions (ExitCare): Alcohol Abuse and Alcoholism (DC) Referrals: Sanjuana Juan MD [Primary Care Provider] - Follow up with primary Alcoholics Anonymous [Outside] - Follow up with primary Forms: [email or web address] (Wolof)
[2018-05-18 06:30] VITALS: BP 132/75; PULSE 88; O2SAT 99
== END 2018-05-18 06:31 | disposition home or self-care (01) ==
LOC: ED 20:43
DX: F10.129 Alcohol abuse with intoxication, unspecified (principal); I10 Essential (primary) hypertension; Z86.73 Personal history of transient ischemic attack (TIA), and cerebral infarction without residual deficits

== ENCOUNTER 2018-05-18 18:30 | Emergency (ER) | payer MEDICAID ==
[2018-05-18 18:37] VITALS: BMI 23.6
--- NOTE | 2018-05-18 20:42 | ED PDOC ---
Arrival/HPI - General Historian: Patient - History of Present Illness Narrative History of Present Illness (Text): 05/18/18 20:49 52yr old male presents today brought in by ambulance for ETOH intoxication. pt admits to drinking EToh today. denies any complaints. <Demi Brown - Last Filed: 05/19/18 04:28> <Aftab Walters - Last Filed: 05/19/18 06:52> - General Chief Complaint: Alcohol Ingestion Time Seen by Provider: 05/18/18 18:43 Past Medical History - Provider Review Nursing Documentation Reviewed: Yes - Travel History Have you recently traveled outside [place] w/in the past 3 mons?: No - Infectious Disease Hx of Infectious Diseases: None - Tetanus Immunization Tetanus Immunization: Unknown - Past Medical History Past Medical History: Unable to Obtain - Cardiac Hx Cardiac Disorders: Yes Hx Hypertension: Yes - Pulmonary Hx Respiratory Disorders: Yes Hx Pneumonia: Yes - Neurological Hx Neurological Disorder: Yes HX Cerebrovascular Accident: Yes (Multiple TIAs) - HEENT Hx HEENT Disorder: No - Renal Hx Renal Disorder: No - Endocrine/Metabolic Hx Endocrine Disorders: No - Hematological/Oncological Hx Blood Disorders: No - Integumentary Hx Dermatological Disorder: No - Musculoskeletal/Rheumatological Hx Musculoskeletal Disorders: Yes Hx Falls: Yes Hx Fractures: Yes (Right hip/hand and facial fracture due to fall) Hx Unsteady Gait: Yes - Gastrointestinal Hx Gastrointestinal Disorders: No - Genitourinary/Gynecological Hx Genitourinary Disorders: No - Psychiatric Hx Psychophysiologic Disorder: Yes Hx Anxiety: Yes Hx Depression: Yes Hx Substance Use: No - Past Surgical History Past Surgical History: Unable to Obtain - Surgical History Hx Tubal Ligation: No Hx Valve Replacement: No - Anesthesia Hx Anesthesia: Yes Hx Anesthesia Reactions: No Hx Malignant Hyperthermia: No - Suicidal Assessment Feels Threatened In Home Enviroment: No <Demi Brown - Last Filed: 05/19/18 04:28> Family/Social History - Physician Review Nursing Documentation Reviewed: Yes Family/Social History: Unknown Family HX Smoking Status: Never Smoked Hx Alcohol Use: Yes (DRINKS DAILY PINT OF VODKA.LAST DRANK YESTERDAY PINT OF VODKA) Hx Substance Use: No Hx Substance Use Treatment: No <Demi Brown - Last Filed: 05/19/18 04:28> Allergies/Home Meds <Demi Brown - Last Filed: 05/19/18 04:28> <Aftab Walters - Last Filed: 05/19/18 06:52> Allergies/Adverse Reactions: Allergies coconut Allergy (Verified 05/14/18 12:29) RASH coconut oil Allergy (Verified 05/14/18 12:29) RASH cranberry Allergy (Verified 05/14/18 12:29) SWELLING Home Medications: Home Meds Medication Instructions Recorded Confirmed Unobtainable 05/17/18 05/17/18 Review of Systems - Review of Systems Systems not reviewed;Unavailable: Intoxicated Respiratory: absent: Cough Cardiovascular: absent: Chest Pain, Palpitations Gastrointestinal: absent: Abdominal Pain, Vomiting Musculoskeletal: absent: Arthralgias Skin: absent: Rash Neurological: absent: Headache, Dizziness <Demi Brown - Last Filed: 05/19/18 04:28> Physical Exam Vital Signs Reviewed: Yes Vital Signs Temp Pulse Resp BP Pulse Ox 05/18/18 18:30 97.9 F 90 18 106/70 96 Temperature: Afebrile Blood Pressure: Normal Pulse: Regular Respiratory Rate: Normal Appearance: Positive for: Well-Appearing, Non-Toxic, Comfortable Pain Distress: None Mental Status: Positive for: other (alert) Finger Stick Blood Glucose: 104 - Systems Exam Head: Present: Atraumatic Mouth: Present: Moist Mucous Membranes Respiratory/Chest: Present: Clear to Auscultation, Good Air Exchange. No: Respiratory Distress, Accessory Muscle Use Cardiovascular: Present: Regular Rate and Rhythm, Normal S1, S2. No: Murmurs Abdomen: No: Tenderness, Rebound, Guarding Back: Present: Normal Inspection Upper Extremity: Present: Normal Inspection, Normal ROM Lower Extremity: Present: Normal Inspection, Normal ROM Neurological: Present: GCS=15 Skin: Present: Warm, Dry, Normal Color. No: Rashes Psychiatric: Present: Alert <Demi Brown - Last Filed: 05/19/18 04:28> Vital Signs Temp Pulse Resp BP Pulse Ox 05/18/18 18:30 97.9 F 90 18 106/70 96 <Aftab Walters - Last Filed: 05/19/18 06:52> Medical Decision Making ED Course and Treatment: 05/18/18 20:50 52yr old male BIBA found on the ground. admits to drinking ETOH. alert but intoxicated. fingerstick; [address]: FINDINGS: BRAIN No acute intraparenchymal hemorrhage. No mass lesion. No CT evidence for acute territorial infarct. No midline shift or extra-axial collections. focal calcification is seen in the basal ganglia bilaterally; usually an idiopathic finding. Mild diffuse cerebral/cerebellar atrophy again noted. VENTRICLES: No hydrocephalus. ORBITS: The orbits are unremarkable. SINUSES AND MASTOIDS: The paranasal sinuses and mastoid air cells are clear. BONES: No fracture. SOFT TISSUES: Unremarkable. IMPRESSION: 1. No acute intracranial abnormality. 2. Mild diffuse cerebral/cerebellar atrophy. 3. No significant interval change. Electronically signed on May 18, 2018 10:06:51 PM EDT by: Bob Ramirez M.D., TR Certified By [facility] Fellowship Trained MRI and CT Specialist will observe patient in ER for sobriety. 05/19/18 03:50 pt reassessment; Pt alert, resting comfortably in er. no distress. 05/19/18 04:28 case signed out to dr walters pending sobriety. impression; ETOH intoxication - RAD Interpretation Radiology Orders: 05/18/18 20:26 HEAD W/O CONTRAST [CT] Stat <Demi Brown - Last Filed: 05/19/18 04:28> ED Course and Treatment: 05/19/18 07:00 Case endorsed to /pending sobriety/final disposition - RAD Interpretation Radiology Orders: 05/18/18 20:26 HEAD W/O CONTRAST [CT] Stat <Aftab Walters - Last Filed: 05/19/18 06:52> - PA / SLOT SERVICE SPECIALIST / Resident Statement SANTOS has reviewed & agrees with the documentation as recorded. SANTOS has examined the patient and agrees with the treatment plan. <Aftab Walters - Last Filed: 05/19/18 06:52> Disposition/Present on Arrival - Present on Arrival Any Indicators Present on Arrival: No History of DVT/PE: No History of Uncontrolled Diabetes: No Urinary Catheter: No History of Decub. Ulcer: No History Surgical Site Infection Following: None - Disposition Have Diagnosis and Disposition been Completed?: Yes <Demi Brown - Last Filed: 05/19/18 04:28> - Present on Arrival Any Indicators Present on Arrival: No - Disposition Have Diagnosis and Disposition been Completed?: No Disposition Time: 07:00 <Aftab Walters - Last Filed: 05/19/18 06:52> - Disposition Diagnosis: Alcohol intoxication Patient Problems: Current Active Problems Problem Status Onset Alcohol intoxication Acute Condition: STABLE Referrals: FAMILY PROVIDER,NO [Primary Care Provider] - Follow up with primary Forms: [employer] (Palestinian)
[2018-05-19 04:21] VITALS: TEMP 97.6
[2018-05-19 06:52] VITALS: BP 141/86; PULSE 83; RESP 17; O2SAT 98
--- NOTE | 2018-05-19 07:15 | ED PDOC ---
Physical Exam Vital Signs Temp Pulse Resp BP Pulse Ox 05/19/18 06:51 83 17 141/86 98 05/19/18 04:19 97.6 F 77 18 124/78 97 05/18/18 18:30 97.9 F 90 18 106/70 96 Finger Stick Blood Glucose: 90 Medical Decision Making ED Course and Treatment: 05/19/18 07:14 Case endorsed to me by Dr. Tovar for pending sobriety. Patient is currently resting in bed in no acute distress. Patient presents no new medical complaints. will dc. steady gait - RAD Interpretation Radiology Orders: 05/18/18 20:26 HEAD W/O CONTRAST [CT] Stat - Scribe Statement The provider has reviewed the documentation as recorded by the Scribe Brenda Joy. All medical record entries made by the Scribe were at my direction and personally dictated by me. I have reviewed the chart and agree that the record accurately reflects my personal performance of the history, physical exam, medical decision making, and the department course for this patient. I have also personally directed, reviewed, and agree with the discharge instructions and disposition. Disposition/Present on Arrival - Present on Arrival Any Indicators Present on Arrival: No History of DVT/PE: No History of Uncontrolled Diabetes: No Urinary Catheter: No History of Decub. Ulcer: No History Surgical Site Infection Following: None - Disposition Have Diagnosis and Disposition been Completed?: Yes Diagnosis: Alcohol intoxication Disposition: HOME/ ROUTINE Disposition Time: 07:00 Condition: STABLE Discharge Instructions (ExitCare): Alcohol Use - When Is Drinking a Problem? Additional Instructions: return to er with worsening Referrals: FAMILY PROVIDER,NO [Primary Care Provider] - Follow up with primary Forms: [employer] (Spanish)
--- NOTE | 2018-05-19 09:31 | CT ---
Date of service: 05/18/2018 PROCEDURE: CT HEAD WITHOUT CONTRAST. HISTORY: etoh/ found on ground COMPARISON: 12/25/2017 TECHNIQUE: Axial computed tomography images were obtained through the head/brain without intravenous contrast. Radiation dose: Total exam DLP = 1090.37 mGy-cm. This CT exam was performed using one or more of the following dose reduction techniques: Automated exposure control, adjustment of the mA and/or kV according to patient size, and/or use of iterative reconstruction technique. FINDINGS: HEMORRHAGE: No intracranial hemorrhage. BRAIN: No mass effect or edema. No atrophy or chronic microvascular ischemic changes. VENTRICLES: Unremarkable. No hydrocephalus. CALVARIUM: Unremarkable. PARANASAL SINUSES: Unremarkable as visualized. No significant inflammatory changes. MASTOID AIR CELLS: Unremarkable as visualized. No inflammatory changes. OTHER FINDINGS: The report concurs with the preliminary [facility] report IMPRESSION: No acute intracranial findings
== END 2018-05-19 07:41 | disposition home or self-care (01) ==
LOC: ED 18:30
DX: F10.129 Alcohol abuse with intoxication, unspecified (principal); I10 Essential (primary) hypertension; Z86.73 Personal history of transient ischemic attack (TIA), and cerebral infarction without residual deficits

== ENCOUNTER 2018-05-19 15:14 | Emergency (ER) | payer MEDICAID ==
[2018-05-19 15:14] VITALS: BMI 23.6
[2018-05-19 15:32] VITALS: TEMP 97.7
--- NOTE | 2018-05-19 18:38 | ED PDOC ---
Arrival/HPI - General Historian: EMS - History of Present Illness Narrative History of Present Illness (Text): 05/19/18 18:17 52 y/o M w/ h/o alcohol abuse presenting to the Emergency Room after being found on the ground outside by EMS on the street. Of note, patient was noted to be laid out on the street after being discharged from the Emergency Room for alcoholic intoxication. He denies any somatic complaints at this time. A more complete HPI was unable to be obtained due to the patient's clinical condition <Karthikeyan Waters - Last Filed: 05/19/18 18:48> <Richard Archibald - Last Filed: 05/20/18 06:18> - General Chief Complaint: Alcohol Ingestion Time Seen by Provider: 05/19/18 15:15 Past Medical History - Infectious Disease Hx of Infectious Diseases: None - Tetanus Immunization Tetanus Immunization: Unknown - Past Medical History Past Medical History: Unable to Obtain - Cardiac Hx Cardiac Disorders: Yes Hx Hypertension: Yes - Pulmonary Hx Respiratory Disorders: Yes Hx Pneumonia: Yes - Neurological Hx Neurological Disorder: Yes HX Cerebrovascular Accident: Yes (Multiple TIAs) - HEENT Hx HEENT Disorder: No - Renal Hx Renal Disorder: No - Endocrine/Metabolic Hx Endocrine Disorders: No - Hematological/Oncological Hx Blood Disorders: No - Integumentary Hx Dermatological Disorder: No - Musculoskeletal/Rheumatological Hx Musculoskeletal Disorders: Yes Hx Falls: Yes Hx Fractures: Yes (Right hip/hand and facial fracture due to fall) Hx Unsteady Gait: Yes - Gastrointestinal Hx Gastrointestinal Disorders: No - Genitourinary/Gynecological Hx Genitourinary Disorders: No - Psychiatric Hx Psychophysiologic Disorder: Yes Hx Anxiety: Yes Hx Depression: Yes Hx Substance Use: No - Past Surgical History Past Surgical History: Unable to Obtain - Surgical History Hx Tubal Ligation: No Hx Valve Replacement: No - Anesthesia Hx Anesthesia: Yes Hx Anesthesia Reactions: No Hx Malignant Hyperthermia: No - Suicidal Assessment Feels Threatened In Home Enviroment: No <Karthikeyan Waters - Last Filed: 05/19/18 18:48> Family/Social History Smoking Status: Never Smoked Hx Alcohol Use: Yes (DRINKS DAILY PINT OF VODKA.LAST DRANK YESTERDAY PINT OF VODKA) Hx Substance Use: No Hx Substance Use Treatment: No <Karthikeyan Waters - Last Filed: 05/19/18 18:48> Allergies/Home Meds <Karthikeyan Waters - Last Filed: 05/19/18 18:48> <Richard Archibald - Last Filed: 05/20/18 06:18> Allergies/Adverse Reactions: Allergies coconut Allergy (Verified 05/14/18 12:29) RASH coconut oil Allergy (Verified 05/14/18 12:29) RASH cranberry Allergy (Verified 05/14/18 12:29) SWELLING Home Medications: Home Meds Medication Instructions Recorded Confirmed Unobtainable 05/17/18 05/17/18 Physical Exam Vital Signs Temp Pulse Resp BP Pulse Ox 05/19/18 18:04 71 18 116/65 98 05/19/18 16:58 78 18 118/74 98 05/19/18 15:28 97.7 F 74 18 114/74 95 05/19/18 15:20 97.9 F 88 18 121/81 98 Finger Stick Blood Glucose: 185 <Karthikeyan Waters - Last Filed: 05/19/18 18:48> Vital Signs Temp Pulse Resp BP Pulse Ox 05/19/18 18:04 71 18 116/65 98 05/19/18 16:58 78 18 118/74 98 05/19/18 15:28 97.7 F 74 18 114/74 95 05/19/18 15:20 97.9 F 88 18 121/81 98 <Richard Archibald - Last Filed: 05/20/18 06:18> Medical Decision Making ED Course and Treatment: 05/20/18 06:17 patient is awake and alert with clear speech and steady gait, no s/s of alcohol withdrawal, stable for dc <Richard Archibald - Last Filed: 05/20/18 06:18> Disposition/Present on Arrival - Present on Arrival History of DVT/PE: No History of Uncontrolled Diabetes: No Urinary Catheter: No History of Decub. Ulcer: No History Surgical Site Infection Following: None <Karthikeyan Waters - Last Filed: 05/19/18 18:48> - Present on Arrival Any Indicators Present on Arrival: No - Disposition Have Diagnosis and Disposition been Completed?: Yes Disposition Time: 06:18 Patient Plan: Discharge <Richard Archibald - Last Filed: 05/20/18 06:18> - Disposition Diagnosis: Alcohol intoxication Disposition: HOME/ ROUTINE Condition: STABLE Discharge Instructions (ExitCare): Alcohol Abuse and Alcoholism (DC) Additional Instructions: seek help for your alcohol abuse Forms: [employer] Connect (Spanish)
[2018-05-20 06:38] VITALS: BP 118/78; PULSE 70; RESP 20; O2SAT 97
== END 2018-05-20 06:13 | disposition home or self-care (01) ==
LOC: ED 15:14
DX: F10.129 Alcohol abuse with intoxication, unspecified (principal); I10 Essential (primary) hypertension; Z86.73 Personal history of transient ischemic attack (TIA), and cerebral infarction without residual deficits